=== PATIENT | female | born 1965 | race Caucasian/White ===

== ENCOUNTER 2019-08-04 14:04 | Outpatient (CLI) | payer SELFPAY ==
--- NOTE | 2019-08-04 14:20 | CT_ITS ---
WS: [id number] CT CHEST TECHNIQUE: Noncontrast CT of the chest with coronal and sagittal reformatted images. CLINICAL INFORMATION: RLL PERIHILAR LUNG LESION, ? IRENE LESION COMPARISON: None. DLP: 1087.[address] scans at [facility] use at least one of these dose optimization techniques: automat ed exposure control; mA and/or kV adjustment per patient size (includes targeted exams where dose is matched to clinical indication); or iterative reconstruction. FINDINGS: Mild chronic emphysematous changes. No acute pulmonary infiltrates. Subsegmental atelectasis right lo wer lobe and left lower lobe. No acute-appearing pulmonary infiltrates. No consolidation or pleural f luid. Small groundglass nodule right lower lobe measuring 4 mm. Additional tiny adjacent satellite no dule. Recommend 6 month follow-up. No other suspicious pulmonary parenchymal abnormalities. Thoracic curve convex right. Mild thoracic kyphosis. Degenerative arthritis midthoracic spin No mediastinal or hilar lymphadenopathy. Normal endobronchial tree. Cholecystectomy clips. Cirrhotic configuration to the liver. Recommend correlation with liver functio n tests. Partially visualized enlarged lymph nodes in the upper abdomen. CT/CT chest wo con [id number] IMPRESSION: 1. No acute pulmonary infiltrates. No focal pneumonia. 2. 4 mm groundglass nodule right lower lobe with tiny satellite nodule. Recomm end 6 month follow-up. 3. Mild chronic emphysematous changes. 4. No mediastinal or hilar lymphadenopathy. 5. Nodular contour to the hepatic capsule suspicious for cirrhosis. Recommend correlation with liver function tests 6. Enlarged lymph nodes in the upper abdomen. This can be followed up with CT abdomen pelvis.
== END 2019-08-04 14:05 | disposition home or self-care (01) ==
LOC: RADWPI 14:10
PROVIDERS: Family Provider Nurse Practitioner; PCP General Practice; Visit Provider General Practice
DX: J43.9 Emphysema, unspecified (principal); R91.1 Solitary pulmonary nodule
CPT/HCPCS: 71250

== ENCOUNTER 2019-10-05 20:12 | Inpatient (IN) | payer SELFPAY ==
[2019-10-05] VITALS (9 sets, daily range): BP systolic 78–113; BP diastolic 54–67; PULSE 95–150; RESP 14–24; TEMP 38.2; O2SAT 94–100; BMI 33.7
--- NOTE | 2019-10-05 20:18 | XR_ITS ---
WS: [id number] Portable AP supine chest, 10/05/2019 Clinical Data: cough Comparison: PA and lateral chest, 03/13/2019. Findings: No nodules, masses or effusions are seen. The heart is normal. The pulmonary vascularity is not increased. No pneumonia or pneumothorax is seen. There is a dextroscoliosis. Monitor leads are o n the chest wall. XR/XR chest 1V portable [id number] Impression: Negative chest.
--- NOTE | 2019-10-05 20:18 | XR_ITS ---
WS: [id number] Right foot, 3 views, 10/05/2019 Clinical Data: Dog bite/infection Comparison: Right foot, 01/16/2013. Findings: No fractures or dislocations are seen. No bone destruction or erosion is noted. The joint spaces and soft tissues are normal. There is a small cyst at the base of the right fifth metatarsal. There is a small Achilles spur. No r adiopaque foreign bodies are noted. XR/XR foot RT min 3V* [id number] Impression: Negative right foot.
--- NOTE | 2019-10-05 20:20 | ECG_ITS ---
Measurements Intervals [place] Rate: 111 P: 68 [place]: 165 QRS: 69 QRSD: 100 T: 66 QT: 327 QTc: 444 SINUS TACHYCARDIA No previous ECG available for comparison Electronically Signed On 10-06-2019 19:51:42 CDT by Calista Moreno M.D. [email or web address]
--- NOTE | 2019-10-05 20:29 | W.ED.EXTPRO ---
HPI - Extremity Problem General: Chief complaint: Extremity Problem,Nontraumatic Stated complaint: sepsis possible Time Seen by Provider: 10/05/19 20:18 History of Present Illness: HPI Narrative: Jennifer is a 53-year-old female who comes in with report of fever and right foot pain. She was bitten by a puppy 8 days ago and since that time her foot is gotten progressively more painful, red and is showing signs of infection. Apparently she had a large fluid-filled blister that popped at home which drained a large amount of blood and purulent material. The patient has had a fever as high as 103.1 and is complaining of severe right foot pain. Previously she had not had much pain secondary to neuropathy. The animal can be observed and is believed to have had its shots. Associated symptoms: Reports fever(s); Deny chest pain or rash Review of Systems Const: Reports: fever(s) and chills; Denies: body aches, fatigue, malaise, night sweats or diaphoresis Eyes: Denies: change in vision, blurry vision or blind spots ENMT: Denies: throat pain, odynophagia, hoarseness, ear or mastoid pain, ear discharge, change in hearing or nasal discharge Card: Denies: chest pain, palpitations, irregular heart rhythm, lightheadedness, syncope, pre-syncope, dyspnea on exertion or orthopnea Resp: Denies: dyspnea, productive cough, non-productive cough, wheezing, hemoptysis or chest congestion GI: Denies: abdominal pain, nausea, vomiting, hematemesis, coffee ground emesis, heartburn, diarrhea, constipation, GI cramping, hematochezia or melena : Denies: flank pain, dysuria, urinary frequency, urinary urgency, oliguria, urinary incontinence or hematuria Musc: Reports: extremity pain and joint pain; Denies: neck pain, back pain, extremity swelling, joint swelling, joint redness, joint warmth or joint stiffness Skin/Breast: Reports: erythema; Denies: rash, pruritus, skin tenderness or jaundice Neuro: Denies: headache(s), numbness in extremities, weakness in extremities, sensory changes, lack of coordination, difficulty walking, dizziness, vertigo, confusion or Slurred speech present Endo: Denies: polyuria, polydipsia, tired all the time, cold intolerance, excessive sweating, flushing, hot flashes or heat intolerance Daniel/Lymph: Denies: easy bruising, easy bleeding, petechiae, purpura or enlarged lymph nodes All/Imm: Denies: urticaria, throat swelling, tongue swelling, facial swelling or acute wheezing PFSH ED PFSH: Medical History COPD (chronic obstructive pulmonary disease) Depression Diabetes mellitus Hyperlipidemia Hypertension Surgical History Previous section S/P cholecystectomy Social History Smoking and tobacco status: current every day smoker Physical Exam Const: COMMON NORMALS: no acute distress, patient oriented x3, no limitations, healthy appearing and well nourished EXAM LIMITATIONS: no altered mental status GENERAL APPEARANCE: cooperative, well kempt and well developed HENMT: COMMON NORMALS: normocephalic, atraumatic, hearing grossly normal bilaterally, external ears normal, EAC's normal, Normal external nose present and moist oral mucous membranes HEAD & SCALP: normal to inspection, normocephalic and atraumatic FACE & SINUS: normal facial exam and face symmetric NOSE: Normal external nose present and Normal nares present EXTERNAL EAR: Yes external ears normal EXTERNAL AUDITORY CANAL: EAC's normal MOUTH: Normal oral and palatal mucosa present, lip normal and tongue normal Eye: COMMON NORMALS: Equal, round and reactive pupils present, EOMs intact bilaterally, conjunctivae normal and no scleral icterus GENERAL EYE: appearance normal, both eyes and all related structures ALIGNMENT: Yes alignment normal PERIORBITAL: periorbital findings normal EYELID: eyelids normal CONJUNCTIVA: Yes conjunctivae normal SCLERA: sclerae normal PUPIL: Yes Equal, round and reactive pupils present Neck/C-Spine: COMMON NORMALS: full ROM, no lymphadenopathy, supple, no meningeal signs and no JVD GENERAL: Yes normal visual inspection and Yes trachea midline CERVICAL SPINE: Yes cervical ROM normal Chest: COMMONS NORMALS: normal inspection of the chest and normal palpation of entire chest wall Resp: COMMON NORMALS: normal respiratory effort, No retractions, No use of accessory muscles and clear to auscultation bilaterally EFFORT & INSPECTION: Yes able to speak in complete sentences AUSCULTATION: clear to auscultation bilaterally, no crackles, no rales, no rhonchi and no wheezes Cardio: COMMON NORMALS: no JVD, regular rate, regular rhythm, S1 normal heart sound present, S2 normal heart sound present, No gallops present (Cardio), No clicks present (Cardio), No murmurs present (Cardio) and No rub (Cardio) RATE: regular rate RHYTHM: regular rhythm HEART SOUNDS: S1 normal heart sound present, S2 normal heart sound present, no click, no gallops, no murmurs and no rubs GI: COMMON NORMALS: Soft to palpation, non-tender, No hepatosplenomegaly present and no masses PALPATION: Yes Soft to palpation, No Tenderness to palpation present (GI), No Guarding due to palpation present (GI), No Rigid due to palpation, Yes No hepatosplenomegaly present, No Hernia present, No Palpable mass present and No Pulsatile mass present : COMMON NORMALS: Yes no CVA tenderness BLADDER/KIDNEY EXAM: Yes no CVA tenderness EXTERNAL FEMALE EXAM: No Hernia present Back/Pelvis: COMMON NORMALS: no CVA tenderness, thoracic and lumbar spine normal to inspection, no thoracic nor lumbar tenderness and thoraco-lumbar ROM normal Extremity: NARRATIVE EXTREMITY EXAM: Right foot with obvious severe cellulitis with skin sloughing. No crepitance. Neuro: COMMON NORMALS: patient oriented x3, CN's II-XII intact bilaterally, moves all extremities, no focal motor deficits and no sensory deficits noted MENINGEAL SIGNS: Yes no meningeal signs SPEECH: speech normal Psych: APPEARANCE: Yes well kempt Skin: COMMON NORMALS: no rashes or lesions noted, turgor normal, no jaundice, no petechiae and no mottling GENERAL SKIN EXAM: no rashes or lesions noted and turgor normal Course Vital Signs: Vital signs: Vital Signs Temperature 98.4 F 10/06/19 00:00 Pulse Rate 111 H 10/06/19 02:00 Respiratory Rate 19 H 10/06/19 02:00 Blood Pressure 107/72 10/06/19 02:00 Pulse Oximetry 95 10/06/19 01:00 MDM - Extremity (Nontraumatic) MDM Narrative: Medical decision making narrative: Ms. Whitman is a nice 53-year-old female who comes in with sepsis from a dog bite to her foot. According to her the animal has had it shots and can be quarantined if necessary. The patient has an obvious infection that apparently had a bullae or pus pocket that spontaneously drained at home. The patient has been hypotensive here. She will be going to the ICU with Levophed running and a podiatry consult in the morning. Lab Data: Attestation: I reviewed the patient's lab results. Labs: Lab Results 10/05/19 10/05/19 10/05/19 Range/Units 20:35 20:35 20:35 WBC 6.7 (4.0-10.0) 10^3/ uL RBC 3.50 L (4.1-5.3) 10^6/u L Hgb 10.5 L (11.5-15.3) g/dL Hct 32.2 L (37.0-47.0) % MCV 92.0 (81-99) fL MCH 30.0 (28.0-34.0) pg MCHC 32.6 (30.0-36.0) g/dL RDW 13.8 (12.1-15.1) % Plt Count 167 (130-400) 10^3/c mm MPV 10.3 (7.4-10.4) fL Neut % (Auto) 78.7 % Lymph % (Auto) 9.1 % Winn % (Auto) 10.8 % Eos % (Auto) 0.3 % Baso % (Auto) 0.1 % Neut # (Auto) 5.3 (1.8-7.7) 10^3/u L Lymph # (Auto) 0.6 L (0.8-4.8) 10^3/u L Winn # (Auto) 0.7 (0.2-0.9) 10^3/u L Eos # (Auto) 0.0 (0.0-0.8) 10^3/u L Baso # (Auto) 0.0 (0.0-0.1) 10^3/u L Nucleated RBC % (a uto) 0 % Nucleated RBCs # 0.0 /100WBC PT 15.60 H (10.5-13.3) SECO NDS INR 1.20 (0.8-1.2) Specimen Type Sample Site ABG pH (7.35-7.45) ABG pCO2 (35-45) mmHg ABG pO2 (80.0-100.0) mmH g ABG HCO3 (22-26) mmol/L ABG O2 Saturation ABG Base Excess (-2.0-2.0) mmol/ L Kurt Test A-a O2 Gradient (5-10) mmHg Hematocrit (37-47) % Hgb O2 Saturation (95-100) % Carboxyhemoglobin (0.4-20.1) %THgb Methemoglobin (0.4-1.5) % Total Hemoglobin (12-16) g/dL Ionized Calcium (1.1-1.4) mmol/L O2 Delivery Device O2 Liters/Min % [facility] [employer] ID Sodium 128 L (136-145) mmol/L Potassium 4.4 (3.5-5.1) mmol/L Chloride 92 L (98-107) mmol/L Carbon Dioxide 25 (22-29) mmol/L Anion Gap 15.4 (5-19) BUN 24 H (6-20) mg/dL Creatinine 1.2 H (0.5-0.9) mg/dL GFR Calculation 47.2 L (90-130) mL/min Glucose 433 H (65-115) mg/dL Calculated Osmolal ity 281 L (285-295) mOsm/k g Lactic Acid (0.5-2.2) mmol/L Calcium 9.6 (8.5-10.5) mg/dL Magnesium 1.7 (1.7-2.3) mg/dL Total Bilirubin 0.5 (0.15-1.2) mg/dL AST 27 (0-32) U/L ALT 23 (0-33) U/L Alkaline Phosphata se 142 H (35-105) IU/L Troponin T Baselin e (0-10) ng/mL Total Protein 7.2 (6.6-8.7) g/dL Albumin 2.6 L (3.5-5.2) g/dL Globulin 4.6 (1.3-4.6) g/dL Serum Ketones (Negative) 10/05/19 10/05/19 10/05/19 Range/Units 20:35 20:35 20:35 WBC (4.0-10.0) 10^3/ uL RBC (4.1-5.3) 10^6/u L Hgb (11.5-15.3) g/dL Hct (37.0-47.0) % MCV (81-99) fL MCH (28.0-34.0) pg MCHC (30.0-36.0) g/dL RDW (12.1-15.1) % Plt Count (130-400) 10^3/c mm MPV (7.4-10.4) fL Neut % (Auto) % Lymph % (Auto) % Winn % (Auto) % Eos % (Auto) % Baso % (Auto) % Neut # (Auto) (1.8-7.7) 10^3/u L Lymph # (Auto) (0.8-4.8) 10^3/u L Winn # (Auto) (0.2-0.9) 10^3/u L Eos # (Auto) (0.0-0.8) 10^3/u L Baso # (Auto) (0.0-0.1) 10^3/u L Nucleated RBC % (a uto) % Nucleated RBCs # /100WBC PT (10.5-13.3) SECO NDS INR (0.8-1.2) Specimen Type Sample Site ABG pH (7.35-7.45) ABG pCO2 (35-45) mmHg ABG pO2 (80.0-100.0) mmH g ABG HCO3 (22-26) mmol/L ABG O2 Saturation ABG Base Excess (-2.0-2.0) mmol/ L Kurt Test A-a O2 Gradient (5-10) mmHg Hematocrit (37-47) % Hgb O2 Saturation (95-100) % Carboxyhemoglobin (0.4-20.1) %THgb Methemoglobin (0.4-1.5) % Total Hemoglobin (12-16) g/dL Ionized Calcium (1.1-1.4) mmol/L O2 Delivery Device O2 Liters/Min % [facility] ID Sodium (136-145) mmol/L Potassium (3.5-5.1) mmol/L Chloride (98-107) mmol/L Carbon Dioxide (22-29) mmol/L Anion Gap (5-19) BUN (6-20) mg/dL Creatinine (0.5-0.9) mg/dL GFR Calculation (90-130) mL/min Glucose (65-115) mg/dL Calculated Osmolal ity (285-295) mOsm/k g Lactic Acid 2.1 (0.5-2.2) mmol/L Calcium (8.5-10.5) mg/dL Magnesium (1.7-2.3) mg/dL Total Bilirubin (0.15-1.2) mg/dL AST (0-32) U/L ALT (0-33) U/L Alkaline Phosphata se (35-105) IU/L Troponin T Baselin e 10 (0-10) ng/mL Total Protein (6.6-8.7) g/dL Albumin (3.5-5.2) g/dL Globulin (1.3-4.6) g/dL Serum Ketones Negative (Negative) 10/05/19 Range/Units 20:56 WBC (4.0-10.0) 10^3/ uL RBC (4.1-5.3) 10^6/u L Hgb (11.5-15.3) g/dL Hct (37.0-47.0) % MCV (81-99) fL MCH (28.0-34.0) pg MCHC (30.0-36.0) g/dL RDW (12.1-15.1) % Plt Count (130-400) 10^3/c mm MPV (7.4-10.4) fL Neut % (Auto) % Lymph % (Auto) % Winn % (Auto) % Eos % (Auto) % Baso % (Auto) % Neut # (Auto) (1.8-7.7) 10^3/u L Lymph # (Auto) (0.8-4.8) 10^3/u L Winn # (Auto) (0.2-0.9) 10^3/u L Eos # (Auto) (0.0-0.8) 10^3/u L Baso # (Auto) (0.0-0.1) 10^3/u L Nucleated RBC % (a uto) % Nucleated RBCs # /100WBC PT (10.5-13.3) SECO NDS INR (0.8-1.2) Specimen Type Arterial Sample Site Radial, right ABG pH 7.43 (7.35-7.45) ABG pCO2 38.5 (35-45) mmHg ABG pO2 89.8 (80.0-100.0) mmH g ABG HCO3 25.4 (22-26) mmol/L ABG O2 Saturation 97.7 ABG Base Excess 1.0 (-2.0-2.0) mmol/ L Kurt Test Pos A-a O2 Gradient 10.3 H (5-10) mmHg Hematocrit 29.8 L (37-47) % Hgb O2 Saturation 96.0 (95-100) % Carboxyhemoglobin 1.5 (0.4-20.1) %THgb Methemoglobin 0.3 L (0.4-1.5) % Total Hemoglobin 9.7 L (12-16) g/dL Ionized Calcium 1.2 (1.1-1.4) mmol/L O2 Delivery Device Nc O2 Liters/Min 2.0 % [facility] ID vossa Sodium 128.0 L (136-145) mmol/L Potassium 4.3 (3.5-5.1) mmol/L Chloride (98-107) mmol/L Carbon Dioxide (22-29) mmol/L Anion Gap (5-19) BUN (6-20) mg/dL Creatinine (0.5-0.9) mg/dL GFR Calculation (90-130) mL/min Glucose 447.0 H (65-115) mg/dL Calculated Osmolal ity (285-295) mOsm/k g Lactic Acid (0.5-2.2) mmol/L Calcium (8.5-10.5) mg/dL Magnesium (1.7-2.3) mg/dL Total Bilirubin (0.15-1.2) mg/dL AST (0-32) U/L ALT (0-33) U/L Alkaline Phosphata se (35-105) IU/L Troponin T Baselin e (0-10) ng/mL Total Protein (6.6-8.7) g/dL Albumin (3.5-5.2) g/dL Globulin (1.3-4.6) g/dL Serum Ketones (Negative) Imaging Data^: CXR: My impression: No acute cardiopulmonary findings. Right Foot: My impression: No evidence of osteomyelitis. EKG Data^: EKG 1: Attestation: I personally reviewed and interpreted this EKG as follows: EKG interpretation date: 10/05/19 EKG interpretation time: 21:02 Interpretation: Normal sinus rhythm at 123 beats a minute, nonspecific ST-T wave changes. EKG 2: Attestation: I personally reviewed and interpreted this EKG as follows: EKG interpretation date: 10/05/19 EKG interpretation time: 22:21 Interpretation: Normal sinus rhythm at 111 beats a minute, no acute ST or T wave changes. Discharge Plan Discharge Patient Disposition: Admitted As Inpatient Admit Provider: Richar Henning Clinical Impression: Cellulitis and abscess of right leg Sepsis Qualifiers: Sepsis type: sepsis due to unspecified organism Sepsis acute organ dysfunction status: without acute organ dysfunction Qualified Code(s): A41.9 - Sepsis, unspecified organism Condition: Stable Referrals: Erick Gill, [employer]CHNICIAN-C [Family Provider] - Huang Fitzgerald MD [Primary Care Provider] - Discharge Date/Time: 10/06/19 00:01 Coding Level of Care Code ED Assessment Rn for Chg Fwd Exam Comprehensive
[2019-10-05] MEDS: ondansetron 2 mg/ML SDV 2 mL 4 MG IVP (20:38)
[2019-10-05 20:44] LABS: Basophils % 0.1 %; Eosinophils % 0.3 %; Hematocrit 32.2 % (37.0-47.0); Hemoglobin 10.5 g/dL (11.5-15.3); Lymphocytes # 0.6 10^3/uL (0.8-4.8); Lymphocytes % 9.1 %; Mean Corpuscular HGB Conc 32.6 g/dL (30.0-36.0); Mean Platelet Volume 10.3 fL (7.4-10.4); Monocytes # 0.7 10^3/uL (0.2-0.9); Monocytes % 10.8 %; Neutrophils # 5.3 10^3/uL (1.8-7.7); Neutrophils % 78.7 %; Nucleated Red Blood Cells % 0 %; Platelet Count 167 10^3/cmm (130-400); Red Cell Distribution Width 13.8 % (12.1-15.1); White Blood Count 6.7 10^3/uL (4.0-10.0)
[2019-10-05 20:53] LABS: Ketone (Acetest) Serum Negative (Negative)
[2019-10-05 20:59] LABS: Alanine Aminotransferase 23 U/L (0-33); Albumin Level 2.6 g/dL (3.5-5.2); Alkaline Phosphatase 142 IU/L (35-105); Anion Gap 15.4 (5-19); Aspartate Amino Transferase 27 U/L (0-32); Blood Urea Nitrogen 24 mg/dL (6-20); Calcium 9.6 mg/dL (8.5-10.5); Carbon Dioxide 25 mmol/L (22-29); Chloride 92 mmol/L (98-107); Globulin 4.6 g/dL (1.3-4.6); Glomerular Filtration Rate 47.2 mL/min (90-130); Glucose 433 mg/dL (65-115); Magnesium 1.7 mg/dL (1.7-2.3); Osmolality Calculated 281 mOsm/kg (285-295); Potassium 4.4 mmol/L (3.5-5.1); Sodium 128 mmol/L (136-145); Total Bilirubin 0.5 mg/dL (0.15-1.2); Total Protein 7.2 g/dL (6.6-8.7)
[2019-10-05 21:00] LABS: Lactic Sepsis W/Reflex 2.1 mmol/L (0.5-2.2); Troponin(5th) Baseline 10 ng/mL (0-10)
[2019-10-05 21:08] LABS: ABG PCO2 38.5 mmHg (35-45); ABG PH Result 7.43 (7.35-7.45); Alveolar-Arterial Oxygen Gradi 10.3 mmHg (5-10); Arterial Blood Gas Hematocrit 29.8 % (37-47); Blood Gas Allen Test Pos; Blood Gas Sample Site Radial, right; Blood Gas Sample Type Arterial; Carboxyhemoglobin 1.5 %THgb (0.4-20.1); HCO3 ABG 25.4 mmol/L (22-26); Ionized Calcium Level - ABG 1.2 mmol/L (1.1-1.4); Methemoglobin 0.3 % (0.4-1.5); Oxygen Device NC; Oxygen Saturation ABG 97.7; PO2 ABG 89.8 mmHg (80.0-100.0); Potassium Level - ABG 4.3 mmol/L (3.5-5.0); Total Hemoglobin 9.7 g/dL (12-16)
[2019-10-05] MEDS: clindamycin 900 MG/50 ML PREMIX 100 MG IV (21:14)
[2019-10-05] MEDS: ciprofloxacin 400 MG/200 ML PREMIX 200 MG IV (21:49)
--- NOTE | 2019-10-05 22:20 | ECG_ITS ---
Measurements Intervals [place] Rate: 123 P: 67 [place]: 154 QRS: 70 QRSD: 94 T: 60 QT: 291 QTc: 418 SINUS TACHYCARDIA No previous ECG available for comparison Electronically Signed On 10-06-2019 20:22:14 CDT by Calista Moreno M.D. [id number]
[2019-10-05 22:26] LABS: Reflex Lactate Order REFLEX LACTIC ORDERD
[2019-10-05 23:18] LABS: Troponin 5 2HR 10.31 ng/mL (0-10); Troponin 5 2HR Delta 0.31 ABS# (0-10)
[2019-10-05] MEDS: sodium chloride 0.9% 1,000 ML 150 ML IV (23:20)
--- NOTE | 2019-10-05 23:59 | P.HP_ITS ---
Providers/Chief Complaint Admitting Physician: Richar Henning Primary Care Provider: Huang Fitzgerald MD Chief Complaint: SEPSIS History of Present Illness Jennifer Whitman is a 53 year old female with past medical history of diabetes, peripheral neuropathy and COPD who presents to emergency room with complaints of right foot swelling and redness. There is associated moderate intensity sharp pain. The patient was beaten by her own puppy about 8 days ago. She quickly developed redness in the right foot which gradually increased in the size involving almost entire foot. Today large fluid-filled blister popped at home and drained a large amount of purulent and bloody material. The patient reports temperature reaching 103.1 associated with chills. She denies any nausea or vomiting. Reports feeling thirsty. Denies diarrhea. No chest pain, shortness of breath, cough, palpitations. As mentioned above this bite was by her on dog which according to the patient re ceived all necessary vaccinations. They will continue monitoring behavior of the dog. Review of Systems General: Reports: 10 or more systems reviewed and unremarkable except in HPI and below Medications/Allergies Home Medications Medication Instructions Recorded Confirmed Last Taken Type Unable to Assess 10/05/19 10/05/19 Unknown History Allergies Allergy/AdvReac Type Severity Reaction Status Date / Time morphine Allergy ALGY-Anaphy Verified 10/06/19 00:14 laxis Penicillins Allergy ADR-Vomitin Verified 10/05/19 20:16 g PFSH Acute PFSH: Medical History COPD (chronic obstructive pulmonary disease) Depression Diabetes mellitus Hyperlipidemia Hypertension Surgical History Previous section S/P cholecystectomy Social History Smoking and tobacco status: current every day smoker Vitals/I&O/Wt Last Vital Signs Temp 100.8 F H 10/05/19 20:16 Pulse 95 10/05/19 23:32 Resp 16 10/05/19 23:32 BP 78/54 10/05/19 23:32 Pulse Ox 96 10/05/19 23:32 10/05/19 10/05/19 10/06/19 14:59 22:59 06:59 Intake Total 200 / 200 3120.710 / 3320.710 Balance 200 / 200 3120.710 / 3320.710 Weight last 48 hrs Weight 100.698 kg Physical Exam Narrative: EXAM NARRATIVE: The patient is awake alert and oriented. No apparent distress. Mood and affect are appropriate. Responses are adequate. Skin is warm and dry. Dry mucous membranes Eyes PERRLA, extraocular muscles intact. Normal speech. No facial asymmetry Neck is supple. No JVD Lungs clear bilaterally. No wheezes or crackles Heart S1, S2, regular tachycardia Abdomen is obese, soft, nontender, bowel sounds are present Extremities. Right foot hyperemic. There is a large skin defect with small amount of mucopurulent discharge. No bleeding. Left lower extremity without evidence of infection. Trace edema, no cyanosis no calf tenderness bilaterally. No focal muscle weakness. Data : 10/05/19 20:35 10/05/19 20:35 Other Labs: Laboratory Results WBC 6.7 10^3/uL (4.0-10.0) 10/05/19 20:35 RBC 3.50 10^6/uL (4.1-5.3) L 10/05/19 20:35 Hgb 10.5 g/dL (11.5-15.3) L 10/05/19 20:35 Hct 32.2 % (37.0-47.0) L 10/05/19 20:35 MCV 92.0 fL (81-99) 10/05/19 20:35 MCH 30.0 pg (28.0-34.0) 10/05/19 20:35 MCHC 32.6 g/dL (30.0-36.0) 10/05/19 20:35 RDW 13.8 % (12.1-15.1) 10/05/19 20:35 Plt Count 167 10^3/cmm (130-400) 10/05/19 20:35 MPV 10.3 fL (7.4-10.4) 10/05/19 20:35 Neut % (Auto) 78.7 % 10/05/19 20:35 Lymph % (Auto) 9.1 % 10/05/19 20:35 Brown % (Auto) 10.8 % 10/05/19 20:35 Eos % (Auto) 0.3 % 10/05/19 20:35 Baso % (Auto) 0.1 % 10/05/19 20:35 Neut # (Auto) 5.3 10^3/uL (1.8-7.7) 10/05/19 20:35 Lymph # (Auto) 0.6 10^3/uL (0.8-4.8) L 10/05/19 20:35 Brown # (Auto) 0.7 10^3/uL (0.2-0.9) 10/05/19 20:35 Eos # (Auto) 0.0 10^3/uL (0.0-0.8) 10/05/19 20:35 Baso # (Auto) 0.0 10^3/uL (0.0-0.1) 10/05/19 20:35 Nucleated RBC % (auto) 0 % 10/05/19 20:35 Nucleated RBCs # 0.0 /100WBC 10/05/19 20:35 PT 15.60 SECONDS (10.5-13.3) H 10/05/19 20:35 INR 1.20 (0.8-1.2) 10/05/19 20:35 Specimen Type Arterial 10/05/19 20:56 Sample Site Radial, right 10/05/19 20:56 ABG pH 7.43 (7.35-7.45) 10/05/19 20:56 ABG pCO2 38.5 mmHg (35-45) 10/05/19 20:56 ABG pO2 89.8 mmHg (80.0-100.0) 10/05/19 20:56 ABG HCO3 25.4 mmol/L (22-26) 10/05/19 20:56 ABG O2 Saturation 97.7 10/05/19 20:56 ABG Base Excess 1.0 mmol/L (-2.0-2.0) 10/05/19 20:56 Kurt Test Pos 10/05/19 20:56 A-a O2 Gradient 10.3 mmHg (5-10) H 10/05/19 20:56 Hematocrit 29.8 % (37-47) L 10/05/19 20:56 Hgb O2 Saturation 96.0 % (95-100) 10/05/19 20:56 Carboxyhemoglobin 1.5 %THgb (0.4-20.1) 10/05/19 20:56 Methemoglobin 0.3 % (0.4-1.5) L 10/05/19 20:56 Total Hemoglobin 9.7 g/dL (12-16) L 10/05/19 20:56 Sodium 128.0 mmol/L (131-143) L 10/05/19 20:56 Potassium 4.3 mmol/L (3.5-5.0) 10/05/19 20:56 Glucose 447.0 mg/dL (70-115) H 10/05/19 20:56 Ionized Calcium 1.2 mmol/L (1.1-1.4) 10/05/19 20:56 O2 Delivery Device Nc 10/05/19 20:56 O2 Liters/Min 2.0 % 10/05/19 20:56 Ophthalmic Surgical Assistant ID vossa 10/05/19 20:56 Sodium 128 mmol/L (136-145) L 10/05/19 20:35 Potassium 4.4 mmol/L (3.5-5.1) 10/05/19 20:35 Chloride 92 mmol/L (98-107) L 10/05/19 20:35 Carbon Dioxide 25 mmol/L (22-29) 10/05/19 20:35 Anion Gap 15.4 (5-19) 10/05/19 20:35 BUN 24 mg/dL (6-20) H 10/05/19 20:35 Creatinine 1.2 mg/dL (0.5-0.9) H 10/05/19 20:35 GFR Calculation 47.2 mL/min (90-130) L 10/05/19 20:35 Glucose 433 mg/dL (65-115) H 10/05/19 20:35 Calculated Osmolality 281 mOsm/kg (285-295) L 10/05/19 20:35 Lactic Acid 2.1 mmol/L (0.5-2.2) 10/05/19 20:35 Lactic Acid (Sepsis) 1.1 mmol/L (0.5-2.2) 10/05/19 23:34 Calcium 9.6 mg/dL (8.5-10.5) 10/05/19 20:35 Magnesium 1.7 mg/dL (1.7-2.3) 10/05/19 20:35 Total Bilirubin 0.5 mg/dL (0.15-1.2) 10/05/19 20:35 AST 27 U/L (0-32) 10/05/19 20:35 ALT 23 U/L (0-33) 10/05/19 20:35 Alkaline Phosphatase 142 IU/L (35-105) H 10/05/19 20:35 Troponin T Baseline 10 ng/mL (0-10) 10/05/19 20:35 Troponin T 120 Minute 10.31 ng/mL (0-10) H 10/05/19 23:00 Delta Troponin T 0.31 ABS# (0-10) 10/05/19 23:00 Total Protein 7.2 g/dL (6.6-8.7) 10/05/19 20:35 Albumin 2.6 g/dL (3.5-5.2) L 10/05/19 20:35 Globulin 4.6 g/dL (1.3-4.6) 10/05/19 20:35 Serum Ketones Negative (Negative) 10/05/19 20:35 Micro: Microbiology 10/05/19 20:36 Blood Culture - Preliminary Blood SPECIMEN COLLECTED 10/05/19 20:35 Blood Culture - Preliminary Blood SPECIMEN COLLECTED A&P Additional A&P Information 53-year-old female with past medical history of diabetes, COPD, peripheral ne uropathy who was beaten by her own dog and developed right foot cellulitis and abscess. The abscess opened by itself today at home with drainage of large amount of hemorrhagic/purulent fluid. The patient has severe sepsis with septic shock. Hypotensive even after initial bolus of IV fluids in ER. Severe sepsis and septic shock secondary to right foot cellulitis/abscess/dog bite. Will go to ICU. We will give her another bolus of IV fluids and continue maintenance fluids at 150 cc/h. Will order Levophed as needed to maintain blood pressure. Will consider additional boluses. The patient is allergic to penicillin. We will start her on metronidazole, Levaquin and vancomycin IV. Her dog will need to remain under constant observation by family member. Please discuss this with the patient again tomorrow. The patient will receive pain medications as needed. Dr. Luz, podiatry was called by ER and will see the patient in the morning. Severe hyperglycemia secondary to the sepsis. I will check her A1c level. We will cover her with insulin sliding scale. Will consider maintenance insulin tomorrow if blood sugar level remains elevated. COPD. Currently stable without evidence of exacerbation. Will order as needed DuoNeb treatments. Hyponatremia partly due to dehydration and partly due to hyperglycemia. Will monitor. Will manage it with normal saline. Possible mild acute kidney injury secondary to sepsis. Hydrate and continue monitoring. Anemia. Probably chronic. We will continue monitoring. GI prophylaxis. Famotidine. DVT prophylaxis. Will order heparin to be started tomorrow morning if it is okay from surgical standpoint. The patient was to be full code. The plan of care was discussed with the patient. She verbalized understanding and agreement. Attestations Medical Necessity Statement*: Critical care time spent on this encounter is 55 minutes. The patient was seen and evaluated on October 05, 2019 at 2345 Based on my assessment of patient's condition and diagnosis I expect that the patient will spend more than 2 midnights in the hospital. Coding Level of Care Code Acute Key Account Coordinator for M[facility]
[2019-10-06] VITALS (40 sets, daily range): BP systolic 74–133; BP diastolic 45–90; PULSE 90–135; RESP 15–28; TEMP 36.5–37.3; O2SAT 91–99; BMI 32.5
[2019-10-06] LABS: Lactic Acid level (Lactate) 1.1 mmol/L (0.5-2.2)
[2019-10-06] MEDS: famotidine 20 mg/2 mL INJ IVP ×2 (00:31→10:52)
[2019-10-06] MEDS: fentaNYL 50 mcg/mL INJ 2mL 25 MCG IVP ×4 (00:33→05:48)
[2019-10-06] MEDS: ondansetron 2 mg/ML SDV 2 mL 4 MG IVP (00:33)
[2019-10-06] MEDS: levofloxacin-dextrose 5 % 750 MG/150 ML PREMIX 100 MG IV ×2 (00:37→23:52)
[2019-10-06] MEDS: sodium chloride 0.9% 1,000 ML 999 ML IV (00:41)
--- NOTE | 2019-10-06 00:50 | PC.PHAR ---
Vancomycin is dosed at 100mg IVPB every 12 hours to produce a predicted trough level of 17.65 (population based pharmacokinetic analysis). A trough level has been ordered from the lab to be obtained before the fourth dose to confirm and adjust if needed.
[2019-10-06] MEDS: metroNIDAZOLE IV 500 MG/100 ML PREMIX 100 MG IV ×5 (02:12→22:56)
--- NOTE | 2019-10-06 02:20 | ECG_ITS ---
Measurements Intervals [place] Rate: 94 P: 61 ME: 164 QRS: 66 QRSD: 98 T: 65 QT: 368 QTc: 461 SINUS RHYTHM No previous ECG available for comparison Electronically Signed On 10-06-2019 20:20:42 CDT by Calista Moreno M.D. [email or web address]
[2019-10-06 02:49] LABS: Basophils % 0.2 %; Eosinophils % 0.2 %; Hematocrit 32.7 % (37.0-47.0); Hemoglobin 10.4 g/dL (11.5-15.3); Lymphocytes # 1.2 10^3/uL (0.8-4.8); Lymphocytes % 10.7 %; Mean Corpuscular HGB Conc 31.8 g/dL (30.0-36.0); Mean Corpuscular Hemoglobin 29.3 pg (28.0-34.0); Mean Corpuscular Volume 92.1 fL (81-99); Mean Platelet Volume 11.7 fL (7.4-10.4); Monocytes # 1.5 10^3/uL (0.2-0.9); Monocytes % 13.2 %; Neutrophils # 8.4 10^3/uL (1.8-7.7); Neutrophils % 74.9 %; Nucleated Red Blood Cells % 0 %; Platelet Count 174 10^3/cmm (130-400); Red Blood Count 3.55 10^6/uL (4.1-5.3); Red Cell Distribution Width 13.7 % (12.1-15.1); White Blood Count 11.2 10^3/uL (4.0-10.0)
[2019-10-06] MEDS: vancomycin 1,000 MG in sodium chloride 0.9% 250 ML 250 MG IV ×2 (02:54→14:39)
[2019-10-06 03:05] LABS: Anion Gap 19.8 (5-19); Blood Urea Nitrogen 21 mg/dL (6-20); Calcium 8.1 mg/dL (8.5-10.5); Carbon Dioxide 20 mmol/L (22-29); Chloride 96 mmol/L (98-107); Glomerular Filtration Rate 58.2 mL/min (90-130); Glucose 478 mg/dL (65-115); Magnesium 1.8 mg/dL (1.7-2.3); Osmolality Calculated 290 mOsm/kg (285-295); Potassium 4.8 mmol/L (3.5-5.1); Sodium 131 mmol/L (136-145)
[2019-10-06 03:06] LABS: Troponin 5 6HR 8.16 ng/mL (0-10)
[2019-10-06 03:07] LABS: Troponin 5 6HR Delta -1.84 ng/L (0-12)
[2019-10-06 03:31] LABS: Estmated Average Glucose 430; Hemoglobin A1C 16.6 % (4.0-6.0)
[2019-10-06 05:27] LABS: Glucose Point of Care 376 mg/dL (70-110)
--- NOTE | 2019-10-06 05:33 | PM.CONSULT ---
Providers/Reason For Consult Consulting Physican/Specialty*: Lonny Luz D.P.M. Reason for Consult*: Right foot wound with cellulitis Attending Physician: Richar Henning Primary Care Provider: Huang Fitzgerald MD History of Present Illness History of Present Illness Jennifer Whitman is a 53 year old female admitted to the ICU for sepsis secondary to right foot infection. She states that she was scratched by her dog 9 days ago, has had increased redness and pain, her helped her inez a large blister that drained pus. She reported to the emergency department last night and was subsequently admitted, she reports temperature at home reaching 103.1 with subjective chills. Patient states that her puppy is up-to-date on vaccinations. Review of Systems General: Reports: 10 or more systems reviewed and unremarkable except in HPI and below Const: Denies: fever(s) or chills Card: Denies: chest pain or palpitations Resp: Denies: productive cough GI: Denies: abdominal pain, nausea or vomiting : Denies: flank pain Musc: Reports: extremity pain, extremity swelling, joint pain, joint stiffness, limited range of motion and deformity Skin/Breast: Reports: skin tenderness, sores, nail changes and change in hair; Denies: rash Neuro: Reports: numbness in extremities, sensory changes and difficulty walking Psych: Denies: suicidal ideation Daniel/Lymph: Denies: easy bruising Meds/Allergies Home Medications and Allergies Home Medications Medication Instructions Recorded Confirmed Last Taken Type Unable to Assess 10/05/19 10/05/19 Unknown History Allergies Allergy/AdvReac Type Severity Reaction Status Date / Time morphine Allergy ALGY-Anaphy Verified 10/06/19 00:14 laxis Penicillins Allergy ADR-Vomitin Verified 10/05/19 20:16 g Current Medications Current Medications Generic Name Dose Route Start Last Admin Trade Name Freq PRN Reason Stop Dose Admin Famotidine 20 mg 10/05/19 23:45 10/06/19 00:31 Pepcid Inj IVP 20 mg Q12H [facility] Administration Fentanyl 25 mcg 10/06/19 00:03 10/06/19 03:54 Sublimaze IVP 25 mcg Q2H PRN Administration SEVERE PAIN Sodium Chloride 1,000 mls @ 150 mls/hr 10/05/19 21:45 10/06/19 02:55 Sodium Chloride 0.9% IV Infused .Q6H40M [facility] Infusion Norepinephrine Bitartrate 4 mg 254 mls @ 0 mls/hr 10/05/19 22:15 10/06/19 02:57 / Dextrose IV 2 mcg/min .Q0M ADAMS 7.6 mls/hr Titration Protocol Per Protocol Metronidazole 500 mg in 100 mls @ 100 mls/hr 10/05/19 23:45 10/06/19 05:18 Flagyl Iv IV 100 mls/hr Q6H [facility] Administration Protocol Levofloxacin/Dextrose 750 mg in 150 mls @ 100 mls/hr 10/05/19 23:45 10/06/19 02:57 Levaquin-D5w IV Infused Q24H [facility] Infusion Protocol Vancomycin HCl 1,000 mg/ 250 mls @ 250 mls/hr 10/06/19 01:00 10/06/19 03:45 Sodium Chloride IV Infused Q12H [facility] Infusion Protocol As Directed Sodium Chloride 1,000 mls @ 100 mls/hr 10/06/19 00:02 10/06/19 02:54 Sodium Chloride 0.9% IV Not Given .Q10H [facility] Insulin Aspart 0 unit 10/05/19 23:45 10/06/19 05:18 Novolog SUBCUT 14 unit Q6H [facility] Administration Protocol Ondansetron HCl 4 mg 10/06/19 00:02 10/06/19 00:33 Zofran IVP 4 mg Q6H PRN Administration NAUSEA AND VOMITING PFSH Acute PFSH: Medical History COPD (chronic obstructive pulmonary disease) Depression Diabetes mellitus Hyperlipidemia Hypertension Surgical History Previous section S/P cholecystectomy Social History Smoking and tobacco status: current every day smoker Vitals/I&O/Wt Last Vital Signs Temp 98.4 F 10/06/19 00:00 Pulse 100 10/06/19 04:00 Resp 16 10/06/19 04:00 BP 99/49 10/06/19 04:00 Pulse Ox 96 10/06/19 04:00 10/05/19 10/05/19 10/06/19 14:59 22:59 06:59 Intake Total 200 / 200 5784.133 / 5984.133 Balance 200 / 200 5784.133 / 5984.133 Weight last 48 hrs Weight 222 lb Physical Exam Narrative: EXAM NARRATIVE: GENERAL: Patient is alert and oriented ?3 and in no acute distress. The following is a focused bilateral lower extremity exam. VASCULAR: Dorsalis pedis and posterior tibial arteries are palpable +1 right foot this could be secondary to edema. Dorsalis pedis is palpable +2 left foot, posterior tibial artery palpable +1 left foot. Popliteal arteries palpable +2 bilaterally. Capillary refill time less than 3 seconds to the distal hallux bilaterally. Calf is supple and nontender proximally and distally. Decreased pedal hair growth bilaterally. Edema to the right foot and ankle this is nonpitting. NEUROLOGICAL: Protective sensation intact 3/10 sites, tested with [place] Bk monofilament to bilateral feet. DERMATOLOGICAL: Full-thickness wound exposed to extensor tendon at the dorsum of the right foot with surrounding erythema, proximal streaking to the ankle noted. Bedside debridement was performed extensor tendons were visualized with purulence. Lower extremity integument is thin and atrophic has shiny appearance. There are superficial excoriations at the anterior legs bilaterally these are stable without erythema warmth or drainage. Dystrophic toenails 1 through 5 bilaterally. Webspaces 1 through 4 are clean, dry and intact. MUSCULOSKELETAL: Pain to palpation at the right foot and ankle. No obvious crepitus, no strong malodor. Reducible hammertoe deformities on toes 2 through 5 bilaterally. Patient able to wiggle toes on command on the right foot. No pain with right posterior calf squeeze. No warmth at the right calf. Data Micro: Micro: Microbiology 10/05/19 20:36 Blood Culture - Pr eliminary Blood SPECIMEN [facility] 10/05/19 20:35 Blood Culture - Pr eliminary Blood SPECIMEN [facility] A&P Assessment and plan (1) Sepsis: Status: Acute Qualifiers: Sepsis acute organ dysfunction status: without acute organ dysfunction Sepsis type: sepsis due to unspecified organism Qualified Code(s): A41.9 - Sepsis, unspecified organism (2) Non-pressure chronic ulcer of other part of right foot with necrosis of muscle: Status: Acute (3) Cellulitis of right lower limb: Status: Acute (4) Diabetes mellitus: Status: Acute Patient has a wound exposed to tendon with cellulitis of the right lower extremity. On x-ray per my soft tissue emphysema present. No acute fracture or dislocation, no osseous erosions indicative of osteomyelitis. Bedside debridement performed down to extensor tendons at the right dorsal forefoot. Wound was flushed and swab cultures taken, sent to microbiology for culture and sensitivity. Patient will require surgical incision and debridement today, operating room does not have any availability this morning, will add on case at next available time slot looks like it will likely be around 2:00 this afternoon patient to be n.p.o. until surgery. Planning on continuation of empiric IV antibiotics, will take deep tissue cultures intraoperatively today. Planning on twice daily dressing changes Dakin's wet-to-dry. Coding Level of Care Code Acute Facility Maintenance Supervisor for [facility] Praveen Diagnoses Sepsis A41.9 Sepsis acute organ dysfunction status: without acute organ dysfunction Sepsis type: sepsis due to unspecified organism Non-pressure chronic ulcer of other part of right foot with necrosis of muscle L97.513 Cellulitis of right lower limb L03.115 Diabetes mellitus E11.9
[2019-10-06] MEDS: HYDROcodone-acetaminophen 5-325 mg Tablet 1 TAB PO ×4 (06:42→22:32)
[2019-10-06] MEDS: acetaminophen 325 mg Tablet 650 MG PO (06:42)
--- NOTE | 2019-10-06 06:45 | USCV_ITS ---
Jennifer Whitman Age: 53 Gender: F : 1965 Exam Date: 10/06/2019 07:13 Ordering Phys: Lonny Luz DPM Technologist: Exam [place] [facility] [place] Indication: RT FOOT ULCER RIGHT LEFT Brachial 114.00 mmHg Brachial 114.00 mmHg Pressure (mmHg) Waveform Pressure (mmHg) Waveform 131 High Thigh 133.00 131 Above Knee 122.00 130 Below Knee 122.00 118 LETTERPRESS SETTER 116.00 108 DPA 108.00 1.00 Ankle/Brachial Index 1.00 58.00 Pre-Exercise Toe Pressure 60.00 Pre-Exercise Toe/Brachial Index 0.52 0.51 FINDINGS Normal resting ABIs bilaterally Abnormal resting TBI bilaterally PVR waveforms showing loss of dicrotic notch bilaterally CONCLUSIONS Normal resting TBI and PVR waveforms within normal resting ABIs, suggestive of mild peripheral arterial disease bilaterally. No similar previous studies available for comparison Dr Marguerite Gotti MD [facility] (Electronically Signed) Final Date: 06 Oct 2019 19:36 S
[2019-10-06 07:51] LABS: Glucose Point of Care 386 mg/dL (70-110)
[2019-10-06] MEDS: heparin 5,000 unit/mL INJ 1 mL 5000 UNIT SUBCUT ×2 (10:53→22:55)
[2019-10-06] MEDS: sodium chloride 0.9% 1,000 ML 100 ML IV ×2 (10:55→16:42)
--- NOTE | 2019-10-06 11:42 | P.PN_ITS ---
Subjective Subjective: Interval history: Overall states she is doing all right. Her wound started 3 weeks ago after a scratch by her dog. Discussed w her regarding poorly controlled DM. She states she checks sugars at home twice daily. Says she takes insulin, but does not remember the dose. St ates she takes Humalog and remembers probably Lantus. Vitals/I&O/Wt Last Vital Signs Temp 98.4 F 10/06/19 10:00 Pulse 104 H 10/06/19 10:00 Resp 23 H 10/06/19 10:00 BP 100/68 10/06/19 10:00 Pulse Ox 95 10/06/19 10:00 10/05/19 10/06/19 10/06/19 22:59 06:59 14:59 Intake Total 200 / 200 5884.133 / 6084.133 Balance 200 / 200 5884.133 / 6084.133 Weight last 48 hrs Weight 97.069 kg Weight 100.698 kg Physical Exam Const: COMMON NORMALS: no acute distress and patient oriented x3 HENMT: COMMON NORMALS: oropharynx normal Neck/C-Spine: COMMON NORMALS: no JVD Resp: COMMON NORMALS: normal respiratory effort and clear to auscultation bilaterally AUSCULTATION: clear to auscultation bilaterally Cardio: COMMON NORMALS: no JVD, regular rhythm, S1 normal heart sound present, S2 normal heart sound present and No murmurs present (Cardio) RHYTHM: regular rhythm HEART SOUNDS: S1 normal heart sound present and S2 normal heart sound present GI: COMMON NORMALS: Normal to inspection, nondistended, normoactive bowel sounds present, Soft to palpation and non-tender PALPATION: Yes Soft to palpation Extremity: COMMON NORMALS: no joint enlargement and no pedal edema Neuro: COMMON NORMALS: patient oriented x3 and moves all extremities Skin: WOUNDS: Yes wounds noted (Dorsal right foot wound) Data : 10/06/19 02:31 10/06/19 02:31 Micro: Microbiology 10/05/19 20:36 Blood Culture - Preliminary Blood SPECIMEN COLLECTED 10/05/19 20:35 Blood Culture - Preliminary Blood SPECIMEN COLLECTED A&P Assessment and plan (1) Sepsis: Septic shock reported on presentation. This is been improving. She is now weaned down off of pressor. Secondary to right lower extremity wound infection, cellulitis. Continue vancomycin, Levaquin. Status: Acute Qualifiers: Sepsis acute organ dysfunction status: without acute organ dysfunction Sepsis type: sepsis due to unspecified organism Qualified Code(s): A41.9 - Sepsis, unspecified organism (2) Cellulitis and abscess of right leg: Requiring debridement. Is being scheduled likely for little bit later this afternoon. Maintain n.p.o. Continue antibiotics at this time. Appreciate podiatry recommendations. Wound has been present for about 3 weeks now, in the setting of poorly controlled diabetes, discussed with her we may need to consider additional follow-up with MRI to exclude osteomyelitis, possibly after discharge. Status: Acute (3) Diabetes mellitus: Hyperglycemia, with poorly controlled diabetes, A1c 16.6. She does not remember the doses of insulin, but remembers taking Humalog, glargine at home. Requested for medications to be reconciled. Will reorder. Discussed with her she needs stricter control of diabetes. Will need to monitor more often, currently does it twice a day. Will need intensification of insulin regimen. Follow-up with PCP. Status: Acute (4) COPD (chronic obstructive pulmonary disease): Not in exacerbation. Status: Acute Additional A&P Information Anemia: Monitor level for now. Acute kidney injury: Improving Hyponatremia: Consider pseudohyponatremia secondary to severe hyperglycemia. Improving. Attestations Medical Necessity Statement*: Continue admission for assessment of management of sepsis, right lower extremity wound in setting of poorly controlled diabetes. Coding Level of Care Code Acute Transplant Immunologist for [facility] Praveen Diagnoses Sepsis A41.9 Sepsis acute organ dysfunction status: without acute organ dysfunction Sepsis type: sepsis due to unspecified organism Cellulitis and abscess of right leg L03.115; L02.415 Diabetes mellitus E11.9 COPD (chronic obstructive pulmonary disease) J44.9
[2019-10-06 12:47] LABS: Glucose Point of Care 332 mg/dL (70-110)
--- NOTE | 2019-10-06 14:52 | ANES.PREANE2 ---
Pre-Anesthetic Assessment Pre-Anesthetic Assessment: Height/Weight: Height 1.73 m Weight 97.069 kg Temp Pulse Resp BP Pulse Ox 98.4 F 104 H 23 H 100/68 95 10/06/19 10:00 10/06/19 10:00 10/06/19 10:00 10/06/19 10:00 10/06/19 10:00 Proposed Procedure: Operation Date: 10/06/19 14:00 Proposed Procedures p Debridement right foot(Right) - Lonny Luz, DPM Was Beta Dave taken within 24 hours: N/A Last intake: Intake Last Liquid Date 10/05/19 Last Liquid Time 00:00 Last Solid Date 10/05/19 Last Solid Time 18:00 Social: Social History: Tobacco and No alcohol Exam: Pre-Anes Outpt Exam: alert, oriented x 3, clear to auscultation bilaterally and regular rate & rhythm Airway: Submandibular: WNL Cervical ROM: WNL MP: 2 Dentition: False and Full History/ROS: No significant history except as noted and No significant complaints Pulmonary: Pulmonary: COPD, Cough, RATLIFF and SOB CV/HEM: CV/HEM: None reported : : None reported Hepatic: Hepatic: None reported GI: GI: None reported Metabolic: Metabolic: DM and Morbid obesity Musc/skel: Musc/skel: None reported Neuropsych: Neuropsych: Anxiety Anesthetic Plan: ASA status: 3 Anesthesia: Anesthesia Evaluation and MAC Risk of > 500 ml blood loss (7ml/kg in children): No Meds/Allergies Current Medications: Current Medications Generic Name Dose Route Start Last Admin Trade Name Freq PRN Reason Stop Dose Admin Acetaminophen 650 mg 10/05/19 23:47 10/06/19 06:42 Tylenol PO 650 mg Q6H PRN Administration MILD PAIN Hydrocodone Bitart /Acetaminophen 1 tab 10/05/19 23:47 10/06/19 10:52 [place] 5-325 Mg PO 1 tab Q4H PRN Administration MODERATE PAIN Famotidine 20 mg 10/05/19 23:45 10/06/19 10:52 Pepcid Inj IVP 20 mg Q12H ADAMS Administration Fentanyl 25 mcg 10/06/19 00:03 10/06/19 05:48 Sublimaze IVP 25 mcg Q2H PRN Administration SEVERE PAIN Heparin Sodium (Be ef Lung) 5,000 unit 10/06/19 10:00 10/06/19 10:53 Heparin SUBCUT 5,000 unit Q12H ADAMS Administration Sodium Chloride 1,000 mls @ 150 m ls/hr 10/05/19 21:45 10/06/19 14:49 Sodium Chloride 0.9% IV Not Given .Q6H40M ADAMS Norepinephrine Bit artrate 4 mg 254 mls @ 0 mls/h r 10/05/19 22:15 10/06/19 02:57 / Dextrose IV 2 mcg/min .Q0M ADAMS 7.6 mls/hr Titration Protocol Per Protocol Metronidazole 500 mg in 100 mls @ 100 mls/hr 10/05/19 23:45 10/06/19 10:53 Flagyl Iv IV 100 mls/hr Q6H ADAMS Administration Protocol Levofloxacin/Dextr ose 750 mg in 150 mls @ 100 mls/hr 10/05/19 23:45 10/06/19 02:57 Levaquin-D5w IV Infused Q24H ADAMS Infusion Protocol Vancomycin HCl 1,0 00 mg/ 250 mls @ 250 mls /hr 10/06/19 01:00 10/06/19 14:39 Sodium Chloride IV 250 mls/hr Q12H ADAMS Administration Protocol As Directed Sodium Chloride 1,000 mls @ 100 m ls/hr 10/06/19 00:02 10/06/19 10:55 Sodium Chloride 0.9% IV 100 mls/hr .Q10H ADAMS Administration Insulin Aspart 0 unit 10/05/19 23:45 10/06/19 14:39 Novolog SUBCUT 10 unit Q6H ADAMS Administration Protocol Ondansetron HCl 4 mg 10/06/19 00:02 10/06/19 00:33 Zofran IVP 4 mg Q6H PRN Administration NAUSEA AND VOMITI NG PFSH Anesthesia PFSH: Medical History COPD (chronic obstructive pulmonary disease) Depression Diabetes mellitus Hyperlipidemia Hypertension Surgical History Previous section S/P cholecystectomy Social History Smoking and tobacco status: current every day smoker Data Anesthesia CBC & Chem 7: 10/06/19 02:31 10/06/19 02:31 Other Labs: Laboratory Results - last 48 hr 10/05/19 10/05/19 10/05/19 20:35 20:35 20:35 WBC 6.7 RBC 3.50 L Hgb 10.5 L Hct 32.2 L MCV 92.0 MCH 30.0 MCHC 32.6 RDW 13.8 Plt Count 167 MPV 10.3 Neut % (Auto) 78.7 Lymph % (Auto) 9.1 [place] % (Auto) 10.8 Eos % (Auto) 0.3 Baso % (Auto) 0.1 Neut # (Auto) 5.3 Lymph # (Auto) 0.6 L [place] # (Auto) 0.7 Eos # (Auto) 0.0 Baso # (Auto) 0.0 Nucleated RBC % (auto) 0 Nucleated RBCs # 0.0 PT 15.60 H INR 1.20 Specimen Type Sample Site ABG pH ABG pCO2 ABG pO2 ABG HCO3 ABG O2 Saturation ABG Base Excess Kurt Test A-a O2 Gradient Hematocrit Hgb O2 Saturation Carboxyhemoglobin Methemoglobin Total Hemoglobin Ionized Calcium O2 Delivery Device O2 Liters/Min Hadoop Infrastructure Architect ID Sodium 128 L Potassium 4.4 Chloride 92 L Carbon Dioxide 25 Anion Gap 15.4 BUN 24 H Creatinine 1.2 H GFR Calculation 47.2 L Glucose 433 H POC Glucose Estimat Average Glucose Hemoglobin A1c Calculated Osmolality 281 L Lactic Acid Lactic Acid (Sepsis) Calcium 9.6 Magnesium 1.7 Total Bilirubin 0.5 AST 27 ALT 23 Alkaline Phosphatase 142 H Troponin I 6 Hour Troponin I Hi Sens Del Troponin T Baseline Troponin T 120 Minute Delta Troponin T Total Protein 7.2 Albumin 2.6 L Globulin 4.6 Serum Ketones 10/05/19 10/05/19 10/05/19 20:35 20:35 20:35 WBC RBC Hgb Hct MCV MCH MCHC RDW Plt Count MPV Neut % (Auto) Lymph % (Auto) [place] % (Auto) Eos % (Auto) Baso % (Auto) Neut # (Auto) Lymph # (Auto) [place] # (Auto) Eos # (Auto) Baso # (Auto) Nucleated RBC % (auto) Nucleated RBCs # PT INR Specimen Type Sample Site ABG pH ABG pCO2 ABG pO2 ABG HCO3 ABG O2 Saturation ABG Base Excess Kurt Test A-a O2 Gradient Hematocrit Hgb O2 Saturation Carboxyhemoglobin Methemoglobin Total Hemoglobin Ionized Calcium O2 Delivery Device O2 Liters/Min [employer] Infrastructure Architect ID Sodium Potassium Chloride Carbon Dioxide Anion Gap BUN Creatinine GFR Calculation Glucose POC Glucose Estimat Average Glucose Hemoglobin A1c Calculated Osmolality Lactic Acid 2.1 Lactic Acid (Sepsis) Calcium Magnesium Total Bilirubin AST ALT Alkaline Phosphatase Troponin I 6 Hour Troponin I Hi Sens Del Troponin T Baseline 10 Troponin T 120 Minute Delta Troponin T Total Protein Albumin Globulin Serum Ketones Negative 10/05/19 10/05/19 10/05/19 20:56 23:00 23:34 WBC RBC Hgb Hct MCV MCH MCHC RDW Plt Count MPV Neut % (Auto) Lymph % (Auto) [place] % (Auto) Eos % (Auto) Baso % (Auto) Neut # (Auto) Lymph # (Auto) [place] # (Auto) Eos # (Auto) Baso # (Auto) Nucleated RBC % (auto) Nucleated RBCs # PT INR Specimen Type Arterial Sample Site Radial, right ABG pH 7.43 ABG pCO2 38.5 ABG pO2 89.8 ABG HCO3 25.4 ABG O2 Saturation 97.7 ABG Base Excess 1.0 Kurt Test Pos A-a O2 Gradient 10.3 H Hematocrit 29.8 L Hgb O2 Saturation 96.0 Carboxyhemoglobin 1.5 Methemoglobin 0.3 L Total Hemoglobin 9.7 L Ionized Calcium 1.2 O2 Delivery Device Nc O2 Liters/Min 2.0 Hadoop Infrastructure Architect ID vossa Sodium 128.0 L Potassium 4.3 Chloride Carbon Dioxide Anion Gap BUN Creatinine GFR Calculation Glucose 447.0 H POC Glucose Estimat Average Glucose Hemoglobin A1c Calculated Osmolality Lactic Acid Lactic Acid (Sepsis) 1.1 Calcium Magnesium Total Bilirubin AST ALT Alkaline Phosphatase Troponin I 6 Hour Troponin I Hi Sens Del Troponin T Baseline Troponin T 120 Minute 10.31 H Delta Troponin T 0.31 Total Protein Albumin Globulin Serum Ketones 10/06/19 10/06/19 10/06/19 02:31 02:31 02:31 WBC 11.2 H RBC 3.55 L Hgb 10.4 L Hct 32.7 L MCV 92.1 MCH 29.3 MCHC 31.8 RDW 13.7 Plt Count 174 MPV 11.7 H Neut % (Auto) 74.9 Lymph % (Auto) 10.7 [place] % (Auto) 13.2 Eos % (Auto) 0.2 Baso % (Auto) 0.2 Neut # (Auto) 8.4 H Lymph # (Auto) 1.2 [place] # (Auto) 1.5 H Eos # (Auto) 0.0 Baso # (Auto) 0.0 Nucleated RBC % (auto) 0 Nucleated RBCs # 0.0 PT INR Specimen Type Sample Site ABG pH ABG pCO2 ABG pO2 ABG HCO3 ABG O2 Saturation ABG Base Excess Kurt Test A-a O2 Gradient Hematocrit Hgb O2 Saturation Carboxyhemoglobin Methemoglobin Total Hemoglobin Ionized Calcium O2 Delivery Device O2 Liters/Min Hadoop Infrastructure Architect ID Sodium 131 L Potassium 4.8 Chloride 96 L Carbon Dioxide 20 L Anion Gap 19.8 H BUN 21 H Creatinine 1.0 H GFR Calculation 58.2 L Glucose 478 H POC Glucose Estimat Average Glucose Hemoglobin A1c Calculated Osmolality 290 Lactic Acid Lactic Acid (Sepsis) Calcium 8.1 L Magnesium 1.8 Total Bilirubin AST ALT Alkaline Phosphatase Troponin I 6 Hour 8.16 Troponin I Hi Sens Del -1.84 L Troponin T Baseline Troponin T 120 Minute Delta Troponin T Total Protein Albumin Globulin Serum Ketones 10/06/19 10/06/19 10/06/19 02:31 05:13 07:48 WBC RBC Hgb Hct MCV MCH MCHC RDW Plt Count MPV Neut % (Auto) Lymph % (Auto) [place] % (Auto) Eos % (Auto) Baso % (Auto) Neut # (Auto) Lymph # (Auto) [place] # (Auto) Eos # (Auto) Baso # (Auto) Nucleated RBC % (auto) Nucleated RBCs # PT INR Specimen Type Sample Site ABG pH ABG pCO2 ABG pO2 ABG HCO3 ABG O2 Saturation ABG Base Excess Kurt Test A-a O2 Gradient Hematocrit Hgb O2 Saturation Carboxyhemoglobin Methemoglobin Total Hemoglobin Ionized Calcium O2 Delivery Device O2 Liters/Min Hadoop Infrastructure Architect ID Sodium Potassium Chloride Carbon Dioxide Anion Gap BUN Creatinine GFR Calculation Glucose POC Glucose 376 386 Estimat Average Glucose 430 Hemoglobin A1c 16.6 H Calculated Osmolality Lactic Acid Lactic Acid (Sepsis) Calcium Magnesium Total Bilirubin AST ALT Alkaline Phosphatase Troponin I 6 Hour Troponin I Hi Sens Del Troponin T Baseline Troponin T 120 Minute Delta Troponin T Total Protein Albumin Globulin Serum Ketones 10/06/19 12:41 WBC RBC Hgb Hct MCV MCH MCHC RDW Plt Count MPV Neut % (Auto) Lymph % (Auto) [place] % (Auto) Eos % (Auto) Baso % (Auto) Neut # (Auto) Lymph # (Auto) [place] # (Auto) Eos # (Auto) Baso # (Auto) Nucleated RBC % (auto) Nucleated RBCs # PT INR Specimen Type Sample Site ABG pH ABG pCO2 ABG pO2 ABG HCO3 ABG O2 Saturation ABG Base Excess Kurt Test A-a O2 Gradient Hematocrit Hgb O2 Saturation Carboxyhemoglobin Methemoglobin Total Hemoglobin Ionized Calcium O2 Delivery Device O2 Liters/Min H[employer] Infrastructure Architect ID Sodium Potassium Chloride Carbon Dioxide Anion Gap BUN Creatinine GFR Calculation Glucose POC Glucose 332 Estimat Average Glucose Hemoglobin A1c Calculated Osmolality Lactic Acid Lactic Acid (Sepsis) Calcium Magnesium Total Bilirubin AST ALT Alkaline Phosphatase Troponin I 6 Hour Troponin I Hi Sens Del Troponin T Baseline Troponin T 120 Minute Delta Troponin T Total Protein Albumin Globulin Serum Ketones Micro: Microbiology 10/05/19 20:36 Blood Culture - Preliminary Blood SPECIMEN COLLECTED 10/05/19 20:35 Blood Culture - Preliminary Blood SPECIMEN COLLECTED Cardiac Studies: No Data to Display
--- NOTE | 2019-10-06 15:08 | PC.NURSE ---
To OR via bed.
[2019-10-06] MEDS: lidocaine 1% INJ 50 mL INJECTION (15:26)
[2019-10-06] MEDS: vancomycin 1,000 MG SDV 1000 MG XX (15:56)
[2019-10-06] MEDS: sodium hypochlorite 0.25% Btl 473 mL 1 APPLIC TOPICAL ×2 (16:00→16:05)
--- NOTE | 2019-10-06 16:24 | P.OP_ITS ---
Operative Report Date of procedure: October 06, 2019 Pre-op Diagnosis: Diabetic foot infection with cellulitis right lower extremity Post-op diagnosis: same Procedure Done: Incision and debridement of all nonviable epidermis, dermis, subcutaneous tissue, tendon, deep fascia and muscle. Implants: None Specimens removed/disposition: Soft tissue right foot sent to microbiology for culture and sensitivity. Pathology: none sent Surgeon: Lonny Luz D.P.M. Hand Button Splitter: Judy Anesthesia: MAC Estimated blood loss: 50 mL Tourniquet time: 13 minutes IV fluids: None Urine output: None Complications: None Findings: Devitalized epidermis, dermis, subcutaneous tissue, extensor tendons, tendon sheath, deep fascia and muscle. Tracking 15 cm Condition: stable Disposition: ICU Brief History: Diabetic foot infection exposed to extensor tendon met sepsis criteria on admission began approximately 9 days ago from a pet scratching her. Procedure: Under mild sedation the patient was brought to the operating room and placed, operating table in supine position. A timeout was performed. Anesthesia was administered by the anesthesia service. Local anesthesia was injected by myself 34 cc of 1% lidocaine plain and a right ankle block and proximal anterior leg block fashion. Well-padded pneumatic tourniquet was applied to the right high calf. Right lower extremity was scrubbed, prepped and draped utilizing normal aseptic technique. Right foot was elevated and the tourniquet was inflated to 250 mmHg. Attention was directed to a full-thickness wound exposed extensor tendons at the dorsum of the right foot measures 3 cm x 3 cm with devitalized margin surrounding erythema and proximal lymphangitic streaking to the anterior ankle. Sharp debridement was performed of epidermis, dermis, subcutaneous tissue, extensor tendon, deep fascia and intrinsic musculature at the dorsum of the foot of all devitalized tissue utilizing rondure, pickups and 15 blade. Wound margin was excised widely to fresh bleeding tissue. Wound probed and tracked distally and anteriorly 15 cm a linear incision was made to expose this fascial layer with further purulence the main tracking was tibialis anterior tendon and extensor hallucis longus tendon as well as at the midfoot the extensor digitorum longus. Incision site was flushed with copious months sterile saline solution followed by 2 L of pulse lavage. No further devitalized tissue appreciated. Incision site was dressed with vancomycin powder, Dakin's soaked 4 x 4's, dry sterile 4 x 4's, ABD pad, Kerlix and Sebastian wrap. Tourniquet was deflated and a prompt hyperemic response was noted to the distal digits of the right foot. Tourniquet time 13 minutes. Patient tolerated the procedure well. I was called back to the operating room due to bleeding through the dressing there was pulsatile bleeding at the dorsum of the right forefoot. The right foot was draped with sterile towels. Hemostats utilized to clamp the bleeders over total of 3 these were tied off with 3-0 Vicryl. Hemostasis adequately achieved and new dry sterile dressings applied wet-to-dry Dakin solution this was quarter percent Dakin's, sterile 4 x 4's, ABD pad, Kerlix and Sebastian wraps. No strikethrough bleeding appreciated on the second dressing. Patient will return to the ICU to continue empiric IV antibiotics planning on at least primary delayed closure if not an additional debridement pending her response to treatment thus far.
[2019-10-06 17:17] LABS: Glucose Point of Care 299 mg/dL (70-110)
[2019-10-06 17:17] LABS: Glucose Point of Care 247 mg/dL (70-110)
[2019-10-06 20:28] LABS: Glucose Point of Care 286 mg/dL (70-110)
--- NOTE | 2019-10-06 22:46 | PC.NURSE ---
Patient having intermittent runs of SVT with HR in 180s, lasting approx 5-10 seconds. Patient is asymptomatic, SBP 130s. Dr Bowers updated, orders received for 12-lead EKG and continue to monitor.
--- NOTE | 2019-10-06 22:54 | ECG_ITS ---
Measurements Intervals [place] Rate: 116 P: 56 [place]: 148 QRS: 56 QRSD: 92 T: 45 QT: 318 QTc: 442 SINUS TACHYCARDIA ABNORMAL RHYTHM ECG INTERPRETATION BASED ON A DEFAULT AGE OF 40 YEARS Compared to ECG 10/06/2019 02:42:01 Sinus rhythm no longer present Electronically Signed On 10-07-2019 20:48:26 CDT by Marguerite Gotti M.D. [email or web address]
[2019-10-07] VITALS (23 sets, daily range): BP systolic 92–139; BP diastolic 53–94; PULSE 93–136; RESP 13–23; TEMP 36.4–38.4; O2SAT 88–99
--- NOTE | 2019-10-07 00:18 | PC.NURSE ---
Dr Fonseca at bedside, updated on increased HR. Orders received for 5 mg IV metoprolol once
[2019-10-07] MEDS: metoprolol tartrate 1 mg/1 mL SDV 5 mL 5 MG IV (00:21)
[2019-10-07] MEDS: famotidine 20 mg/2 mL INJ IVP ×3 (00:27→22:55)
[2019-10-07 00:33] LABS: Glucose Point of Care 278 mg/dL (70-110)
[2019-10-07] MEDS: vancomycin 1,000 MG in sodium chloride 0.9% 250 ML 250 MG IV (01:12)
[2019-10-07] MEDS: acetaminophen 325 mg Tablet 650 MG PO (01:54)
[2019-10-07] MEDS: sodium chloride 0.9% 1,000 ML 100 ML IV ×2 (02:45→17:13)
[2019-10-07] MEDS: metroNIDAZOLE IV 500 MG/100 ML PREMIX 100 MG IV ×3 (05:05→17:12)
[2019-10-07 05:17] LABS: Glucose Point of Care 281 mg/dL (70-110)
[2019-10-07 05:40] LABS: Basophils % 0.1 %; Eosinophils % 0.3 %; Hematocrit 27.1 % (37.0-47.0); Hemoglobin 8.5 g/dL (11.5-15.3); Lymphocytes % 12.9 %; Mean Corpuscular HGB Conc 31.4 g/dL (30.0-36.0); Mean Corpuscular Hemoglobin 29.7 pg (28.0-34.0); Mean Corpuscular Volume 94.8 fL (81-99); Mean Platelet Volume 10.8 fL (7.4-10.4); Monocytes % 12.1 %; Neutrophils # 5.9 10^3/uL (1.8-7.7); Neutrophils % 74.1 %; Nucleated Red Blood Cells % 0 %; Platelet Count 177 10^3/cmm (130-400); Red Blood Count 2.86 10^6/uL (4.1-5.3); Red Cell Distribution Width 14.4 % (12.1-15.1)
[2019-10-07 06:03] LABS: Alanine Aminotransferase 25 U/L (0-33); Albumin Level 2.1 g/dL (3.5-5.2); Alkaline Phosphatase 156 IU/L (35-105); Anion Gap 15.2 (5-19); Aspartate Amino Transferase 33 U/L (0-32); Blood Urea Nitrogen 19 mg/dL (6-20); Calcium 9.4 mg/dL (8.5-10.5); Carbon Dioxide 20 mmol/L (22-29); Chloride 105 mmol/L (98-107); Globulin 4.5 g/dL (1.3-4.6); Glomerular Filtration Rate 87.9 mL/min (90-130); Glucose 273 mg/dL (65-115); Osmolality Calculated 288 mOsm/kg (285-295); Potassium 4.2 mmol/L (3.5-5.1); Sodium 136 mmol/L (136-145); Total Bilirubin 0.4 mg/dL (0.15-1.2); Total Protein 6.6 g/dL (6.6-8.7)
--- NOTE | 2019-10-07 06:08 | PM.PN ---
Subjective Subjective: Interval history: Ms. Whitman is 1 day status post I&D right foot. She denies any acute events overnight. Denies any right foot pain at this time. No strikethrough bleeding on the dressings. T-max overnight 101.2. Patient denies any subjective nausea, vomiting, fever, chills, shortness of breath or chest pain. Vitals/I&O/Wt Last Vital Signs Temp 97.6 F 10/07/19 04:00 Pulse 93 10/07/19 06:00 Resp 16 10/07/19 06:00 BP 92/67 10/07/19 06:00 Pulse Ox 92 10/07/19 06:00 10/06/19 10/06/19 10/07/19 14:59 22:59 06:59 Intake Total 100 / 100 1682.913 / 7132.818 5777.4 / 3014.313 Output Total 1200 / 1200 550 / 1750 500 / 2250 Balance -1100 / -1100 1132.913 / 32.913 731.4 / 764.313 Weight last 48 hrs Weight 214 lb 14.4 oz Weight 214 lb Weight 222 lb Physical Exam Narrative: EXAM NARRATIVE: Patient is alert and oriented ?3 and in no acute distress. The following is a focused bilateral lower extremity exam. VASCULAR: Dorsalis pedis and posterior tibial arteries are palpable +1 right foot this could be secondary to edema. Dorsalis pedis is palpable +2 left foot, posterior tibial artery palpable +1 left foot. Popliteal arteries palpable +2 bilaterally. Capillary refill time less than 3 seconds to the distal hallux bilaterally. Calf is supple and nontender proximally and distally. Decreased pedal hair growth bilaterally. Edema to the right foot and ankle this is nonpitting. NEUROLOGICAL: Protective sensation intact 3/10 sites, tested with Post Bk monofilament to bilateral feet. DERMATOLOGICAL: Full-thickness wound including surgical incision at the dorsum of the right foot and anterior leg measures 15 cm x 3 cm 5.5 cm, no purulent drainage, improved periwound erythema. No pulsatile bleeders. Wound is exposed to deep fascia, muscle and tendon. MUSCULOSKELETAL: Pain to palpation at the right foot and ankle. No crepitus. Reducible hammertoe deformities on toes 2 through 5 bilaterally. Patient able to wiggle toes on command on the right foot. No pain with right posterior calf squeeze. No warmth at the right calf. Data : 10/07/19 04:20 10/07/19 04:20 Micro: Microbiology 10/05/19 20:36 Blood Culture - Preliminary Blood NEGATIVE TO DATE 10/05/19 20:35 Blood Culture - Preliminary Blood NEGATIVE TO DATE A&P Assessment and plan (1) Sepsis: Status: Acute Qualifiers: Sepsis acute organ dysfunction status: without acute organ dysfunction Sepsis type: sepsis due to unspecified organism Qualified Code(s): A41.9 - Sepsis, unspecified organism (2) Non-pressure chronic ulcer of other part of right foot with necrosis of muscle: Status: Acute (3) Cellulitis of right lower limb: Status: Acute (4) Diabetes mellitus: Status: Acute -1 day status post incision and debridement right foot. Stable appearance at today's dressing change. Will continue Dakin's wet-to-dry daily. Recommend continuing empiric antibiotics, tissue cultures pending. -Planning on further debridement and delayed closure with wound VAC application on or Sunday this week. -Will need a wound VAC and wound care follow-up on discharge. Attestations Medical Necessity Statement*: Diabetic foot infection with cellulitis right lower extremity Coding Level of Care Code Acute Investment Underwriter for [facility] Diagnoses Sepsis A41.9 Sepsis acute organ dysfunction status: without acute organ dysfunction Sepsis type: sepsis due to unspecified organism Non-pressure chronic ulcer of other part of right foot with necrosis of muscle L97.513 Cellulitis of right lower limb L03.115 Diabetes mellitus E11.9
--- NOTE | 2019-10-07 06:56 | PC.NURSE ---
Dr Luz at bedside, updated on condition. Right foot dressing changed by physician.
[2019-10-07 07:46] LABS: Glucose Point of Care 246 mg/dL (70-110)
[2019-10-07] MEDS: sodium chloride 0.9% 1,000 ML 150 ML IV (08:28)
[2019-10-07] MEDS: metoclopramide 5 mg/mL SDV 2 mL 10 MG IVP (08:31)
[2019-10-07] MEDS: fentaNYL 50 mcg/mL INJ 2mL 25 MCG IVP (08:32)
[2019-10-07] MEDS: heparin 5,000 unit/mL INJ 1 mL 5000 UNIT SUBCUT ×2 (08:35→22:55)
[2019-10-07 09:48] LABS: Magnesium 1.6 mg/dL (1.7-2.3)
[2019-10-07 11:12] LABS: Glucose Point of Care 225 mg/dL (70-110)
[2019-10-07] MEDS: HYDROcodone-acetaminophen 5-325 mg Tablet 1 TAB PO ×3 (11:34→17:11)
[2019-10-07] MEDS: magnesium sulfate premix 2 GM/50 ML PIGGYBACK IV (11:46)
[2019-10-07 12:32] LABS: Vancomycin Trough 12.1 ug/mL (10-15)
[2019-10-07 16:53] LABS: Glucose Point of Care 233 mg/dL (70-110)
--- NOTE | 2019-10-07 17:27 | PC.NURSE ---
patient has difficulty finding words and answering questions even one as direct as her birthdate. she moves all extremities but is pained by any pressure around her foot and yells out with insulin shots. her was updated x2 today and she recieved shabazz. pain meds given when patient chilling and then she was able to consentrate enough to see the food tray on her desk but would forget to eat. blood sugars remain high and have required 8 units each time even when she did not eat. once she yelled out she could not take it anymore and was crying when asked why she was upset it was because she wanted a cup of cold tea. tea was given and she rested well until the chills came 2 hrs later. patient up to chair since 1400. she was obcessed with a letter written to her but did not appear to understand it.
--- NOTE | 2019-10-07 18:47 | PC.NURSE ---
patient chills, warmblanket and pain med with tylenol given and then she cries that she is hot and throws off covers and weeps.
--- NOTE | 2019-10-07 18:52 | P.PN_ITS ---
Subjective Subjective: Interval history: She is doing all right this morning. Denies any significant pain. Vitals/I&O/Wt Last Vital Signs Temp 98.5 F 10/07/19 12:00 Pulse 108 H 10/07/19 18:00 Resp 17 10/07/19 18:00 BP 118/65 10/07/19 18:00 Pulse Ox 97 10/07/19 18:00 10/07/19 10/07/19 10/07/19 06:59 14:59 22:59 Intake Total 1231.4 / 3014.313 2885 / 2885 650 / 3535 Output Total 500 / 2250 700 / 700 0 / 700 Balance 731.4 / 576.762 6980 / 2185 650 / 2835 Weight last 48 hrs Weight 97.477 kg Weight 97.069 kg Weight 100.698 kg Physical Exam Const: COMMON NORMALS: no acute distress and patient oriented x3 HENMT: COMMON NORMALS: oropharynx normal Neck/C-Spine: COMMON NORMALS: no JVD Resp: COMMON NORMALS: normal respiratory effort and clear to auscultation danyelle aterally AUSCULTATION: clear to auscultation bilaterally Cardio: COMMON NORMALS: no JVD, regular rhythm, S1 normal heart sound present, S2 normal heart sound present and No murmurs present (Cardio) RHYTHM: regular rhythm HEART SOUNDS: S1 normal heart sound present and S2 normal heart sound present GI: COMMON NORMALS: Normal to inspection, nondistended, normoactive bowel sounds present, Soft to palpation and non-tender PALPATION: Yes Soft to palpation Extremity: COMMON NORMALS: no joint enlargement and no pedal edema Neuro: COMMON NORMALS: patient oriented x3 and moves all extremities Skin: WOUNDS: Yes wounds noted (Dorsal right foot wound) Data : 10/07/19 04:20 10/07/19 04:20 Micro: Microbiology 10/06/19 06:08 Wound Culture - Preliminary Leg - Right Staphylococcus species 10/05/19 20:36 Blood Culture - Preliminary Blood NEGATIVE TO DATE 10/05/19 20:35 Blood Culture - Preliminary Blood NEGATIVE TO DATE A&P Assessment and plan (1) Sepsis: Improving. Leukocytosis resolved. Overall due to extensive purulent involvement, with tracking along tendons, extent of debridement, wound left open by podiatry. Needs continued hospitalization, IV antibiotics, reassessment for possible repeat debridement versus delayed primary closure. Reassessment for wound VAC application. Continue podiatry follow-up appreciated. Septic shock resolved. Secondary to right lower extremity wound infection, cellulitis. Staph aureus species growing in culture. Continue vancomycin, Levaquin. Poorly controlled diabetes. Discussed with her extensively regarding need for better control, risk of nonhealing wounds, worsening of condition, loss of limb or even life. She verbalized understanding. Status: Acute Qualifiers: Sepsis acute organ dysfunction status: without acute organ dysfunction Sepsis type: sepsis due to unspecified organism Qualified Code(s): A41.9 - Sepsis, unspecified organism (2) Cellulitis and abscess of right leg: As above. Wound has been present for about 3 weeks now, in the setting of poorly controlled diabetes, discussed with her we may need to consider additional follow-up with MRI to exclude osteomyelitis, possibly after discharge. Status: Acute (3) Diabetes mellitus: Hyperglycemia, with poorly controlled diabetes, A1c 16.6. Glucose so far better in the hospital. Discussed with her extensively needs better control at home. Needs to monitor more closely at least 4 times a day. Needs reevaluation and progressive intensification of insulin therapy, close follow-up with primary care provider. She verbalized understanding and agreement. Status: Acute (4) COPD (chronic obstructive pulmonary disease): Not in exacerbation. Status: Acute Additional A&P Information Anemia: Monitor level for now. Acute kidney injury: Improving Hyponatremia: Consider pseudohyponatremia secondary to severe hyperglycemia. Improving. Attestations Medical Necessity Statement*: Continue admission for assessment management of sepsis, extensive purulent cellulitis of right lower extremity in the setting of poorly controlled diabetes. Coding Level of Care Code Acute Public Employment Mediator for [facility] Diagnoses Sepsis A41.9 Sepsis acute organ dysfunction status: without acute organ dysfunction Sepsis type: sepsis due to unspecified organism Cellulitis and abscess of right leg L03.115; L02.415 Diabetes mellitus E11.9 COPD (chronic obstructive pulmonary disease) J44.9
[2019-10-07] MEDS: levofloxacin-dextrose 5 % 750 MG/150 ML PREMIX 100 MG IV (22:55)
[2019-10-07 22:57] LABS: Glucose Point of Care 210 mg/dL (70-110)
[2019-10-08] VITALS (14 sets, daily range): BP systolic 95–131; BP diastolic 53–81; PULSE 92–115; RESP 16–23; TEMP 36.5–37.4; O2SAT 92–99
[2019-10-08] MEDS: ondansetron 2 mg/ML SDV 2 mL 4 MG IVP (01:21)
[2019-10-08] MEDS: metroNIDAZOLE IV 500 MG/100 ML PREMIX 100 MG IV ×5 (01:25→23:42)
[2019-10-08] MEDS: sodium chloride 0.9% 1,000 ML 100 ML IV (05:26)
[2019-10-08 05:34] LABS: Basophils % 0.3 %; Eosinophils % 0.5 %; Hematocrit 25.1 % (37.0-47.0); Lymphocytes # 1.2 10^3/uL (0.8-4.8); Mean Corpuscular HGB Conc 31.9 g/dL (30.0-36.0); Mean Corpuscular Hemoglobin 29.6 pg (28.0-34.0); Mean Platelet Volume 10.4 fL (7.4-10.4); Monocytes # 0.9 10^3/uL (0.2-0.9); Monocytes % 11.7 %; Neutrophils # 5.4 10^3/uL (1.8-7.7); Neutrophils % 70.5 %; Nucleated Red Blood Cells % 0 %; Platelet Count 187 10^3/cmm (130-400); Red Cell Distribution Width 14.6 % (12.1-15.1); White Blood Count 7.7 10^3/uL (4.0-10.0)
[2019-10-08 05:55] LABS: Magnesium 1.5 mg/dL (1.7-2.3)
[2019-10-08 05:56] LABS: Alanine Aminotransferase 26 U/L (0-33); Alkaline Phosphatase 185 IU/L (35-105); Anion Gap 15.7 (5-19); Aspartate Amino Transferase 31 U/L (0-32); Blood Urea Nitrogen 13 mg/dL (6-20); Calcium 9.2 mg/dL (8.5-10.5); Carbon Dioxide 20 mmol/L (22-29); Chloride 104 mmol/L (98-107); Globulin 4.2 g/dL (1.3-4.6); Glucose 232 mg/dL (65-115); Osmolality Calculated 286 mOsm/kg (285-295); Potassium 3.7 mmol/L (3.5-5.1); Sodium 136 mmol/L (136-145); Total Bilirubin 0.4 mg/dL (0.15-1.2); Total Protein 6.2 g/dL (6.6-8.7)
--- NOTE | 2019-10-08 06:57 | PM.PN ---
Subjective Subjective: Interval history: Patient seen bedside this morning. She has 2 days status post incision and debridement right lower extremity secondary to infected wound with cellulitis. Had difficult time discussing patient's care with her this morning she was crying appears to be stressed out. She would not disclose her reason for being emotional or being stressed. Vitals/I&O/Wt Last Vital Signs Temp 98.4 F 10/08/19 04:00 Pulse 101 H 10/08/19 06:00 Resp 17 10/08/19 06:00 BP 131/81 10/08/19 06:00 Pulse Ox 94 10/08/19 06:00 10/07/19 10/07/19 10/08/19 14:59 22:59 06:59 Intake Total 2885 / 2885 1030 / 3915 1350 / 5265 Output Total 700 / 700 0 / 700 850 / 1550 Balance 2185 / 2185 1030 / 3215 500 / 3715 Weight last 48 hrs Weight 223 lb Weight 214 lb 14.4 oz Physical Exam Narrative: EXAM NARRATIVE: Patient is alert and oriented ?3 and in no acute distress. The following is a focused bilateral lower extremity exam. VASCULAR: Dorsalis pedis and posterior tibial arteries are palpable +1 right foot this could be secondary to edema. Dorsalis pedis is palpable +2 left foot, posterior tibial artery palpable +1 left foot. Popliteal arteries palpable +2 bilaterally. Capillary refill time less than 3 seconds to the distal hallux bilaterally. Calf is supple and nontender proximally and distally. Decreased pedal hair growth bilaterally. Edema to the right foot and ankle this is nonpitting. NEUROLOGICAL: Protective sensation intact 3/10 sites, tested with [place] Bk monofilament to bilateral feet. DERMATOLOGICAL: Full-thickness wound including surgical incision at the dorsum of the right foot and anterior leg measures 15 cm x 3 cm 5.5 cm, no purulent drainage, improved periwound erythema. No pulsatile bleeders. Wound is exposed to deep fascia, muscle and tendon. Central medial aspect of incision has skin necrosis has dusky moore appearance approximately 6 cm in length at the margin of the incision. MUSCULOSKELETAL: Pain to palpation at the right foot and ankle. No crepitus. Reducible hammertoe deformities on toes 2 through 5 bilaterally. Patient able to wiggle toes on command on the right foot. No pain with right posterior calf squeeze. No warmth at the right calf. Data : 10/08/19 05:05 10/08/19 05:05 Micro: Microbiology 10/06/19 06:08 Wound Culture - Preliminary Leg - Right Staphylococcus species A&P Assessment and plan (1) Sepsis: Status: Acute Qualifiers: Sepsis acute organ dysfunction status: without acute organ dysfunction Sepsis type: sepsis due to unspecified organism Qualified Code(s): A41.9 - Sepsis, unspecified organism (2) Non-pressure chronic ulcer of other part of right foot with necrosis of muscle: Status: Acute (3) Cellulitis of right lower limb: Status: Acute (4) Diabetes mellitus: Status: Acute -2 days status post incision and debridement right foot. Some skin necrosis at the incision margin. Will continue Dakin's wet-to-dry daily. Recommend continuing empiric antibiotics, tissue cultures pending. -Patient will need further debridement would like to do this tomorrow, patient not willing to discuss treatment plans as she is emotional this morning I will return this evening to further discuss plans for surgical debridement. -Planning on wound VAC at some point during this admission and on discharge. Attestations Medical Necessity Statement*: Diabetic foot infection with cellulitis Coding Level of Care Code Acute Radiologic Electronic Specialist for [facility] Fwd Diagnoses Sepsis A41.9 Sepsis acute organ dysfunction status: without acute organ dysfunction Sepsis type: sepsis due to unspecified organism Non-pressure chronic ulcer of other part of right foot with necrosis of muscle L97.513 Cellulitis of right lower limb L03.115 Diabetes mellitus E11.9
[2019-10-08 07:28] LABS: Glucose Point of Care 233 mg/dL (70-110)
--- NOTE | 2019-10-08 08:54 | P.PN_ITS ---
Subjective Subjective: Interval history: She was sad and emotional this morning reportedly when visited by podiatry. Crying. On my visit reports is feeling a little bit better, although does not discuss what has been bothering her. Does admit it is a family situation. Several handwritten letters on her table. Reports a history of depression. Denies thoughts of self-harm. Is agreeable to speak w psychiatry while here. Vitals/I&O/Wt Last Vital Signs Temp 98.4 F 10/08/19 04:00 Pulse 101 H 10/08/19 06:00 Resp 17 10/08/19 06:00 BP 131/81 10/08/19 06:00 Pulse Ox 94 10/08/19 06:00 10/07/19 10/08/19 10/08/19 22:59 06:59 14:59 Intake Total 1030 / 3915 1350 / 5265 250 / 250 Output Total 0 / 700 850 / 1550 Balance 1030 / 3215 500 / 3715 250 / 250 Weight last 48 hrs Weight 101.151 kg Weight 97.477 kg Physical Exam Const: COMMON NORMALS: patient oriented x3 OTHER: Tearful. HENMT: COMMON NORMALS: oropharynx normal Neck/C-Spine: COMMON NORMALS: no JVD Resp: COMMON NORMALS: normal respiratory effort and clear to auscultation bilaterally AUSCULTATION: clear to auscultation bilaterally Cardio: COMMON NORMALS: no JVD, regular rhythm, S1 normal heart sound present, S2 normal heart sound present and No murmurs present (Cardio) RHYTHM: regular rhythm HEART SOUNDS: S1 normal heart sound present and S2 normal heart sound present GI: COMMON NORMALS: Normal to inspection, nondistended, normoactive bowel sounds present, Soft to palpation and non-tender PALPATION: Yes Soft to palpation Extremity: COMMON NORMALS: no joint enlargement and no pedal edema Neuro: COMMON NORMALS: patient oriented x3 and moves all extremities Skin: WOUNDS: Yes wounds noted (Dorsal right foot wound covered by fresh dressing. No bleeding or strikethr) Data : 10/08/19 05:05 10/08/19 05:05 Micro: Microbiology 10/06/19 06:08 Wound Culture - Preliminary Leg - Right Staphylococcus species A&P Assessment and plan (1) Sepsis: Improving. Leukocytosis resolved, but still some persistent sinus tachycardia. Afebrile. Prescription with podiatry at this time not yet safe to reclose the wound. Likely she may need some additional debridement. Continue IV antibiotics at this time. Continue reassessment. She has been off pressors. We will move her out of ICU. Reassessment for wound VAC application. Staph aureus species growing in culture. Continue vancomycin, Levaquin. Needs better control of diabetes. Status: Acute Qualifiers: Sepsis acute organ dysfunction status: without acute organ dysfunction Sepsis type: sepsis due to unspecified organism Qualified Code(s): A41.9 - Sepsis, unspecified organism (2) Cellulitis and abscess of right leg: As above. Wound has been present for about 3 weeks now, in the setting of poorly controlled diabetes, discussed with her we may need to consider additional follow-up with MRI to exclude osteomyelitis, possibly after discharge. Status: Acute (3) Depression: Tearful this morning. She does not discuss what has caused her mood change, however, does say it is due to a family situation. Describes a history of depression in the past. Denies thoughts of self-harm. Agreeable to speak with psychiatry in the hospital. Appreciate consultation. Blood pressures have been better and we have gotten a home medication list, so we will restart several of her home medications including duloxetine, cyclobenzaprine, gabapentin at slightly lower dose. Monitor blood pressure. Transfer out of ICU to medical floor. Status: Acute (4) Diabetes mellitus: Hyperglycemia, with poorly controlled diabetes, A1c 16.6. Appears at home she takes 35 units of Lantus twice a day. Here sugars are no longer extremely high with her sliding scale insulin, and perhaps her diet is little bit better. For now we will start at 15 units twice a day. Change diet to consistent carbohydrate. Glucose so far better in the hospital. Discussed with her extensively needs better control at home. Needs to monitor more closely at least 4 times a day. Needs reevaluation and progressive intensification of insulin therapy, close follow-up with primary care provider. She verbalized understanding and agreement. Status: Acute (5) COPD (chronic obstructive pulmonary disease): Not in exacerbation. Status: Acute Additional A&P Information Anemia: Hb declining, down to 8. No outward bleeding. 50 mL EBL during foot I&D. Due to low blood pressure she has been receiving IV fluids. For now we will discontinue as blood pressures are better. Delusional component is likely, with chronic anemia. Will assess iron studies. MCV is normal. Check Hemocc ult. Acute kidney injury: Improving Hyponatremia: Consider pseudohyponatremia secondary to severe hyperglycemia. Improving. Attestations Medical Necessity Statement*: Continue assessment and management of resolving sepsis, purulent cellulitis, lower extremity wound in the setting of poorly controlled diabetes. Coding Level of Care Code Acute Assistant Community Manager for [facility] Fwd Diagnoses Sepsis A41.9 Sepsis acute organ dysfunction status: without acute organ dysfunction Sepsis type: sepsis due to unspecified organism Cellulitis and abscess of right leg L03.115; L02.415 Depression F32.9 Diabetes mellitus E11.9 COPD (chronic obstructive pulmonary disease) J44.9
[2019-10-08] MEDS: gabapentin 300 mg Capsule PO ×2 (08:57→18:40)
[2019-10-08] MEDS: magnesium sulfate premix 2 GM/50 ML PIGGYBACK IV (08:57)
[2019-10-08] MEDS: duloxetine 30 mg Capsule PO (08:57)
[2019-10-08] MEDS: pantoprazole DR 40 mg Tablet PO (08:57)
[2019-10-08] MEDS: heparin 5,000 unit/mL INJ 1 mL 5000 UNIT SUBCUT ×2 (09:01→21:10)
[2019-10-08 11:31] LABS: Ferritin 389 ng/mL (15-150); Iron 17 ug/dL (37-145); Percent Saturation 21.5 % (20-50); Total Iron Binding Capacity 79 mcg/dl; Unsaturated Iron Binding 62 ug/dL (112-347)
[2019-10-08] MEDS: insulin glargine 100 units/1 mL 15 UNIT SUBCUT ×2 (14:09→21:10)
[2019-10-08 14:49] LABS: Vancomycin Trough 15.6 ug/mL (10-15)
--- NOTE | 2019-10-08 17:44 | PC.NURSE ---
Dr Babin asked that we try to facetime patient's . Hope brought up IPad and tried to facetime patient's . Patient's doesn't have I Phone and is unable to facetime. Notified Dr Jack that we are not able to facetime patient's .
--- NOTE | 2019-10-08 20:00 | P.CONIM_ITS ---
Providers/Reason for Consult Consulting Physican/Specialty*: Olaf Babin M.D./Psychiatry Reason for Consult*: Possible depressive episode. Attending Physician: Tom Jack Primary Care Provider: Huang Fitzgerald MD Psych Consult HPI History of Present Illness Jennifer Whitman is a 53 year old female who was admitted for sepsis secondary to right foot infection. She states her dog scratched her 9 days ago, followed by increased redness and pain. Her helped her inez a large blister that drained pus. She reported to the emergency department the night of admission reporting a temperature at home reaching 103.1 with subjective chills. A complicating element is the patient's dysphoria and frequent tearfulness. She was thought to be possibly significantly depressed and so I was appropriately asked to consult. Review of Systems Narrative: Const: Denies: fever(s) or chills Card: Denies: chest pain or palpitations Resp: Denies: productive cough GI: Denies: abdominal pain, nausea or vomiting : Denies: flank pain Musc: Reports: extremity pain, extremity swelling, joint pain, joint stiffness, limited range of motion and deformity Skin/Breast: Reports: skin tenderness, sores, nail changes and change in hair; Denies: rash Neuro: Reports: numbness in extremities, sensory changes and difficulty walking Psych: Denies: suicidal ideation Daniel/Lymph: Denies: easy bruising Meds Current Medications: Current Medications Generic Name Dose Route Start Last Admin Trade Name Freq PRN Reason Stop Dose Admin Acetaminophen 650 mg 10/05/19 23:47 10/07/19 01:54 Tylenol PO 650 mg Q6H PRN Administration MILD PAIN Hydrocodone Bitart /Acetaminophen 1 tab 10/05/19 23:47 10/07/19 17:11 [place] 5-325 Mg PO 1 tab Q4H PRN Administration MODERATE PAIN Duloxetine HCl 30 mg 10/08/19 09:00 10/08/19 08:57 Cymbalta PO 30 mg DAILY ADAMS Administration Fentanyl 25 mcg 10/06/19 00:03 10/07/19 08:32 Sublimaze IVP 25 mcg Q2H PRN Administration SEVERE PAIN Gabapentin 300 mg 10/08/19 09:00 10/08/19 18:40 Neurontin PO 300 mg BID ADAMS Administration Heparin Sodium (Be ef Lung) 5,000 unit 10/06/19 10:00 10/08/19 09:01 Heparin SUBCUT 5,000 unit Q12H ADAMS Administration Norepinephrine Bit artrate 4 mg 254 mls @ 0 mls/h r 10/05/19 22:15 10/06/19 23:00 / Dextrose IV 0 mcg/min .Q0M ADAMS 0 mls/hr Titration Protocol Per Protocol Metronidazole 500 mg in 100 mls @ 100 mls/hr 10/05/19 23:45 10/08/19 18:33 Flagyl Iv IV 100 mls/hr Q6H ADAMS Administration Protocol Levofloxacin/Dextr ose 750 mg in 150 mls @ 100 mls/hr 10/05/19 23:45 10/08/19 07:03 Levaquin-D5w IV Infused Q24H ADAMS Infusion Protocol Vancomycin HCl 1,2 50 mg/ 250 mls @ 200 mls /hr 10/07/19 14:00 10/08/19 14:52 Sodium Chloride IV 200 mls/hr Q12H ADAMS Administration Protocol Insulin Aspart 0 unit 10/07/19 23:00 10/08/19 18:32 Novolog SUBCUT 14 unit WM&BEDTIME ADAMS Administration Protocol Insulin Glargine 15 unit 10/08/19 09:30 10/08/19 14:09 Lantus SUBCUT 15 unit Q12H ADAMS Administration Ondansetron HCl 4 mg 10/06/19 00:02 10/08/19 01:21 Zofran IVP 4 mg Q6H PRN Administration NAUSEA AND VOMITI NG Pantoprazole Sodiu m 40 mg 10/08/19 09:00 10/08/19 08:57 Protonix PO 40 mg DAILY ADAMS Administration PFSH NPU PFSH: Medical History COPD (chronic obstructive pulmonary disease) Depression Diabetes mellitus Hyperlipidemia Hypertension Surgical History Previous section S/P cholecystectomy Social History Smoking and tobacco status: current every day smoker Other Psychiatric History: Other Psychiatric History: Patient says she never had a period of depression like this, although there is depression mentioned above. Could not of been that severe in that she is never attempted suicide or harbored suicidal feelings. Mental Status Exam MSE Comments: The patient is alert and oriented to person, place, time, and situation. Hygiene is disheveled. Sensorium is sharp and she understands what we discuss and what's going on around her. The patient maintains appropriate eye contact, is cooperative and relates well to me. Behavior shows no psychomotor agitation. Mood is sad and dysphoric. Affect is appropriate to her mood, often tearful. She says she misses her . Because of COVID, he cannot come to see her. Thought processes are linear and goal-directed. They are free of racing, blocking or looseness of association. Speech is of normal rate and volume, without dysarthria, aprosody or pressure. There is no inordinate latency of response. The patient denies auditory or visual hallucinations or delusions. The patient denies suicidal or homicidal ideation, plan or intent. She exhibits no assaultive behavior. Memory is intact for recent and remote events. Fund of knowledge is adequate given vocabulary. Insight and judgment were deemed to be good given the recognition of problems and desire for treatment. Vitals/I&O/Wt Last Vital Signs Temp 99.4 F 10/08/19 16:00 Pulse 110 H 10/08/19 16:00 Resp 18 10/08/19 16:00 BP 118/57 10/08/19 16:00 Pulse Ox 96 10/08/19 16:00 10/08/19 10/08/19 10/08/19 07:59 15:59 23:59 Intake Total 1600 640 Output Total 850 750 Balance 750 -110 Weight last 48 hrs Weight 223 lb Weight 214 lb 14.4 oz Data NPU Micro: Micro: Microbiology 10/06/19 06:08 Wound Culture - Pr eliminary Leg - Right Staphylococcus species Strep agalactia e - (group b) Microbiology 10/06/19 06:08 Leg - Right Wound Culture - Preliminary Staphylococcus species Strep agalactiae - (group b) A&P Assessment and plan (1) Depression: I do not believe this depression is a true depressive episode arising from a long-standing major mood disorder. In a way, this woman is grieving over her isolation from those she loves. One of the things that support this conclusion is that truly depressed major depressive disorder patients have little or no ability to experience pleasure. When I formulated a solution to her isolation using digital video technology, she brightened up immediately and thereafter spoke with happiness about her daughter who will soon give her a grandchild. Indeed I believe such technology would be very useful in this unusual case. Perhaps [employer] or IT could develop this. Lastly, I do not think pharmacotherapy is necessary just yet. Status: Acute Involuntary Hold Information 96 Hour Hold: 96 Hour Involuntary Admission: No Attestations NPU Medical Necessity Statement*: I defer to other clinicians in determining medical necessity. Time Spent in Patient Care: Greater than 35 minutes (>than 50% of time spent in counselling and/or direct pt care on unit) . 90 minutes Coding Level of Care Code Acute Operating Room Scheduler for [facility] Diagnoses Depression F32.9
[2019-10-08 21:07] LABS: Glucose Point of Care 229 mg/dL (70-110)
[2019-10-08 21:08] LABS: Glucose Point of Care 364 mg/dL (70-110)
[2019-10-08 21:08] LABS: Glucose Point of Care 399 mg/dL (70-110)
[2019-10-08 21:08] LABS: Glucose Point of Care 253 mg/dL (70-110)
[2019-10-09] VITALS (7 sets, daily range): BP systolic 100–122; BP diastolic 61–70; PULSE 84–101; RESP 18–22; TEMP 36.3–37.1; O2SAT 90–97
[2019-10-09] MEDS: levofloxacin-dextrose 5 % 750 MG/150 ML PREMIX 100 MG IV (01:12)
[2019-10-09] MEDS: metroNIDAZOLE IV 500 MG/100 ML PREMIX 100 MG IV ×4 (05:24→23:40)
[2019-10-09 05:34] LABS: Basophils % 0.3 %; Eosinophils # 0.1 10^3/uL (0.0-0.8); Eosinophils % 0.8 %; Hematocrit 24.1 % (37.0-47.0); Hemoglobin 7.7 g/dL (11.5-15.3); Lymphocytes # 1.6 10^3/uL (0.8-4.8); Lymphocytes % 18.6 %; Mean Corpuscular Hemoglobin 28.9 pg (28.0-34.0); Mean Corpuscular Volume 90.6 fL (81-99); Mean Platelet Volume 10.4 fL (7.4-10.4); Monocytes % 11.3 %; Neutrophils # 5.7 10^3/uL (1.8-7.7); Neutrophils % 66.9 %; Nucleated Red Blood Cells % 0 %; Platelet Count 218 10^3/cmm (130-400); Red Blood Count 2.66 10^6/uL (4.1-5.3); Red Cell Distribution Width 14.6 % (12.1-15.1); White Blood Count 8.6 10^3/uL (4.0-10.0)
[2019-10-09 05:48] LABS: Alanine Aminotransferase 27 U/L (0-33); Albumin Level 1.9 g/dL (3.5-5.2); Alkaline Phosphatase 257 IU/L (35-105); Anion Gap 12.6 (5-19); Aspartate Amino Transferase 33 U/L (0-32); Blood Urea Nitrogen 9 mg/dL (6-20); Calcium 9.2 mg/dL (8.5-10.5); Carbon Dioxide 23 mmol/L (22-29); Chloride 101 mmol/L (98-107); Globulin 4.4 g/dL (1.3-4.6); Glucose 310 mg/dL (65-115); Osmolality Calculated 284 mOsm/kg (285-295); Potassium 3.6 mmol/L (3.5-5.1); Sodium 133 mmol/L (136-145); Total Bilirubin 0.4 mg/dL (0.15-1.2); Total Protein 6.3 g/dL (6.6-8.7)
[2019-10-09 06:10] LABS: 25 Hydroxy Vitamin D 24 ng/mL (30-100)
[2019-10-09 06:14] LABS: Magnesium 1.5 mg/dL (1.7-2.3)
--- NOTE | 2019-10-09 06:18 | PM.PN ---
Subjective Subjective: Interval history: Ms. Whitman is 3 days status post incision and debridement right lower extremity. She is in better spirits, [facility] been able to talk to her on the phone. Denies any specific complaints at this time. I was able to speak with her Davis, I was able to reach him on cell phone number [phone] and was able to speak with him outside of the hospital in person. He reports that his is depressed because she is unable to see him she also has stressors with her children she has 4 biological children, she had a son who years ago and has 2 daughters and 1 son living with her in [place]. Vitals/I&O/Wt Last Vital Signs Temp 98.8 F 10/09/19 04:00 Pulse 94 10/09/19 04:00 Resp 19 H 10/09/19 04:00 BP 117/69 10/09/19 04:00 Pulse Ox 91 10/09/19 04:00 10/08/19 10/08/19 10/09/19 14:59 22:59 06:59 Intake Total 890 / 890 350 / 1240 220 / 1460 Output Total 750 / 750 1200 / 1950 Balance 140 / 140 -850 / -710 220 / -490 Weight last 48 hrs Weight 225 lb 8 oz Weight 223 lb Physical Exam Narrative: EXAM NARRATIVE: Patient is alert and oriented ?3 and in no acute distress. The following is a focused bilateral lower extremity exam. VASCULAR: Dorsalis pedis and posterior tibial arteries are palpable +1 right foot this could be secondary to edema. Dorsalis pedis is palpable +2 left foot, posterior tibial artery palpable +1 left foot. Popliteal arteries palpable +2 bilaterally. Capillary refill time less than 3 seconds to the distal hallux bilaterally. Calf is supple and nontender proximally and distally. Decreased pedal hair growth bilaterally. Edema to the right foot and ankle this is nonpitting. NEUROLOGICAL: Protective sensation intact 3/10 sites, tested with [place] Bk monofilament to bilateral feet. DERMATOLOGICAL: Full-thickness wound including surgical incision at the dorsum of the right foot and anterior leg measures 15 cm x 3 cm 5.5 cm, no purulent drainage, periwound erythema present. No pulsatile bleeders. Wound is exposed to deep fascia, muscle and tendon. Central medial aspect of incision has skin necrosis has dusky moore appearance approximately 6 cm in length at the margin of the incision. There is further necrosis at the medial instep right foot has dusky moore appearance. MUSCULOSKELETAL: Pain to palpation at the right foot and ankle. No crepitus. Reducible hammertoe deformities on toes 2 through 5 bilaterally. Patient able to wiggle toes on command on the right foot. No pain with right posterior calf squeeze. No warmth at the right calf. Data : 10/09/19 05:05 10/09/19 05:05 Micro: Microbiology 10/06/19 06:08 Wound Culture - Preliminary Leg - Right Staphylococcus species Strep agalactiae - (group b) Other Imaging: Radiologist's impression: On x-ray per my soft tissue emphysema present at the level of the right midfoot dorsally tracking anterior to the ankle joint and distal tibia. No acute fracture or dislocation, no osseous erosions indicative of osteomyelitis. [place] 1.0 bilaterally. TBI right 0.51 left 0.52 A&P Assessment and plan (1) Sepsis: Status: Acute Qualifiers: Sepsis acute organ dysfunction status: without acute organ dysfunction Sepsis type: sepsis due to unspecified organism Qualified Code(s): A41.9 - Sepsis, unspecified organism (2) Non-pressure chronic ulcer of other part of right foot with necrosis of muscle: Status: Acute (3) Cellulitis of right lower limb: Status: Acute (4) Diabetes mellitus: Status: Acute -3 days status post incision and debridement right foot. Some skin necrosis at the incision margin. Will continue Dakin's wet-to-dry daily. Recommend continuing empiric antibiotics, tissue cultures pending. -Was able to discuss further treatment with the patient today she was in better spirits and agreeable. Will schedule for surgical debridement tomorrow Sunday the , patient to be n.p.o. after midnight would also like to hold heparin. This will still be a staged procedure tomorrow's debridement will likely be followed by primary delayed closure should soft tissue show improvement during this hospitalization this will likely take several more days. -Planning on wound VAC at some point during this admission and on discharge. Attestations Medical Necessity Statement*: Diabetic foot infection with cellulitis right lower extremity Coding Level of Care Code Acute Regulation Supervisor for [facility] Fw Diagnoses Sepsis A41.9 Sepsis acute organ dysfunction status: without acute organ dysfunction Sepsis type: sepsis due to unspecified organism Non-pressure chronic ulcer of other part of right foot with necrosis of muscle L97.513 Cellulitis of right lower limb L03.115 Diabetes mellitus E11.9
[2019-10-09 06:39] LABS: Glucose Point of Care 311 mg/dL (70-110)
[2019-10-09 09:01] LABS: Ferritin 312 ng/mL (15-150); Iron 21 ug/dL (37-145); Percent Saturation 27.2 % (20-50); Total Iron Binding Capacity 77 mcg/dl; Unsaturated Iron Binding 56 ug/dL (112-347)
[2019-10-09] MEDS: insulin glargine 100 units/1 mL 20 UNIT SUBCUT ×2 (09:31→21:00)
[2019-10-09] MEDS: cholecalciferol (vitamin D3) 1,000 unit Tablet 1000 UNIT PO (09:31)
[2019-10-09] MEDS: duloxetine 30 mg Capsule PO (09:31)
[2019-10-09] MEDS: pantoprazole DR 40 mg Tablet PO (09:31)
[2019-10-09] MEDS: gabapentin 300 mg Capsule PO ×2 (09:31→17:45)
[2019-10-09] MEDS: magnesium sulfate premix 4 GM/100 ML PREMIX IV (09:32)
[2019-10-09] MEDS: acetaminophen 325 mg Tablet 650 MG PO ×2 (10:23→23:46)
[2019-10-09 10:58] LABS: Glucose Point of Care 415 mg/dL (70-110)
--- NOTE | 2019-10-09 11:41 | PC.NURSE ---
physician notified due to blood sugar being 415, he verbally ordered 18 units of insulin to be given before lunch.
--- NOTE | 2019-10-09 11:48 | PC.CHAP ---
Pastoral Care Encounter/Spiritual Assessment Type of Contact [] Declined blindstitch lining feller visit [] Patient/Family/Request visit [] Outpatient visit [] Follow-up visit [] Physician referral [] Code/Alert [x] Routine visit [] Staff referral [] Actively dying [] Patient sleeping [] Family support [] [] Out of room [] Palliative care [] [] Receiving care in room [] Pre-surgical visit [] Trauma [] Long length of stay [] ICU visit [] Other: Relational/Emotional Strength [x] Patient feels connected with others/family/visitors/staff [] Distress [] Loneliness/isolation [] Abandonment Spirituality of Patient [x] Person of Sumi [] Attends Judaism of their Sumi [] Believes in Prayer [] Reads Bible or Christian materials [x] There are Spiritual issues to be addressed Stone Crusher Operator Interventions [x] Prayer [x] Active listening [x] Non-anxious presence [x] Spiritual/emotional support [] Crisis/trauma care [] Spiritual counseling [] Bereavement support [] Provided bereavement packet [] Provided Bible/devotional materials [] Provided toy/stuffed animal, coloring book to patient or family member [] Provided Communion [] Anointing/[place] [] Salvation [x] Completed spiritual assessment [] Other: Impact on Illness or Injury [] Angry [] Fearful [] Anxious [] Often cries [] Exhaustion [] Unable to work [] Unable to attend nondenominational [] Unable to walk/stand [] Unable to read [] Unable to drive [] Unable to eat/drink [] Unable to sleep [] Unable to be with family [] Patient intubated [x] Other: n/a Summary Time spent with patient 5 minutes
[2019-10-09 15:28] LABS: Glucose Point of Care 327 mg/dL (70-110)
--- NOTE | 2019-10-09 16:03 | P.PN_ITS ---
Subjective NPU Subjective: Interval history: Jennifer presents today reporting that she did talk about medication management with Dr. Babin. She reports that there have been some top times recently but that she knows that she can get through it. She reports she has some supports outside of the hospital and she will remain on them if she needs to but she denies any active lethality and reports that overall things are okay. She has had a moment of depression that she expressed to the hospital staff and she appreciates their concern but that she is going to be okay. We discussed the risks benefits and alternatives of considering medications she understood the desires to avoid medication trials at this time. Mental Status Exam MSE Comments: This is an obese white female with adequate progress, grooming and eye contact. No abnormal movements except for mild psychomotor retardation. Cooperative with exam in no acute distress. Speech was normal rate and volume mood described as pretty good affect congruent. Thought processes organized. Thought content: Patient denied any suicidal or homicidal ideation, there were no delusions reported noted, she denied any auditory or visual hallucinations. Attention concentration and memory appear intact but was not formally tested. She is alert and oriented ?3. Insight and judgment appear fair to good. Vitals/I&O/Wt Last Vital Signs Temp 98.8 F 10/09/19 04:00 Pulse 94 10/09/19 04:00 Resp 19 H 10/09/19 04:00 BP 117/69 10/09/19 04:00 Pulse Ox 91 10/09/19 04:00 10/09/19 10/09/19 10/10/19 14:59 22:59 06:59 Intake Total 100 / 100 340 / 440 Balance 100 / 100 340 / 440 Weight last 48 hrs Weight 103.192 kg Weight 102.285 kg Data NPU : 10/10/19 04:35 10/10/19 04:35 Micro: Microbiology 10/06/19 06:08 Wound Culture - Final Leg - Right Staphylococcus aureus Strep agalactiae - (group b) Microbiology 10/06/19 06:08 Leg - Right Wound Culture - Final Staphylococcus aureus Strep agalactiae - (group b) A&P Assessment and plan (1) Depression: Status: Acute (2) Adjustment disorder: Status: Acute Additional A&P Information There is a 53-year-old white female who presented to the hospital for treatment of her medical conditions who was having some low mood which prompted a psychiatric consult but she continues to present denying any interest in ongoing additional psychiatric interventions. 1. Continue current medication. 2. Advised patient to follow-up with the HC, where she has been in the past, if she were to find a worsening of symptoms. 3. Agree the patient's desire to manage this without medication is reasonable given the circumstances. 4. Psychiatry will sign off given her lack of interest in additional psychiatric care and lack of need for any forced interventions. Involuntary Hold Information 96 Hour Hold: 96 Hour Involuntary Admission: No Attestations NPU Medical Necessity Statement*: N/a. Please see primary care team for any questions about medical necessity for this hospitalization. No need for ongoing psychiatric care as an inpatient. 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
--- NOTE | 2019-10-09 19:27 | PM.PN ---
Subjective Subjective: Interval history: Today she is doing better, more conversant, more energetic, with social smile. She denies any significant pain. Vitals/I&O/Wt Last Vital Signs Temp 97.9 F 10/09/19 15:33 Pulse 91 10/09/19 15:33 Resp 18 10/09/19 15:33 BP 100/64 10/09/19 15:33 Pulse Ox 94 10/09/19 15:33 10/09/19 10/09/19 10/09/19 06:59 14:59 22:59 Intake Total 570 / 1810 100 / 100 240 / 340 Balance 570 / -140 100 / 100 240 / 340 Weight last 48 hrs Weight 102.285 kg Weight 101.151 kg Physical Exam Const: COMMON NORMALS: patient oriented x3 OTHER: Comfortable. HENMT: COMMON NORMALS: oropharynx normal Neck/C-Spine: COMMON NORMALS: no JVD Resp: COMMON NORMALS: normal respiratory effort and clear to auscultation bilaterally AUSCULTATION: clear to auscultation bilaterally Cardio: COMMON NORMALS: no JVD, regular rhythm, S1 normal heart sound present, S2 normal heart sound present and No murmurs present (Cardio) RHYTHM: regular rhythm HEART SOUNDS: S1 normal heart sound present and S2 normal heart sound present GI: COMMON NORMALS: Normal to inspection, nondistended, normoactive bowel sounds present, Soft to palpation and non-tender PALPATION: Yes Soft to palpation Extremity: COMMON NORMALS: no joint enlargement NARRATIVE EXTREMITY EXAM: Multiple old healed scars on bilateral lower extremities. RIGHT LOWER EXTREMITY: Yes foot & digits (Dressing over the right foot. No strikethrough. Podiatry pictures appreciated with regards to wounds.) Neuro: COMMON NORMALS: patient oriented x3 and moves all extremities Skin: WOUNDS: Yes wounds noted (Dorsal right foot wound covered by fresh dressing. No bleeding or strikethr) Data : 10/09/19 05:05 10/09/19 05:05 Micro: Microbiology 10/06/19 06:08 Wound Culture - Final Leg - Right Staphylococcus aureus Strep agalactiae - (group b) A&P Assessment and plan (1) Cellulitis and abscess of right leg: With poor wound healing. Not deemed safe for closure at this time. Requiring additional debridement at this time tentatively scheduled for tomorrow. Staph aureus, strep agalactiae growing from wound. Prescription with podiatry [place] is normal. Significantly diminished TBI with microvascular disease from poorly controlled diabetes. Unfortunately at risk of poor wound healing. At this time continue vancomycin and Levaquin. Continue debridement and reassessment as per podiatry. Intensify insulin regimen. Wound has been present for about 3 weeks now, in the setting of poorly controlled diabetes, discussed with her we may need to consider additional follow-up with MRI to exclude osteomyelitis, possibly after discharge. Status: Acute (2) Sepsis: Resolved. Ongoing wound infection as above. Continue IV antibiotics at this time. Additional debridement as per podiatry. Continue reassessment. Reassessment for wound VAC application. Staph aureus species growing in culture. Continue vancomycin, Levaquin. Needs better control of diabetes. Status: Acute Qualifiers: Sepsis acute organ dysfunction status: without acute organ dysfunction Sepsis type: sepsis due to unspecified organism Qualified Code(s): A41.9 - Sepsis, unspecified organism (3) Depression: This is somewhat better today after discussion with psychiatry. Video conference is with her was attempted, however, he does not have a device which would allow for this. Again replaced hypomagnesemia which is somewhat persistent, indicating lately longstanding deficit. Checked vitamin D, and also appears deficient. Will start replacement. Was transferred out of ICU. Symptoms are better today. Psychiatric evaluation appreciated. Status: Acute (4) Diabetes mellitus: Hyperglycemia, with poorly controlled diabetes, A1c 16.6. Increase Lantus dose to 20 units twice a day. Increase rapid acting dose to aggressive sliding scale. Needs reevaluation and progressive intensification of insulin therapy, close follow-up with primary care provider. She verbalized understanding and agreement. Status: Acute (5) COPD (chronic obstructive pulmonary disease): Not in exacerbation. Status: Acute Additional A&P Information Anemia: Hb declining, down to 8. No outward bleeding. Per discussion with podiatry with some blood loss during the procedure/I&D. Due to low blood pressure she has been receiving IV fluids. Iron studies appears without iron deficiency. With elevated ferritin, there is likelihood of anemia chronic disease, with superimposed acute anemia from blood loss. MCV is normal. Check Hemoccult. Monitor hemoglobin. Acute kidney injury: Improving Hyponatremia: Consider pseudohyponatremia secondary to severe hyperglycemia. Improving. Attestations Medical Necessity Statement*: Continue admission for assessment and management of infected wound, with purulent cellulitis, poor wound healing, in the setting of poorly controlled diabetes. 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
[2019-10-09 20:35] LABS: Glucose Point of Care 374 mg/dL (70-110)
[2019-10-09 20:35] LABS: Glucose Point of Care 408 mg/dL (70-110)
[2019-10-09] MEDS: heparin 5,000 unit/mL INJ 1 mL 5000 UNIT SUBCUT (21:00)
[2019-10-10] VITALS (10 sets, daily range): BP systolic 90–120; BP diastolic 56–75; PULSE 79–104; RESP 16–20; TEMP 36.1–36.9; O2SAT 92–98
[2019-10-10] MEDS: levofloxacin-dextrose 5 % 750 MG/150 ML PREMIX 100 MG IV (00:48)
[2019-10-10] MEDS: ibuprofen 600 mg Tablet PO (05:06)
[2019-10-10 05:54] LABS: Basophils % 0.4 %; Eosinophils # 0.1 10^3/uL (0.0-0.8); Eosinophils % 1.2 %; Hematocrit 24.9 % (37.0-47.0); Hemoglobin 7.9 g/dL (11.5-15.3); Lymphocytes # 1.6 10^3/uL (0.8-4.8); Lymphocytes % 18.4 %; Mean Corpuscular HGB Conc 31.7 g/dL (30.0-36.0); Mean Corpuscular Volume 91.5 fL (81-99); Mean Platelet Volume 10.5 fL (7.4-10.4); Monocytes % 11.4 %; Neutrophils # 5.5 10^3/uL (1.8-7.7); Nucleated Red Blood Cells % 0.2 %; Platelet Count 229 10^3/cmm (130-400); Red Blood Count 2.72 10^6/uL (4.1-5.3); Red Cell Distribution Width 15.1 % (12.1-15.1); White Blood Count 8.5 10^3/uL (4.0-10.0)
--- NOTE | 2019-10-10 06:02 | P.PN_ITS ---
Subjective Subjective: Interval history: Ms. Whitman is 4 days status post incision and debridement right lower extremity. Patient is in good spirits this morning is conversive, states that she wants to build to go home soon as possible. I reinforced the importance of her continuing her medical care and that she will likely be here through next week. Vitals/I&O/Wt Last Vital Signs Temp 97.7 F 10/10/19 04:00 Pulse 85 10/10/19 04:00 Resp 19 H 10/10/19 04:00 BP 120/70 10/10/19 04:00 Pulse Ox 94 10/10/19 04:00 10/09/19 10/09/19 10/10/19 14:59 22:59 06:59 Intake Total 100 / 100 340 / 440 Balance 100 / 100 340 / 440 Weight last 48 hrs Weight 227 lb 8 oz Weight 225 lb 8 oz Physical Exam Narrative: EXAM NARRATIVE: Patient is alert and oriented ?3 and in no acute distress. The following is a focused bilateral lower extremity exam. VASCULAR: Dorsalis pedis and posterior tibial arteries are palpable +1 right foot this could be secondary to edema. Dorsalis pedis is palpable +2 left foot, posterior tibial artery palpable +1 left foot. Popliteal arteries palpable +2 bilaterally. Capillary refill time less than 3 seconds to the distal hallux bilaterally. Calf is supple and nontender proximally and distally. Decreased pedal hair growth bilaterally. Edema to the right foot and ankle this is nonpitting. NEUROLOGICAL: Protective sensation intact 3/10 sites, tested with [place] B[place] monofilament to bilateral feet. DERMATOLOGICAL: Full-thickness wound including surgical incision at the dorsum of the right foot and anterior leg measures 15 cm x 3 cm 5.5 cm, no purulent drainage, periwound erythema present. No pulsatile bleeders. Wound is exposed to deep fascia, muscle and tendon. Central medial aspect of incision has skin necrosis has dusky moore appearance approximately 6 cm in length at the margin of the incision. There is further necrosis at the medial instep right foot has dusky moore appearance. MUSCULOSKELETAL: Pain to palpation at the right foot and ankle. No crepitus. Reducible hammertoe deformities on toes 2 through 5 bilaterally. Patient able to wiggle toes on command on the right foot. No pain with right posterior calf squeeze. No warmth at the right calf. 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 Some skin necrosis at the incision margin. Will continue Dakin's wet-to-dry daily. Recommend continuing empiric antibiotics, tissue cultures pending. -Scheduled for surgical debridement this afternoon. Patient is n.p.o., heparin held. May resume diet after surgery. She will need to elevate her right foot postoperatively for hemostasis. -Planning on wound VAC at some point during this admission and on discharge. 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
[2019-10-10 06:22] LABS: Alanine Aminotransferase 23 U/L (0-33); Albumin Level 1.8 g/dL (3.5-5.2); Alkaline Phosphatase 271 IU/L (35-105); Anion Gap 12.3 (5-19); Aspartate Amino Transferase 22 U/L (0-32); Blood Urea Nitrogen 8 mg/dL (6-20); Carbon Dioxide 26 mmol/L (22-29); Chloride 100 mmol/L (98-107); Globulin 4.9 g/dL (1.3-4.6); Glucose 287 mg/dL (65-115); Osmolality Calculated 286 mOsm/kg (285-295); Potassium 3.3 mmol/L (3.5-5.1); Sodium 135 mmol/L (136-145); Total Bilirubin 0.4 mg/dL (0.15-1.2); Total Protein 6.7 g/dL (6.6-8.7)
[2019-10-10] MEDS: metroNIDAZOLE IV 500 MG/100 ML PREMIX 100 MG IV ×3 (06:22→17:44)
[2019-10-10 06:29] LABS: Glucose Point of Care 308 mg/dL (70-110)
[2019-10-10 06:55] LABS: Urine Color Yellow (Yellow)
[2019-10-10 06:56] LABS: Add Urine Culture? No; Bacteria Urine TRACE; Bilirubin Urine Neg (NEGATIVE); Blood Urine Neg (Negative); Glucose Urine UA 4+ (Normal); Ketones Urine Negative (Negative); Leukocyte Esterase Urine Negative (Negative); Nitrate Urine Negative (Negative); Protein Urine Neg (Negative); Specific Gravity, Urine 1.015 (1.005-1.030); Urine Appearance Hazy (CLEAR); Urobilinogen Urine Norm (Negative); pH Urine 5 (5-7)
[2019-10-10] MEDS: duloxetine 30 mg Capsule PO (08:16)
[2019-10-10] MEDS: insulin glargine 100 units/1 mL 20 UNIT SUBCUT (08:16)
[2019-10-10] MEDS: pantoprazole DR 40 mg Tablet PO (08:16)
[2019-10-10] MEDS: gabapentin 300 mg Capsule PO ×2 (08:16→17:47)
[2019-10-10] MEDS: cholecalciferol (vitamin D3) 1,000 unit Tablet 1000 UNIT PO (08:16)
[2019-10-10 08:29] LABS: Magnesium 1.7 mg/dL (1.7-2.3)
[2019-10-10 10:52] LABS: Glucose Point of Care 267 mg/dL (70-110)
--- NOTE | 2019-10-10 14:20 | ANES.PREANE2 ---
Pre-Anesthetic Assessment Pre-Anesthetic Assessment: Height/Weight: Height 1.73 m Weight 103.192 kg Temp Pulse Resp BP Pulse Ox 97.8 F 82 19 H 106/63 95 10/10/19 11:13 10/10/19 11:13 10/10/19 11:13 10/10/19 11:13 10/10/19 11:13 Preop Diagnosis: Diabetic foot infection with cellulitis right lower extremity Proposed Procedure: Operation Date: 10/06/19 14:00 Proposed Procedures p Debridement right foot(Right) - Lonny Luz DPM Operation Date: 10/10/19 13:05 Proposed Procedures p Debridement(Right) - Lonny Luz DPM Familial anesthetic complications: none Last intake: Intake Last Liquid Date 10/05/19 Last Liquid Time 00:00 Last Solid Date 10/05/19 Last Solid Time 18:00 Social: Social History: Tobacco Exam: Pre-Anes Outpt Exam: alert, oriented x 3, clear to auscultation bilaterally and regular rate & rhythm Airway: MP: 3 Additional comments: edentulous Pulmonary: Pulmonary: COPD Metabolic: Metabolic: DM Anesthetic Plan: ASA status: 3 Anesthesia: MAC Risk of > 500 ml blood loss (7ml/kg in children): No Meds/Allergies Current Medications: Current Medications Generic Name Dose Route Start Last Admin Trade Name Freq PRN Reason Stop Dose Admin Acetaminophen 650 mg 10/05/19 23:47 10/09/19 23:46 Tylenol PO 650 mg Q6H PRN Administration MILD PAIN Duloxetine HCl 30 mg 10/08/19 09:00 10/10/19 08:16 Cymbalta PO 30 mg DAILY ADAMS Administration Gabapentin 300 mg 10/08/19 09:00 10/10/19 08:16 Neurontin PO 300 mg BID ADAMS Administration Heparin Sodium (Be ef Lung) 5,000 unit 10/06/19 10:00 10/10/19 10:52 Heparin SUBCUT Not Given Q12H ADAMS Metronidazole 500 mg in 100 mls @ 100 mls/hr 10/05/19 23:45 10/10/19 12:36 Flagyl Iv IV 100 mls/hr Q6H ADAMS Administration Protocol Levofloxacin/Dextr ose 750 mg in 150 mls @ 100 mls/hr 10/05/19 23:45 10/10/19 00:48 Levaquin-D5w IV 100 mls/hr Q24H ADAMS Administration Protocol Vancomycin HCl 1,2 50 mg/ 250 mls @ 200 mls /hr 10/10/19 02:00 10/10/19 14:01 Sodium Chloride IV 200 mls/hr Q12H ADAMS Administration Protocol Ibuprofen 600 mg 10/10/19 04:11 10/10/19 05:06 Motrin PO 600 mg Q8H PRN Administration MODERATE PAIN Insulin Aspart 0 unit 10/09/19 21:00 10/10/19 12:36 Novolog SUBCUT 12 unit WM&BEDTIME ADAMS Administration Protocol Insulin Glargine 20 unit 10/09/19 09:00 10/10/19 08:16 Lantus SUBCUT 20 unit Q12H ADAMS Administration Ondansetron HCl 4 mg 10/06/19 00:02 10/08/19 01:21 Zofran IVP 4 mg Q6H PRN Administration NAUSEA AND VOMITI NG Pantoprazole [place]od[place] m 40 mg 10/08/19 09:00 10/10/19 08:16 Protonix PO 40 mg DAILY ADAMS Administration Vitamin D 1,000 unit 10/09/19 09:00 10/10/19 08:16 Vitamin D3 PO 1,000 unit DAILY ADAMS Administration PFSH Anesthesia PFSH: Medical History COPD (chronic obstructive pulmonary disease) Depression Diabetes mellitus Hyperlipidemia Hypertension Surgical History Previous section S/P cholecystectomy Social History Smoking and tobacco status: current every day smoker Data Anesthesia CBC & Chem 7: 10/10/19 04:35 10/10/19 04:35 Other Labs: Laboratory Results - last 48 hr 10/08/19 10/08/19 10/08/19 10:39 12:56 13:17 WBC RBC Hgb Hct MCV MCH MCHC RDW Plt Count MPV Neut % (Auto) Lymph % (Auto) [place] % (Auto) Eos % (Auto) Baso % (Auto) Neut # (Auto) Lymph # (Auto) [place] # (Auto) Eos # (Auto) Baso # (Auto) Nucleated RBC % (auto) Nucleated RBCs # Sodium Potassium Chloride Carbon Dioxide Anion Gap BUN Creatinine GFR Calculation Glucose POC Glucose 229 253 Calculated Osmolality Calcium Magnesium Iron TIBC % Saturation Unsat Iron Binding Ferritin Total Bilirubin AST ALT Alkaline Phosphatase Total Protein Albumin Globulin 25-OH Vitamin D Total Urine Color Urine Appearance Urine pH Ur Specific [place] Urine Protein Urine Glucose (UA) Urine Ketones Urine Blood Urine Nitrate Urine Bilirubin Urine Urobilinogen Ur Leukocyte Esterase Urine RBC Urine WBC Ur Squamous Epith Cells Urine Bacteria Urine Yeast Vancomycin Trough 15.6 H 10/08/19 10/08/19 10/09/19 17:00 20:32 05:05 WBC 8.6 RBC 2.66 L Hgb 7.7 L Hct 24.1 L MCV 90.6 MCH 28.9 MCHC 32.0 RDW 14.6 Plt Count 218 MPV 10.4 Neut % (Auto) 66.9 Lymph % (Auto) 18.6 [place] % (Auto) 11.3 Eos % (Auto) 0.8 Baso % (Auto) 0.3 Neut # (Auto) 5.7 Lymph # (Auto) 1.6 [place] # (Auto) 1.0 H Eos # (Auto) 0.1 Baso # (Auto) 0.0 Nucleated RBC % (auto) 0 Nucleated RBCs # 0.0 Sodium Potassium Chloride Carbon Dioxide Anion Gap BUN Creatinine GFR Calculation Glucose POC Glucose 364 399 Calculated Osmolality Calcium Magnesium Iron TIBC % Saturation Unsat Iron Binding Ferritin Total Bilirubin AST ALT Alkaline Phosphatase Total Protein Albumin Globulin 25-OH Vitamin D Total Urine Color Urine Appearance Urine pH Ur Specific [place] Urine Protein Urine Glucose (UA) Urine Ketones Urine Blood Urine Nitrate Urine Bilirubin Urine Urobilinogen Ur Leukocyte Esterase Urine RBC Urine WBC Ur Squamous Epith Cells Urine Bacteria Urine Yeast Vancomycin Trough 10/09/19 10/09/19 10/09/19 05:05 05:05 05:05 WBC RBC Hgb Hct MCV MCH MCHC RDW Plt Count MPV Neut % (Auto) Lymph % (Auto) [place] % (Auto) Eos % (Auto) Baso % (Auto) Neut # (Auto) Lymph # (Auto) [place] # (Auto) Eos # (Auto) Baso # (Auto) Nucleated RBC % (auto) Nucleated RBCs # Sodium 133 L Potassium 3.6 Chloride 101 Carbon Dioxide 23 Anion Gap 12.6 BUN 9 Creatinine 0.6 GFR Calculation 105.0 Glucose 310 H POC Glucose Calculated Osmolality 284 L Calcium 9.2 Magnesium 1.5 L Iron TIBC % Saturation Unsat Iron Binding Ferritin Total Bilirubin 0.4 AST 33 H ALT 27 Alkaline Phosphatase 257 H Total Protein 6.3 L Albumin 1.9 L Globulin 4.4 25-OH Vitamin D Total 24 L Urine Color Urine Appearance Urine pH Ur Specific [place] Urine Protein Urine Glucose (UA) Urine Ketones Urine Blood Urine Nitrate Urine Bilirubin Urine Urobilinogen Ur Leukocyte Esterase Urine RBC Urine WBC Ur Squamous Epith Cells Urine Bacteria Urine Yeast Vancomycin Trough 10/09/19 10/09/19 10/09/19 05:05 06:35 10:55 WBC RBC Hgb Hct MCV MCH MCHC RDW Plt Count MPV Neut % (Auto) Lymph % (Auto) [place] % (Auto) Eos % (Auto) Baso % (Auto) Neut # (Auto) Lymph # (Auto) [place] # (Auto) Eos # (Auto) Baso # (Auto) Nucleated RBC % (auto) Nucleated RBCs # Sodium Potassium Chloride Carbon Dioxide Anion Gap BUN Creatinine GFR Calculation Glucose POC Glucose 311 415 Calculated Osmolality Calcium Magnesium Iron 21 L TIBC 77 % Saturation 27.2 Unsat Iron Binding 56 L Ferritin 312 H Total Bilirubin AST ALT Alkaline Phosphatase Total Protein Albumin Globulin 25-OH Vitamin D Total Urine Color Urine Appearance Urine pH Ur Specific [place] Urine Protein Urine Glucose (UA) Urine Ketones Urine Blood Urine Nitrate Urine Bilirubin Urine Urobilinogen Ur Leukocyte Esterase Urine RBC Urine WBC Ur Squamous Epith Cells Urine Bacteria Urine Yeast Vancomycin Trough 10/09/19 10/09/19 10/09/19 15:20 20:24 20:25 WBC RBC Hgb Hct MCV MCH MCHC RDW Plt Count MPV Neut % (Auto) Lymph % (Auto) [place] % (Auto) Eos % (Auto) Baso % (Auto) Neut # (Auto) Lymph # (Auto) [place] # (Auto) Eos # (Auto) Baso # (Auto) Nucleated RBC % (auto) Nucleated RBCs # Sodium Potassium Chloride Carbon Dioxide Anion Gap BUN Creatinine GFR Calculation Glucose POC Glucose 327 408 374 Calculated Osmolality Calcium Magnesium Iron TIBC % Saturation Unsat Iron Binding Ferritin Total Bilirubin AST ALT Alkaline Phosphatase Total Protein Albumin Globulin 25-OH Vitamin D Total Urine Color Urine Appearance Urine pH Ur Specific [place] Urine Protein Urine Glucose (UA) Urine Ketones Urine Blood Urine Nitrate Urine Bilirubin Urine Urobilinogen Ur Leukocyte Esterase Urine RBC Urine WBC Ur Squamous Epith Cells Urine Bacteria Urine Yeast Vancomycin Trough 10/10/19 10/10/19 10/10/19 04:35 04:35 04:35 WBC 8.5 RBC 2.72 L Hgb 7.9 L Hct 24.9 L MCV 91.5 MCH 29.0 MCHC 31.7 RDW 15.1 Plt Count 229 MPV 10.5 H Neut % (Auto) 65.0 Lymph % (Auto) 18.4 [place] % (Auto) 11.4 Eos % (Auto) 1.2 Baso % (Auto) 0.4 Neut # (Auto) 5.5 Lymph # (Auto) 1.6 [place] # (Auto) 1.0 H Eos # (Auto) 0.1 Baso # (Auto) 0.0 Nucleated RBC % (auto) 0.2 Nucleated RBCs # 0.0 Sodium 135 L Potassium 3.3 L Chloride 100 Carbon Dioxide 26 Anion Gap 12.3 BUN 8 Creatinine 0.6 GFR Calculation 105.0 Glucose 287 H POC Glucose Calculated Osmolality 286 Calcium 9.0 Magnesium 1.7 Iron TIBC % Saturation Unsat Iron Binding Ferritin Total Bilirubin 0.4 AST 22 ALT 23 Alkaline Phosphatase 271 H Total Protein 6.7 Albumin 1.8 L Globulin 4.9 H 25-OH Vitamin D Total Urine Color Urine Appearance Urine pH Ur Specific [place] Urine Protein Urine Glucose (UA) Urine Ketones Urine Blood Urine Nitrate Urine Bilirubin Urine Urobilinogen Ur Leukocyte Esterase Urine RBC Urine WBC Ur Squamous Epith Cells Urine Bacteria Urine Yeast Vancomycin Trough 10/10/19 10/10/19 10/10/19 06:21 06:22 10:41 WBC RBC Hgb Hct MCV MCH MCHC RDW Plt Count MPV Neut % (Auto) Lymph % (Auto) [place] % (Auto) Eos % (Auto) Baso % (Auto) Neut # (Auto) Lymph # (Auto) [place] # (Auto) Eos # (Auto) Baso # (Auto) Nucleated RBC % (auto) Nucleated RBCs # Sodium Potassium Chloride Carbon Dioxide Anion Gap BUN Creatinine GFR Calculation Glucose POC Glucose 308 267 Calculated Osmolality Calcium Magnesium Iron TIBC % Saturation Unsat Iron Binding Ferritin Total Bilirubin AST ALT Alkaline Phosphatase Total Protein Albumin Globulin 25-OH Vitamin D Total Urine Color Yellow Urine Appearance Hazy A Urine pH 5 Ur Specific [place] 1.015 Urine Protein Neg Urine Glucose (UA) 4+ H Urine Ketones Negative Urine Blood Neg Urine Nitrate Negative Urine Bilirubin Neg Urine Urobilinogen Norm Ur Leukocyte Esterase Negative Urine RBC None Urine WBC None Ur Squamous Epith Cells None Urine Bacteria Trace Urine Yeast 4+ H Vancomycin Trough Micro: Microbiology 10/06/19 06:08 Wound Culture - Final Leg - Right Staphylococcus aureus Strep agalactiae - (group b) Cardiac Studies: No Data to Display
[2019-10-10] MEDS: sodium chloride 0.9% 1,000 ML 30 ML IV (15:44)
[2019-10-10] MEDS: lidocaine 1% INJ 50 mL 20 ML INJECTION (16:32)
[2019-10-10] MEDS: vancomycin 1,000 MG SDV 1000 MG XX (16:35)
[2019-10-10 17:09] LABS: Glucose Point of Care 185 mg/dL (70-110)
--- NOTE | 2019-10-10 17:20 | PM.OP ---
Operative Report Date of procedure: October 10, 2019 Pre-op Diagnosis: Diabetic foot infection with cellulitis right lower extremity Post-op diagnosis: same Procedure Done: Incision and debridement of nonviable epidermis, dermis, subcutaneous tissue, muscle tendon and deep fascia. Implants: Half-inch [place] drain, 0.5 g of vancomycin powder Specimens removed/disposition: None Pathology: none sent Surgeon: Lonny Luz D.P.M. Casino Gaming Inspector: Rosemary Anesthesia: MAC Estimated blood loss: 10 cc IV fluids: None Urine output: None Complications: None Condition: stable Disposition: floor Brief History: Patient has diabetic foot infection with cellulitis, status post I&D. Requiring further surgical debridement due to skin margin necrosis, persistent cellulitis, exposed tendon and wound medially. Risks include pain, bleeding, numbness, infection, need for further surgical intervention. Procedure: Under mild sedation the patient was brought to the operating room and placed on the operating table in supine position. Timeout was performed. Anesthesia was administered by anesthesia service. Right ankle block performed by myself consisting of 20 cc of 1% lidocaine plain. Well-padded pneumatic tourniquet applied to the right calf. Right lower extremity was scrubbed, prepped and draped utilizing normal aseptic technique. Attention was directed to the dorsum of the right foot where sharp debridement was performed of nonviable epidermis, dermis, subcutaneous tissue and tendon, extensor digitorum longus, tibialis anterior and extensor digitorum brevis tendons were exposed. Extensor digitorum longus tendon was debrided of nonviable tissue. Mid incision medial margin had a area of dusky devitalized tissue this was excised sharply to bleeding skin margin. All nonviable past from the operative field. Attention was then directed to the medial foot where there is area of devitalized tissue this was sharply excised full-thickness utilizing 15 blade and pickup with further debridement performed with rongeur. Incision sites were irrigated with 3 L of saline solution. Half inch Emma drain was then inserted with the medial incision which communicated to the anterior incision. Anterior leg and dorsal foot incision post debridement measures 13 cm x 5 cm x 0.5 cm with improved base post debridement. Tourniquet was inflated to allow for hemostasis prior to dressings, no pulsatile bleeders appreciated. Medial wound measures 2.5 cm x 2.5 cm x 1.5 cm area of tracking/tunneling approximately 4.5 cm. Emma drain was applied in this tunnel. 0.5 g of vancomycin powder was introduced to the wound. Saline wet-to-dry dressing consisting of sterile 4 x 4's with saline followed by dry sterile 4 x 4's, Kerlix, ABD pad and 4 inch Sebastian. Tourniquet was deflated and a prompt hyperemic response was noted to the distal digits of the left foot. Patient tolerated the procedure and anesthesia well and was transferred to the PACU with vital signs stable and vascular status intact. Following a period of postoperative monitoring she will be transferred back to the floor to continue empiric IV antibiotics, wound cultures pending. Plans for at least 1 return debridement and primary delayed closure and wound VAC application.
[2019-10-10 20:48] LABS: Glucose Point of Care 246 mg/dL (70-110)
[2019-10-10] MEDS: insulin glargine 100 units/1 mL 22 UNIT SUBCUT (21:31)
[2019-10-10] MEDS: heparin 5,000 unit/mL INJ 1 mL 5000 UNIT SUBCUT (21:32)
--- NOTE | 2019-10-10 21:41 | P.PN_ITS ---
Subjective Subjective: Interval history: Status post additional debridement, she is doing well postoperatively. She is awake and alert, denies any discomfort. Agreeable to continue therapy. Vitals/I&O/Wt Last Vital Signs Temp 98.1 F 10/10/19 20:00 Pulse 96 10/10/19 20:23 Resp 19 H 10/10/19 20:23 BP 104/62 10/10/19 20:00 Pulse Ox 97 10/10/19 20:23 10/10/19 10/10/19 10/10/19 06:59 14:59 22:59 Intake Total 350 / 790 200 / 200 370 / 570 Output Total 550 / 550 10 / 10 Balance -200 / 240 200 / 200 360 / 560 Weight last 48 hrs Weight 103.192 kg Weight 102.285 kg Physical Exam Const: COMMON NORMALS: patient oriented x3 OTHER: Comfortable arriving from PACU. HENMT: COMMON NORMALS: oropharynx normal Neck/C-Spine: COMMON NORMALS: no JVD Resp: COMMON NORMALS: normal respiratory effort and clear to auscultation bilaterally AUSCULTATION: clear to auscultation bilaterally Cardio: COMMON NORMALS: no JVD, regular rhythm, S1 normal heart sound present, S2 normal heart sound present and No murmurs present (Cardio) RHYTHM: regular rhythm HEART SOUNDS: S1 normal heart sound present and S2 normal heart sound present GI: COMMON NORMALS: Normal to inspection, nondistended, normoactive bowel sounds present, Soft to palpation and non-tender PALPATION: Yes Soft to palp ation Extremity: COMMON NORMALS: no joint enlargement NARRATIVE EXTREMITY EXAM: Multiple old healed scars on bilateral lower extremities. Right foot wrapped in dressing postoperatively. Neuro: COMMON NORMALS: patient oriented x3 and moves all extremities Skin: WOUNDS: Yes wounds noted (Dorsal right foot wound covered by dressing. ) Data : 10/10/19 04:35 10/10/19 04:35 Micro: Microbiology 10/05/19 20:35 Blood Culture - Final Blood NO GROWTH AFTER 5 DAYS 10/05/19 20:36 Blood Culture - Final Blood NO GROWTH AFTER 5 DAYS 10/10/19 13:35 C.difficile Toxin B Gene (PCR) - Final Stool 10/10/19 13:35 Occult Blood (FIT) - Final Stool - Stool Aspirate A&P Assessment and plan (1) Cellulitis and abscess of right leg: With poor wound healing. Status post second round of debridement 10/09. Drain placement. Continue reassessment, IV antibiotics. Staph aureus, strep agalactiae growing from wound. Prescription with [place]iatry [place] is normal. Significantly diminished TBI with microvascular disease from poorly controlled diabetes. Unfortunately at risk of poor wound healing. At this time continue vancomycin and empirically Levaquin for now given poorly controlled diabetes and poor wound healing. Continue debridement and reassessment as per podiatry. Intensify insulin regimen. Wound has been present for about 3 weeks now, in the setting of poorly controlled diabetes, discussed with her we may need to consider additional follow-up with MRI to exclude osteomyelitis, possibly after discharge. Status: Acute (2) Sepsis: Resolved. Ongoing wound infection as above. Status: Acute Qualifiers: Sepsis acute organ dysfunction status: without acute organ dysfunction Sepsis type: sepsis due to unspecified organism Qualified Code(s): A41.9 - Sepsis, unspecified organism (3) Depression: This is doing somewhat better. Appears perhaps sort of adjustment disorder due to acute illness, hospitalization and inability to converse with , as well as recent family situation. Replace hypomagnesemia. Checked vitamin D, and also appears deficient. Will start replacement. Psychiatric evaluation appreciated. Status: Acute (4) Diabetes mellitus: Hyperglycemia, with poorly controlled diabetes, A1c 16.6. Increase Lantus dose to 22 units twice a day. Increase rapid acting dose to aggressive sliding scale. Change to to consistent carbohydrate. Needs reevaluation and progressive intensification of insulin therapy, close follow-up with primary care provider. She verbalized understanding and agreement. Status: Acute (5) COPD (chronic obstructive pulmonary disease): Not in exacerbation. Status: Acute Additional A&P Information Anemia: Hb declining but currently stabilized around 8. No outward bleeding. Per discussion with podiatry with some blood loss during the procedure/I&D. Due to low blood pressure she has been receiving IV fluids. Iron studies appears without iron deficiency. With elevated ferritin, there is likelihood of anemia chronic disease, with superimposed acute anemia from blood loss. MCV is normal. Check Hemoccult. Monitor hemoglobin. With additional debridement may need transfusion tomorrow. Acute kidney injury: Improving Hyponatremia: Consider pseudohyponatremia secondary to severe hyperglycemia. Improving. Attestations Medical Necessity Statement*: Continue admission for assessment management of infected wound of right lower extremity, purulent cellulitis, poor wound healing in the setting of poorly controlled diabetes. Coding Level of Care Code Acute Cotton Jammer for [facility] Diagnoses Cellulitis and abscess of right leg L03.115; L02.415 Sepsis A41.9 Sepsis acute organ dysfunction status: without acute organ dysfunction Sepsis type: sepsis due to unspecified organism Depression F32.9 Diabetes mellitus E11.9 COPD (chronic obstructive pulmonary disease) J44.9
[2019-10-11] VITALS (7 sets, daily range): BP systolic 104–111; BP diastolic 63–71; PULSE 90–113; RESP 16–19; TEMP 36.7–37.1; O2SAT 93–98
[2019-10-11] MEDS: magnesium sulfate premix 2 GM/50 ML PIGGYBACK IV (00:25)
[2019-10-11 00:31] LABS: Glucose Point of Care 287 mg/dL (70-110)
[2019-10-11] MEDS: acetaminophen 325 mg Tablet 650 MG PO ×2 (00:44→16:26)
[2019-10-11] MEDS: metroNIDAZOLE IV 500 MG/100 ML PREMIX 100 MG IV ×4 (01:28→19:50)
[2019-10-11] MEDS: levofloxacin-dextrose 5 % 750 MG/150 ML PREMIX 100 MG IV (02:57)
[2019-10-11 05:54] LABS: Basophils % 0.4 %; Eosinophils # 0.1 10^3/uL (0.0-0.8); Eosinophils % 0.9 %; Hematocrit 27.1 % (37.0-47.0); Hemoglobin 8.4 g/dL (11.5-15.3); Lymphocytes # 1.9 10^3/uL (0.8-4.8); Mean Corpuscular Hemoglobin 29.1 pg (28.0-34.0); Mean Corpuscular Volume 93.8 fL (81-99); Mean Platelet Volume 10.2 fL (7.4-10.4); Monocytes % 9.8 %; Neutrophils # 6.7 10^3/uL (1.8-7.7); Neutrophils % 66.2 %; Nucleated Red Blood Cells % 0 %; Platelet Count 282 10^3/cmm (130-400); Red Blood Count 2.89 10^6/uL (4.1-5.3); Red Cell Distribution Width 15.4 % (12.1-15.1); White Blood Count 10.1 10^3/uL (4.0-10.0)
[2019-10-11 06:18] LABS: Glucose Point of Care 291 mg/dL (70-110)
[2019-10-11 06:23] LABS: Alanine Aminotransferase 21 U/L (0-33); Albumin Level 1.8 g/dL (3.5-5.2); Alkaline Phosphatase 316 IU/L (35-105); Anion Gap 12.5 (5-19); Aspartate Amino Transferase 27 U/L (0-32); Blood Urea Nitrogen 6 mg/dL (6-20); Calcium 9.1 mg/dL (8.5-10.5); Carbon Dioxide 26 mmol/L (22-29); Chloride 101 mmol/L (98-107); Globulin 5.6 g/dL (1.3-4.6); Glomerular Filtration Rate 75.3 mL/min (90-130); Glucose 277 mg/dL (65-115); Osmolality Calculated 288 mOsm/kg (285-295); Potassium 3.5 mmol/L (3.5-5.1); Sodium 136 mmol/L (136-145); Total Bilirubin 0.4 mg/dL (0.15-1.2); Total Protein 7.4 g/dL (6.6-8.7)
--- NOTE | 2019-10-11 06:58 | PC.NURSE ---
shift summary Pt slept all night, PT had adequate urine output, got up to bathroom without difficulty and had adequate output, PT complained of pain one time and was treated with tylenol.
[2019-10-11] MEDS: duloxetine 30 mg Capsule PO (08:10)
[2019-10-11] MEDS: gabapentin 300 mg Capsule PO ×2 (08:10→18:26)
[2019-10-11] MEDS: cholecalciferol (vitamin D3) 1,000 unit Tablet 1000 UNIT PO (08:10)
[2019-10-11] MEDS: pantoprazole DR 40 mg Tablet PO (08:10)
[2019-10-11] MEDS: insulin glargine 100 units/1 mL 22 UNIT SUBCUT (08:10)
--- NOTE | 2019-10-11 08:50 | PC.NURSE ---
Dr. Luz in pt room changed kisha.
[2019-10-11] MEDS: heparin 5,000 unit/mL INJ 1 mL 5000 UNIT SUBCUT ×2 (10:41→21:59)
[2019-10-11 10:49] LABS: Glucose Point of Care 250 mg/dL (70-110)
--- NOTE | 2019-10-11 10:50 | P.PN_ITS ---
Subjective Subjective: Interval history: Patient is status post right foot debridement x2. Underwent surgical debridement yesterday, no strikethrough bleeding and dressings. Patient states pain is well controlled. She is visibly upset this morning states that she wants to go home. She states that she would like to be able to smoke a cigarette. She is shut down and quit answering questions and became tearful stating that she really wanted to go home right now. I explained to her the importance of continuing medical care and that she will continue to require IV antibiotics and further wound care, she states that she may walk out of the hospital. She states that she would be open to a fci but does not have insurance. Vitals/I&O/Wt Last Vital Signs Temp 98.6 F 10/11/19 07:14 Pulse 93 10/11/19 07:14 Resp 18 10/11/19 07:14 BP 111/63 10/11/19 07:14 Pulse Ox 94 10/11/19 07:14 10/10/19 10/11/19 10/11/19 22:59 06:59 14:59 Intake Total 470 / 670 1140 / 1810 Output Total 900 / 910 Balance 460 / 660 240 / 900 Weight last 48 hrs Weight 229 lb 6 oz Weight 227 lb 8 oz Physical Exam Narrative: EXAM NARRATIVE: Patient is alert and oriented ?3 and in no acute distress. The following is a focused bilateral lower extremity exam. VASCULAR: Dorsalis pedis and posterior tibial arteries are palpable +1 right foot this could be secondary to edema. Dorsalis pedis is palpable +2 left foot, posterior tibial artery palpable +1 left foot. Popliteal arteries palpable +2 bilaterally. Capillary refill time less than 3 seconds to the distal hallux bilaterally. Calf is supple and nontender proximally and distally. Decreased pedal hair growth bilaterally. Edema to the right foot and ankle this is nonpitting. NEUROLOGICAL: Protective sensation intact 3/10 sites, tested with [place] Bk monofilament to bilateral feet. DERMATOLOGICAL: Full-thickness wound including surgical incision at the dorsum of the right foot and anterior leg measures 15 cm x 5 cm 0.5 cm, no purulent drainage, periwound erythema present. No pulsatile bleeders. Wound is exposed to deep fascia, muscle and tendon. Central medial aspect of incision has skin necrosis has dusky moore appearance approximately 6 cm in length at the margin of the incision. There is further necrosis at the medial instep right foot has dusky moore appearance. Additional wound at the medial midfoot measures 2.5 cm x 2.5 cm x 0.5 cm and tracks/tunnels and communicates to the dorsal foot wound this is approximately 4.5 cm, [place] drain is intact. MUSCULOSKELETAL: Pain to palpation at the right foot and ankle. No crepitus. Reducible hammertoe deformities on toes 2 through 5 bilaterally. Patient able to wiggle toes on command on the right foot. No pain with right posterior calf squeeze. No warmth at the right calf. Data : 10/11/19 05:25 10/11/19 05:25 Micro: Microbiology 10/05/19 20:35 Blood Culture - Final Blood NO GROWTH AFTER 5 DAYS 10/05/19 20:36 Blood Culture - Final Blood NO GROWTH AFTER 5 DAYS 10/10/19 13:35 C.difficile Toxin B Gene (PCR) - Final Stool 10/10/19 13:35 Occult Blood (FIT) - Final Stool - Stool Aspirate A&P Assessment and plan (1) Sepsis: Status: Acute Qualifiers: Sepsis acute organ dysfunction status: without acute organ dysfunction Sepsis type: sepsis due to unspecified organism Qualified Code(s): A41.9 - Sepsis, unspecified organism (2) Non-pressure chronic ulcer of other part of right foot with necrosis of muscle: Status: Acute (3) Cellulitis of right lower limb: Status: Acute (4) Diabetes mellitus: Status: Acute -Status post incision and debridement right foot x2. -Patient will require further hospitalization and continuation of IV antibiotics, will need further surgical intervention including primary delayed closure and wound VAC application versus further debridement pending her clinical response to IV antibiotics. -Perform dressing change saline wet-to-dry. Will place nursing order to continue saline wet-to-dry dressing changes twice daily or every shift change. -Podiatry will continue to follow. Attestations Medical Necessity Statement*: Diabetic foot infection with cellulitis right lower extremity Coding Level of Care Code Acute It Data Architect for [facility] Diagnoses Sepsis A41.9 Sepsis acute organ dysfunction status: without acute organ dysfunction Sepsis type: sepsis due to unspecified organism Non-pressure chronic ulcer of other part of right foot with necrosis of muscle L97.513 Cellulitis of right lower limb L03.115 Diabetes mellitus E11.9
[2019-10-11 16:57] LABS: Glucose Point of Care 344 mg/dL (70-110)
--- NOTE | 2019-10-11 19:52 | P.PN_ITS ---
Subjective Subjective: Interval history: She states she is again feeling cooped up here. Asking if she could continue care at home, although states she understands that she is at this time requiring frequent wound reassessments, may need additional debridement, as well as requiring IV antibiotics several times a day. In addition to monitoring glucose, insulin adjustment, and other care. She states she could not go to [facility] as she would not be able to afford this. She does have a daughter who may be able to help her with some of the care, however, not to the level that is required at this time. She again is agreeable to stay to continue treatment. Vitals/I&O/Wt Last Vital Signs Temp 98.7 F 10/11/19 15:57 Pulse 90 10/11/19 19:42 Resp 18 10/11/19 19:42 BP 110/63 10/11/19 15:57 Pulse Ox 98 10/11/19 19:42 10/11/19 10/11/19 10/11/19 06:59 14:59 22:59 Intake Total 1390 / 2060 340 / 340 340 / 680 Output Total 900 / 910 600 / 600 Balance 490 / 1150 -260 / -260 340 / 80 Weight last 48 hrs Weight 104.043 kg Weight 103.192 kg Physical Exam Const: COMMON NORMALS: no acute distress and patient oriented x3 OTHER: Comfortable arriving from PACU. HENMT: COMMON NORMALS: oropharynx normal Neck/C-Spine: COMMON NORMALS: no JVD Resp: COMMON NORMALS: normal respiratory effort and clear to auscultation bilaterally AUSCULTATION: clear to auscultation bilaterally Cardio: COMMON NORMALS: no JVD, regular rhythm, S1 normal heart sound present, S2 normal heart sound present and No murmurs present (Cardio) RHYTHM: regular rhythm HEART SOUNDS: S1 normal heart sound present and S2 normal heart sound present GI: COMMON NORMALS: Normal to inspection, nondistended, normoactive bowel sounds present, Soft to palpation and non-tender PALPATION: Yes Soft to pal pation Extremity: COMMON NORMALS: no joint enlargement and no pedal edema NARRATIVE EXTREMITY EXAM: Multiple old healed scars on bilateral lower extremities. Right foot wrapped in dressing. No bleeding or strikethrough. Neuro: COMMON NORMALS: patient oriented x3 and moves all extremities Skin: COMMON NORMALS: no rashes or lesions noted GENERAL SKIN EXAM: no rashes or lesions noted WOUNDS: Yes wounds noted (Dorsal right foot wound covered by dressing. ) Data : 10/11/19 05:25 10/11/19 05:25 Micro: Microbiology 10/05/19 20:35 Blood Culture - Final Blood NO GROWTH AFTER 5 DAYS 10/05/19 20:36 Blood Culture - Final Blood NO GROWTH AFTER 5 DAYS 10/10/19 13:35 C.difficile Toxin B Gene (PCR) - Final Stool 10/10/19 13:35 Occult Blood (FIT) - Final Stool - Stool Aspirate A&P Assessment and plan (1) Cellulitis and abscess of right leg: Continue IV antibiotics at this time. Previously with dusky wound margins, purulence tracking along tendons, concern is very high for nonhealing. Wet-to-dry dressings. Continued podiatry follow-up. Increase glargine dose. Staph aureus, strep agalactiae growing from wound. Prescription with podiatry [place] is normal. Significantly diminished TBI with microvascular disease from poorly controlled diabetes. Unfortunately at risk of poor wound healing. At this time continue vancomycin and empirically Levaquin for now given poorly controlled diabetes and poor wound healing. Continue debridement and reassessment as per podiatry. Wound has been present for about 3 weeks now, in the setting of poorly controlled diabetes, discussed with her we may need to consider additional follow-up with MRI to exclude osteomyelitis, possibly after discharge. Status: Acute (2) Sepsis: Resolved. Ongoing wound infection as above. Status: Acute Qualifiers: Sepsis acute organ dysfunction status: without acute organ dysfunction Sepsis type: sepsis due to unspecified organism Qualified Code(s): A41.9 - Sepsis, unspecified organism (3) Depression: This is doing somewhat better. Appears perhaps sort of adjustment disorder due to acute illness, hospitalization and inability to converse with , as well as recent family situation. Replace hypomagnesemia. Checked vitamin D, and also appears deficient. Will start replacement. Psychiatric evaluation appreciated. Status: Acute (4) Diabetes mellitus: Hyperglycemia, with poorly controlled diabetes, A1c 16.6. Increase Lantus dose to 30 units twice a day. Aggressive sliding scale. Consistent carbohydrate. Needs reevaluation and progressive intensification of insulin therapy, close follow-up with primary care provider. She verbalized understanding and agreement. Status: Acute (5) COPD (chronic obstructive pulmonary disease): Not in exacerbation. Status: Acute Additional A&P Information Anemia: Hb declining but currently stabilized around 8. No outward bleeding. Pe r discussion with podiatry with some blood loss during the procedure/I&D. Due to low blood pressure she has been receiving IV fluids. Iron studies appears without iron deficiency. With elevated ferritin, there is likelihood of anemia chronic disease, with superimposed acute anemia from blood loss. MCV is normal. Hemoccult was negative. Monitor hemoglobin. Acute kidney injury: Resolved. Hyponatremia: Consider pseudohyponatremia secondary to severe hyperglycemia. Improving. Attestations Medical Necessity Statement*: Continue admission for cyst management of complicated right lower extremity wound with poor healing, purulent cellulitis, and the setting of poorly controlled diabetes. 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
[2019-10-11 21:05] LABS: Glucose Point of Care 312 mg/dL (70-110)
[2019-10-11] MEDS: insulin glargine 100 units/1 mL 30 UNIT SUBCUT (21:59)
[2019-10-12] VITALS (10 sets, daily range): BP systolic 91–125; BP diastolic 50–71; PULSE 87–100; RESP 17–20; TEMP 36.6–37.2; O2SAT 90–98
[2019-10-12] MEDS: metroNIDAZOLE IV 500 MG/100 ML PREMIX 100 MG IV ×4 (02:07→20:57)
[2019-10-12] MEDS: acetaminophen 325 mg Tablet 650 MG PO ×2 (03:25→16:44)
[2019-10-12] MEDS: levofloxacin-dextrose 5 % 750 MG/150 ML PREMIX 100 MG IV (03:28)
[2019-10-12 06:01] LABS: Basophils % 0.2 %; Eosinophils # 0.1 10^3/uL (0.0-0.8); Eosinophils % 0.9 %; Hematocrit 23.3 % (37.0-47.0); Hemoglobin 7.6 g/dL (11.5-15.3); Lymphocytes # 1.7 10^3/uL (0.8-4.8); Lymphocytes % 19.5 %; Mean Corpuscular HGB Conc 32.6 g/dL (30.0-36.0); Mean Corpuscular Hemoglobin 30.2 pg (28.0-34.0); Mean Corpuscular Volume 92.5 fL (81-99); Mean Platelet Volume 9.9 fL (7.4-10.4); Monocytes # 0.8 10^3/uL (0.2-0.9); Monocytes % 8.7 %; Neutrophils # 5.8 10^3/uL (1.8-7.7); Neutrophils % 66.5 %; Nucleated Red Blood Cells % 0 %; Platelet Count 229 10^3/cmm (130-400); Red Blood Count 2.52 10^6/uL (4.1-5.3); Red Cell Distribution Width 15.3 % (12.1-15.1); White Blood Count 8.8 10^3/uL (4.0-10.0)
[2019-10-12 06:16] LABS: Gamma Glutamyl Transferase 174 U/L (5-36); Magnesium 1.5 mg/dL (1.7-2.3)
[2019-10-12 06:17] LABS: Alanine Aminotransferase 17 U/L (0-33); Albumin Level 1.8 g/dL (3.5-5.2); Alkaline Phosphatase 259 IU/L (35-105); Anion Gap 10.2 (5-19); Aspartate Amino Transferase 17 U/L (0-32); Blood Urea Nitrogen 6 mg/dL (6-20); Calcium 8.7 mg/dL (8.5-10.5); Carbon Dioxide 28 mmol/L (22-29); Chloride 101 mmol/L (98-107); Globulin 4.3 g/dL (1.3-4.6); Glomerular Filtration Rate 65.8 mL/min (90-130); Glucose 275 mg/dL (65-115); Osmolality Calculated 288 mOsm/kg (285-295); Potassium 3.2 mmol/L (3.5-5.1); Sodium 136 mmol/L (136-145); Total Bilirubin 0.3 mg/dL (0.15-1.2); Total Protein 6.1 g/dL (6.6-8.7)
[2019-10-12 06:58] LABS: Glucose Point of Care 286 mg/dL (70-110)
--- NOTE | 2019-10-12 08:05 | USR_ITS ---
PROCEDURE INFORMATION: Exam: US Abdomen Limited, Right Upper Quadrant Exam date and time: 10/12/2019 9:11 AM Age: 53 years old Clinical indication: Abnormal findings; Abnormal lab test; Elevated liver enzymes; Prior surgery; Surgery date: 6+ months; Surgery type: Cholecystectomy; Additional info: Hepatobiliary TECHNIQUE: Imaging protocol: Real-time ultrasound of the abdomen with image documentation. Examination was focused on the right upper quadrant. COMPARISON: ES surgery / GI images 10/10/2019 4:18 PM FINDINGS: Liver: The liver measures over 15 cm in the sagittal plane. The liver has a undulating contour suggesting cirrhosis. The liver parenchyma is diffusely heterogeneous, but no focal liver mass or intrahepatic biliary ductal dilatation visualized. Gallbladder: Prior cholecystectomy. Common bile duct: The common bile duct measures 8 mm in diameter. Pancreas: The pancreas was obscured by intestinal gas. Right kidney: The right kidney measures 11.2 cm in length. Normal parenchymal echogenicity. Mild right hydronephrosis. Aorta: The visualized portion of the abdominal aorta is within normal limits. Portal venous: There is hepatopetal flow in the main portal vein on Doppler evaluation. Inferior vena cava: The visualized portion of the inferior vena cava is within normal limits. US/US abdomen limited [id number] IMPRESSION: 1. Cirrhosis/hepatocellular disease. 2. No intrahepatic biliary ductal dilatation. 3. Right hydronephrosis.
[2019-10-12] MEDS: duloxetine 30 mg Capsule PO (08:06)
[2019-10-12] MEDS: gabapentin 300 mg Capsule PO ×2 (08:06→17:48)
[2019-10-12] MEDS: pantoprazole DR 40 mg Tablet PO (08:06)
[2019-10-12] MEDS: cholecalciferol (vitamin D3) 1,000 unit Tablet 1000 UNIT PO (08:06)
[2019-10-12] MEDS: insulin glargine 100 units/1 mL 30 UNIT SUBCUT (08:07)
[2019-10-12] MEDS: magnesium sulfate premix 4 GM/100 ML PREMIX IV (09:14)
[2019-10-12] MEDS: heparin 5,000 unit/mL INJ 1 mL 5000 UNIT SUBCUT ×2 (09:18→20:59)
[2019-10-12 11:00] LABS: Glucose Point of Care 276 mg/dL (70-110)
[2019-10-12 15:31] LABS: Vancomycin Trough 20.2 ug/mL (10-15)
--- NOTE | 2019-10-12 16:07 | P.PN_ITS ---
Subjective Subjective: Interval history: Patient seen bedside this morning. Denies any acute events overnight. Tolerating regular diet. Foot pain is well controlled. Patient denies any subjective nausea, vomiting, fever, chills, shortness of breath or chest pain. She is in better spirits today more conversive. Vitals/I&O/Wt Last Vital Signs Temp 98.7 F 10/12/19 15:57 Pulse 95 10/12/19 15:57 Resp 18 10/12/19 15:57 BP 103/65 10/12/19 15:57 Pulse Ox 95 10/12/19 15:57 10/12/19 10/12/19 10/12/19 06:59 14:59 22:59 Intake Total 100 / 1250 700 / 700 Output Total 200 / 1100 Balance -100 / 150 700 / 700 Weight last 48 hrs Weight 225 lb 6 oz Weight 229 lb 6 oz Physical Exam Narrative: EXAM NARRATIVE: Patient is alert and oriented ?3 and in no acute distress. The following is a focused bilateral lower extremity exam. VASCULAR: Dorsalis pedis and posterior tibial arteries are palpable +1 right foot this could be secondary to edema. Dorsalis pedis is palpable +2 left foot, posterior tibial artery palpable +1 left foot. Popliteal arteries palpable +2 bilaterally. Capillary refill time less than 3 seconds to the distal hallux bilaterally. Calf is supple and nontender proximally and distally. Decreased pedal hair growth bilaterally. Edema to the right foot and ankle this is nonpitting. NEUROLOGICAL: Protective sensation intact 3/10 sites, tested with [place] Bk monofilament to bilateral feet. DERMATOLOGICAL: Full-thickness wound including surgical incision at the dorsum of the right foot and anterior leg measures 15 cm x 5 cm 0.5 cm, no purulent drainage, periwound erythema present. No pulsatile bleeders. Wound is exposed to deep fascia, muscle and tendon. Central medial aspect of incision has skin necrosis has dusky moore appearance approximately 6 cm in length at the margin of the incision. There is further necrosis at the medial instep right foot has dusky moore appearance. Additional wound at the medial midfoot measures 2.5 cm x 2.5 cm x 0.5 cm and tracks/tunnels and communicates to the dorsal foot wound this is approximately 4.5 cm, [place] drain is intact. MUSCULOSKELETAL: Pain to palpation at the right foot and ankle. No crepitus. Reducible hammertoe deformities on toes 2 through 5 bilaterally. Patient able to wiggle toes on command on the right foot. No pain with right posterior calf squeeze. No warmth at the right calf. Data : 10/12/19 05:35 10/12/19 05:35 Micro: Microbiology 10/05/19 20:35 Blood Culture - Final Blood NO GROWTH AFTER 5 DAYS 10/05/19 20:36 Blood Culture - Final Blood NO GROWTH AFTER 5 DAYS 10/10/19 13:35 C.difficile Toxin B Gene (PCR) - Final Stool 10/10/19 13:35 Occult Blood (FIT) - Final Stool - Stool Aspirate A&P Assessment and plan (1) Sepsis: Status: Acute Qualifiers: Sepsis acute organ dysfunction status: without acute organ dysfunction Sepsis type: sepsis due to unspecified organism Qualified Code(s): A41.9 - Sepsis, unspecified organism (2) Non-pressure chronic ulcer of other part of right foot with necrosis of muscle: Status: Acute (3) Cellulitis of right lower limb: Status: Acute (4) Diabetes mellitus: Status: Acute -Status post incision and debridement right foot x2. -Patient has been medically stabilized and sepsis resolved, anterior leg and dorsal foot wound is improving with granulation tissue present however she has had persistent cellulitis at her medial and lateral right foot. -At this point I would like to order a MRI with contrast due to persistent cellulitis at the medial lateral right foot to rule out abscess and early osteomyelitis. -Surgical wound culture finalized significant for staph aureus and group B strep -Will continue with twice daily saline wet-to-dry dressing changes Attestations Medical Necessity Statement*: Diabetic foot infection with cellulitis Coding Level of Care Code Acute Heat Treat Inspector for [facility] Fwd Diagnoses Sepsis A41.9 Sepsis acute organ dysfunction status: without acute organ dysfunction Sepsis type: sepsis due to unspecified organism Non-pressure chronic ulcer of other part of right foot with necrosis of muscle L97.513 Cellulitis of right lower limb L03.115 Diabetes mellitus E11.9
--- NOTE | 2019-10-12 16:08 | XR_ITS ---
WS: [id number] RIGHT FOOT: 3 VIEW(S) TECHNIQUE: AP, oblique and lateral. HISTORY: f/u exam RIGHT foot wound COMPARISON: 10/05/2019 Curvilinear foreign body around the midfoot from bandage material. No fracture is identified or bone destruction. Normal tarsal/metatarsal alignment. Large amount of soft tissue injury along the medial dorsal surface of the foot. Most significant inju ry at the level of the tarsometatarsal articulation. Extent of the soft tissue edema has progressed. XR/XR foot RT min 3V* [id number] IMPRESSION: Progression of soft tissue edema around the midfoot since 10/05/2019. Correlate for possible increasing infection.
[2019-10-12 16:50] LABS: Glucose Point of Care 341 mg/dL (70-110)
--- NOTE | 2019-10-12 20:14 | PM.PN ---
Subjective Subjective: Interval history: She is feeling somewhat cold, otherwise denies anything new. Later today reports to the nurse that she is still feeling depressed. Vitals/I&O/Wt Last Vital Signs Temp 98.5 F 10/12/19 19:58 Pulse 96 10/12/19 19:58 Resp 18 10/12/19 19:58 BP 91/50 10/12/19 19:58 Pulse Ox 98 10/12/19 19:58 10/12/19 10/12/19 10/12/19 06:59 14:59 22:59 Intake Total 350 / 1500 700 / 700 500 / 1200 Output Total 200 / 1100 2700 / 2700 Balance 150 / 400 700 / 700 -2200 / -1500 Weight last 48 hrs Weight 102.228 kg Weight 104.043 kg Physical Exam Const: COMMON NORMALS: no acute distress and patient oriented x3 OTHER: Sleeping, wakes up easily. Covered by several blankets. HENMT: COMMON NORMALS: oropharynx normal Neck/C-Spine: COMMON NORMALS: no JVD Resp: COMMON NORMALS: normal respiratory effort and clear to auscultation bilaterally AUSCULTATION: clear to auscultation bilaterally Cardio: COMMON NORMALS: no JVD, regular rhythm, S1 normal heart sound present, S2 normal heart sound present and No murmurs present (Cardio) RHYTHM: regular rhythm HEART SOUNDS: S1 normal heart sound present and S2 normal heart sound present GI: COMMON NORMALS: Normal to inspection, nondistended, normoactive bowel sounds present, Soft to palpation and non-tender PALPATION: Yes Soft to palpation Extremity: COMMON NORMALS: no joint enlargement and no pedal edema NARRATIVE EXTREMITY EXAM: Right foot wrapped in dressing. No bleeding or strikethrough. Neuro: COMMON NORMALS: patient oriented x3 and moves all extremities Skin: LESIONS: lesion noted (Multiple old healed scars on bilateral lower extremities.) WOUNDS: Yes wounds noted (Dorsal right foot wound covered by dressing. ) Data : 10/12/19 05:35 10/12/19 05:35 A&P Assessment and plan (1) Cellulitis and abscess of right leg: Appers to be showing improvement with granulation tissue per podiatry but persistent cellulitis. Continue IV antibiotics at this time. Agree with MRI to exclude abscess and OM. Previously with dusky wound margins, purulence tracking along tendons, concern is very high for nonhealing. Wet-to-dry dressings. Continued podiatry follow-up. Increase Lantus to 35 units BID. Staph aureus, strep agalactiae growing from wound. Wound has been present for about 3 weeks now, in the setting of poorly controlled diabetes. Status: Acute (2) Depression: Had improved initially. Currently did not complain during my visit, but indicated to RN that depression appears is still present/worsening. Consider getting additional psychiatry assessment given this is likely to be a prolonged illness for her. Replace hypomagnesemia. Checked vitamin D, and also appears deficient. Started on replacement. Psychiatric evaluation appreciated. Status: Acute (3) Diabetes mellitus: Hyperglycemia, with poorly controlled diabetes, A1c 16.6. Increase Lantus dose to 35 units twice a day. Aggressive sliding scale. Consistent carbohydrate. Needs reevaluation and progressive intensification of insulin therapy, close follow-up with primary care provider. She verbalized understanding and agreement. Status: Acute (4) COPD (chronic obstructive pulmonary disease): Not in exacerbation. Status: Acute (5) Sepsis: Resolved. Ongoing wound infection as above. Status: Acute Qualifiers: Sepsis acute organ dysfunction status: without acute organ dysfunction Sepsis type: sepsis due to unspecified organism Qualified Code(s): A41.9 - Sepsis, unspecified organism Additional A&P Information Anemia: Hb declining but currently stabilized around 8. No outward bleeding. Per discussion with podiatry with some blood loss during the procedure/I&D. Due to low blood pressure she has been receiving IV fluids. Iron studies appears without iron deficiency. With elevated ferritin, there is likelihood of anemia chronic disease, with superimposed acute anemia from blood loss. MCV is normal. Hemoccult was negative. Monitor hemoglobin. Acute kidney injury: Resolved. Hyponatremia: Consider pseudohyponatremia secondary to severe hyperglycemia. Improving. Attestations Medical Necessity Statement*: Continue admission for assessment of management of complicated wound of the right foot with purulent cellulitis, in the setting of poorly controlled diabetes mellitus. Coding Level of Care Code Acute Clinical Laboratory Manager for [facility] Diagnoses Cellulitis and abscess of right leg L03.115; L02.415 Depression F32.9 Diabetes mellitus E11.9 COPD (chronic obstructive pulmonary disease) J44.9 Sepsis A41.9 Sepsis acute organ dysfunction status: without acute organ dysfunction Sepsis type: sepsis due to unspecified organism
--- NOTE | 2019-10-12 20:36 | CTR_ITS ---
PROCEDURE INFORMATION: Exam: CT Abdomen And Pelvis Without Contrast Exam date and time: 10/12/2019 9:30 PM Age: 53 years old Clinical indication: Abnormal findings; Abnormal radiologic finding of the abdomen; Radiologic exam and body structure: Ultrasound; Prior surgery; Surgery date: 6+ months; Surgery type: Gb; Patient HX: R hydronephrosis on US TECHNIQUE: Imaging protocol: Computed tomography of the abdomen and pelvis without contrast. Radiation optimization: All CT scans at this facility use at least one of these dose optimization techniques: automated exposure control; mA and/or kV adjustment per patient size (includes targeted exams where dose is matched to clinical indication); or iterative reconstruction. COMPARISON: US pelvic with transvaginal 07/02/2015 12:36 PM RADIATION DOSE METRICS: Total DLP: 1808.89 mGy-cm FINDINGS: Lungs: Lung bases are clear. Liver: The liver is mildly enlarged. There is relative hypertrophy of the left lobe. The liver has a nodular surface, suggesting cirrhosis. There is no focal liver abnormality. Gallbladder and bile ducts: The gallbladder is absent. There is ectasia of the common bile duct and central intrahepatic ducts. Pancreas: There is mild atrophy of the pancreas. Spleen: The spleen is moderately enlarged. Adrenals: The adrenal glands are unremarkable. Kidneys and ureters: The right kidney is unremarkable. There is no significant hydronephrosis or ureteral dilation. No stones. There is mild atrophy of the left kidney. The left renal pelvis is dilated but there is no significant calyceal dilation. The left ureter is nondilated. There is a nonobstructive stone in the left kidney. Stomach and bowel: The stomach is is distended with ingested material. The wall is mildly diffusely thickened. The small bowel is nondilated. There is no sign of inflammation. The colon is unremarkable. Appendix: Not visible Intraperitoneal space: There is mild diffuse mesenteric edema. There is no intraperitoneal free air. Mild perihepatic and pelvic ascites. Vasculature: There is mild aortic atherosclerotic disease. Lymph nodes: Numerous small retroperitoneal, pelvic and mesenteric lymph nodes are visible. None are pathologically enlarged. Bladder: Trace gas in the urinary bladder. Reproductive: The uterus is unremarkable. There is no adnexal mass or large cyst. Bones/joints: There is mild degenerative disease in the lumbar spine. The pelvis and hips are unremarkable. Soft tissues: There is mild diffuse subcutaneous edema of the abdominal wall, greatest in the dependent regions. CT/CT kidney stone [id number] IMPRESSION: 1. No significant hydronephrosis or ureteral dilation. Prominent extrarenal pelvis and nonobstructive stone noted on the left. 2. Trace gas in the urinary bladder could be due to catheterization or cystitis. 3. Mild diffuse nonspecific gastric wall thickening in the setting of gastric distention. This may be a nonpathologic finding, or could represent gastritis. 4. Cirrhosis and splenomegaly with small volume ascites. Radiation Dose CTDIVOL = (mGy): DLP = 1808.89 (mGy-cm)
[2019-10-12 20:51] LABS: Glucose Point of Care 412 mg/dL (70-110)
[2019-10-12 20:58] LABS: C Reactive Protein 108.5 mg/L (0.0-4.9)
[2019-10-12] MEDS: insulin glargine 100 units/1 mL 35 UNIT SUBCUT (20:58)
[2019-10-12] MEDS: ibuprofen 600 mg Tablet PO (20:59)
[2019-10-12 21:28] LABS: Erythrocyte Sedimentation Rate > 120 mm/hr (0-15)
[2019-10-12] MEDS: cyclobenzaprine 10 mg Tablet PO (21:57)
[2019-10-13] MEDS: levofloxacin-dextrose 5 % 750 MG/150 ML PREMIX 100 MG IV (01:47)
[2019-10-13] MEDS: metroNIDAZOLE IV 500 MG/100 ML PREMIX 100 MG IV ×4 (03:25→21:29)
[2019-10-13 04:00] VITALS: BP 106/69; PULSE 76; RESP 18; TEMP 36.7; O2SAT 94
[2019-10-13 05:27] LABS: Basophils % 0.2 %; Eosinophils # 0.1 10^3/uL (0.0-0.8); Eosinophils % 1.6 %; Hematocrit 23.1 % (37.0-47.0); Hemoglobin 7.3 g/dL (11.5-15.3); Lymphocytes # 1.8 10^3/uL (0.8-4.8); Lymphocytes % 19.9 %; Mean Corpuscular HGB Conc 31.6 g/dL (30.0-36.0); Mean Corpuscular Hemoglobin 29.2 pg (28.0-34.0); Mean Corpuscular Volume 92.4 fL (81-99); Mean Platelet Volume 9.4 fL (7.4-10.4); Monocytes # 0.7 10^3/uL (0.2-0.9); Monocytes % 7.6 %; Neutrophils # 5.8 10^3/uL (1.8-7.7); Neutrophils % 65.8 %; Nucleated Red Blood Cells % 0 %; Platelet Count 238 10^3/cmm (130-400); Red Cell Distribution Width 15.9 % (12.1-15.1); White Blood Count 8.8 10^3/uL (4.0-10.0)
[2019-10-13 05:46] LABS: Ammonia 33 umol/L (11-51)
[2019-10-13 05:49] LABS: Alanine Aminotransferase 15 U/L (0-33); Albumin Level 1.6 g/dL (3.5-5.2); Alkaline Phosphatase 271 IU/L (35-105); Anion Gap 9.4 (5-19); Aspartate Amino Transferase 20 U/L (0-32); Blood Urea Nitrogen 6 mg/dL (6-20); Calcium 8.9 mg/dL (8.5-10.5); Carbon Dioxide 29 mmol/L (22-29); Chloride 102 mmol/L (98-107); Glomerular Filtration Rate 65.8 mL/min (90-130); Glucose 284 mg/dL (65-115); Osmolality Calculated 290 mOsm/kg (285-295); Potassium 3.4 mmol/L (3.5-5.1); Sodium 137 mmol/L (136-145); Total Bilirubin 0.3 mg/dL (0.15-1.2); Total Protein 6.6 g/dL (6.6-8.7)
[2019-10-13 06:05] LABS: Magnesium 1.9 mg/dL (1.7-2.3)
[2019-10-13 06:32] LABS: Glucose Point of Care 279 mg/dL (70-110)
[2019-10-13 07:46] VITALS: BP 106/65; PULSE 84; RESP 18; TEMP 36.6; O2SAT 95
[2019-10-13] MEDS: cholecalciferol (vitamin D3) 1,000 unit Tablet 1000 UNIT PO (09:26)
[2019-10-13] MEDS: duloxetine 30 mg Capsule PO (09:26)
[2019-10-13] MEDS: gabapentin 300 mg Capsule PO ×2 (09:26→17:36)
[2019-10-13] MEDS: pantoprazole DR 40 mg Tablet PO (09:27)
[2019-10-13] MEDS: heparin 5,000 unit/mL INJ 1 mL 5000 UNIT SUBCUT ×2 (09:28→21:30)
--- NOTE | 2019-10-13 10:43 | PC.NURSE ---
Called MRI to have MRI of foot done today. MRI said they only do emergent situations on the holidays and if we need MRI done today a nurse and doctor need to come with patient. She also said MRI order needs to say with and without contrast. Notified Dr Sims, He said to contact Dr Luz. Poured Concrete Wall Technician called Dr Luz, he said the MRI can be done tomorrow and he does want with and without contrast.
[2019-10-13 10:59] LABS: Glucose Point of Care 250 mg/dL (70-110)
[2019-10-13 11:20] VITALS: BP 105/67; PULSE 87; RESP 18; TEMP 36.8; O2SAT 94
[2019-10-13] MEDS: insulin glargine 100 units/1 mL 35 UNIT SUBCUT ×2 (12:03→21:29)
--- NOTE | 2019-10-13 13:18 | P.PN_ITS ---
Subjective Subjective: Interval history: History and physical reviewed. Jennifer reports her foot feels better. She denies any significant pain currently. However, she also reports sensation is affected greatly by her diabetes. Medications: Reviewed: Yes Vitals/I&O/Wt Last Vital Signs Temp 98.2 F 10/13/19 11:20 Pulse 87 10/13/19 11:20 Resp 18 10/13/19 11:20 BP 105/67 10/13/19 11:20 Pulse Ox 94 10/13/19 11:20 10/12/19 10/13/19 10/13/19 22:59 06:59 14:59 Intake Total 1080 / 1780 500 / 2280 120 / 120 Output Total 2700 / 2700 900 / 3600 Balance -1620 / -920 -400 / -1320 120 / 120 Weight last 48 hrs Weight 100.698 kg Weight 102.228 kg Physical Exam Narrative: EXAM NARRATIVE: General exam no apparent distress Cardiovascular regular rate and rhythm without murmur Lungs clear Abdomen is soft, positive bowel sounds Extremities no cyanosis clubbing or edema. Dressing on right lower extremity Data : 10/13/19 05:14 10/13/19 05:14 A&P Assessment and plan (1) Cellulitis and abscess of right leg: Appers to be showing improvement with granulation tissue per podiatry but persistent cellulitis. Continue Levaquin, Flagyl, vancomycin Await MRI to check for recurrent abscess Appreciate podiatry consultation Continue current dressings Staph aureus and strep agalactiae growing out of the wound Status: Acute (2) Depression: Psychiatric evaluation appreciated. Continue Cymbalta Consider outpatient follow-up Status: Acute (3) Diabetes mellitus: Fair control in the hospital with Lantus, aggressive sliding scale Has very poor control as outpatient according to hemoglobin A1c Will need further adjustment of insulin doses as an outpatient per her primary care provider Status: Acute (4) COPD (chronic obstructive pulmonary disease): No evidence of exacerbation Status: Acute (5) Sepsis: Resolved Status: Acute Qualifiers: Sepsis acute organ dysfunction status: without acute organ dysfunction Sepsis type: sepsis due to unspecified organism Qualified Code(s): A41.9 - Sepsis, unspecified organism Additional A&P Information Anemia, consistent with chronic disease. Hemoccult negative. No evidence of iron deficiency. Continue to monitor. Discussed if she becomes symptomatic may need transfusion. Acute kidney injury, resolved Mild hypokalemia, supplement Hyponatremia, resolved. In large part secondary to elevated glucose Heparin for DVT prophylaxis Attestations Medical Necessity Statement*: Needs continued hospitalization for IV antibiotics secondary to cellulitis right lower extremity Coding Level of Care Code Acute Manager Of Purchasing for [facility] Fwd Diagnoses Cellulitis and abscess of right leg L03.115; L02.415 Depression F32.9 Diabetes mellitus E11.9 COPD (chronic obstructive pulmonary disease) J44.9 Sepsis A41.9 Sepsis acute organ dysfunction status: without acute organ dysfunction Sepsis type: sepsis due to unspecified organism
[2019-10-13 15:40] VITALS: BP 118/67; PULSE 69; RESP 18; TEMP 36.4; O2SAT 96
[2019-10-13 17:15] LABS: Glucose Point of Care 299 mg/dL (70-110)
[2019-10-13] MEDS: cyclobenzaprine 10 mg Tablet PO (17:53)
[2019-10-13] MEDS: acetaminophen 325 mg Tablet 650 MG PO ×2 (17:53→23:31)
[2019-10-13 19:52] VITALS: BP 118/75; PULSE 98; RESP 19; TEMP 36.6; O2SAT 97
[2019-10-13 20:31] LABS: Glucose Point of Care 379 mg/dL (70-110)
[2019-10-14] VITALS: BP 128/67; PULSE 91; RESP 18; TEMP 36.6; O2SAT 95
--- NOTE | 2019-10-14 00:37 | PC.NURSE ---
DRESSING WAS CHANGED AT 2300 10/13/19. OLD DRESSING WAS REMOVED AND NURSE APPLIED TWO 4X4's soaked in sterile saline, then applied two dry sterile 4x4's, kerlix, and wrapped in maurizio wrap.
[2019-10-14] MEDS: levofloxacin-dextrose 5 % 750 MG/150 ML PREMIX 100 MG IV (02:25)
[2019-10-14] MEDS: metroNIDAZOLE IV 500 MG/100 ML PREMIX 100 MG IV ×2 (03:48→09:09)
[2019-10-14 04:00] VITALS: BP 108/66; PULSE 90; RESP 19; TEMP 36.6; O2SAT 96
[2019-10-14 05:29] LABS: Basophils % 0.3 %; Eosinophils # 0.1 10^3/uL (0.0-0.8); Eosinophils % 1.3 %; Hematocrit 23.4 % (37.0-47.0); Hemoglobin 7.3 g/dL (11.5-15.3); Lymphocytes % 20.5 %; Mean Corpuscular HGB Conc 31.2 g/dL (30.0-36.0); Mean Corpuscular Volume 92.9 fL (81-99); Mean Platelet Volume 10.2 fL (7.4-10.4); Monocytes # 0.7 10^3/uL (0.2-0.9); Monocytes % 7.5 %; Neutrophils # 6.7 10^3/uL (1.8-7.7); Nucleated Red Blood Cells % 0 %; Platelet Count 261 10^3/cmm (130-400); Red Blood Count 2.52 10^6/uL (4.1-5.3); Red Cell Distribution Width 16.5 % (12.1-15.1); White Blood Count 9.8 10^3/uL (4.0-10.0)
[2019-10-14 05:56] LABS: Alanine Aminotransferase 15 U/L (0-33); Albumin Level 1.9 g/dL (3.5-5.2); Alkaline Phosphatase 281 IU/L (35-105); Anion Gap 10.8 (5-19); Aspartate Amino Transferase 23 U/L (0-32); Blood Urea Nitrogen 6 mg/dL (6-20); Calcium 8.3 mg/dL (8.5-10.5); Carbon Dioxide 28 mmol/L (22-29); Chloride 100 mmol/L (98-107); Glomerular Filtration Rate 75.3 mL/min (90-130); Glucose 261 mg/dL (65-115); Osmolality Calculated 285 mOsm/kg (285-295); Potassium 3.8 mmol/L (3.5-5.1); Sodium 135 mmol/L (136-145); Total Bilirubin 0.3 mg/dL (0.15-1.2); Total Protein 6.9 g/dL (6.6-8.7)
[2019-10-14 06:27] LABS: Glucose Point of Care 249 mg/dL (70-110)
[2019-10-14 07:24] VITALS: BP 130/82; PULSE 89; RESP 18; TEMP 37.1; O2SAT 97
--- NOTE | 2019-10-14 07:38 | P.PN_ITS ---
Subjective Subjective: Interval history: Patient seen bedside this morning, she is status post surgical debridement x2, denies any acute events overnight. Tolerating regular diet. States that she is tired of laying in bed wants to go home. She is scheduled for MRI this morning to rule out early osteomyelitis, rule out abscess. She has had slow improvement to IV antibiotics and debridement. Vitals/I&O/Wt Last Vital Signs Temp 98.8 F 10/14/19 07:24 Pulse 89 10/14/19 07:24 Resp 18 10/14/19 07:24 BP 130/82 10/14/19 07:24 Pulse Ox 97 10/14/19 07:24 10/13/19 10/14/19 10/14/19 22:59 06:59 14:59 Intake Total 590 / 1150 500 / 1650 Output Total 1250 / 1250 Balance 590 / 1150 -750 / 400 Weight last 48 hrs Weight 222 lb 6 oz Weight 222 lb Physical Exam Narrative: EXAM NARRATIVE: Patient is alert and oriented ?3 and in no acute distress. The following is a focused bilateral lower extremity exam. VASCULAR: Dorsalis pedis and posterior tibial arteries are palpable +1 right foot this could be secondary to edema. Dorsalis pedis is palpable +2 left foot, posterior tibial artery palpable +1 left foot. Popliteal arteries palpable +2 bilaterally. Capillary refill time less than 3 seconds to the distal hallux bilaterally. Calf is supple and nontender proximally and distally. Decreased pedal hair growth bilaterally. Edema to the right foot and ankle this is nonpitting. NEUROLOGICAL: Protective sensation intact 3/10 sites, tested with [place] Bk monofilament to bilateral feet. DERMATOLOGICAL: Full-thickness wound including surgical incision at the dorsum of the right foot and anterior leg measures 15 cm x 5 cm 0.5 cm, no purulent drainage, periwound erythema present. No pulsatile bleeders. Wound is exposed to deep fascia, muscle and tendon. Central medial aspect of incision has skin necrosis has dusky moore appearance approximately 6 cm in length at the margin of the incision. There is further necrosis at the medial instep right foot has dusky moore appearance. Additional wound at the medial midfoot measures 2.5 cm x 2.5 cm x 0.5 cm and tracks/tunnels and communicates to the dorsal foot wound this is approximately 4.5 cm, [place] drain is intact. MUSCULOSKELETAL: Pain to palpation at the right foot and ankle. No crepitus. Reducible hammertoe deformities on toes 2 through 5 bilaterally. Patient able to wiggle toes on command on the right foot. No pain with right posterior calf squeeze. No warmth at the right calf. Data : 10/14/19 04:34 10/14/19 04:34 A&P Assessment and plan (1) Sepsis: Status: Acute Qualifiers: Sepsis acute organ dysfunction status: without acute organ dysfunction Sepsis type: sepsis due to unspecified organism Qualified Code(s): A41.9 - Sepsis, unspecified organism (2) Non-pressure chronic ulcer of other part of right foot with necrosis of muscle: Status: Acute (3) Cellulitis of right lower limb: Status: Acute (4) Diabetes mellitus: Status: Acute -Status post incision and debridement right foot x2. Slow improvement wi th IV antibiotics and debridement. -Patient has been medically stabilized and sepsis resolved, anterior leg and dorsal foot wound is improving with granulation tissue present however she has had persistent cellulitis at her medial and lateral right foot. She is scheduled for MRI this morning with and without contrast to rule out early osteomyelitis, rule abscess. -Surgical wound culture finalized significant for staph aureus and group B strep -Repeat x-ray negative for any obvious signs of osteomyelitis, no soft tissue emphysema appreciated. -[place] 1.0 bilaterally, TBI 0.51 right, 0.52 left. -Will continue with twice daily saline wet-to-dry dressing changes Attestations Medical Necessity Statement*: Diabetic foot infection with cellulitis right lower extremity Coding Level of Care Code Acute Engineering And Operations Director for [facility] Diagnoses Sepsis A41.9 Sepsis acute organ dysfunction status: without acute organ dysfunction Sepsis type: sepsis due to unspecified organism Non-pressure chronic ulcer of other part of right foot with necrosis of muscle L97.513 Cellulitis of right lower limb L03.115 Diabetes mellitus E11.9
[2019-10-14] MEDS: cholecalciferol (vitamin D3) 1,000 unit Tablet 1000 UNIT PO (07:59)
[2019-10-14] MEDS: pantoprazole DR 40 mg Tablet PO (07:59)
[2019-10-14] MEDS: cyclobenzaprine 10 mg Tablet PO (07:59)
[2019-10-14] MEDS: gabapentin 300 mg Capsule PO (08:00)
[2019-10-14] MEDS: duloxetine 30 mg Capsule PO (08:00)
[2019-10-14] MEDS: acetaminophen 325 mg Tablet 650 MG PO (08:39)
[2019-10-14] MEDS: insulin glargine 100 units/1 mL 35 UNIT SUBCUT (08:40)
--- NOTE | 2019-10-14 11:11 | PM.PN ---
Subjective Subjective: Interval history: Jennifer reports she is doing okay. She would like to go home soon. We are awaiting her MRI. Medications: Reviewed: Yes Vitals/I&O/Wt Last Vital Signs Temp 98.8 F 10/14/19 07:24 Pulse 89 10/14/19 07:24 Resp 18 10/14/19 07:24 BP 130/82 10/14/19 07:24 Pulse Ox 97 10/14/19 07:24 10/13/19 10/14/19 10/14/19 22:59 06:59 14:59 Intake Total 590 / 1150 600 / 1750 120 / 120 Output Total 1250 / 1250 Balance 590 / 1150 -650 / 500 120 / 120 Weight last 48 hrs Weight 100.868 kg Weight 100.698 kg Physical Exam Narrative: EXAM NARRATIVE: General exam no apparent distress Cardiovascular regular rate and rhythm without murmur Lungs clear Abdomen is soft, positive bowel sounds Extremities no cyanosis clubbing or edema. Dressing on right lower extremity. Pictures taken from today were reviewed. Data : 10/14/19 04:34 10/14/19 04:34 A&P Assessment and plan (1) Cellulitis and abscess of right leg: Appers to be showing improvement with granulation tissue per podiatry but persistent cellulitis. Continue Levaquin, Flagyl, vancomycin MRI today to check for recurrent abscess, osteomyelitis Appreciate podiatry consultation Continue current dressings Staph aureus and strep agalactiae growing out of the wound Status: Acute (2) Depression: Psychiatric evaluation appreciated. Continue Cymbalta Consider outpatient follow-up Status: Acute (3) Diabetes mellitus: Fair control in the hospital with Lantus, aggressive sliding scale Has very poor control as outpatient according to hemoglobin A1c Increase Lantus to 40 units twice daily based on blood sugars Will need further adjustment of insulin doses as an outpatient per her primary care provider Status: Acute (4) COPD (chronic obstructive pulmonary disease): No evidence of exacerbation Status: Acute (5) Sepsis: Resolved Status: Acute Qualifiers: Sepsis acute organ dysfunction status: without acute organ dysfunction Sepsis type: sepsis due to unspecified organism Qualified Code(s): A41.9 - Sepsis, unspecified organism Additional A&P Information Anemia, consistent with chronic disease. Hemoccult negative. No evidence of iron deficiency. Continue to monitor. Discussed if she becomes symptomatic may need transfusion. No need for laboratory tomorrow Acute kidney injury, resolved Mild hypokalemia, normal today on recheck Hyponatremia, resolved. In large part secondary to elevated glucose Heparin for DVT prophylaxis Attestations Medical Necessity Statement*: Needs continued hospitalization for IV antibiotics for cellulitis pending further evaluation by MRI for definitive plan on home discharge Coding Level of Care Code Acute X Ray Equipment Tester for [facility] Diagnoses Cellulitis and abscess of right leg L03.115; L02.415 Depression F32.9 Diabetes mellitus E11.9 COPD (chronic obstructive pulmonary disease) J44.9 Sepsis A41.9 Sepsis acute organ dysfunction status: without acute organ dysfunction Sepsis type: sepsis due to unspecified organism
[2019-10-14 12:00] VITALS: BP 138/74; PULSE 68; RESP 20; TEMP 36.8; O2SAT 96
--- NOTE | 2019-10-14 12:00 | MR_ITS ---
WS: [id number] MRI RIGHT FOOT with and without CONTRAST. COMPARISON: Radiograph 10/12/2019 Multiplanar, multisequence imaging is performed with and without contrast. There is a large amount of inflammation involving the midfoot at the level proximal first, second and third metacarpals. Most significant area of inflammation with soft tissue edema and abnormal enhance ment surrounds the proximal first metatarsal. There is involvement of both the dorsal and plantar cris face of the foot with extension to encase the proximal second and to lesser extent the third metatars al. Is a soft tissue wound gapping by 1.6 cm between the first and second mid to distal metatarsals. Soft tissue tissue tract extends for several centimeters between the first and second metatarsals. Th e enhancement is more diffuse consistent with phlegmonous with surrounding edema involving the extens or tendons and flexor tendons. There is very mild hyperemia and increased T2 signal and very subtle d ecreased signal in the 3 cuneiforms with a mild mottled appearance of the trabecular pattern. There i s very mild enhancement in the cuneiforms. No focal well formed osteomyelitis or abscess. There is enhancing fluid along the flexor digitorum longus tendon sheath. MR/MR foot RT wo/w con [id number] IMPRESSION: 1. A large amount of cellulitis with enhancement involving the plantar and sapna jose surfaces of the soft tissues greatest around the first and second proximal metatarsals. Phlegmonous changes without a discrete abscess. 2. Mild enhancement diffusely throughout the cuneiforms. Suspicious for very e alejandro changes of osteomyelitis or may be hyperemic due to the diffuse infectious process. 3. Small fluid collection measuring 12 mm along the plantar surface of the glynn t surrounding the flexor digitorum longus tendon sheath. Tenosynovitis versus a bscess.
[2019-10-14 12:13] LABS: Glucose Point of Care 307 mg/dL (70-110)
[2019-10-14] MEDS: heparin 5,000 unit/mL INJ 1 mL 5000 UNIT SUBCUT (12:20)
--- NOTE | 2019-10-14 13:37 | P.DS_ITS ---
Discharge Providers Date of Admission: 10/05/19 22:11 Date of Discharge: October 14, 2019 Attending Provider at Admission: Richar Henning Attending Provider at Discharge: Omero Sims MD Primary Care Provider: Huang Fitzgerald MD Diagnoses at Discharge Discharge Diagnosis (1) Cellulitis and abscess of right leg: Status: Acute Problem details: Improving. (2) Depression: Status: Acute Problem details: Arrange for outpatient psychiatric follow-up (3) Diabetes mellitus: Status: Acute Problem details: Lantus increased on discharge (4) COPD (chronic obstructive pulmonary disease): Status: Acute (5) Sepsis: Status: Acute Problem details: Resolved Qualifiers: Sepsis acute organ dysfunction status: without acute organ dysfunction Sepsis type: sepsis due to unspecified organism Qualified Code(s): A41.9 - Sepsis, unspecified organism Reason for Visit Reason for Visit: Reason For Visit: SEPSIS Hospital Course Hospital Course: Jennifer is a 53-year-old white female who presented to the hospital with diabetic foot ulcer/abscess on the left side. She qualified for sepsis. Blood sugar was markedly elevated. She was admitted to the ICU and broad-spectrum antibiotics were initiated. Podiatry was consulted, and she underwent incision and debridement on October 05. During her hospital stay she had very slow improvement. She had some depression and visited with psychiatry regarding this. Outpatient psychiatric follow-up was arranged as well. On October 09, incision and debridement of nonviable tissue occurred for follow-up operation. She tolerated this well and thereafter had continued slow improvement until time of discharge on October 13. At that point left foot was looking better. Granulation tissue was noted in her wound. An MRI was performed secondary to some persistent erythema and this demonstrated enhancement, consistent with inflammation, impossible to rule out osteomyelitis or hyperemia, and a very small fluid collection. I visited with podiatry regarding this and they believed in conjunction with their exam that at this time there is no definitive diagnosis of osteomyelitis. The patient will be discharged home on Bactrim for a minimum of 14 days, have wound clinic and podiatry clinic follow-up to determine if further improvement occurs, or additional changes to her antibiotic regimen will be needed. She will do wet-to-dry dressings. Home health will be arranged if possible. Patient is agreeable to plan and reports understanding of the testing done during her hospital stay, current plan, and potential need to return if any worsening. We also discussed her overall poor control of diabetes prior to coming in and she is going to be managing her diet more strictly, being compliant with insulin, and following up with her primary care provider. She was also instructed to stop smoking. Physical Exam Narrative: EXAM NARRATIVE: General exam is no apparent distress Cardiovascular regular rate and rhythm without murmur Lungs clear Abdomen is soft positive bowel sounds Extremities no cyanosis clubbing. See exam from today. Discharge Data Data Completed and Pending: Completed Studies During Hospitalization Category Date Time Status CT kidney stone 7 4176 Routine Cat Scan 10/12/19 20:36 Completed XR chest 1V orlin ble [id number] Stat Exams 10/05/19 20:18 Completed XR foot RT min 3V * [id number] Routine Exams 10/12/19 16:08 Completed XR foot RT min 3V * [id number] Stat Exams 10/05/19 20:18 Completed MR foot RT wo/[place] [id number] Routine MRI 10/14/19 12:00 Completed Pathology: Surgic al [PTH] Routine Pth 10/06/19 15:39 [place] [id number] Rout ine Ultrasound 10/06/19 06:45 [place] d [id number] Routine Ultrasound 10/12/19 08:05 Completed Pending at discharge Category Date Time Status ES surgery / GI i mages Routine Exams 10/10/19 15:21 Taken ES surgery / GI i mages Routine Exams 10/10/19 16:17 Taken Vancomycin Trough Timed Lab 10/14/19 15:00 Ordered Labs from last 24 hours 10/14/19 10/14/19 10/14/19 12:11 06:22 04:34 WBC RBC Hgb Hct MCV MCH MCHC RDW Plt Count MPV Neut % (Auto) Lymph % (Auto) [place] % (Auto) Eos % (Auto) Baso % (Auto) Neut # (Auto) Lymph # (Auto) [place] # (Auto) Eos # (Auto) Baso # (Auto) Nucleated RBC % (a uto) Nucleated RBCs # Sodium 135 L Potassium 3.8 Chloride 100 Carbon Dioxide 28 Anion Gap 10.8 BUN 6 Creatinine 0.8 GFR Calculation 75.3 L Glucose 261 H POC Glucose 307 249 Calculated Osmolal ity 285 Calcium 8.3 L Total Bilirubin 0.3 AST 23 ALT 15 Alkaline Phosphata se 281 H Total Protein 6.9 Albumin 1.9 L Globulin 5.0 H 10/14/19 10/13/19 10/13/19 04:34 20:13 17:06 WBC 9.8 RBC 2.52 L Hgb 7.3 L Hct 23.4 L MCV 92.9 MCH 29.0 MCHC 31.2 RDW 16.5 H Plt Count 261 MPV 10.2 Neut % (Auto) 68.0 Lymph % (Auto) 20.5 [place] % (Auto) 7.5 Eos % (Auto) 1.3 Baso % (Auto) 0.3 Neut # (Auto) 6.7 Lymph # (Auto) 2.0 [place] # (Auto) 0.7 Eos # (Auto) 0.1 Baso # (Auto) 0.0 Nucleated RBC % (a uto) 0 Nucleated RBCs # 0.0 Sodium Potassium Chloride Carbon Dioxide Anion Gap BUN Creatinine GFR Calculation Glucose POC Glucose 379 299 Calculated Osmolal ity Calcium Total Bilirubin AST ALT Alkaline Phosphata se Total Protein Albumin Globulin Vitals: Last Vital Signs Temp 98.3 F 10/14/19 12:00 Pulse 68 10/14/19 12:00 Resp 20 H 10/14/19 12:00 BP 138/74 10/14/19 12:00 Pulse Ox 96 10/14/19 12:00 Discharge Plan Discharge Patient Disposition: Home Health Service Condition: Stable Prescriptions: New sulfamethoxazole-trimethoprim [Bactrim DS] 800-160 mg tablet 1 tab PO BID Qty: 28 RF: 0 Continued cyclobenzaprine 10 mg Tablet 10 mg PO TID PRN (Reason: Allergic Symptoms) RF: 0 gabapentin 600 mg Tablet 600 mg PO BID RF: 0 cetirizine 10 mg Tablet 10 mg PO DAILY PRN (Reason: allergies) RF: 0 Aspirin Low Dose 81 mg Tablet,Delayed Release (Dr/Ec) 81 mg PO DAILY RF: 0 pantoprazole 40 mg Tablet,Delayed Release (Dr/Ec) 40 mg PO DAILY RF: 0 metformin 1,000 mg Tablet 1,000 mg PO BID RF: 0 Cymbalta 30 mg Capsule,Delayed Release(Dr/Ec) 30 mg PO DAILY RF: 0 Centrum Silver Women 8 mg iron-400 mcg-300 mcg Tablet 1 tab PO DAILY RF: 0 Changed Lantus U-100 Insulin 100 unit/mL Solution 40 unit SUBCUT BID Qty: 0 RF: 0 Discontinued lisinopril 5 mg Tablet 5 mg PO DAILY RF: 0 Discharge Orders: Discharge Order (Routine); Ordered 10/14/19 Ordered By: Omero Sims Referrals: Lonny Luz DPM [Physician] - 4-7 days Erick Gill FNP-C [Family Provider] - 4-7 days (BMP on follow-up) Huang Fitzgerald MD [Primary Care Provider] - Discharge Diet: Diabetic Discharge Activity: Increase activity as tolerated and Use walker/crutches as instructed Activity Restrictions/Additional Instructions: Wound care instructions, wet-to-dry dressings twice daily per podiatry. Activity restrictions per podiatry. Please additionally arrange follow-up with wound care in 1 week. This is in addition to podiatry follow-up. Arrange home health if possible after patient initiates paperwork for katelyn care. Take all medicine as prescribed. Consideration of restarting lisinopril after follow-up with primary care provider and recheck of renal function. Arrange follow-up with psychiatry in regards to depression. Discharge Attestations Time Spent in Discharge Care*: greater than 30 min Quality Metrics Clinical Quality Measures During this hospital stay, did patient experience: None Coding Level of Care Code Acute Staff Scientist for [facility] Fwd Diagnoses Cellulitis and abscess of right leg L03.115; L02.415 Depression F32.9 Diabetes mellitus E11.9 COPD (chronic obstructive pulmonary disease) J44.9 Sepsis A41.9 Sepsis acute organ dysfunction status: without acute organ dysfunction Sepsis type: sepsis due to unspecified organism
[2019-10-14 14:07] VITALS: BP 138/74; PULSE 68; RESP 20; TEMP 36.8; O2SAT 96
--- NOTE | 2019-10-14 14:27 | PC.NURSE ---
DRESSING EDUCATION DONE WITH PATIENT. PATIENT VERBALIZED UNDERSTANDING OF INSTRUCTIONS.
[2019-10-14 14:47] VITALS: BP 138/74; PULSE 68; RESP 20; TEMP 36.8; O2SAT 96
== END 2019-10-14 14:45 | disposition home health service (06) | DRG 853 ==
LOC: ER 22:33 → ICU 22:33 → MEDSURG 10-08 10:31
PROVIDERS: Emergency Medicine; Internal Medicine; Podiatrist Foot & Ankle Surgery; Admitting Provider Internal Medicine; Family Provider Nurse Practitioner; PCP General Practice; Visit Provider Internal Medicine
PROC: 0KBV0ZZ Excision of Right Foot Muscle, Open Approach (ICD-10-PCS; principal; 2019-10-06 14:00)
PROC: 0LBV0ZZ Excision of Right Foot Tendon, Open Approach (ICD-10-PCS; principal; 2019-10-10 12:35)
DX: A41.9 Sepsis, unspecified organism (principal); R65.21 Severe sepsis with septic shock; L03.115 Cellulitis of right lower limb; L02.611 Cutaneous abscess of right foot; E87.1 Hypo-osmolality and hyponatremia; N17.9 Acute kidney failure, unspecified; L97.418 Non-pressure chronic ulcer of right heel and midfoot with other specified severity; E11.65 Type 2 diabetes mellitus with hyperglycemia; E11.42 Type 2 diabetes mellitus with diabetic polyneuropathy; J44.9 Chronic obstructive pulmonary disease, unspecified; F32.9 Major depressive disorder, single episode, unspecified; E78.5 Hyperlipidemia, unspecified; I10 Essential (primary) hypertension; F17.210 Nicotine dependence, cigarettes, uncomplicated; I95.9 Hypotension, unspecified; E86.0 Dehydration; D64.9 Anemia, unspecified; E11.621 Type 2 diabetes mellitus with foot ulcer; Z79.82 Long term (current) use of aspirin; E83.42 Hypomagnesemia; A49.01 Methicillin susceptible Staphylococcus aureus infection, unspecified site; B95.4 Other streptococcus as the cause of diseases classified elsewhere
CPT/HCPCS: 12345; 36415; 36416; 36600; 71045; 73630; 73720; 74176; 76705; 80048; 80051; 80053; 80202; 81001; 82009; 82140; 82274; 82306; 82728; 82810; 82962; 82977; 83036; 83540; 83550; 83605; 83735; 83986; 84484; 85025; 85610; 85651; 86140; 87040; 87070; 87077; 87186; 87493; 88305; 93005; 93923; 96372; 96375; 99284; A9579; J0131; J0744; J1644; J1815; J1956; J2001; J2405; J2704; J2765; J3010; J3370; J3475; J3490; J7030; J7050; S0030

== ENCOUNTER 2019-10-21 16:41 | Observation (INO) | payer SELFPAY ==
[2019-10-21 16:51] VITALS: BP 108/70; PULSE 115; RESP 14; TEMP 36.7; O2SAT 98; BMI 33.4
[2019-10-21 17:51] LABS: Basophils # 0.1 10^3/uL (0.0-0.1); Basophils % 0.7 %; Eosinophils # 0.1 10^3/uL (0.0-0.8); Eosinophils % 0.9 %; Hematocrit 25.2 % (37.0-47.0); Hemoglobin 7.4 g/dL (11.5-15.3); Lymphocytes # 1.1 10^3/uL (0.8-4.8); Lymphocytes % 14.9 %; Mean Corpuscular HGB Conc 29.4 g/dL (30.0-36.0); Mean Corpuscular Hemoglobin 29.5 pg (28.0-34.0); Mean Corpuscular Volume 100.4 fL (81-99); Mean Platelet Volume 10.3 fL (7.4-10.4); Monocytes # 0.5 10^3/uL (0.2-0.9); Monocytes % 6.6 %; Neutrophils # 5.7 10^3/uL (1.8-7.7); Neutrophils % 76.5 %; Nucleated Red Blood Cells % 0 %; Platelet Count 313 10^3/cmm (130-400); Red Blood Count 2.51 10^6/uL (4.1-5.3); Red Cell Distribution Width 16.9 % (12.1-15.1); White Blood Count 7.4 10^3/uL (4.0-10.0)
[2019-10-21 17:59] LABS: INR 1.12 (0.8-1.2)
[2019-10-21 18:09] LABS: Alanine Aminotransferase 18 U/L (0-33); Albumin Level 2.4 g/dL (3.5-5.2); Alkaline Phosphatase 339 IU/L (35-105); Anion Gap 15.7 (5-19); Aspartate Amino Transferase 22 U/L (0-32); Blood Urea Nitrogen 10 mg/dL (6-20); Calcium 9.7 mg/dL (8.5-10.5); Carbon Dioxide 28 mmol/L (22-29); Chloride 83 mmol/L (98-107); Globulin 5.9 g/dL (1.3-4.6); Glomerular Filtration Rate 39.5 mL/min (90-130); Potassium 4.7 mmol/L (3.5-5.1); Sodium 122 mmol/L (136-145); Total Bilirubin 0.4 mg/dL (0.15-1.2); Total Protein 8.3 g/dL (6.6-8.7)
[2019-10-21 18:22] LABS: Osmolality Calculated 291 mOsm/kg (285-295)
[2019-10-21 18:34] LABS: Glucose 841 mg/dL (65-115)
[2019-10-21 18:38] LABS: Lactate (Lactic Acid level) 3.5 mmol/L (0.5-2.2)
--- NOTE | 2019-10-21 20:06 | PM.HP ---
Providers/Chief Complaint Primary Care Provider: Erick Gill, [employer] Chief Complaint: low bp, states low on blood History of Present Illness Jennifer Whitman is a 53 year old female with history of COPD, poorly controlled diabetes, peripheral neuropathy, currently following up with Dr. Luz for diabetic foot ulcers/abscess, was sent in from podiatry clinic because of hypotension. Of note, on her previous admission she was treated with broad-spectrum antibiotics for foot abscess, she had incision and drainage in the OR, MRI was nonnconclusive regarding osteomyelitis, she was discharged home on Bactrim with close follow-up with podiatry who did not think she had osteomyelitis at that point. Today she went to her podiatry appointment where she was diagnosed with hypotension and anemia (hemoglobin 7.1 )hence was recommended to come to the ER for further evaluation. Patient herself is not endorsing any symptoms, she was not feeling any lethargy, fatigue, presyncopal at home. At baseline she is sedentary, she smokes cigarettes about 1.5 packs a day, takes Lantus 40 units twice a day, she has been taking Bactrim, she did not notice any fever, chills, nausea, vomiting, chest pain, shortness of breath. Endorsing right lower leg swelling which is new. She is denying any hematemesis, hematuria, dark stools, peptic ulcer disease, history of hepatitis. Diagnostics in the ER revealed systolic blood pressure range 100-1 20mmhg, patient is asymptomatic, hemoglobin 7.4, poorly controlled type II diabetic with hyperglycemia and hyponatremia, high lactic acid 3.5, she was given 1 dose of vancomycin in the ER along 1 L normal saline, she has been afebrile, no leukocytosis I have done rectal exam which was negative for occult blood, patient denies any EGD or colonoscopy in the past Review of Systems Const: Reports: body aches and fatigue; Denies: fever(s) or chills Eyes: Denies: change in vision ENMT: Denies: throat pain Card: Denies: chest pain Resp: Denies: dyspnea GI: Reports: bloating; Denies: abdominal pain or nausea : Denies: flank pain or difficulty voiding Musc: Denies: neck pain Skin/Breast: Reports: rash, erythema and skin pain Neuro: Denies: headache(s) Psych: Denies: anxiety Endo: Reports: polyuria Daniel/Lymph: Denies: easy bruising All/Imm: Denies: urticaria Medications/Allergies Home Medications Medication Instructions Recorded Confirmed Last Taken Type Centrum Silver Women 1 tab PO DAILY 10/06/19 10/21/19 10/21/19 History aspirin [Aspirin Low Dose] 81 mg PO DAILY 10/06/19 10/21/19 10/21/19 History cetirizine 10 mg PO DAILY PRN 10/06/19 10/21/19 10/21/19 History gabapentin 600 mg PO BID 10/06/19 10/21/19 10/21/19 History metformin 1,000 mg PO BID 10/06/19 10/21/19 10/21/19 History pantoprazole 40 mg PO DAILY 10/06/19 10/21/19 10/21/19 History Lantus U-100 Insulin 40 unit SUBCUT BID #0 ml 10/14/19 10/21/19 10/21/19 Rx sulfamethoxazole-trimethoprim 1 tab PO BID #28 tab 10/14/19 10/21/19 10/21/19 Rx [Bactrim DS] duloxetine 30 mg capsule,delayed 30 mg PO BID #60 cap 10/21/19 10/21/19 10/21/19 Rx release hydroxyzine pamoate 50 mg capsule 50 mg PO BID #60 cap 10/21/19 10/21/19 10/21/19 Rx Allergies Allergy/AdvReac Type Severity Reaction Status Date / Time morphine Allergy ALGY-Anaphy Verified 10/21/19 15:45 laxis Penicillins Allergy ADR-Vomitin Verified 10/21/19 15:45 g PFSH Acute PFSH: Medical History (Updated 10/21/19 @ 22:26 by Cheri Gusman MD) COPD (chronic obstructive pulmonary disease) Depression Diabetes mellitus DM neuropathy with neurologic complication Hyperlipidemia Hypertension Surgical History Previous section S/P cholecystectomy Family History Other Cancer Diabetes Hypertension Social History (Updated 10/21/19 @ 22:24 by Cheri Gusman MD) Smoking and tobacco status: heavy tobacco smoker cigarettes [ Other cigarette details: 1.5 pack/day ] Second hand smoke exposure: Yes Smoking risk assessment/counseling performed?: Yes Alcohol intake: never Desire information about alcohol rehabilitation?: No Counseling given: No Desire information about substance/drug rehabilitation?: No Counseling given: No Adopted: No Caregiver/support person: No Lives independently: Yes Household members: spouse Housing: Other Details: Skip shaw Marital status: Number of children: 4 service: No Current occupational status: unemployed Pets and animals: Yes Pets & animals: dog(s) History of recent travel: No Current gender identity: Female Vitals/I&O/Wt Last Vital Signs Temp 98.1 F 10/21/19 16:51 Pulse 115 H 10/21/19 16:51 Resp 14 10/21/19 16:51 BP 108/70 10/21/19 16:51 Pulse Ox 98 10/21/19 16:51 Weight last 48 hrs Weight 99.79 kg Physical Exam Narrative: EXAM NARRATIVE: Head to toe examination Patient laying comfortably in her bed without any active discomfort S1, S2, sinus tachycardia heart rate persistently above 120 No clinical signs of heart failure, Right lower extremity edema 2+, right calf muscle seems swollen as compared to the left leg She has seen podiatry today I have not opened her dressing in the ER Abdomen soft, distended, visceral obesity, bloated, bowels are present, I did not appreciate hepatosplenomegaly Lungs are clear to auscultation Awake alert oriented x3 Appropriate mood and affect Skin shows hyperemia, edema of right lower extremity EOMI, PERRLA Neurologically no focal deficit Data : 10/21/19 17:37 10/21/19 17:37 Micro: Microbiology 10/21/19 17:59 Blood Culture - Preliminary Blood SPECIMEN COLLECTED 10/21/19 17:58 Blood Culture - Preliminary Blood SPECIMEN COLLECTED A&P Assessment and plan (1) Hypotension: Status: Acute Qualifiers: Hypotension type: unspecified hypotension type Qualified Code(s): I95.9 - Hypotension, unspecified (2) Acidosis, lactic: Status: Acute (3) DM neuropathy with neurologic complication: Status: Acute (4) Diabetic foot ulcer: Status: Acute Qualifiers: Diabetes mellitus type: type 2 Diabetic foot ulcer location: unspecified part of foot Laterality: left Non-pressure ulcer stage: unspecified non-pressure ulcer stage Qualified Code(s): E11.621 - Type 2 diabetes mellitus with foot ulcer; L97.529 - Non-pressure chronic ulcer of other part of left foot with unspecified severity (5) Diabetes mellitus: Status: Acute (6) Chronic anemia: Status: Acute (7) Macrocytic anemia: Status: Acute (8) JUAN (acute kidney injury): Status: Acute (9) Dehydration: Status: Acute Additional A&P Information Hypotension secondary to hyperglycemia induced polyuria, underlying anemia Lactic acid 3.5 which I believe is due to hypotension No active signs of sepsis, she is afebrile, no leukocytosis, previous MRI was non-conclusive about osteomyelitis, She is responding well to fluids, she has not been hypotensive in the ER Rectal exam negative for occult blood, She will need EGD and colonoscopy down the road, no acute indication Would avoid transfusing her at this point as hemoglobin seems to be hanging around between 7.4-7.6 We will check B12 and folic acid level Hyperglycemia without acidosis Poorly controlled type 2 diabetes, last A1c was around 16, She seems to have poor insight to her diabetes We will keep her on consistent carbohydrate with moderate sliding scale along her Lantus 40 units twice a day Currently responding well to fluids No need of insulin drip, bicarb 28, anion gap is normal Pseudohyponatremia due to hyperglycemia Anticipating improvement with correction of hyperglycemia Macrocytic anemia: No active GI bleed, will check B12 folate level Lactic acidosis due to hypotension We will follow the lactic acid, most likely due to hypotension, blood pressure normal No signs of sepsis Acute kidney injury due to dehydration secondary to uncontrolled diabetes and Bactrim use Hold Bactrim, anticipating provement with fluid cessation No signs of UTI Diabetic foot ulcer currently following up with Dr. 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
[2019-10-21] MEDS: sodium chloride 0.9% 1,000 ML 999 ML IV (20:47)
--- NOTE | 2019-10-21 20:47 | W.ED.GENADLT ---
HPI - General Adult General: Chief complaint: General Medical Stated complaint: low bp, states low on blood Time Seen by Provider: 10/21/19 17:48 Source: patient Mode of arrival: ambulatory History of Present Illness: HPI narrative: The patient is a 54-year-old lady who is a poorly controlled diabetic, hemoglobin A1c is 16 who was noted to be hypotensive in the billing machine operator office. She has a diabetic foot ulcer that the billing machine operator has been taking care of. She was recently admitted to the hospital for the foot ulcer. She denies a fever, was dizzy at home and in the office but states she feels fine when she is lying down now. MD complaint: Hypotension Associated symptoms: Deny dyspnea, headache(s), nausea, rash, palpitations or vomiting Review of Systems General: Reports: 10 or more systems reviewed and unremarkable except in HPI and below Const: Denies: fever(s), chills or body aches Eyes: Denies: change in vision or blurry vision ENMT: Denies: throat pain, enlarged tonsils, odynophagia, hoarseness, mouth pain or swelling of lips/tongue Card: Denies: palpitations, irregular heart rhythm, edema or swelling of feet/ankles Resp: Denies: dyspnea, productive cough or non-productive cough GI: Denies: abdominal pain, nausea or vomiting : Denies: flank pain, difficulty voiding, dysuria, urinary frequency, urinary urgency or urinary hesitancy Musc: Denies: neck pain, back pain or extremity swelling Skin/Breast: Reports: non-healing lesions; Denies: rash, pruritus or erythema Neuro: Reports: dizziness; Denies: headache(s), numbness in extremities or weakness in extremities Endo: Reports: polyuria; Denies: polydipsia or tired all the time PFS ED PFSH: Medical History (Updated 10/21/19 @ 22:08 by Luis Loco MD, [facility] [place] COPD (chronic obstructive pulmonary disease) Depression Arrange for outpatient psychiatric follow-up Diabetes mellitus Lantus increased on discharge DM neuropathy with neurologic complication Hyperlipidemia Hypertension Surgical History Previous section S/P cholecystectomy Family History Other Cancer Diabetes Hypertension Social History Smoking and tobacco status: current every day smoker Second hand smoke exposure: Yes Smoking risk assessment/counseling performed?: Yes Alcohol intake: never Desire information about alcohol rehabilitation?: No Counseling given: No Desire information about substance/drug rehabilitation?: No Counseling given: No Adopted: No Caregiver/support person: No Lives independently: Yes Household members: spouse Housing: Other Details: Skip shaw Marital status: Number of children: 4 service: No Current occupational status: unemployed Pets and animals: Yes Pets & animals: dog(s) History of recent travel: No Current gender identity: Female Physical Exam Const: COMMON NORMALS: no acute distress, average body habitus, patient oriented x3, no limitations, healthy appearing, alert and well nourished HENMT: COMMON NORMALS: normocephalic, atraumatic and moist oral mucous membranes HEAD & SCALP: normocephalic and atraumatic Neck/C-Spine: COMMON NORMALS: no meningeal signs and no JVD Resp: COMMON NORMALS: normal respiratory effort, No retractions, No use of accessory muscles, clear to auscultation bilaterally and percussion normal AUSCULTATION: clear to auscultation bilaterally PERCUSSION: percussion normal Cardio: COMMON NORMALS: no JVD, regular rhythm, S1 normal heart sound present, S2 normal heart sound present, No gallops present (Cardio), No clicks present (Cardio), No murmurs present (Cardio), No rub (Cardio) and Peripheral pulses 2+ throughout RATE: tachycardic RHYTHM: regular rhythm HEART SOUNDS: S1 normal heart sound present and S2 normal heart sound present PERIPHERAL PULSES: Peripheral pulses 2+ throughout GI: COMMON NORMALS: Normal to inspection, nondistended, normoactive bowel sounds present, Soft to palpation, non-tender, No hepatosplenomegaly present, no masses and no bruits PALPATION: Yes Soft to palpation and Yes No hepatosplenomegaly present : COMMON NORMALS: Yes no CVA tenderness BLADDER/KIDNEY EXAM: Yes no CVA tenderness Back/Pelvis: COMMON NORMALS: no CVA tenderness Extremity: COMMON NORMALS: normal to inspection, full ROM, capillary refill normal, no calf tenderness and no pedal edema NARRATIVE EXTREMITY EXAM: Left leg in a wound dressing that was changed today by the podiatry Neuro: COMMON NORMALS: patient oriented x3 SENSORIUM/ORIENTATION: Yes alert MENINGEAL SIGNS: Yes no meningeal signs Skin: COMMON NORMALS: no rashes or lesions noted, no wounds, turgor normal, no jaundice, no petechiae and no mottling GENERAL SKIN EXAM: no rashes or lesions noted and turgor normal Course Consultations: Consultation #1: Dr. Gusman, hospitalist. He kindly accepted the patient to his service Vital Signs: Vital signs: Vital Signs Temperature 98.1 F 10/21/19 16:51 Pulse Rate 114 H 10/21/19 21:49 Respiratory Rate 18 10/21/19 21:49 Blood Pressure 122/66 10/21/19 21:49 Pulse Oximetry 98 10/21/19 21:49 MDM - General Adult MDM Narrative: Medical decision making narrative: 53-year-old female patient with poorly controlled diabetes and a diabetic foot ulcer. She was hypotensive in the billing machine operator's office and so she was sent here for evaluation. In the emergency department she was tachycardic, blood pressure had improved, but she had elevated lactic acid and a normal white cell count. Since she has a source of infection and is tachycardic and hypotensive I believe she is septic and will admit her for IV antibiotics. Medical Records: Attestation: I reviewed the patient's medical records. Lab Data: Attestation: I reviewed the patient's lab results. Labs: Lab Results 10/21/19 10/21/19 10/21/19 Range/Units 17:37 17:37 17:37 WBC 7.4 (4.0-10.0) 10^3/ uL RBC 2.51 L (4.1-5.3) 10^6/u L Hgb 7.4 L (11.5-15.3) g/dL Hct 25.2 L (37.0-47.0) % MCV 100.4 H D (81-99) fL MCH 29.5 (28.0-34.0) pg MCHC 29.4 L D (30.0-36.0) g/dL RDW 16.9 H (12.1-15.1) % Plt Count 313 (130-400) 10^3/c mm MPV 10.3 (7.4-10.4) fL Neut % (Auto) 76.5 % Lymph % (Auto) 14.9 % [place] % (Auto) 6.6 % Eos % (Auto) 0.9 % Baso % (Auto) 0.7 % Neut # (Auto) 5.7 (1.8-7.7) 10^3/u L Lymph # (Auto) 1.1 (0.8-4.8) 10^3/u L [place] # (Auto) 0.5 (0.2-0.9) 10^3/u L Eos # (Auto) 0.1 (0.0-0.8) 10^3/u L Baso # (Auto) 0.1 (0.0-0.1) 10^3/u L Nucleated RBC % (a uto) 0 % Nucleated RBCs # 0.0 /100WBC PT 14.70 H (10.5-13.3) SECO NDS INR 1.12 (0.8-1.2) Sodium 122 L (136-145) mmol/L Potassium 4.7 (3.5-5.1) mmol/L Chloride 83 L (98-107) mmol/L Carbon Dioxide 28 (22-29) mmol/L Anion Gap 15.7 (5-19) BUN 10 (6-20) mg/dL Creatinine 1.4 H (0.5-0.9) mg/dL GFR Calculation 39.5 L (90-130) mL/min Glucose 841 H* (65-115) mg/dL Calculated Osmolal ity 291 (285-295) mOsm/k g Lactate (0.5-2.2) mmol/L Calcium 9.7 (8.5-10.5) mg/dL Total Bilirubin 0.4 (0.15-1.2) mg/dL AST 22 (0-32) U/L ALT 18 (0-33) U/L Alkaline Phosphata se 339 H (35-105) IU/L Total Protein 8.3 (6.6-8.7) g/dL Albumin 2.4 L (3.5-5.2) g/dL Globulin 5.9 H (1.3-4.6) g/dL Blood Type Rho(D) Type Antibody Screen 10/21/19 10/21/19 Range/Units 17:37 17:58 WBC (4.0-10.0) 10^3/ uL RBC (4.1-5.3) 10^6/u L Hgb (11.5-15.3) g/dL Hct (37.0-47.0) % MCV (81-99) fL MCH (28.0-34.0) pg MCHC (30.0-36.0) g/dL RDW (12.1-15.1) % Plt Count (130-400) 10^3/c mm MPV (7.4-10.4) fL Neut % (Auto) % Lymph % (Auto) % [place] % (Auto) % Eos % (Auto) % Baso % (Auto) % Neut # (Auto) (1.8-7.7) 10^3/u L Lymph # (Auto) (0.8-4.8) 10^3/u L [place] # (Auto) (0.2-0.9) 10^3/u L Eos # (Auto) (0.0-0.8) 10^3/u L Baso # (Auto) (0.0-0.1) 10^3/u L Nucleated RBC % (a uto) % Nucleated RBCs # /100WBC PT (10.5-13.3) SECO NDS INR (0.8-1.2) Sodium (136-145) mmol/L Potassium (3.5-5.1) mmol/L Chloride (98-107) mmol/L Carbon Dioxide (22-29) mmol/L Anion Gap (5-19) BUN (6-20) mg/dL Creatinine (0.5-0.9) mg/dL GFR Calculation (90-130) mL/min Glucose (65-115) mg/dL Calculated Osmolal ity (285-295) mOsm/k g Lactate 3.5 H (0.5-2.2) mmol/L Calcium (8.5-10.5) mg/dL Total Bilirubin (0.15-1.2) mg/dL AST (0-32) U/L ALT (0-33) U/L Alkaline Phosphata se (35-105) IU/L Total Protein (6.6-8.7) g/dL Albumin (3.5-5.2) g/dL Globulin (1.3-4.6) g/dL Blood Type O Positive Rho(D) Type Positive Antibody Screen Negative Discharge Plan Discharge Patient Disposition: Placed in Observation Admit Provider: Cheri Gusman Clinical Impression: Acidosis, lactic Sepsis Qualifiers: Sepsis type: sepsis due to unspecified organism Sepsis acute organ dysfunction status: with acute organ dysfunction Severe sepsis acute organ dysfunction type: acute renal failure Acute renal failure type: unspecified Severe sepsis shock status: without septic shock Qualified Code(s): A41.9 - Sepsis, unspecified organism Diabetic foot ulcer Qualifiers: Diabetic foot ulcer location: unspecified part of foot Diabetes mellitus type: type 2 Laterality: left Non-pressure ulcer stage: unspecified non-pressure ulcer stage Qualified Code(s): E11.621 - Type 2 diabetes mellitus with foot ulcer Condition: Stable Referrals: Erick Gill [id number] [Primary Care Provider] - Discharge Date/Time: 10/21/19 21:53 Coding Level of Care Code ED Data Processing Specialist for Chg Fwd Exam Comprehensive
[2019-10-21 21:39] VITALS: RESP 18; O2SAT 96
[2019-10-21] MEDS: fentaNYL 50 mcg/mL INJ 2mL IVP (21:39)
[2019-10-21 21:49] VITALS: BP 122/66; PULSE 114; RESP 18; O2SAT 98
[2019-10-21 22:12] VITALS: BP 122/70; PULSE 123; TEMP 37.1; O2SAT 91
[2019-10-21 22:57] LABS: Glucose Point of Care > 600 mg/dL (70-110)
[2019-10-21] MEDS: insulin glargine 100 units/1 mL 40 UNIT SUBCUT (23:17)
[2019-10-21] MEDS: sodium chloride 0.9% 1,000 ML 75 ML IV (23:18)
--- NOTE | 2019-10-21 23:25 | PC.PHAR ---
Pharmacokinetic dosing service Date: 10/21/19 Time: 2299 Objective: Patient: Jennifer Crawley Floor: 258-2 Age: 53 yo Serum creatinine: 1.4 mg/dL Height: 68.0 Inches Weight (kg): 99.79 Diagnosis: Relevant medical/social history: Cultures and sensitivities: Other labs: Assessment: IBW (kg): 63.90 Dosing wt(kg): 99.79 Estimated Creatinine clearance (ml/min): 47.4 CRCL method: Cockcroft and Gault using ibw(default). Drug selected: Vancomycin Loading dose (mg): 0 Vd (liters): 89.8 (factor used: 0.9 L/kg) Fidel (hr-1): 0.044 Half life (hrs): 15.75 Recommended dose: 1500 mg Interval: 18 hrs Infusion time (hrs): 1.5 Predicted peak (mcg/mL): 29.5 Predicted trough (mcg/mL): 14.27 Total body weight is being used for vancomycin dosing. Renal function is stable [ ] /unstable [ ] Recommendations: Give Vancomycin 1500 mg q 18 hrs with an expected Cpeak of 29.5 mcg/ml and an expected Ctrough of 14.27 mcg/ml Renal dosing of other antibiotics (review renal dosing of other medications and list guidelines here): Thank you for the consult, will continue to follow. Signature: Caroline Jhaveri [facility]
--- NOTE | 2019-10-21 23:53 | PC.NURSE ---
Arrival Note: Pt arrived to the floor and admission assessment done at 22:30. Pt was drowsy and somewhat oriented as she was inconsistent in the information she provided. BP stable, tachycardic and afebrile. Per ER nurse, dressing to the right foot was assessed by Dr. Luz this afternoon and gave orders not to remove it. Edema noted to the toes with delayed cap refill and some redness above the maurizio wrap which was warm to the touch. BS read high and lab glucose noted to be 841 with 17:[address] Gusman notified and orders received. Will continue to monitor.
[2019-10-22] VITALS (7 sets, daily range): BP systolic 93–118; BP diastolic 54–74; PULSE 106–115; RESP 18–22; TEMP 36.6–37.3; O2SAT 90–97
[2019-10-22 00:16] LABS: Glucose Point of Care > 600 mg/dL (70-110)
[2019-10-22 00:51] LABS: Glucose 597 mg/dL (65-115)
[2019-10-22 01:36] LABS: Vitamin B12 529 pg/mL (232-1245)
[2019-10-22 04:28] LABS: Basophils % 0.7 %; Eosinophils # 0.1 10^3/uL (0.0-0.8); Eosinophils % 1.3 %; Hematocrit 22.8 % (37.0-47.0); Lymphocytes # 1.2 10^3/uL (0.8-4.8); Lymphocytes % 19.9 %; Mean Corpuscular HGB Conc 30.7 g/dL (30.0-36.0); Mean Corpuscular Hemoglobin 29.4 pg (28.0-34.0); Mean Corpuscular Volume 95.8 fL (81-99); Monocytes # 0.4 10^3/uL (0.2-0.9); Neutrophils # 4.4 10^3/uL (1.8-7.7); Neutrophils % 70.8 %; Nucleated Red Blood Cells % 0 %; Platelet Count 259 10^3/cmm (130-400); Red Blood Count 2.38 10^6/uL (4.1-5.3); Red Cell Distribution Width 16.5 % (12.1-15.1); White Blood Count 6.1 10^3/uL (4.0-10.0)
[2019-10-22 04:39] LABS: Lactic Acid level (Lactate) 1.9 mmol/L (0.5-2.2)
[2019-10-22 04:40] LABS: Anion Gap 12.5 (5-19); Blood Urea Nitrogen 9 mg/dL (6-20); Calcium 9.7 mg/dL (8.5-10.5); Carbon Dioxide 30 mmol/L (22-29); Chloride 91 mmol/L (98-107); Glomerular Filtration Rate 58.2 mL/min (90-130); Glucose 457 mg/dL (65-115); Osmolality Calculated 284 mOsm/kg (285-295); Potassium 4.5 mmol/L (3.5-5.1); Sodium 129 mmol/L (136-145)
--- NOTE | 2019-10-22 06:11 | PC.NURSE ---
Shift summary Patient came to the floor with blood sugar of 841. Doctor was notified with order to give 20 novolog now and 40 lantus now. Blood sugar was rechecked one hour later with results of 597. This morning labs show results of 457. Patient hgb was 7.4 upon admission and resulted with a drop to 7 with am labs. Patient has been resting well with no complaint of pain. Patient was able to pivot on her right foot to bed side comode. Patient does state that she does not intend on staying another night and would like to be discharged this morning.
[2019-10-22 07:10] LABS: Glucose Point of Care 451 mg/dL (70-110)
--- NOTE | 2019-10-22 07:54 | P.CONIM_ITS ---
Providers/Reason For Consult Consulting Physican/Specialty*: Reason for Consult*: Right foot wound Attending Physician: Armaan Cruz MD Primary Care Provider: MIKE Mckeon History of Present Illness History of Present Illness Patient seen bedside this morning for dressing change. Patient has been unreliable with her medications, very poorly controlled diabetes. She denies any right foot pain at this time. Denies any acute events overnight Review of Systems General: Reports: 10 or more systems reviewed and unremarkable except in HPI and below Const: Denies: fever(s) or chills Card: Denies: chest pain or palpitations Resp: Denies: productive cough GI: Denies: abdominal pain, nausea or vomiting : Denies: flank pain Musc: Reports: extremity swelling, joint pain, joint stiffness, limited range of motion and deformity Skin/Breast: Reports: sores, surgical incision, nail changes and change in hair; Denies: rash Neuro: Reports: numbness in extremities, sensory changes and difficulty walking Psych: Denies: suicidal ideation Daniel/Lymph: Denies: easy bruising Meds/Allergies Home Medications and Allergies Home Medications Medication Instructions Recorded Confirmed Last Taken Type Centrum Silver Women 1 tab PO DAILY 10/06/19 10/21/19 10/21/19 History aspirin [Aspirin Low Dose] 81 mg PO DAILY 10/06/19 10/21/19 10/21/19 History cetirizine 10 mg PO DAILY PRN 10/06/19 10/21/19 10/21/19 History gabapentin 600 mg PO BID 10/06/19 10/21/19 10/21/19 History metformin 1,000 mg PO BID 10/06/19 10/21/19 10/21/19 History pantoprazole 40 mg PO DAILY 10/06/19 10/21/19 10/21/19 History Lantus U-100 Insulin 40 unit SUBCUT BID #0 ml 10/14/19 10/21/19 10/21/19 Rx sulfamethoxazole-trimethoprim 1 tab PO BID #28 tab 10/14/19 10/21/19 10/21/19 Rx [Bactrim DS] duloxetine 30 mg capsule,delayed 30 mg PO BID #60 cap 10/21/19 10/21/19 10/21/19 Rx release hydroxyzine pamoate 50 mg capsule 50 mg PO BID #60 cap 10/21/19 10/21/19 10/21/19 Rx Allergies Allergy/AdvReac Type Severity Reaction Status Date / Time morphine Allergy ALGY-Anaphy Verified 10/21/19 15:45 laxis Penicillins Allergy ADR-Vomitin Verified 10/21/19 15:45 g Current Medications Current Medications Generic Name Dose Route Start Last Admin Trade Name Freq PRN Reason Stop Dose Admin Sodium Chloride 1,000 mls @ 75 mls/hr 10/21/19 22:06 10/21/19 23:18 Sodium Chloride 0.9% IV 75 mls/hr .[id number] [facility] Administration Insulin Aspart 0 unit 10/21/19 22:06 10/21/19 22:36 Novolog SUBCUT Not Given WM&BEDTIME [facility] Protocol Insulin Glargine 40 unit 10/21/19 22:45 10/21/19 23:17 Lantus SUBCUT 40 unit BID ADAMS Administration PFSH Acute PFSH: Medical History (Updated 10/22/19 @ 12:36 by Lonny Luz DPM) COPD (chronic obstructive pulmonary disease) Depression Diabetes mellitus DM neuropathy with neurologic complication Hyperlipidemia Hypertension Surgical History Previous section S/P cholecystectomy Family History Other Cancer Diabetes Hypertension Social History (Updated 10/21/19 @ 22:24 by Cheri Gusman MD) Smoking and tobacco status: heavy tobacco smoker cigarettes [ Other cigarette details: 1.5 pack/day ] Second hand smoke exposure: Yes Smoking risk assessment/counseling performed?: Yes Alcohol intake: never Desire information about alcohol rehabilitation?: No Counseling given: No Desire information about substance/drug rehabilitation?: No Counseling given: No Adopted: No Caregiver/support person: No Lives independently: Yes Household members: spouse Housing: Other Details: Skip shaw Marital status: Number of children: 4 service: No Current occupational status: unemployed Pets and animals: Yes Pets & animals: dog(s) History of recent travel: No Current gender identity: Female Vitals/I&O/Wt Last Vital Signs Temp 97.8 F 10/22/19 07:44 Pulse 110 H 06/03/20 07:44 Resp 18 10/22/19 07:44 BP 115/71 10/22/19 07:44 Pulse Ox 91 10/22/19 07:44 10/21/19 10/22/19 10/22/19 22:59 06:59 14:59 Intake Total 360 / 360 Output Total 900 / 900 Balance -900 / -900 360 / -540 Weight last 48 hrs Weight 220 lb Physical Exam Narrative: EXAM NARRATIVE: Patient is alert and oriented ?3, feels weak. The following is a focused bilateral lower extremity exam. VASCULAR: Dorsalis pedis and posterior tibial arteries are palpable +1 right foot this could be secondary to edema. Dorsalis pedis is palpable +2 left foot, posterior tibial artery palpable +1 left foot. Popliteal arteries palpable +2 bilaterally. Capillary refill time less than 3 seconds to the distal hallux bilaterally. Calf is supple and nontender proximally and distally. Decreased pedal hair growth bilaterally. Edema to the right foot and ankle this is nonpitting. NEUROLOGICAL: Protective sensation intact 3/10 sites, tested with [place] Bk monofilament to bilateral feet. DERMATOLOGICAL: Full-thickness wound including surgical incision at the dorsum of the right foot and anterior leg measures 15 cm x 5 cm 0.5 cm, no purulent drainage, periwound erythema present. No pulsatile bleeders. Wound is exposed to deep fascia, muscle and tendon. Central medial aspect of incision has skin necrosis has dusky moore appearance approximately 6 cm in length at the margin of the incision. There is further necrosis at the medial instep right foot has dusky moore appearance. Additional wound at the medial midfoot measures 2.5 cm x 2.5 cm x 0.5 cm and tracks/tunnels and communicates to the dorsal foot wound this is approximately 4.5 cm, [place] drain is intact. MUSCULOSKELETAL: Pain to palpation at the right foot and ankle. No crepitus. Reducible hammertoe deformities on toes 2 through 5 bilaterally. Patient able to wiggle toes on command on the right foot. No pain with right posterior calf squeeze. No warmth at the right calf. Data Micro: Micro: Microbiology 10/21/19 17:59 Blood Culture - Pr eliminary Blood [facility] 10/21/19 17:58 Blood Culture - Pr eliminary Blood [facility] A&P Assessment and plan (1) DM neuropathy with neurologic complication: Status: Acute (2) Non-pressure chronic ulcer of other part of right foot with necrosis of muscle: Status: Acute (3) Noncompliance: Status: Acute Right foot wound exposed to tendon, deep fascia and muscle overall appears improved overnight due to decreased edema. No periwound erythema, no proximal lymphangitic streaking, no german purulence. Will continue with twice daily saline wet-to-dry and packing. Patient to elevate her foot while in bed above her hip. Limited weightbearing for transfers only. Will repeat right foot x- ray. Appreciate medical management while inpatient. Wound will continue to be managed outpatient on discharge at wound care, she was scheduled for her wound care appointment tomorrow morning at 9 AM 10/23/2019 I contacted wound care to inform them that she will likely be inpatient will reschedule her follow-up on discharge. Will collaborate with hospitalist on antibiotic options on discharge, will need to consider renal dosing. Coding Level of Care Code Acute Garment Tag Stringer for Mandy Morton Diagnoses DM neuropathy with neurologic complication E11.40 Non-pressure chronic ulcer of other part of right foot with necrosis of muscle L97.513 Noncompliance Z91.19
[2019-10-22] MEDS: duloxetine 30 mg Capsule PO ×2 (08:22→17:57)
[2019-10-22] MEDS: pantoprazole DR 40 mg Tablet PO (08:23)
[2019-10-22] MEDS: gabapentin 300 mg Capsule PO ×2 (08:23→17:57)
[2019-10-22] MEDS: insulin glargine 100 units/1 mL 40 UNIT SUBCUT ×2 (08:23→17:57)
--- NOTE | 2019-10-22 08:49 | PC.CHAP ---
Pastoral Care Encounter/Spiritual Assessment Type of Contact [] Declined bakeshop cleaner visit [] Patient/Family/Request visit [] Outpatient visit [] Follow-up visit [] Physician referral [] Code/Alert [x] Routine visit [] Staff referral [] Actively dying [] Patient sleeping [] Family support [] [] Out of room [] Palliative care [] [] Receiving care in room [] Pre-surgical visit [] Trauma [] Long length of stay [] ICU visit [x] Other: Nurse advised bakeshop cleaner that patient had infection... Relational/Emotional Strength [] Patient feels connected with others/family/visitors/staff [] Distress [] Loneliness/isolation [] Abandonment Spirituality of Patient [] Person of Sumi [] Attends Jainism of their Sumi [] Believes in Prayer [] Reads Bible or Jehovah'S Witness materials [] There are Spiritual issues to be addressed Didactic Instructor Interventions [x] Prayer [] Active listening [] Non-anxious presence [] Spiritual/emotional support [] Crisis/trauma care [] Spiritual counseling [] Bereavement support [] Provided bereavement packet [] Provided Bible/devotional materials [] Provided toy/stuffed animal, coloring book to patient or family member [] Provided Communion [] Anointing/[place] [] Salvation [x] Completed spiritual assessment [] Other: Impact on Illness or Injury [] Angry [] Fearful [] Anxious [] Often cries [] Exhaustion [] Unable to work [] Unable to attend pentecostal [] Unable to walk/stand [] Unable to read [] Unable to drive [] Unable to eat/drink [] Unable to sleep [] Unable to be with family [] Patient intubated [] Other: Summary prayer was given from door Time spent with patient
--- NOTE | 2019-10-22 11:02 | PC.RESP ---
SMOKING CESSATION AND PULMONARY REHAB INFORMATION SENT TO PATIENT.
[2019-10-22] MEDS: sodium chloride 0.9% 1,000 ML 75 ML IV (11:14)
[2019-10-22 12:02] LABS: Glucose Point of Care 316 mg/dL (70-110)
--- NOTE | 2019-10-22 12:36 | XR_ITS ---
WS: [id number] XR foot RT min 3V* 04228 REASON FOR EXAM: right foot ulcer FINDINGS: Destructive changes with soft tissue air is seen overriding the medial aspects of the foot in the areas of the cuneiforms first second third suggesting either diabetic ulcer are osteomyelitis. The remaining phalanges metatarsals were normal. Previous exam of this area a drain was noted in this area on 10/12/2019. The calcaneus was intact. XR/XR foot RT min 3V* 04202 IMPRESSION: Soft tissue air and swelling with destructive changes involving the cuneiforms most likely from osteomyelitis although diabetes could produce similar findings .
[2019-10-22 15:30] LABS: Alanine Aminotransferase 14 U/L (0-33); Albumin Level 1.9 g/dL (3.5-5.2); Alkaline Phosphatase 204 IU/L (35-105); Anion Gap 11.5 (5-19); Aspartate Amino Transferase 22 U/L (0-32); Blood Urea Nitrogen 8 mg/dL (6-20); Carbon Dioxide 29 mmol/L (22-29); Chloride 92 mmol/L (98-107); Glomerular Filtration Rate 47.2 mL/min (90-130); Glucose 301 mg/dL (65-115); Osmolality Calculated 273 mOsm/kg (285-295); Potassium 4.5 mmol/L (3.5-5.1); Sodium 128 mmol/L (136-145); Total Bilirubin 0.3 mg/dL (0.15-1.2); Total Protein 6.9 g/dL (6.6-8.7)
[2019-10-22 17:02] LABS: Glucose Point of Care 304 mg/dL (70-110)
--- NOTE | 2019-10-22 18:37 | PC.NURSE ---
Dr. Luz wants to be called when patient's spouse- Davis Whitman gets here. Spouse has permission from Dr. Luz and Dr. Fonseca to come to the hospital. Dr. Brar wants to be called when he arrives and he will come in a speak to the patient and spouse. Dr. Luz's cell phone number is [phone]. Patient is aware that Dr. Luz is talking about a BKA.
[2019-10-22 19:55] LABS: Glucose Point of Care 363 mg/dL (70-110)
--- NOTE | 2019-10-22 19:58 | PM.PN ---
Subjective Subjective: Interval history: Overnight labs and H&P reveiwed. Patients X rays show significant worsening of ostemyelitis and increased bony destruction- discussed with Dr. Luz- recommended next step is BKA. Patient waiting to discuss with her . Blood sugar ranging >400, per patient her usual range [facility] is between 300-400s. Medications: Reviewed: Yes Vitals/I&O/Wt Last Vital Signs Temp 98.0 F 10/22/19 19:31 Pulse 114 H 10/22/19 19:31 Resp 18 10/22/19 19:31 BP 118/74 10/22/19 19:31 Pulse Ox 90 10/22/19 19:31 10/22/19 10/22/19 10/22/19 06:59 14:59 22:59 Intake Total 360 / 360 1095 / 1095 Output Total 1000 / 1000 1000 / 2000 Balance 360 / -540 95 / 95 -1000 / -905 Weight last 48 hrs Weight 99.79 kg Physical Exam Narrative: EXAM NARRATIVE: GEN: Awake, alert and oriented, no acute distress CVS: S1S2 N RS: CTA B/L Abd: Soft, nt/nd , bs+ [employer] W[employer]ER AND OILER: no focal neuro deficits Data : 10/22/19 04:13 10/22/19 15:00 Micro: Microbiology 10/21/19 17:59 Blood Culture - Preliminary Blood NEGATIVE TO DATE 10/21/19 17:58 Blood Culture - Preliminary Blood NEGATIVE TO DATE A&P Assessment and plan (1) JUAN (acute kidney injury): Status: Acute (2) Dehydration: Status: Acute (3) Chronic anemia: Status: Acute (4) Macrocytic anemia: Status: Acute (5) Hyperglycemia: Status: Acute (6) Osteomyelitis of ankle and foot: Status: Acute (7) Hypotension: Status: Acute Qualifiers: Hypotension type: unspecified hypotension type Qualified Code(s): I95.9 - Hypotension, unspecified (8) Acidosis, lactic: Status: Acute (9) DM neuropathy with neurologic complication: Status: Acute (10) Diabetic foot ulcer: Status: Acute Qualifiers: Diabetes mellitus type: type 2 Diabetic foot ulcer location: unspecified part of foot Laterality: left Non-pressure ulcer stage: unspecified non-pressure ulcer stage Qualified Code(s): E11.621 - Type 2 diabetes mellitus with foot ulcer; L97.529 - Non-pressure chronic ulcer of other part of left foot with unspecified severity (11) Diabetes mellitus: Status: Acute Additional A&P Information 1. Hyperglycemia without evidence of DKA or HHS - Currently on Lantus 40mg BID and high dose sliding scale with aspart - Blodo sugar ranging between 300-400 at this time,>800 upon admission, will monitor with strict insulin use and dietary complainace, adjust based on 24 hr insulin requirements. 2. Initially reportedly hypotensive as outpatient, improved since arrival here BP currently maintained with IVF @ 75cc/hr Patient tacahycardic since admission, unclear chronicity, check 12 lead EKG, pulse regular. if sustained, will start beta blockers May be secondary to underlying anemia Patient denies any c/o chest pain, dyspnea or palpitations Lack of leukocytosis, fever, normalization of lactate and overall non toxic appearance make sepsis less likely 3. Osteomyelitis of foot with fairly rapidly progressive destruction of cuneiform bones Was on outpatient treatment with bactrim Previous wound cultures with MSSA and Strep spp, patient does not require isolation for this. Switch antibiotic coverage to cefepime (over ceftriaxone to maintain additional pseudomonal coverage in uncontrolled DM with rapid progression) Discussed with Dr. Luz, patient likely requires BKA. Surgical consult placed with Dr. Browne. NPO p/MN in case of any procedures 4. Hypotension secondary to hyperglycemia induced polyuria, underlying anemia Lactic acid 3.5 which I believe is due to hypotension No active signs of sepsis, she is afebrile, no leukocytosis, previous MRI was non-conclusive about osteomyelitis, She is responding well to fluids, she has not been hypotensive in the ER Rectal exam negative for occult blood, She will need EGD and colonoscopy down the road, no acute indication Would avoid transfusing her at this point as hemoglobin seems to be hanging around between 7.4-7.6 We will check B12 and folic acid level 5. Hyponatremia, check TSH, Anticipating improvement with correction of dehydration 6. Macrocytic anemia: No active GI bleed, start iron/folate and b12 supplementation, check TSH 7. Lactic acidosis due to dehydration from hyperglyecmia , resolved 8. Acute kidney injury due to dehydration Full code Consistent carb diet DVT prophylaxis Heparin Attestations Medical Necessity Statement*: change to inpatient status, patient with developing bony detruction, may need surgical intervention Coding Level of Care Code Acute Commissioned Defence [employer] Officer for g Fwd Diagnoses JUAN (acute kidney injury) N17.9 Dehydration E86.0 Chronic anemia D64.9 Macrocytic anemia D53.9 Hyperglycemia R73.9 Osteomyelitis of ankle and foot M86.9 Hypotension I95.9 Hypotension type: unspecified hypotension type Acidosis, lactic E87.2 DM neuropathy with neurologic complication E11.40 Diabetic foot ulcer E11.621; L97.529 Diabetes mellitus type: type 2 Diabetic foot ulcer location: unspecified part of foot Laterality: left Non-pressure ulcer stage: unspecified non-pressure ulcer stage Diabetes mellitus E11.9
[2019-10-22] MEDS: cefepime 2,000 MG in sodium chloride 0.9% (plus) 50 ML 100 MG IV (21:25)
--- NOTE | 2019-10-22 21:54 | PC.NURSE ---
Patient spouse is on the floor, spouse was under the impression he was staying the night with patient so he can talk to Dr. Browne in the morning since Dr. Luz is no longer doing the surgery. Dr. Luz unable to give this type of permission, patient states if my does not get to stay the night with me just bring me my clothes and AMA paperwork, i think i need a second opinion anyway called Dr. Gusman who is [facility] and discussed the situation with him, DR. Gusman states she will be having a major operation, its okay to make a exception this time verbalized the okay for to stay the night until Dr. Browne comes in to talk to patient regarding Left BKA. notified greenhouse grower of family member. supervisor garment manufacturing came to floor and called Dr. Gusman to discuss patient family member staying the night, due to hospital policy in place at this time this can not be allowed, call was also placed to Admin shift production associate who also said family member can not stay the night. discussed with patient and family member the decision, patient expressed she wished to leave AMA, extensive education from myself and floor charge nurse was given to patient and regarding patient leaving AMA. wants patient to stay but states he can not make her. AMA form was signed and patient discharged with personal belongings. [employer] courtesy driver was called and patient took by wheelchair to ER entrance.
--- NOTE | 2019-10-22 22:38 | USCV_ITS ---
Jennifer Whitman Age: 53 Gender: F : 1965 Exam Date: 10/22/2019 15:12 Ordering Phys: Cheri Gusman MD Technologist: Lindsay Bahena [place] [facility] [place]ication: right leg swelling HISTORY: Right lower extremity pain. PROCEDURES: On the right side, the common femoral, superficial femoral, profunda femoral, popliteal, posterior tibial, greater saphenous veins and the peroneal trunk were identified and interrogated in the standard fashion. FINDINGS: No DVT or superficial thrombus seen in RLE. The veins were found to be easily compressible with spontaneous blood flow. Non pulsatile flow pattern. CONCLUSIONS No evidence of DVT in the above-mentioned identifiable veins. Dr Marguerite Gotti MD [facility] (Electronically Signed) Final Date: 22 October 2019 19:18 S
--- NOTE | 2019-10-22 22:59 | PC.NURSE ---
AMA; Dr. Gusman notified of pt leaving AMA.
--- NOTE | 2019-11-04 10:27 | PM.DCS ---
Discharge Providers Date of Admission: 10/21/19 20:11 Date of Discharge: October 22, 2019 Attending Provider at Admission: Cheri Gusman MD Attending Provider at Discharge: Zoey Fonseca MD Primary Care Provider: MIKE Mckeon Diagnoses at Discharge Discharge Diagnosis (1) JUAN (acute kidney injury): Status: Acute (2) Dehydration: Status: Acute (3) Chronic anemia: Status: Acute (4) Macrocytic anemia: Status: Acute (5) Hyperglycemia: Status: Acute (6) Osteomyelitis of ankle and foot: Status: Acute (7) Hypotension: Status: Acute Qualifiers: Hypotension type: unspecified hypotension type Qualified Code(s): I95.9 - Hypotension, unspecified (8) Acidosis, lactic: Status: Acute (9) DM neuropathy with neurologic complication: Status: Acute (10) Diabetic foot ulcer: Status: Acute Qualifiers: Diabetes mellitus type: type 2 Diabetic foot ulcer location: unspecified part of foot Laterality: left Non-pressure ulcer stage: unspecified non-pressure ulcer stage Qualified Code(s): E11.621 - Type 2 diabetes mellitus with foot ulcer; L97.529 - Non-pressure chronic ulcer of other part of left foot with unspecified severity (11) Diabetes mellitus: Status: Acute Reason for Visit Reason for Visit: low bp, states low on blood Hospital Course Discharge Summary: I was informed in the morning of 10/22 that patient left AMA overnight as she wanted a 2nd opinion regarding amputation and was unhappy with spouse not being able to stay with her overnight. For details regarding admission, please see my progress note from same day. Physical Exam Narrative: EXAM NARRATIVE: Not performed as I was not present at time patient left AMA Discharge Data Data Completed and Pending: Completed Studies During Hospitalization Category Date Time Status XR foot RT min 3V * [id number] Routine Exams 10/22/19 12:36 [place] [id number] Routin e Ultrasound 10/22/19 22:38 Completed Vitals: Last Vital Signs Temp 98.0 F 10/22/19 22:30 Pulse 114 H 10/22/19 22:30 Resp 18 10/22/19 22:30 BP 118/74 10/22/19 22:30 Pulse Ox 90 10/22/19 22:30 Discharge Plan Discharge Patient Disposition: Left Against Medical Advice Condition: Stable Prescriptions: No Action hydroxyzine pamoate 50 mg capsule 50 mg PO BID Qty: 60 RF: 2 Cymbalta 30 mg capsule,delayed release(DR/EC) 30 mg PO BID Qty: 60 RF: 2 gabapentin 600 mg Tablet 600 mg PO BID RF: 0 cetirizine 10 mg Tablet 10 mg PO DAILY PRN (Reason: allergies) RF: 0 aspirin [Aspirin Low Dose] 81 mg Tablet,Delayed Release (Dr/Ec) 81 mg PO DAILY RF: 0 pantoprazole 40 mg Tablet,Delayed Release (Dr/Ec) 40 mg PO DAILY RF: 0 metformin 1,000 mg Tablet 1,000 mg PO BID RF: 0 Centrum Silver Women 8 mg iron-400 mcg-300 mcg Tablet 1 tab PO DAILY RF: 0 sulfamethoxazole-trimethoprim [Bactrim DS] 800-160 mg tablet 1 tab PO BID Qty: 28 RF: 0 Lantus U-100 Insulin 100 unit/mL Solution 40 unit SUBCUT BID Qty: 0 RF: 0 Referrals: Erick Gill, [employer] DETAIL[employer] [Primary Care Provider] - Discharge Date/Time: 10/22/19 22:45 Discharge Attestations Time Spent in Discharge Care*: less than 30 min Quality Metrics Clinical Quality Measures During this hospital stay, did patient experience: None Coding Level of Care Code Acute 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
== END 2019-10-22 22:45 | disposition home or self-care (01) ==
LOC: ER 17:48 → MEDSURG 21:03
PROVIDERS: Nurse Practitioner Family; Admitting Provider Internal Medicine; Emergency Provider Family Medicine; PCP Nurse Practitioner; Visit Provider Student in an Organized Health Care Education/Training Program
DX: I95.9 Hypotension, unspecified (principal); M79.89 Other specified soft tissue disorders; E87.2 Acidosis; E11.40 Type 2 diabetes mellitus with diabetic neuropathy, unspecified; E11.621 Type 2 diabetes mellitus with foot ulcer; L97.529 Non-pressure chronic ulcer of other part of left foot with unspecified severity; D53.9 Nutritional anemia, unspecified; N17.9 Acute kidney failure, unspecified; E86.0 Dehydration; Z91.19 Patient's noncompliance with other medical treatment and regimen; M86.9 Osteomyelitis, unspecified; Z79.4 Long term (current) use of insulin; J44.9 Chronic obstructive pulmonary disease, unspecified; F32.9 Major depressive disorder, single episode, unspecified; E78.5 Hyperlipidemia, unspecified; I10 Essential (primary) hypertension; F17.210 Nicotine dependence, cigarettes, uncomplicated
CPT/HCPCS: 12345; 36415; 36416; 73630; 80048; 80053; 82607; 82746; 82947; 82962; 83605; 85025; 85610; 86850; 86900; 87040; 93971; 96365; 96372; 96375; 99282; 99285; G0378; J0692; J1815; J3010; J3370; J7030; J7050

== ENCOUNTER 2019-11-27 17:22 | Outpatient (CLI) | payer SELFPAY ==
[2019-11-27 17:50] LABS: Basophils % 0.6 %; Eosinophils # 0.2 10^3/uL (0.0-0.8); Eosinophils % 2.9 %; Hematocrit 34.9 % (37.0-47.0); Hemoglobin 10.3 g/dL (11.5-15.3); Lymphocytes % 41.2 %; Mean Corpuscular HGB Conc 29.5 g/dL (30.0-36.0); Mean Corpuscular Hemoglobin 25.9 pg (28.0-34.0); Mean Corpuscular Volume 87.7 fL (81-99); Monocytes # 0.5 10^3/uL (0.2-0.9); Monocytes % 6.9 %; Neutrophils % 48.3 %; Nucleated Red Blood Cells % 0 %; Platelet Count 245 10^3/cmm (130-400); Red Blood Count 3.98 10^6/uL (4.1-5.3); White Blood Count 7.3 10^3/uL (4.0-10.0)
[2019-11-28 00:13] LABS: Estmated Average Glucose 217; Hemoglobin A1C 9.2 % (4.0-6.0)
[2019-11-28 03:43] LABS: Alanine Aminotransferase 56 U/L (0-33); Albumin Level 3.6 g/dL (3.5-5.2); Alkaline Phosphatase 240 IU/L (35-105); Anion Gap 14.2 (5-19); Aspartate Amino Transferase 44 U/L (0-32); Blood Urea Nitrogen 12 mg/dL (6-20); Calcium 9.9 mg/dL (8.5-10.5); Carbon Dioxide 27 mmol/L (22-29); Chloride 99 mmol/L (98-107); Globulin 5.2 g/dL (1.3-4.6); Glomerular Filtration Rate 87.5 mL/min (90-130); Glucose 229 mg/dL (65-115); Osmolality Calculated 285 mOsm/kg (285-295); Potassium 4.2 mmol/L (3.5-5.1); Sodium 136 mmol/L (136-145); Total Bilirubin 0.2 mg/dL (0.15-1.2); Total Protein 8.8 g/dL (6.6-8.7)
== END 2019-11-27 17:23 | disposition home or self-care (01) ==
LOC: LAB 17:23
PROVIDERS: Visit Provider General Practice
DX: E11.9 Type 2 diabetes mellitus without complications (principal)
CPT/HCPCS: 80053; 83036; 85025

== ENCOUNTER 2019-12-02 18:55 | Emergency (ER) | payer SELFPAY ==
[2019-12-02 18:57] VITALS: BP 97/74; PULSE 118; RESP 18; TEMP 36.9; O2SAT 96; BMI 34.9
--- NOTE | 2019-12-02 19:12 | XRR_ITS ---
PROCEDURE INFORMATION: Exam: XR Left Ribs with PA Chest, 3 Views Exam date and time: 12/02/2019 7:57 PM Age: 54 years old Clinical indication: Injury or trauma; Fall; Initial encounter; Rib area, left side; Blunt trauma TECHNIQUE: Imaging protocol: XR Left ribs 3 views with PA chest. COMPARISON: CR XR chest 1V portable [id number] 10/05/2019 8:51 PM FINDINGS: Lungs: See Soft tissues finding. Pleural space: Unremarkable. No pleural effusion. No pneumothorax. Heart/Mediastinum: Unremarkable. No cardiomegaly. Bones/joints: See Soft tissues finding. Soft tissues: The submitted view of the chest is unremarkable. No acute cardiopulmonary process. The ribs are grossly normal. No acute or chronic fracture appreciated. No lytic process or expansile process. No rib notching. XR/XR ribs LT mn 3V w CXR1V [id number] IMPRESSION: Unremarkable ribs.
--- NOTE | 2019-12-02 19:13 | ED_ITS ---
HPI - Fall General: Chief Complaint: Fall Stated Complaint: FALL Time Seen by Provider: 12/02/19 19:12 Source: patient Mode of arrival: EMS Limitations: no limitations History of Present Illness: HPI Narrative: Patient is a 54-year-old female presents to ED today for evaluation following a fall. Patient states she was standing folding laundry with her wheelchair behind her when she accidentally lost her balance and fell forward. Patient tells me she has a right BKA (performed at [facility] on 10/25) so she has difficulty standing on her one left leg anyway. Patient tells me she fell forward and struck her left ribs on the side of the bed and scraped her right stump on the bed rail. No other injury sustained during the fall. Patient concerned because her stump wound has now dehisced. Patient states the rodo from the incision were removed on 11/19. I actually saw patient at the [facility] recently for wound recheck and during that visit wound looked clean with normal healing and Steri-Strips present. MD complaint: fall Onset (ago): minute(s) Fall from: standing Fall witnessed: yes, by family Place fall occurred: home Loss of consciousness: None Prolonged down time: no Symptoms prior to fall: none Context: tripped/slipped Location of injury: chest Location of injury - extremities: Right: lower leg (R BKA stump) Associated symptoms-after fall: Reports chest pain (L chest wall/rib pain); Denies abdominal pain, headache(s), lightheadedness or neck pain Review of Systems Const: Denies: fever(s) or chills Card: Reports: chest pain (L chest wall/rib pain); Denies: palpitations, irregular heart rhythm, edema, lightheadedness, syncope or pre-syncope Resp: Denies: dyspnea GI: Denies: abdominal pain Musc: Reports: other (R BKA stump wound dehiscence); Denies: neck pain or back pain Neuro: Denies: headache(s), sensory changes or dizziness PFS ED PFSH: Medical History (Updated 12/02/19 @ 20:46 by TOÑA Wilson) COPD (chronic obstructive pulmonary disease) Depression Diabetes mellitus Diabetes mellitus with hyperglycemia, with long-term current use of insulin DM neuropathy with neurologic complication Hyperlipidemia Hypertension Surgical History Previous section S/P cholecystectomy Family History Other Cancer Diabetes Hypertension Social History Smoking and tobacco status: heavy tobacco smoker cigarettes [ Other cigarette details: 1.5 pack/day ] Second hand smoke exposure: Yes Smoking risk assessment/counseling performed?: Yes Alcohol intake: never Desire information about alcohol rehabilitation?: No Counseling given: No Desire information about substance/drug rehabilitation?: No Counseling given: No Adopted: No Caregiver/support person: No Lives independently: Yes Household members: spouse Housing: Other Details: Skip shaw Marital status: Number of children: 4 service: No Current occupational status: unemployed Pets and animals: Yes Pets & animals: dog(s) History of recent travel: No Current gender identity: Female Physical Exam Const: COMMON NORMALS: no acute distress, patient oriented x3, no limitations and alert NUTRITIONAL APPEARANCE: obese Chest: COMMONS NORMALS: normal inspection of the chest OTHER: TTP L mid anterior ribs; no crepitus Resp: COMMON NORMALS: normal respiratory effort and clear to auscultation bilaterally AUSCULTATION: clear to auscultation bilaterally Cardio: COMMON NORMALS: regular rate and regular rhythm RATE: regular rate RHYTHM: regular rhythm Extremity: OTHER: pt with R BKA stump; wound is about 80% fully dehisced; bleeding controlled; no exposed bone Neuro: COMMON NORMALS: patient oriented x3 SENSORIUM/ORIENTATION: Yes alert Course Consultations: Consultation #1: Dr. Stanley (general surgery/trauma surgery) who was online activist for the trauma group that performed pts R BKA. He stated once wound has dehisced she most likely will require a wound VAC. Recommended wet-to-dry dressings and to contact their office early tomorrow morning and they will see her this week for reevaluation. Did not recommend antibiotics. Vital Signs: Vital signs: Vital Signs Temperature 98.5 F 12/02/19 18:57 Pulse Rate 121 H 12/02/19 19:14 Respiratory Rate 14 12/02/19 19:14 Blood Pressure 119/80 12/02/19 19:44 Pulse Oximetry 96 12/02/19 19:44 Discharge Plan Discharge Patient Disposition: Home, Self-Care Clinical Impression: BKA stump complication Contusion of rib on left side Qualifiers: Encounter type: initial encounter Qualified Code(s): S20.212A - Contusion of left front wall of thorax, initial encounter Surgical wound dehiscence Qualifiers: Encounter type: initial encounter Qualified Code(s): T81.31XA - Disruption of external operation (surgical) wound, not elsewhere classified, initial encounter Condition: Stable Prescriptions: No Action hydroxyzine pamoate 50 mg capsule 50 mg PO BID Qty: 60 RF: 2 Cymbalta 30 mg capsule,delayed release(DR/EC) 30 mg PO BID Qty: 60 RF: 2 gabapentin 600 mg Tablet 600 mg PO BID RF: 0 cetirizine 10 mg Tablet 10 mg PO DAILY PRN (Reason: allergies) RF: 0 aspirin [Aspirin Low Dose] 81 mg Tablet,Delayed Release (Dr/Ec) 81 mg PO DAILY RF: 0 pantoprazole 40 mg Tablet,Delayed Release (Dr/Ec) 40 mg PO DAILY RF: 0 metformin 1,000 mg Tablet 1,000 mg PO BID RF: 0 Centrum Silver Women 8 mg iron-400 mcg-300 mcg Tablet 1 tab PO DAILY RF: 0 sulfamethoxazole-trimethoprim [Bactrim DS] 800-160 mg tablet 1 tab PO BID Qty: 28 RF: 0 Lantus U-100 Insulin 100 unit/mL Solution 40 unit SUBCUT BID Qty: 0 RF: 0 Discharge Orders: Discharge Order (Routine); Ordered 12/02/19 Ordered By: Ericka Alex Activity Restrictions/Additional Instructions: As discussed you need to continue doing wet-to-dry dressings until seen by [facility] surgery group for further instructions. You will most likely require a wound VAC for healing. Please contact their office early tomorrow morning at [phone]. Address for their office is [address] [place] [address] [address], [place] [address]. Coding Level of Care Code ED External Relations Director for Mandy Morton Exam Expanded Problem Focused
[2019-12-02 19:14] VITALS: BP 103/73; PULSE 121; RESP 14; O2SAT 95
[2019-12-02 19:44] VITALS: BP 119/80; O2SAT 96
--- NOTE | 2019-12-02 20:52 | PC.NURSE ---
applied wet to dry dressing. wet 4x4, dry 4x4, wrapped with surgical dressing wrap. tapped.
== END 2019-12-02 22:51 | disposition home or self-care (01) ==
PROVIDERS: Emergency Provider Physician Assistant
DX: S20.212A Contusion of left front wall of thorax, initial encounter (principal); T87.81 Dehiscence of amputation stump; Z89.511 Acquired absence of right leg below knee; Z79.82 Long term (current) use of aspirin; Z79.4 Long term (current) use of insulin; W19.XXXA Unspecified fall, initial encounter; J44.9 Chronic obstructive pulmonary disease, unspecified; E11.9 Type 2 diabetes mellitus without complications; E78.5 Hyperlipidemia, unspecified; I10 Essential (primary) hypertension; F17.210 Nicotine dependence, cigarettes, uncomplicated
CPT/HCPCS: 12345; 71101; 99281; 99283

== ENCOUNTER 2020-12-30 18:42 | Outpatient (REF) | payer SELFPAY ==
[2020-12-30 19:57] LABS: Basophils % 0.7 %; Eosinophils # 0.1 10^3/uL (0.0-0.8); Eosinophils % 0.9 %; Hematocrit 41.8 % (37.0-47.0); Hemoglobin 12.7 g/dL (11.5-15.3); Lymphocytes # 1.7 10^3/uL (0.8-4.8); Lymphocytes % 29.3 %; Mean Corpuscular HGB Conc 30.4 g/dL (30.0-36.0); Mean Corpuscular Hemoglobin 27.9 pg (28.0-34.0); Mean Corpuscular Volume 91.7 fL (81-99); Mean Platelet Volume 12.4 fL (7.4-10.4); Monocytes # 0.4 10^3/uL (0.2-0.9); Monocytes % 7.2 %; Neutrophils # 3.62 10^3/uL (1.8-7.7); Neutrophils % 61.6 %; Nucleated Red Blood Cells % 0 %; Platelet Count 172 10^3/cmm (130-400); Red Blood Count 4.56 10^6/uL (4.1-5.3); Red Cell Distribution Width 15.8 % (12.1-15.1); White Blood Count 5.9 10^3/uL (4.0-10.0)
[2020-12-30 20:19] LABS: Alanine Aminotransferase 66 U/L (0-33); Albumin Level 3.2 g/dL (3.5-5.2); Alkaline Phosphatase 375 IU/L (35-105); Anion Gap 14.5 (5-19); Aspartate Amino Transferase 54 U/L (0-32); Blood Urea Nitrogen 9 mg/dL (6-20); Carbon Dioxide 27 mmol/L (22-29); Chloride 80 mmol/L (98-107); Globulin 4.5 g/dL (1.3-4.6); Glomerular Filtration Rate 57.8 mL/min (90-130); Potassium 4.5 mmol/L (3.5-5.1); Total Bilirubin 0.4 mg/dL (0.15-1.2); Total Protein 7.7 g/dL (6.6-8.7)
[2020-12-30 20:36] LABS: Estmated Average Glucose 369; Hemoglobin A1C 14.5 % (4.0-6.0)
[2020-12-30 20:39] LABS: Osmolality Calculated 291 mOsm/kg (285-295)
[2020-12-30 20:49] LABS: Glucose 963 mg/dL (65-115); Sodium 117 mmol/L (136-145)
== END 2020-12-30 18:43 | disposition home or self-care (01) ==
LOC: LAB 18:42
PROVIDERS: PCP General Practice; Visit Provider General Practice
DX: E11.9 Type 2 diabetes mellitus without complications (principal)
CPT/HCPCS: 80053; 83036; 85025

== ENCOUNTER 2021-05-05 17:29 | Outpatient (CLI) | payer SELFPAY ==
[2021-05-05 18:02] LABS: Anion Gap 16.7 (5-19); Blood Urea Nitrogen 16 mg/dL (6-20); Calcium 8.6 mg/dL (8.5-10.5); Carbon Dioxide 26 mmol/L (22-29); Chloride 101 mmol/L (98-107); Glomerular Filtration Rate 65.2 mL/min (90-130); Glucose 207 mg/dL (65-115); Osmolality Calculated 295 mOsm/kg (285-295); Potassium 4.7 mmol/L (3.5-5.1); Sodium 139 mmol/L (136-145)
== END 2021-05-05 17:30 | disposition home or self-care (01) ==
LOC: LAB 17:33
PROVIDERS: Visit Provider General Practice
DX: E87.1 Hypo-osmolality and hyponatremia (principal)
CPT/HCPCS: 80048

== ENCOUNTER → 2021-08-22 16:57 | Outpatient (BNVA) | payer SELFPAY | PROVIDERS: Visit Provider Family Medicine | DX: D64.9 Anemia, unspecified (principal); E11.65 Type 2 diabetes mellitus with hyperglycemia; E78.5 Hyperlipidemia, unspecified; I10 Essential (primary) hypertension; J44.9 Chronic obstructive pulmonary disease, unspecified; Z79.4 Long term (current) use of insulin; F32.9 Major depressive disorder, single episode, unspecified; E11.40 Type 2 diabetes mellitus with diabetic neuropathy, unspecified | CPT/HCPCS: 80053; 80061; 83036; 84443; 85025 ==

== ENCOUNTER → 2022-01-11 14:16 | Outpatient (BNVA) | payer SELFPAY | PROVIDERS: PCP Family Medicine; Visit Provider Family Medicine | DX: E11.65 Type 2 diabetes mellitus with hyperglycemia (principal); Z79.4 Long term (current) use of insulin; E11.40 Type 2 diabetes mellitus with diabetic neuropathy, unspecified; F17.219 Nicotine dependence, cigarettes, with unspecified nicotine-induced disorders; J44.9 Chronic obstructive pulmonary disease, unspecified | CPT/HCPCS: 80053; 81000; 82043; 83036; 83735; 85025 ==

== ENCOUNTER 2022-08-26 17:25 | Emergency (ER) | payer SELFPAY ==
[2022-08-26 17:28] VITALS: BP 119/95; PULSE 115; RESP 17; TEMP 37.1; O2SAT 93; BMI 30.4
[2022-08-26 17:40] VITALS: BP 119/95; PULSE 117; RESP 16; O2SAT 95
--- NOTE | 2022-08-26 17:51 | W.ED.SKABFB ---
HPI - Skin/Abscess/Foreign Bdy General: Chief complaint: Skin/Abscess/Foreign Body Stated complaint: knot on head w/pressure Time Seen by Provider: 08/26/22 17:31 History of Present Illness: Patient presents to the ER with complaints of knot on head. Patient states she has had a palpable knot that sometimes drains on the back of her head in the occipital region since May. Patient says wound is swollen and is very painful and gives her headaches. MD complaint: abscess/boil Onset (ago): month(s) (3 months) Tetanus up to date: unsure Location: head (Occipital region) Severity: mild Relieving factors: none Exacerbating factors: none Context: none Associated symptoms: Reports no associated symptoms; Deny chills, fever(s), nausea or vomiting Treatments prior to arrival: none Review of Systems General: Reports: 10 or more systems reviewed and unremarkable except in HPI and below Const: Denies: fever(s) or chills Eyes: Denies: change in vision or photophobia ENMT: Denies: throat pain or odynophagia Card: Denies: chest pain, palpitations or irregular heart rhythm Resp: Denies: dyspnea, productive cough or non-productive cough GI: Denies: abdominal pain, nausea or vomiting : Denies: flank pain Musc: Denies: neck pain, back pain or extremity pain Skin/Breast: Reports: other (Abscess/boil/sore to the back of her head) Psych: Denies: anxiety or depression Endo: Denies: polyuria or polydipsia Daniel/Lymph: Denies: easy bruising or easy bleeding PFSH ED PFSH: Medical History COPD (chronic obstructive pulmonary disease) Depression Diabetes mellitus Diabetes mellitus with hyperglycemia, with long-term current use of insulin DM neuropathy with neurologic complication Hyperlipidemia Hypertension Surgical History Previous section S/P cholecystectomy Family History Other Cancer Diabetes Hypertension Social History Smoking and tobacco status: current every day smoker cigarettes [ Other cigarette details: 1.5 pack/day] Second hand smoke exposure: Yes Smoking risk assessment/counseling performed?: Yes Alcohol intake: never Desire information about alcohol rehabilitation?: No Counseling given: No Desire information about substance/drug rehabilitation?: No Counseling given: No Adopted: No Caregiver/support person: No Lives independently: Yes Household members: spouse Housing: Other Details: Skip shaw Marital status: Number of children: 4 service: No Current occupational status: unemployed Pets and animals: Yes Pets & animals: dog(s) Current gender identity: Female Female Reproductive History: Spontaneous abortions: No Physical Exam Const: COMMON NORMALS: no acute distress, average body habitus, patient oriented x3, no limitations, healthy appearing and well nourished HENMT: COMMON NORMALS: hearing grossly normal bilaterally, external ears normal, Normal external nose present and moist oral mucous membranes NOSE: Normal external nose present EXTERNAL EAR: Yes external ears normal OTHER: There is a small less than 1 cm red indurated sore on the patient's posterior occipital scalp region. Minimal erythema no streaking mildly tender to palpation no fluctuance Eye: COMMON NORMALS: Equal, round and reactive pupils present, EOMs intact bilaterally, conjunctivae normal and no scleral icterus CONJUNCTIVA: Yes conjunctivae normal PUPIL: Yes Equal, round and reactive pupils present Neck/C-Spine: COMMON NORMALS: full ROM, no lymphadenopathy, supple, no meningeal signs, no JVD and Thyroid normal THYROID: Thyroid normal Lymph: LYMPHATIC: no lymphadenopathy noted Chest: COMMONS NORMALS: normal inspection of the chest and normal palpation of entire chest wall Resp: COMMON NORMALS: normal respiratory effort, No retractions, No use of accessory muscles and clear to auscultation bilaterally AUSCULTATION: clear to auscultation bilaterally Cardio: COMMON NORMALS: no JVD GI: COMMON NORMALS: Normal to inspection, nondistended, normoactive bowel sounds present, Soft to palpation, non-tender, No hepatosplenomegaly present and no masses PALPATION: Yes Soft to palpation and Yes No hepatosplenomegaly present : COMMON NORMALS: Yes no CVA tenderness BLADDER/KIDNEY EXAM: Yes no CVA tenderness Back/Pelvis: COMMON NORMALS: no CVA tenderness Neuro: COMMON NORMALS: patient oriented x3 MENINGEAL SIGNS: Yes no meningeal signs Course Vital Signs: Vital signs: Vital Signs Temperature 98.7 F 08/26/22 17:28 Pulse Rate 117 H 08/26/22 17:40 Respiratory Rate 16 08/26/22 17:40 Blood Pressure 119/95 08/26/22 17:40 Pulse Oximetry 95 08/26/22 17:40 Oxygen Delivery Me thod 08/26/22 17:40 MDM - Skin/Abscess/Foreign Bdy Medicial Decision Making Patient presents to the ER with complaints of abscess/sore in posterior scalp region for approximately 3 months. Patient says this is often tender to palpate and gives her headaches. Patient says when this is sore she does squeeze it and gets a small amount of pus out. Patient states this improves it but it never goes away. Area was examined and it does show an area consistent with minimal cellulitis/folliculitis. Patient will be placed on antibiotics and instructed to follow-up with her PCP within the next week. Differential Diagnosis Likely abscess of skin or subcutaneous tissue Medical Records I reviewed the patient's medical records. Lab Data I reviewed the patient's lab results. Discharge Plan Discharge Patient Disposition: Home Clinical Impression: Folliculitis Condition: Stable Prescriptions: New sulfamethoxazole-trimethoprim [Bactrim DS] 800-160 mg tablet 1 tab PO BID 7 Days Qty: 14 0RF No Action Lantus U-100 Insulin 100 unit/mL solution 20 unit SUBCUT BID Qty: 10 3RF Rx Instructions: 340B albuterol sulfate [ProAir HFA] 90 mcg/actuation HFA aerosol inhaler 1 inh inhalation QID PRN (Reason: shortness of breath or wheezing) Qty: 8.5 2RF duloxetine 30 mg capsule,delayed release(DR/EC) See Rx Instructions .ROUTE .COMPLEX Qty: 30 2RF Dose Instruction: TAKE ONE CAPSULE BY MOUTH DAILY Rx Instructions: TAKE ONE CAPSULE BY MOUTH DAILY metformin 1,000 mg tablet See Rx Instructions .ROUTE .COMPLEX Qty: 60 2RF Dose Instruction: TAKE ONE TABLET BY MOUTH TWICE DAILY Rx Instructions: TAKE ONE TABLET BY MOUTH TWICE DAILY gabapentin 600 mg tablet See Rx Instructions .ROUTE .COMPLEX Qty: 150 2RF Dose Instruction: TAKE TWO TABLETS BY MOUTH IN THE MORNING & TAKE THREE TABLETS AT BEDTIME Rx Instructions: TAKE TWO TABLETS BY MOUTH IN THE MORNING & TAKE THREE TABLETS AT BEDTIME cetirizine 10 mg Tablet 10 mg PO DAILY PRN (Reason: allergies) Centrum Silver Women 8 mg iron-400 mcg-300 mcg Tablet 1 tab PO DAILY Discharge Orders: Discharge ED (Routine); Ordered 08/26/22 Ordered By: Rodrick Aguayo Referrals: Pavan Avelar DO [Primary Care Provider] - 1 week Patient Instructions: Folliculitis Coding Level of Care Code ED Patient Scheduling Manager for Mandy Morton
== END 2022-08-26 18:08 | disposition home or self-care (01) ==
PROVIDERS: Emergency Provider Emergency Medicine; PCP Family Medicine
DX: L73.9 Follicular disorder, unspecified (principal); Z79.84 Long term (current) use of oral hypoglycemic drugs; Z79.4 Long term (current) use of insulin; F17.210 Nicotine dependence, cigarettes, uncomplicated; J44.9 Chronic obstructive pulmonary disease, unspecified; E11.9 Type 2 diabetes mellitus without complications; E78.5 Hyperlipidemia, unspecified; I10 Essential (primary) hypertension
CPT/HCPCS: 99283

== ENCOUNTER → 2022-09-14 16:06 | Outpatient (BNVA) | payer SELFPAY | PROVIDERS: PCP Family Medicine; Visit Provider Family Medicine | DX: E11.65 Type 2 diabetes mellitus with hyperglycemia (principal); Z79.4 Long term (current) use of insulin | CPT/HCPCS: 80053; 80061; 82043; 83036; 83735; 84439; 84443; 85025 ==

== ENCOUNTER 2022-12-11 15:34 | Emergency (ER) | payer SELFPAY ==
[2022-12-11 15:38] VITALS: BP 101/66; PULSE 111; RESP 16; TEMP 36.7; O2SAT 96; BMI 30.4
--- NOTE | 2022-12-11 17:03 | XRR_ITS ---
PROCEDURE INFORMATION: Exam: XR Right Femur Exam date and time: 12/11/2022 5:14 PM Age: 57 years old Clinical indication: Injury or trauma; Fall; Blunt trauma; Thigh or upper leg; Right; Prior surgery; Surgery date: 6+ months; Surgery type: RT bka TECHNIQUE: Imaging protocol: Radiologic exam of the right femur. Views: 2 views. COMPARISON: CR (PELVIS, ) 12/11/2022 5:12 PM FINDINGS: Bones/joints: Unremarkable. No acute fracture. Soft tissues: Unremarkable. XR/XR femur RT min 2V* [id number] IMPRESSION: No acute findings.
--- NOTE | 2022-12-11 17:03 | XRR_ITS ---
PROCEDURE INFORMATION: Exam: XR Right Hip Exam date and time: 12/11/2022 5:12 PM Age: 57 years old Clinical indication: Injury or trauma; Fall; Blunt trauma (contusions or hematomas); Right; Hip TECHNIQUE: Imaging protocol: Radiologic exam of the right hip. Views: 1 view hip with pelvis when performed. COMPARISON: CT kidney stone [id number] 10/12/2019 9:37 PM FINDINGS: Bones/joints: Unremarkable. No acute fracture. Soft tissues: Unremarkable. XR/XR hip RT 2-3V wo/w pel* [id number] IMPRESSION: No acute findings.
--- NOTE | 2022-12-11 17:03 | XRR_ITS ---
PROCEDURE INFORMATION: Exam: XR Right Knee Exam date and time: 12/11/2022 5:18 PM Age: 57 years old Clinical indication: Injury or trauma; Fall; Blunt trauma; Knee; Right; Prior surgery; Surgery date: 6+ months; Surgery type: RT bka TECHNIQUE: Imaging protocol: Radiologic exam of the right knee. Views: 3 views. COMPARISON: CR (LOW EXM, ) 12/11/2022 5:14 PM FINDINGS: Bones/joints: Below-knee amputation. Cortical buckling in the medial and lateral metaphysis of the proximal tibia. Cortical irregularity in the lateral tibial plateau is most likely degenerative. The bones otherwise appear intact. No acute fracture. Mild degenerative changes of the patella. Small knee effusion. Soft tissues: Normal. XR/XR knee RT 3V* [id number] IMPRESSION: 1. Acute appearing fracture in the proximal metaphysis of the right tibia. Extension into the lateral tibial plateau cannot be excluded. Follow-up with CT imaging is suggested. 2. Knee effusion/hemarthrosis.
[2022-12-11 17:04] VITALS: BP 119/83; PULSE 104; RESP 14; O2SAT 94
--- NOTE | 2022-12-11 17:54 | ED_ITS ---
HPI - Extremity Problem General: Chief complaint: Extremity Injury, Lower Stated complaint: Right Leg pain Time Seen by Provider: 12/11/22 16:52 Source: patient Mode of arrival: ambulatory History of Present Illness: 57-year-old female presents emergency room complaining of pain at the stump of her right below the knee amputation. Patient had this previous infection diabetic ulcer of the the right lower leg had a below the knee amputation she uses a wheelchair most of the time occasionally will use a walker her wheelchair does not fit to her bathroom door so she had begun to use her walker she stumbled and fell landed on the stump of her right leg this happened 1 week ago. She felt like her knee popped out and back in again. She is continuing to have pain and after a week sought evaluation MD Complaint: extremity pain Onset (ago): week(s) (1) Pain Consistency: constant Quality: aching Relieving factors: nothing Exacerbating factors: nothing Associated symptoms: Reports rash; Deny chest pain, fever(s), myalgias or short of breath Review of Systems Const: Denies: fever(s) Card: Denies: chest pain Skin/Breast: Reports: rash [facility] ED PFSH: Medical History COPD (chronic obstructive pulmonary disease) Depression Diabetes mellitus Diabetes mellitus with hyperglycemia, with long-term current use of insulin DM neuropathy with neurologic complication Hyperlipidemia Hypertension Surgical History Previous section S/P cholecystectomy Family History Other Cancer Diabetes Hypertension Social History Smoking and tobacco status: current every day smoker cigarettes [ Other cigarette details: 1.5 pack/day] Second hand smoke exposure: Yes Smoking risk assessment/counseling performed?: Yes Alcohol intake: never Desire information about alcohol rehabilitation?: No Counseling given: No Substance/Drug Use: never Desire information about substance/drug rehabilitation?: No Counseling given: No Adopted: No Caregiver/support person: No Lives independently: Yes Household members: spouse Housing: Other Details: Skip suriwilbert Marital status: Number of children: 4 service: No Current occupational status: unemployed Pets and animals: Yes Pets & animals: dog(s) Do you think of yourself as: Straight/Heterosexual Current gender identity: Female Female Reproductive History: Spontaneous abortions: No Course Vital Signs: Vital signs: Vital Signs Temperature 98.0 F 12/11/22 15:38 Pulse Rate 98 12/11/22 18:34 Respiratory Rate 14 12/11/22 17:04 Blood Pressure 136/81 12/11/22 18:34 Pulse Oximetry 94 12/11/22 18:34 Oxygen Delivery Me thod Room Air 12/11/22 17:04 MDM - Extremity (Nontraumatic) Medical Decision Making Patient had mild discomfort. She uses a wheelchair she does not use a prosthetic. When she is not able to use a wheelchair she uses a walker. Discharge patient home follow-up as needed Patient was discharged home and later went sign of chart radiology had read as possible fracture of the remaining stump of the tibia. We will have her follow- up with primary care or with Ortho. She is not weightbearing does not use a prosthetic so does not need to be immobilized. He may need further pain medications. Still difficult to read because of severe osteopenia on the remaining portion of tibia. Additionally the film was taken 1 week after her fall radiology is questioning a possible fracture. Would expect that osteoclastic activity would have made it more prominent by this time. As she continues to have pain she may need reimaging. Medical Records I reviewed the patient's medical records. Lab Data I reviewed the patient's lab results. Radiology Impressions Femur X-Ray 12/11/22 17:03 IMPRESSION: No acute findings. Hip/Pelvis X-Ray 12/11/22 17:03 IMPRESSION: No acute findings. Knee X-Ray 12/11/22 17:03 IMPRESSION: 1. Acute appearing fracture in the proximal metaphysis of the right tibia. Extension into the lateral tibial plateau cannot be excluded. Follow-up with CT imaging is suggested. 2. Knee effusion/hemarthrosis. Discharge Plan Discharge Patient Disposition: Home Clinical Impression: Leg pain Condition: Stable Prescriptions: New diclofenac sodium 75 mg tablet,delayed release (DR/EC) 75 mg PO Q12H PRN (Reason: pain) Qty: 20 0RF No Action Lantus U-100 Insulin 100 unit/mL solution 25 unit SUBCUT BID Qty: 10 3RF insulin aspart U-100 [Novolog FlexPen U-100 Insulin] 100 unit/mL (3 mL) insulin pen 15 unit SUBCUT TID Qty: 15 5RF albuterol sulfate [ProAir HFA] 90 mcg/actuation HFA aerosol inhaler 1 inh inhalation QID PRN (Reason: shortness of breath or wheezing) Qty: 8.5 2RF lisinopril 5 mg tablet 5 mg PO DAILY Qty: 30 5RF gabapentin 600 mg tablet See Rx Instructions .ROUTE .COMPLEX Qty: 150 2RF Dose Instruction: TAKE 2 TABLETS BY MOUTH EVERY MORNING AND THREE AT BEDTIME Rx Instructions: TAKE 2 TABLETS BY MOUTH EVERY MORNING AND THREE AT BEDTIME metformin 1,000 mg tablet See Rx Instructions .ROUTE .COMPLEX Qty: 60 2RF Dose Instruction: TAKE ONE TABLET BY MOUTH TWICE DAILY Rx Instructions: TAKE ONE TABLET BY MOUTH TWICE DAILY duloxetine 30 mg capsule,delayed release(DR/EC) See Rx Instructions .ROUTE .COMPLEX Qty: 30 2RF Dose Instruction: TAKE ONE CAPSULE BY MOUTH DAILY Rx Instructions: TAKE ONE CAPSULE BY MOUTH DAILY cetirizine 10 mg Tablet 10 mg PO DAILY PRN (Reason: allergies) Centrum Silver Women 8 mg iron-400 mcg-300 mcg Tablet 1 tab PO DAILY Discharge Orders: Discharge ED (Routine); Ordered 12/11/22 Ordered By: Thee Mao Referrals: Pavan Avelar DO [Primary Care Provider] - Discharge Diet: Usual diet Discharge Activity: Increase activity as tolerated Patient Instructions: Opioid Safety, Pain Management Activity Restrictions/Additional Instructions: You were seen today for leg pain after a fall. There are no acute fractures your pain is from soft tissue injury. Recommend you use the medications prescribed. You can apply ice as needed follow-up with your doctor if not improving. Coding Level of Care Code ED Stemhole Borer And Topper for Mandy Morton
[2022-12-11] MEDS: diclofenac 75 mg DR Tablet PO (18:32)
[2022-12-11 18:34] VITALS: BP 136/81; PULSE 98; O2SAT 94
== END 2022-12-11 18:33 | disposition home or self-care (01) ==
PROVIDERS: Emergency Provider Family Medicine; PCP Family Medicine
DX: M79.661 Pain in right lower leg (principal); E11.40 Type 2 diabetes mellitus with diabetic neuropathy, unspecified; I10 Essential (primary) hypertension; E78.5 Hyperlipidemia, unspecified; J44.9 Chronic obstructive pulmonary disease, unspecified; F17.210 Nicotine dependence, cigarettes, uncomplicated; Z79.4 Long term (current) use of insulin; Z79.84 Long term (current) use of oral hypoglycemic drugs; Z79.899 Other long term (current) drug therapy; Z89.511 Acquired absence of right leg below knee
CPT/HCPCS: 73502; 73552; 73562; 99283

== ENCOUNTER → 2022-12-21 16:00 | Outpatient (BNVA) | payer SELFPAY | PROVIDERS: PCP Family Medicine; Visit Provider Family Medicine | DX: M25.551 Pain in right hip (principal); E11.21 Type 2 diabetes mellitus with diabetic nephropathy; E11.65 Type 2 diabetes mellitus with hyperglycemia; Z79.4 Long term (current) use of insulin | CPT/HCPCS: 80048; 83036 ==

== ENCOUNTER → 2023-09-18 16:07 | Outpatient (BNVA) | payer SELFPAY | PROVIDERS: PCP Family Medicine; Visit Provider Family Medicine | DX: E11.40 Type 2 diabetes mellitus with diabetic neuropathy, unspecified (principal); E11.65 Type 2 diabetes mellitus with hyperglycemia; Z79.4 Long term (current) use of insulin; I10 Essential (primary) hypertension; E78.5 Hyperlipidemia, unspecified; E11.21 Type 2 diabetes mellitus with diabetic nephropathy; E83.42 Hypomagnesemia; R79.89 Other specified abnormal findings of blood chemistry; E55.9 Vitamin D deficiency, unspecified | CPT/HCPCS: 80053; 80061; 82043; 82306; 82607; 83036; 83735; 84443; 85025 ==

== ENCOUNTER 2023-12-04 15:20 | Outpatient (CLI) | payer SELFPAY ==
--- NOTE | 2023-12-04 15:39 | XRR_ITS ---
PROCEDURE INFORMATION: Exam: XR Cervical Spine Exam date and time: 12/04/2023 3:42 PM Age: 58 years old Clinical indication: Radicular pain (radiculopathy); Cervical region; Patient HX: Pain in right shoulder and neck trouble lifting arm, 2 weeks; Additional info: Chronic neck pain and radiculopathy TECHNIQUE: Imaging protocol: Radiologic exam of the cervical spine. Views: 2 or 3 views. COMPARISON: CT cervical spin wo con* [id number] 10/09/2018 6:00 PM FINDINGS: Bones/joints: There is multilevel degenerative disc disease along with vertebral body spurring and facet arthropathy. No fracture or subluxation. Soft tissues: Unremarkable. XR/XR cervical spine 3V* [id number] IMPRESSION: 1. No acute findings. 2. Multilevel arthritic changes noted
--- NOTE | 2023-12-04 15:39 | XRR_ITS ---
PROCEDURE INFORMATION: Exam: XR Right Shoulder Exam date and time: 12/04/2023 3:42 PM Age: 58 years old Clinical indication: Patient HX: Pain in right shoulder and neck trouble lifting arm, 2 weeks; Additional info: Right shoulder pain TECHNIQUE: Imaging protocol: Radiologic exam of the right shoulder. Views: 2 or more views. COMPARISON: CR XR cervical spine 3V* [id number] 12/04/2023 3:42 PM FINDINGS: Bones/joints: Arthritic change involves the AC joint and the glenohumeral joint. There is moderate loss of glenohumeral joint space. There is a 5 mm oval calcification lying immediately adjacent to the inferior rim of the glenoid fossa. Soft tissues: Normal. XR/XR shoulder RT min 2V* [id number] IMPRESSION: 1. Arthritic changes noted 2. Small periarticular calcification noted. Favor this to represent a bursal calcification but I cannot exclude chip fracture involving the glenoid fossa
== END 2023-12-04 15:21 | disposition home or self-care (01) ==
PROVIDERS: PCP Family Medicine; Visit Provider Family Medicine
DX: M19.011 Primary osteoarthritis, right shoulder (principal); M54.2 Cervicalgia; G44.209 Tension-type headache, unspecified, not intractable; M25.511 Pain in right shoulder
CPT/HCPCS: 72040; 73030

== ENCOUNTER → 2024-02-14 15:09 | Outpatient (BNVA) | payer SELFPAY | PROVIDERS: PCP Nurse Practitioner; Visit Provider Nurse Practitioner | DX: E11.9 Type 2 diabetes mellitus without complications (principal) | CPT/HCPCS: 80053; 80061; 83036 ==

== ENCOUNTER → 2024-05-27 16:00 | Outpatient (BNVA) | payer SELFPAY | PROVIDERS: PCP Nurse Practitioner; Visit Provider Nurse Practitioner | DX: E11.40 Type 2 diabetes mellitus with diabetic neuropathy, unspecified (principal); K21.9 Gastro-esophageal reflux disease without esophagitis; E11.65 Type 2 diabetes mellitus with hyperglycemia; I15.0 Renovascular hypertension; Z79.4 Long term (current) use of insulin | CPT/HCPCS: 80053; 83036 ==

== ENCOUNTER → 2024-08-20 13:16 | Outpatient (BNVA) | payer SELFPAY | PROVIDERS: PCP Nurse Practitioner; Visit Provider Nurse Practitioner | DX: E11.40 Type 2 diabetes mellitus with diabetic neuropathy, unspecified (principal); E11.65 Type 2 diabetes mellitus with hyperglycemia; Z79.4 Long term (current) use of insulin; E11.9 Type 2 diabetes mellitus without complications | CPT/HCPCS: 80053; 83036 ==

== ENCOUNTER → 2024-12-11 14:13 | Outpatient (BNVA) | payer SELFPAY | PROVIDERS: PCP Nurse Practitioner; Visit Provider Nurse Practitioner | DX: E11.9 Type 2 diabetes mellitus without complications (principal) | CPT/HCPCS: 80053; 80061; 81000; 83036 ==

== ENCOUNTER 2025-03-10 15:42 | Outpatient (CLI) | payer SELFPAY | END 2025-03-10 15:43 | disposition home or self-care (01) | LOC: LAB 03-14 09:07 | PROVIDERS: PCP Nurse Practitioner; Visit Provider Nurse Practitioner | DX: E11.65 Type 2 diabetes mellitus with hyperglycemia (principal); Z79.4 Long term (current) use of insulin; E78.2 Mixed hyperlipidemia | CPT/HCPCS: 80053; 80061; 82043; 82306; 83036; 84443 ==

== ENCOUNTER 2025-05-05 17:25 | Inpatient (IN) | payer SELFPAY ==
[2025-05-05] VITALS (13 sets, daily range): BP systolic 84–133; BP diastolic 51–78; PULSE 103–108; RESP 14–20; TEMP 36.6–36.7; O2SAT 91–100; BMI 30.7
--- OUTSIDE RECORDS SUMMARY | 2025-05-05 17:32 | XMS_ITS | Clinical Summary ---
Author Organization [facility] Address [address] [place] [address] Phone Care Team Providers Care Consumer Affairs Director Name Role Phone Unavailable Primary Care Provider Unavailabl e Allergies Active Allergy Reactions Criticality Noted Date Comments Lidocaine Rash Low 12/09/2019 Morphine Nausea and Vomiting Low 10/24/2019 Penicillins Nausea and Vomiting Low 10/24/2019 Medications multivitamin,tx -iron-ca-min (THERA-M) 27-0.4 mg Tablet Take 1 Tablet by mouth daily. Active aspirin (DIANA CHEWABLE) 81 mg Tablet, Chewable Take 81 mg by mouth daily. Active metFORMIN (GLUCOPHAGE) 1,000 mg tablet Take 1,000 mg by mouth 2 times daily with meals. Active gabapentin (NEURONTIN) 600 mg tablet Take 600 mg by mouth 2 times daily. Active cetirizine (ZyrTEC) 10 mg tablet Take 10 mg by mouth daily. Active cyclobenzaprine (FLEXERIL) 10 mg tablet Take 10 mg by mouth 3 times daily as needed for Spasm. Active pantoprazole (PROTONIX) 40 mg Tablet, Delayed Release (E.C.) Take 40 mg by mouth daily. Active DULoxetine (CYMBALTA) 30 mg Capsule, Delayed Release(E.C.) Take 30 mg by mouth daily. Active insulin lispro (HumaLOG) 100 unit/mL vial Inject 30 Units by subcutaneous injection 2 times daily. Active trimethoprim-horvath lfamethoxazole (BACTRIM;SEPTRA ) 40-200 mg/5 mL Suspension Take 10 mL by mouth every 12 hours. Active HYDROcodone-maurizio taminophen (NORCO) 10-325 mg TabletIndicatio ns:Osteomyeliti s of right foot, unspecified type (CMS/HCC) Take 1 Tablet by mouth every 4 hours as needed for Pain. Max Daily Amount: 6 Tablets 16 Tablet 0 Active Active Problems Problem Noted Date Diagnosed Date Sepsis 10/24/2019 Osteomyelitis of right foot 10/24/2019 Hyponatremia 10/24/2019 Anemia 10/24/2019 HTN (hypertension), benign 10/24/2019 HLD (hyperlipidemia) 10/24/2019 Smoker 10/24/2019 COPD (chronic obstructive pulmonary disease) 09/2019 DM (diabetes mellitus), type 2 10/24/2019 Social History Tobacco Use Types Packs/Day Years Used Date Smoking Tobacco: Every Day Cigarettes Tobacco Cessation:Ready to Q uit: No; Counseling Given: Yes Alcohol Use Standard Drinks/Week Comments Not Currently 0 (1 standard drink = 0.6 oz pur e alcohol) Comments No Sex and Gender Information Value Date Recorded Sex Assigned at Not on file Legal Sex Female 3:07 PM CDT Gender Identity Not on file Sexual Orientation Not on file Last Filed Vital Signs Vital Sign Reading Time Taken Comments Blood Pressure 96/60 12/09/2019 3:32 PM CDT Pulse 68 12/09/2019 3:32 PM CDT Temperature 36.9 C (98.5 F) 11/06/2019 8:25 AM CDT Respiratory Rate 18 11/06/2019 8:25 AM CDT Oxygen Saturation 92% 11/06/2019 8:25 AM CDT Inhaled Oxygen Concentration - - Weight 104.3 kg (230 lb) 12/09/2019 3:32 PM CDT Height 172.7 cm (5' 8 ) 12/09/2019 3:32 PM CDT Body Mass Index 34.97 12/09/2019 3:32 PM CDT Plan of Treatment Health Maintenance Due Date Last Done Comments DTAP/TDAP/TD VACCINES (1 - Tdap) 1985 HEPATITIS B VACCINES (1 of 3 - 19+ 3-dose series) 09/1985 HPV/Cotest (21-29) 10/24/1987 CERVICAL CANCER SCREENING 1996 HPV/Cotest (30-65) 1996 PAP SMEAR 1996 BREAST CANCER SCREENING 2006 COLORECTAL SCREENING 10/24/2011 Colorectal Cancer Screening 10/24/2011 FIT-DNA Q 3 years 10/24/2011 FIT/FOBT Q 1 year 10/24/2011 Flex Sig/CT Colonography Q 5 years 10/24/2011 ZOSTER VACCINE (1 of 2) 2016 INFLUENZA VACCINE (#1) 2024 Advance Directives For more information, please contact: [phone] * Full Code (Latest Code Status on File) Date Activated Date Inactivated Comments 10/29/2019 9:05 AM 11/06/2019 2:25 PM * Full Code Date Activated Date Inactivated Comments 10/25/2019 12:34 AM 10/29/2019 9:05 AM
--- OUTSIDE RECORDS SUMMARY | 2025-05-05 17:32 | XMS_ITS | Clinical Summary ---
Author Organization [facility] Address [address] Mohamud: Epic Prelude ADT [place] [id number] Care Team Providers [employer] Truck [employer] Name Role Phone Unavailable Primary Care Provider Unavailabl e Allergies Active Allergy Reactions Criticality Noted Date Comments Lidocaine Rash Low 12/09/2019 Morphine Nausea and Vomiting Low 10/24/2019 Penicillins Nausea and Vomiting Low 10/24/2019 Medications HYDROcodone-maurizio taminophen (NORCO) 5-325 mg tabletIndicatio ns:Compression fracture of T12 vertebra, initial encounter (CMS/FORMERLY [facility]),Nephr olithiasis Take 1 Tablet by mouth every 4 hours as needed for Pain, Moderate. Max Daily Amount: 6 Tablets 12 Tablet 2 Active aspirin (DIANA CHEWABLE) 81 mg Tablet, Chewable Take 81 mg by mouth daily. Active gabapentin (NEURONTIN) 600 mg tablet Take 600 mg by mouth 2 times daily. Active insulin lispro (HumaLOG) 100 unit/mL vial Inject 30 Units by subcutaneous injection 2 times daily. Active metFORMIN (GLUCOPHAGE) 1,000 mg tablet Take 1,000 mg by mouth 2 times daily with meals. Active multivitamin,tx -iron-ca-min (THERA-M) 27-0.4 mg Tablet Take 1 Tablet by mouth daily. Active pantoprazole (PROTONIX) 40 mg Tablet, Delayed Release (E.C.) Take 40 mg by mouth daily. Active metFORMIN (GLUCOPHAGE) 1,000 mg tablet Take 1,000 mg by mouth 2 times daily with meals. 0 Active insulin lispro (HumaLOG) 100 unit/mL vial Inject 30 Units by subcutaneous injection 2 times daily. 0 Active cyclobenzaprine (FLEXERIL) 10 mg tablet Take 10 mg by mouth 3 times daily as needed for Spasm. 0 Active cetirizine (ZyrTEC) 10 mg tablet Take 10 mg by mouth daily. 0 Active pantoprazole (PROTONIX) 40 mg Tablet, Delayed Release (E.C.) Take 40 mg by mouth daily. 0 Active DULoxetine (CYMBALTA) 30 mg Capsule, Delayed Release(E.C.) Take 30 mg by mouth daily. 0 Active aspirin (DIANA CHEWABLE) 81 mg Tablet, Chewable Take 81 mg by mouth daily. 0 Active multivitamin,tx -iron-ca-min (THERA-M) 27-0.4 mg Tablet Take 1 Tablet by mouth daily. 0 Active gabapentin (NEURONTIN) 600 mg tablet Take 600 mg by mouth 2 times daily. 0 Active trimethoprim-horvath lfamethoxazole (BACTRIM;SEPTRA ) 40-200 mg/5 mL Suspension Take 10 mL by mouth every 12 hours. 0 Active Active Problems Problem Noted Date Diagnosed Date Uropathy, obstructive 08/14/2021 Uncontrolled type 2 diabetes mellitus with hyper glycemia 08/14/2021 Anemia 10/24/2019 Osteomyelitis of right foot 10/24/2019 Hyponatremia 10/24/2019 Smoker 10/24/2019 HTN (hypertension), benign 10/24/2019 COPD (chronic obstructive pulmonary disease) 09/2019 HLD (hyperlipidemia) 10/24/2019 Resolved Problems Problem Noted Date Diagnosed Date Resolved Date Severe sepsis without septic shock 08/14/2021 08/17/2021 Hypotension 08/17/2021 Sinus tachycardia 08/17/2021 Nausea 08/17/2021 Encounters Date Type Department Care Team Description 02/12/2025 External Device Data STL ABSTRACTION Provider, Abstract from Last 3 Months Social History Tobacco Use Types Packs/Day Years Used Date Smoking Tobacco: Every Day Cigarettes Smokeless Tobacco: Never Alcohol Use Standard Drinks/Week Comments Not Currently 0 (1 standard drink = 0.6 oz pur e alcohol) Comments Unknown Sex and Gender Information Value Date Recorded Sex Assigned at Not on file Legal 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 Gender Identity Not on file Sexual Orientation Not on file Last Filed Vital Signs Vital Sign Reading Time Taken Comments Blood Pressure 112/64 08/17/2021 11:50 AM CDT Pulse 66 08/17/2021 11:50 AM CDT Temperature 36.2 C (97.1 F) 08/17/2021 11:50 AM CDT Respiratory Rate 17 08/17/2021 11:5 0 AM CDT Oxygen Saturation 96% 08/17/2021 11: 50 AM CDT Inhaled Oxygen Concentration - - Weight 92.9 kg (204 lb 14.4 oz) 08/17/2021 2:39 AM CDT Height 172.7 cm (5' 8 ) 08/14/2021 12:2 7 AM CDT Body Mass Index 31.15 08/14/2021 12:27 AM CDT Plan of Treatment Health Maintenance Due Date Last Done Comments DIABETES ANNUAL FOOT EXAM 1984 DIABETES ANNUAL RETINAL EXAM 1984 DIABETES MICROALBUMIN ANNUAL SCREEN 1984 DTAP/TDAP/TD VACCINES (1 - Tdap) 1985 HEPATITIS B VACCINES (1 of 3 - 19+ 3-dose series) 1985 HPV/Cotest (21-29) 10/24/1987 CERVICAL CANCER SCREENING 1996 HPV/Cotest (30-65) 1996 PAP SMEAR 1996 BREAST CANCER SCREENING 2006 COLORECTAL SCREENING 10/24/2011 Colorectal Cancer Screening 10/24/2011 FIT-DNA Q 3 years 10/24/2011 FIT/FOBT Q 1 year 10/24/2011 Flex Sig/CT Colonography Q 5 years 10/24/2011 ZOSTER VACCINE (1 of 2) 2016 LDL CHOLESTEROL ANNUAL 10/24/2020 10/25/2019 DIABETES HBA1C Q 6 MONTHS 02/14/20222021, 10/24/2019, 10/24/2019 INFLUENZA VACCINE (#1) 2024 Procedures Procedure Name Priority Date/Time Associated Diagnosis Comments HEMOGLOBIN A1C Routine 08/14/2021 12:56 AM CDT LIPID PANEL Routine 10/25/2019 1:45 AM CDT from Last 3 Months or Most Recently Relevant to Health Maintenance Results * (ABNORMAL) HEMOGLOBIN A1C (08/14/2021 12:56 AM CDT) HEMOGLOBIN A1C 13.7(H) <=5.6 % 08/15/2021 9:03 AM CDT [facility] EST. AVG GLUCOSE, A1C 346 mg/dL 08/15/2021 9:03 AM CDT [facility] Blood Venipuncture / Unknown 08/14/2021 12:56 AM CDT 08/14/2021 1:08 AM CDT [facility] - 08/15/2021 9:03 AM CDT HGB A1C INTERPRETATION NORMAL: <5.7% PRE-DIABETES: 5.7 - 6.4% DIABETES: 6.5% OR GREATER Aaron Stark MD CHEMISTRY ORDERABLES Final R esult [facility] CLIA # [id number] [address] [place] [id number] * (ABNORMAL) LIPID PANEL (10/25/2019 1:45 AM CDT) [facility] CHOLESTEROL 103 <200 mg/dL 10/25/2019 2:47 AM CDT [facility] TRIGLYCERIDE 121 <150 mg/dL 10/25/2019 2:47 AM CDT [facility] HDL 22(L) 40 - 59 mg/dL 10/25/2019 2:47 AM CDT [facility] LDL CALCULATED 57 <100 mg/dL 10/25/2019 2:47 AM CDT [facility] NON-HDL CHOLESTEROL 81 <130 mg/dL 10/25/2019 2:47 AM CDT [facility] Blood Venipuncture / Unknown 10/25/2019 1:45 AM CDT 10/25/2019 2:05 AM CDT [facility] - 10/25/2019 2:47 AM CDT TOTAL CHOLESTEROL mg/dL Desirable <200 Borderline high 200-239 High >=240 TRIGLYCERIDES mg/dL Normal <150 Borderline high 150-199 High 200-499 Very high >=500 HDL CHOLESTEROL mg/dL Low <40 Normal 40-59 Desirable >=60 NON HDL CHOLESTEROL mg/dL Optimal <130 Near Optimal 130-159 Borderline High 160-189 Very High >=190 CALCULATED LDL mg/dL LDL <70, OPTIMAL if have Atherosclerotic cardiovascular disease (ASCVD) or intermediate or higher (>7.5%) 10 year risk of ASCVD including most adults with diabetes. LDL <100, Optimal in adult patients with low (<7.5%) 10 year ASCVD risk LDL 100-160, Suboptimal LDL >160, High LDL >190, Very high ATPIII Guidelines Reference Ranges for Lipid Panels (NCEP/AMA) . Aaron Stark MD CHEMISTRY ORDERABLES Final R esult [facility] CLIA# [id number] [place] [address] [facility] CLIA# [id number] [address] [place] [id number] from Last 3 Months or Most Recently Relevant to Health Maintenance Advance Directives For more information, please contact: [phone] * Full Code (Latest Code Status on File) Date Activated Date Inactivated Comments 08/14/2021 12:31 AM 08/17/2021 4:46 PM
--- NOTE | 2025-05-05 17:38 | ECG_ITS ---
[facility] Test Date: 2025-05-05 Pat Name: Jennifer Whitman Department: Room: Gender: Female Supervisor Dumping: : 1965 Requested By: Lucero Hartley Order Number: [id number] Stevan MD: Marguerite Gotti M.D. Measurements Intervals [place] Rate: 105 P: 60 [place]: 175 QRS: 51 QRSD: 109 T: 56 QT: 360 QTc: 477 Interpretive Statements SINUS TACHYCARDIA ABNORMAL RHYTHM ECG Compared to ECG 10/06/2019 22:47:32 No significant changes Electronically Signed On 05-05-2025 21:21:23 [employer]ING [employer]AIL DRAFTSPERSON by Marguerite Gotti M.D. [email or web address]
--- NOTE | 2025-05-05 17:50 | ED_ITS ---
HPI - Nausea/Vomiting/Diarrhea 2 General: Chief complaint: Nausea/Vomiting/Diarrhea Stated complaint: low bs Time Seen by Provider: 05/05/25 17:27 History of Present Illness: 59-year-old female with a history of typ e 2 diabetes, hyperlipidemia, depression, COPD, anemia who presents the emergency room with nausea and vomiting. She has had some dark stools she says. She has not Anything down for couple days. Her sugars been high. Family states she has been somewhat confused. Show the last time she had a dark stool or vomited was this morning. Ambulance was called because of her confusion and that she had not kept anything down. She has not wanted to drink anything all day. No focal abdominal pain. No focal motor deficits. No chest pain. Related Data Home Medications ?Medication ?Instructions ?Recorded ?Confirmed cetirizine 10 mg tablet 10 mg PO DAILY PRN allergies 10/06/19 03/10/25 [id number] 8 mg-folic 400 1 tab PO DAILY 10/0503/10/25 mcg-K 50 mcg-lutein 300 mcg tablet (Centrum Silver Women) Previous Rx's ?Medication ?Instructions ?Recorded albuterol sulfate 90 mcg/actuation 1 inh inhalation QI D PRN shortness 09/28/21 aerosol inhaler (ProAir HFA) of breath or wheezing #8. 5 grams insulin aspart U-100 100 unit/mL 15 unit (0.15 mL) SUB CUT TID #15 mL 09/14/22 (3 mL) subcutaneous pen (Novolog FlexPen U-100 Insulin aspart) gabapentin 600 mg tablet 1,200 mg (2 x 600 mg) PO BID #120 03/10/25 tabs insulin glargine 100 unit/mL 25 unit (0.25 mL) SUBCUT BID #10 mL 03/10/25 subcutaneous solution (Lantus U-100 Insulin) lisinopril 10 mg tablet 10 mg PO DAILY #30 tabs 02/19 06/14 metformin 500 mg tablet,extended 500 mg PO BID #60 tab s 03/10/25 release 24 hr sucralfate 1 gram tablet (Carafate) 1 g PO .4 times da y #120 tabs 03/10/25 Allergies Allergy/AdvReac Type Severity Reaction Status Date / Time lidocaine Allergy Unknown Verified 03/10/25 14:35 morphine Allergy ALGY-Anaphy Verified 03/10/25 14:35 laxis Penicillins Allergy ADR-Vomitin Verified 03/10/25 14:35 g Review of Systems 2 Narrative: Constitutional symptoms: Negative except as documented in HPI. Skin symptoms: Negative except as documented in HPI. Eye symptoms: Negative except as documented in HPI. ENMT symptoms: Negative except as documented in HPI. Respiratory symptoms: Negative except as documented in HPI. Cardiovascular symptoms: Negative except as documented in HPI. Gastrointestinal symptoms: Negative except as documented in HPI. Genitourinary symptoms: Negative except as documented in HPI. Musculoskeletal symptoms: Negative except as documented in HPI. Neurologic symptoms: Negative except as documented in HPI. Psychiatric symptoms: Negative except as documented in HPI. Endocrine symptoms: Negative except as documented in HPI. PFSH ED 2 PFSH: Medical History (Updated 05/05/25 @ 19:35 by Lucero Navarro MD) Type 2 diabetes mellitus with hyperglycemia, with long-term current use of insulin DM neuropathy with neurologic complication Mixed hyperlipidemia Depression Renovascular hypertension COPD (chronic obstructive pulmonary disease) Surgical History History of below-knee amputation of right lower extremity 2020 at [facility] Previous section S/P cholecystectomy Family History Other Cancer Diabetes Hypertension Social History Smoking and tobacco/nicotine status: current every day tobacco/nicotine user cigarettes [ Other cigarette details: 1.5 pack/day] Second hand smoke exposure: Yes Alcohol intake: never Substance/Drug Use: never Adopted: No Caregiver/support person: No Lives independently: Yes Household members: spouse Housing: Other Details: Skip shaw Marital status: Number of children: 4 service: No Current occupational status: unemployed Pets and animals: Yes Pets & animals: dog(s) Do you think of yourself as: Straight/Heterosexual Current gender identity: Female Female Reproductive History: Spontaneous abortions: No Physical Exam 2 Narrative: EXAM NARRATIVE: General: Alert, no acute distress. Skin: Warm, dry. Pale Head: Normocephalic, atraumatic. Neck: Supple, trachea midline. Eye: Extraocular movements are intact. Ears, nose, mouth and throat: Tacky oral mucosa Cardiovascular: Regular, Normal peripheral perfusion. Respiratory: Lungs are clear to auscultation, respirations are non-labored, breath sounds are equal, Symmetrical chest wall expansion. Gastrointestinal: Soft, Nontender, Non distended Musculoskeletal: Normal ROM, no deformity. Neurological: Alert and oriented, No focal neurological deficit observed. Psychiatric: Cooperative, appropriate mood & affect. Course 2 Vital Signs: Vital signs: Vital Signs Temperature 97.8 F 05/05/25 17:26 Pulse Rate 107 H 05/05/25 19:15 Respiratory Rate 20 H 05/05/25 17:37 Blood Pressure 103/74 05/05/25 19:15 Pulse Oximetry 95 05/05/25 19:15 Oxygen Delivery Me thod Room Air 05/05/25 19:15 MDM - Nausea/Vomiting/Diarrhea Medical Decision Making Medical decision making Patient's reason for coming to the emergency room: Vomiting, confusion Social determinants: Patient is disabled. She says she does not have insurance and has been paying things [id number]. Has not been to see her doctor in a while. I reviewed the patient's medical record. 59-year-old female with a history of type 2 diabetes, hyperlipidemia, depression, COPD, anemia I reviewed the patient's current home meds Patient has been pain for meds [id number] she says. She takes insulin, metformin and gabapentin. Alternate historians: Daughter. Differential diagnosis for this patient with nausea and vomiting including but not limited to and based on the above HPI, review of systems and physical exam: Urinary tract infection. Appendicitis. Cholecystitis. Colitis. small bowel obstruction. Crohn's flare. pancreatitis. gastritis. peptic ulcer. cyclic vomiting. Viral illness. Influenza. COVID. And would have concern for resultant dehydration or renal failure. Orders placed to evaluate differential diagnosis based on the above differential, HPI and physical exam Lab Review: Laboratory results were reviewed and interpreted by myself the emergency room physician. Leukocytosis with white count of 14,000. Anemia with a hemoglobin 7.3. BUN and creatinine are elevated to 83 and 1.6. This looks like a combination of dehydration and likely secondary to GI bleeding. Her initial blood glucose is 565. She is not in DKA. Blood gases 7.4 . Urinalysis does show signs of infection. Assessment of risk: Level of risk: High risk patient. Hospitalization considerations: Reexamination: Patient appears much more spry and alert on repeat exam. After fluids. Daughter is here and gives quite a bit of other history. Consultation: I spoke with Dr. De La Cruz who is on-call for the hospitalist service who agrees to admission. Consultation: I spoke with Dr. Terrazas who is on-call for general surgery who will consult if the patient does need endoscopy. Assessment and plan: And upper GI bleeding Hyperglycemia Dehydration Acute renal failure ?80 mg IV Protonix for upper GI bleeding ?2 units PRBCs ordered. -2.5 L normal saline bolus. Fluid volumes based on ideal body weight. -Broad-spectrum antibiotics were administered. Cefepime. Urinary tract infection. -Sepsis quality measures. -Lactic acid with a reflex was ordered. -Blood cultures were ordered. ?I reevaluated the patient's volume status after sepsis fluids were given. -I discussed the patient with the hospitalist on-call who is admitting the patient. - Discussed findings and plan with patient. Answered any questions. - All laboratory values were reviewed and interpreted personally by myself, the ER physician - All imaging was reviewed and interpreted personally by myself, the ER physician. - Evaluation and treatment of this problem were appropriate in the emergency setting anemia Critical Care: -I spent a total of 71 minutes of critical care time managing the patient, independent of any other practitioner. -The time involved in the performance of separately reportable procedures was not counted towards critical care time. Lab Data 05/05/25 18:00 05/05/25 18:00 Laboratory Results WBC 13.98 10^3/uL (3.29-11.43) H 05/05/25 18:00 RBC 2.38 10^6/uL (3.85-5.65) L 05/05/25 18:00 Hgb 7.30 g/dL (11.27-16.99) L 05/05/25 18:00 Hct 22.1 % (36-47) L 05/05/25 18:00 MCV 92.9 fl (85-98) 05/05/25 18:00 MCH 30.7 pg (27-33) 05/05/25 18:00 MCHC 33.0 g/dL (30-55) 05/05/25 18:00 RDW 15.1 % (12.1-15.1) 05/05/25 18:00 Plt Count 225 10^3/cmm (157-399) 05/05/25 18:00 MPV 10.9 fL (7.4-10.4) H 05/05/25 18:00 Neut % (Auto) 61.1 % 05/05/25 18:00 Lymph % (Auto) 30.8 % 05/05/25 18:00 Rolette % (Auto) 6.4 % 05/05/25 18:00 Eos % (Auto) 0.6 % 05/05/25 18:00 Baso % (Auto) 0.5 % 05/05/25 18:00 Neut # (Auto) 8.55 10^3/uL (1.8-7.7) H 05/05/25 18:00 Lymph # (Auto) 4.3 10^3/uL (0.8-4.8) 05/05/25 18:00 Rolette # (Auto) 0.9 10^3/uL (0.2-0.9) 05/05/25 18:00 Eos # (Auto) 0.1 10^3/uL (0.0-0.8) 05/05/25 18:00 Baso # (Auto) 0.1 10^3/uL (0.0-0.1) 05/05/25 18:00 Nucleated RBC % (auto) 0.1 % 05/05/25 18:00 Nucleated RBCs # 0.0 /100WBC 05/05/25 18:00 Specimen Type Arterial 05/05/25 18:01 Sample Site Radial, right 05/05/25 18:01 ABG pH 7.41 (7.35-7.45) 05/05/25 18:01 ABG pCO2 38.9 mmHg (35-45) 05/05/25 18:01 ABG pO2 62.7 mmHg (80.0-100.0) L 05/05/25 18:01 ABG PO2/FiO2 Ratio 298 05/05/25 18:01 ABG HCO3 24.8 mmol/L (22-26) 05/05/25 18:01 ABG O2 Saturation 92.8 05/05/25 18:01 ABG Base Excess 0.2 mmol/L (-2.0-2.0) 05/05/25 18:01 Kurt Test Pos 05/05/25 18:01 A-a O2 Gradient 5.0 mmHg (5-10) 05/05/25 18:01 Hematocrit 21.9 % (37-47) L 05/05/25 18:01 Hgb O2 Saturation 88.8 % (95-100) L 05/05/25 18:01 Carboxyhemoglobin 3.1 %THgb (0.4-20.1) 05/05/25 18:01 Methemoglobin 1.3 % (0.4-1.5) 05/05/25 18:01 Total Hemoglobin 7.1 g/dL (12-16) L 05/05/25 18:01 Sodium 129.0 mmol/L (131-143) L 05/05/25 18:01 Potassium 4.3 mmol/L (3.5-5.0) 05/05/25 18:01 Glucose 554.0 mg/dL (70-115) H 05/05/25 18:01 Ionized Calcium 1.2 mmol/L (1.1-1.4) 05/05/25 18:01 O2 Delivery Device Room air 05/05/25 18:01 FiO2 21.0 % 05/05/25 18:01 Security Infrastructure Engineer ID [id number] 05/05/25 18:01 Sodium 126 mmol/L (136-145) L 05/05/25 18:00 Potassium 4.6 mmol/L (3.5-5.1) 05/05/25 18:00 Chloride 91 mmol/L (98-107) L 05/05/25 18:00 Carbon Dioxide 22 mmol/L (22-29) 05/05/25 18:00 Anion Gap 17.6 (5-19) 05/05/25 18:00 BUN 83 mg/dL (6-20) H* D 05/05/25 18:00 Creatinine 1.6 mg/dL (0.5-0.9) H 05/05/25 18:00 GFR Calculation 33.1 mL/min (90-130) L 05/05/25 18:00 Glucose 565 mg/dL (65-115) H* 05/05/25 18:00 POC Glucose 593 mg/dL (70-110) H* 05/05/25 17:33 Calculated Osmolality 313 mOsm/kg (285-295) H 05/05/25 18:00 Lactic Acid 3.5 mmol/L (0.5-2.2) H 05/05/25 18:00 Calcium 8.9 mg/dL (8.5-10.5) 05/05/25 18:00 Total Bilirubin 0.3 mg/dL (0.15-1.2) 05/05/25 18:00 AST 22 U/L (0-32) 05/05/25 18:00 ALT 30 U/L (0-33) 05/05/25 18:00 Alkaline Phosphatase 125 U/L (35-105) H 05/05/25 18:00 C-Reactive Protein 5.8 mg/L (0.0-4.9) H 05/05/25 18:00 Total Protein 5.7 g/dL (6.6-8.7) L 05/05/25 18:00 Albumin 2.9 g/dL (3.5-5.2) L 05/05/25 18:00 Globulin 2.8 g/dL (1.3-4.6) 05/05/25 18:00 Lipase 33 U/L (13-60) 05/05/25 18:00 Urine Color Yellow (Yellow) 05/05/25 17:50 Urine Appearance Turbid (CLEAR) A 05/05/25 17:50 Urine pH 5.5 (5-7) 05/05/25 17:50 Ur Specific [place] 1.023 (1.005-1.030) 05/05/25 17:50 Urine Protein Trace (Negative) A 05/05/25 17:50 Urine Glucose (UA) 3+ (Normal) H 05/05/25 17:50 Urine Ketones Negative (Negative) 05/05/25 17:50 Urine Blood 1+ (Negative) A 05/05/25 17:50 Urine Nitrate Negative (Negative) 05/05/25 17:50 Urine Bilirubin Negative (Negative) 05/05/25 17:50 Urine Urobilinogen 0.2 mg/dL (Negative) 05/05/25 17:50 Ur Leukocyte Esterase 2+ (Negative) A 05/05/25 17:50 Urine RBC 0-2 /hpf (0-2) 05/05/25 17:50 Urine WBC >100 /hpf (0-5) H 05/05/25 17:50 Ur Squamous Epith Cells 0-5 /hpf (0-5) 05/05/25 17:50 Amorphous Sediment Not Reportable 05/05/25 17:50 Urine Bacteria None seen /hpf (NONE) 05/05/25 17:50 Hyaline Casts 0.40 /lpf 05/05/25 17:50 Urine Yeast 2+ /hpf H 05/05/25 17:50 Serum Ketones Negative (Negative) 05/05/25 18:00 Influenza A (PCR) Negative (Negative) 05/05/25 17:50 Influenza Type B (PCR) Negative (Negative) 05/05/25 17:50 RSV (PCR) Negative (Negative) 05/05/25 17:50 SARS-CoV-2 (PCR) Negative (Negative) 05/05/25 17:50 Blood Type O Positive 05/05/25 18:54 Rho(D) Type Rh positive 05/05/25 18:54 Antibody Screen Negative 05/05/25 18:54 Crossmatch See Detail 05/05/25 18:54 No radiology studies performed this visit Discharge Plan Discharge Patient Disposition: Admitted As Inpatient Clinical Impression: Anemia, Acute upper gastrointestinal bleeding, Hyperglycemia, Dehydration, Acute renal failure Condition: Stable Coding Level of Care Code ED Digital Content Coordinator for Mandy Morton
[2025-05-05 18:11] LABS: Hematocrit 22.1 % (36-47); Hemoglobin 7.30 g/dL (11.27-16.99); Mean Corpuscular HGB Conc 33.0 g/dL (30-55); Mean Corpuscular Hemoglobin 30.7 pg (27-33); Mean Corpuscular Volume 92.9 fl (85-98); Nucleated Red Blood Cells % 0.1 %; Platelet Count 225 10^3/cmm (157-399); Red Blood Count 2.38 10^6/uL (3.85-5.65); White Blood Count 13.98 10^3/uL (3.29-11.43)
[2025-05-05 18:13] LABS: Glucose Urine UA 3+ (Normal); Nitrate Urine Negative (Negative); Specific Gravity, Urine 1.023 (1.005-1.030)
[2025-05-05 18:13] LABS: ABG PCO2 38.9 mmHg (35-45); ABG PH Result 7.41 (7.35-7.45); Alveolar-Arterial Oxygen Gradi 5.0 mmHg (5-10); Arterial Blood Gas Hematocrit 21.9 % (37-47); Blood Gas Allen Test Pos; Blood Gas Operator Identificat glc; Blood Gas Sample Site Radial, right; Blood Gas Sample Type Arterial; Carboxyhemoglobin 3.1 %THgb (0.4-20.1); Glucose Level-ABG 554.0 mg/dL (70-115); HCO3 ABG 24.8 mmol/L (22-26); Ionized Calcium Level - ABG 1.2 mmol/L (1.1-1.4); Methemoglobin 1.3 % (0.4-1.5); Oxygen Saturation ABG 92.8; PO2 ABG 62.7 mmHg (80.0-100.0); PO2 FiO2 Ratio Arterial Blood 298; Potassium Level - ABG 4.3 mmol/L (3.5-5.0); Sodium Level - ABG 129.0 mmol/L (131-143)
[2025-05-05 18:18] LABS: Universal Test for UA Present (0)
[2025-05-05 18:19] LABS: Ketone (Acetest) Serum Negative (Negative)
[2025-05-05 18:27] LABS: Alanine Aminotransferase 30 U/L (0-33); Albumin Level 2.9 g/dL (3.5-5.2); Alkaline Phosphatase 125 U/L (35-105); Anion Gap 17.6 (5-19); Aspartate Amino Transferase 22 U/L (0-32); Calcium 8.9 mg/dL (8.5-10.5); Carbon Dioxide 22 mmol/L (22-29); Chloride 91 mmol/L (98-107); Globulin 2.8 g/dL (1.3-4.6); Lipase 33 U/L (13-60); Osmolality Calculated 313 mOsm/kg (285-295); Potassium 4.6 mmol/L (3.5-5.1); Sodium 126 mmol/L (136-145); Total Protein 5.7 g/dL (6.6-8.7)
[2025-05-05 18:28] LABS: Lactic Sepsis W/Reflex 3.5 mmol/L (0.5-2.2)
[2025-05-05 18:31] LABS: UA Slide Review UA Slide Review Perf
[2025-05-05 18:38] LABS: Blood Urea Nitrogen 83 mg/dL (6-20); Glucose 565 mg/dL (65-115)
[2025-05-05 18:50] LABS: Respiratory Syncytial Virus Ce NEGATIVE (Negative); SARS-CoV-2 PCR NEGATIVE (Negative)
[2025-05-05] MEDS: cefepime 2,000 mg SDV 2000 MG IVP (18:59)
--- NOTE | 2025-05-05 19:12 | PC.NURSE ---
bedside report given to Ericka RANDOLPH
--- NOTE | 2025-05-05 19:16 | PC.NURSE ---
Assumed pt.care
[2025-05-05] MEDS: pantoprazole 40 mg SDV 80 MG IVP (19:28)
[2025-05-05] MEDS: insulin regular-human 100 units/1 mL 14 UNIT IVP (19:36)
[2025-05-05 19:53] LABS: Reflex Lactate Order REFLEX LACTIC ORDERD
--- NOTE | 2025-05-05 20:35 | PM.HP ---
Providers/Chief Complaint Admitting Physician: Dino De La Cruz MD Primary Care Provider: Erick Gill, ROD PILER-C Chief Complaint: low bs History of Present Illness Jennifer Whitman is a 59 year old female comes in with clammy sweats last night feels warm but no measured fever. She has had nausea vomiting into a trash can but did not look at her vomit. She has had habits of alternating diarrhea and constipation but recently had some black stools for the last 2 to 3 days. She states her last vomiting was day before yesterday and last BM was yesterday and was black. Patient reports history of fatty liver and was scheduled to have an MRI but insurance would not cover it. She has never been an alcoholic. Her last alcoholic beverage was 2 years ago. She has known diabetes poorly controlled with A1c of 12.3 in March 10, 2025. She had right lower extremity BKA in 2019. Patient is accompanied by her daughter Mira. Patient is a poor historian and really helps to direct her. Review of Systems Narrative: General No fevers she has had some clammy sweats and feels warm subjectively Cardiovascular no chest pain palpitations heart failure or ME. She had remote history of chest pain empirically put on baby aspirin daily by her PCP. Respiratory no shortness of breath cough wheezing GI positive or nausea vomiting did not look at the emesis she has had melena 2 to 3 days she had dysuria in February but none now urine was positive for white cells and yeast but no bacteria and she was empirically treated with cefepime by Dr. Navarro. Neuro no seizures strokes limb weakness symptoms Medications/Allergies Home Medications ?Medication ?Instructions ?Recorded ?Confirmed ?Last Taken ?Type cetirizine 10 mg tablet 10 mg PO DAILY PRN allergies 10/06/19 03/10/25 10/21/19 History mkascldt-jfzc-enrs 8 mg-folic 400 1 tab PO DAILY 10/06/19 03/10/25 10/21/19 History mcg-K 50 mcg-lutein 300 mcg tablet (Centrum Silver Women) albuterol sulfate 90 mcg/actuation 1 inh inhalation QID PRN shortness 09/28/21 03/10/25 Unknown Rx aerosol inhaler (ProAir HFA) of breath or wheezing #8.5 grams insulin aspart U-100 100 unit/mL 15 unit (0.15 mL) SUBCUT TID #15 mL 09/14/22 03/10/25 Unknown Rx (3 mL) subcutaneous pen (Novolog FlexPen U-100 Insulin aspart) gabapentin 600 mg tablet 1,200 mg (2 x 600 mg) PO BID #120 03/10/25 03/10/25 Unknown Rx tabs insulin glargine 100 unit/mL 25 unit (0.25 mL) SUBCUT BID #10 mL 03/10/25 03/10/25 Unknown Rx subcutaneous solution (Lantus U-100 Insulin) lisinopril 10 mg tablet 10 mg PO DAILY #30 tabs 03/10/25 03/10/25 Unknown Rx metformin 500 mg tablet,extended 500 mg PO BID #60 tabs 03/10/25 03/10/25 Unknown Rx release 24 hr sucralfate 1 gram tablet (Carafate) 1 g PO .4 times day #120 tabs 03/10/25 03/10/25 Unknown Rx Allergies Allergy/AdvReac Type Severity Reaction Status Date / Time lidocaine Allergy Unknown Verified 03/10/25 14:35 morphine Allergy ALGY-Anaphy Verified 03/10/25 14:35 laxis Penicillins Allergy ADR-Vomitin Verified 03/10/25 14:35 g PFSH Acute PFSH: Medical History (Updated 05/05/25 @ 20:47 by Dino De La Cruz MD) Noncompliance w/medication treatment due to intermit use of medication Type 2 diabetes mellitus with hyperglycemia, with long-term current use of insulin DM neuropathy with neurologic complication Mixed hyperlipidemia Depression Renovascular hypertension COPD (chronic obstructive pulmonary disease) Surgical History History of below-knee amputation of right lower extremity 2019 at [facility] Previous section S/P cholecystectomy Family History Other Cancer Diabetes Hypertension Social History (Updated 05/05/25 @ 20:42 by Dino De La Cruz MD) Smoking and tobacco/nicotine status: current every day tobacco/nicotine user cigarettes Packs smoked per day: 1 Years cigarettes smoked: 43 [ Other cigarette details: 1.5 pack/day] Second hand smoke exposure: Yes Alcohol intake: never Substance/Drug Use: former Date of last use: 2019 Former substance use details: Methamphetamines Additional social history: Patient wants full code but no prolong life support on ventilator as discussed with Dino De La Cruz MD on 05/05/2025 in the presence of her daughter Mira Adopted: No Caregiver/support person: No Lives independently: Yes Household members: spouse Housing: Other Details: Skip shaw Marital status: Number of children: 4 service: No Current occupational status: unemployed Pets and animals: Yes Pets & animals: dog(s) Do you think of yourself as: Straight/Heterosexual Current gender identity: Female Female Reproductive History: Spontaneous abortions: No Vitals/I&O/Wt Last Vital Signs Temp 97.8 F 05/05/25 17:26 Pulse 107 H 05/05/25 19:15 Resp 20 H 05/05/25 17:37 BP 103/74 05/05/25 19:15 Pulse Ox 95 05/05/25 19:15 O2 Del Method Room Air 05/05/25 19:15 05/05/25 05/05/25 05/05/25 06:59 14:59 22:59 Intake Total 500 / 500 Balance 500 / 500 Weight last 48 hrs Weight 91.626 kg Physical Exam Narrative: General well-developed well-nourished morbidly obese female in no acute cardio pulmonary distress but she is slow in answers and a poor historian Oropharynx Mallampati 2 no erythema or exudate she is edentulous CV regular rate and rhythm no loud murmur Lungs clear to auscultation bilaterally with poor air movement and poor effort Abdomen positive bowel tones soft nontender Extremities right BKA stump well-healed no edema or erythema left lower extremity no edema Skin warm and dry Data 05/05/25 18:00 05/05/25 18:00 Micro: Microbiology 05/05/25 18:02 Blood Culture - Preliminary Blood SPECIMEN COLLECTED 05/05/25 18:00 Blood Culture - Preliminary Blood SPECIMEN COLLECTED A&P Assessment and plan 1. Acute upper gastrointestinal bleeding: Patient with nausea vomiting which she did not look at and melena. Hematocrit has dropped significantly to 22.1 with recent acute bleeding and elevated BUN to creatinine ratio. Patient will receive 2 units packed red cells as ordered by Dr. Navarro. Additionally expect dilution as she was dehydrated and received 2.5 L of fluid. 80 mg pantoprazole given in the ER and she will be on 40 mg twice a day plus Carafate. Baby aspirin that she takes empirically for cardioprotective reasons will be held. Dr. Terrazas was consulted from the emergency department. Patient has some abdominal pain that is vague starting with blood transfusion. No other signs of transfusion reaction. Will give Benadryl and GI cocktail 2. Type 2 diabetes mellitus with hyperglycemia, with long-term current use of insulin: Start Lantus 30 units nightly first dose now 3. JUAN (acute kidney injury): Patient with dehydration and received fluid bolus recheck in the a.m. 4. Noncompliance w/medication treatment due to intermit use of medication: Patient was not using her long-acting insulin daily or twice a day she is just using her short acting insulin and her blood sugars have been running high on her glucometer. 5. History of below-knee amputation of right lower extremity: Patient states she would rather than have a left lower extremity additional amputation but she is not managing her blood sugars 6. Yeast UTI: Urine shows greater than 100 white cells but she is asymptomatic. Blood sugars [id number]-[id number] with 3+ glucose urea. Yeast is 2+. I am going to hold off on treating with a prolonged course of fluconazole as she is asymptomatic and just treat the sugars for now. Antibiotics will not further be given PDMP PDMP Reviewed: Not Reviewed Attestations Medical Necessity Statement*: Patient is admitted to hospital with acute GI bleed and will require greater than 2 midnights in hospital Coding Level of Care Code 72395 Diagnoses Acute upper gastrointestinal bleeding K92.2 Type 2 diabetes mellitus with hyperglycemia, with long-term current use of insulin E11.65; Z79.4 Diabetes mellitus type: type 2 JUAN (acute kidney injury) N17.9 Noncompliance w/medication treatment due to intermit use of medication Z91.148 History of below-knee amputation of right lower extremity Z89.511 Yeast UTI B37.49 Time Spent (min) 75
--- NOTE | 2025-05-05 20:43 | PC.NURSE ---
blood started at 2039 vital signs 106hr 97 O2 87/53 TEMP 98.0
--- NOTE | 2025-05-05 20:57 | PC.NURSE ---
Pt. started having abdominal pain per pts daughter when asking pt. pt. responds with yes and states my stomach has been hurting but this feels different. pt also was coughing ans states i have been coughing today when this RN asked pt. This RN notified charge master specialist after stopping blood immediately. This RN notified hospitalist Benja who went to bedside and had this RN start the blood again. IV Benadryl 25mg was ordered and given to pt. pt. currently has no symptoms.
[2025-05-05] MEDS: diphenhydrAMINE 50 mg/mL SDV 1mL 25 MG IVP (21:01)
--- NOTE | 2025-05-05 21:16 | PC.NURSE ---
at 2110 pt. report being itchy on arm chest leg and abdomen this RN stopped blood and contacted DR. abraham who is currently waiting how to proceed.
[2025-05-05] MEDS: alum-mag-hydroxide-sime 30 mL UDC PO (21:23)
[2025-05-05 21:25] LABS: Estmated Average Glucose 375; Hemoglobin A1C 14.7 % (4.0-6.0)
--- NOTE | 2025-05-05 21:27 | PC.NURSE ---
2125 Provider at bedside and verbalize to stop blood and orders transfusion reaction protocol.
--- NOTE | 2025-05-05 21:56 | PC.NURSE ---
report called at 1143
[2025-05-05 22:25] LABS: Lactic Acid level (Lactate) 2.4 mmol/L (0.5-2.2)
[2025-05-05] MEDS: pantoprazole 40 mg SDV IVP (23:13)
[2025-05-05] MEDS: insulin glargine 100 units/1 mL 30 UNIT SUBCUT (23:14)
[2025-05-06] VITALS (7 sets, daily range): BP systolic 82–112; BP diastolic 52–70; PULSE 82–112; RESP 15–18; TEMP 36.5–36.9; O2SAT 92–97
[2025-05-06 05:16] LABS: Hematocrit 22.0 % (36-47); Hemoglobin 7.40 g/dL (11.27-16.99); Mean Corpuscular HGB Conc 33.6 g/dL (30-55); Mean Corpuscular Hemoglobin 31.0 pg (27-33); Mean Corpuscular Volume 92.1 fl (85-98); Nucleated Red Blood Cells % 0 %; Platelet Count 132 10^3/cmm (157-399); Red Blood Count 2.39 10^6/uL (3.85-5.65); White Blood Count 8.54 10^3/uL (3.29-11.43)
[2025-05-06 05:59] LABS: Anion Gap 10.7 (5-19); Blood Urea Nitrogen 66 mg/dL (6-20); Calcium 8.2 mg/dL (8.5-10.5); Carbon Dioxide 25 mmol/L (22-29); Chloride 104 mmol/L (98-107); Glucose 278 mg/dL (65-115); Osmolality Calculated 311 mOsm/kg (285-295); Potassium 3.7 mmol/L (3.5-5.1); Sodium 136 mmol/L (136-145)
--- NOTE | 2025-05-06 07:10 | PM.CONSULT ---
Providers/Reason For Consult Consulting Physician/Specialty*: Dr. Terrazas general surgery Reason for Consult*: Melena Attending Physician: Mimi Adame MD Primary Care Provider: MIKE Mckeon History of Present Illness History of Present Illness Jennifer Whitman is a 59 year old female multiple comorbidities admitted with a UTI and surgery was consulted for melanotic stools. Patient is an active smoker, NSAID user, not on PPI. Has a history of heartburn and reflux. No prior scopes. Denies hematochezia. No changes in bowel habits. No weight loss. No family history of colon cancer. Medications/Allergies Home Medications ?Medication ?Instructions ?Recorded ?Confirmed ?Last Taken ?Type cetirizine 10 mg tablet 10 mg PO DAILY PRN allergies 10/06/19 05/06/25 10/21/19 History ipbljfff-gegg-nlqy 8 mg-folic 400 1 tab PO DAILY 10/06/19 05/06/25 05/04/25 History mcg-K 50 mcg-lutein 300 mcg tablet (Centrum Silver Women) gabapentin 600 mg tablet 1,200 mg (2 x 600 mg) PO BID #120 03/10/25 05/06/25 05/04/25 Rx tabs insulin glargine 100 unit/mL 25 unit (0.25 mL) SUBCUT BID #10 mL 03/10/25 05/06/25 05/04/25 Rx subcutaneous solution (Lantus U-100 Insulin) lisinopril 10 mg tablet 10 mg PO DAILY #30 tabs 03/10/25 05/06/25 05/04/25 Rx metformin 500 mg tablet,extended 500 mg PO BID #60 tabs 03/10/25 05/06/25 Unknown Rx release 24 hr insulin aspart U-100 100 unit/mL 15 unit SUBCUT .TID+SS 05/06/25 05/06/25 Unknown History (3 mL) subcutaneous pen (Novolog FlexPen U-100 Insulin aspart) sucralfate 1 gram tablet (Carafate) 1 g PO QID 05/06/25 05/06/25 Unknown History Allergies Allergy/AdvReac Type Severity Reaction Status Date / Time lidocaine Allergy Unknown Verified 03/10/25 14:35 morphine Allergy ALGY-Anaphy Verified 03/10/25 14:35 laxis Penicillins Allergy ADR-Vomitin Verified 03/10/25 14:35 g Current Medications Generic Name Dose Route Start Last Admin Trade Name Freq PRN Reason Stop Dose Admin Acetaminophen 650 mg 05/05/25 22:27 05/06/25 04:05 Acetaminophen 325 Mg Tablet PO 650 mg Q6H PRN Administration Mild/Mod Pain Or Temp >/= 101 Diphenhydramine HCl 25 mg 05/05/25 20:55 05/05/25 21:01 Diphenhydramine 50 Mg/Ml Sdv 1ml IVP 25 mg Q4H PRN Administration ITCHING Gabapentin 1,200 mg 05/05/25 21:00 05/06/25 04:05 Gabapentin 400 Mg Capsule PO 1,200 mg BID ADAMS Administration Sodium Chloride 1,000 mls @ 75 mls/hr 05/05/25 22:27 05/05/25 23:15 Sodium Chloride 0.9% IV 75 mls/hr .[id number] ADAMS Administration Insulin Glargine 30 unit 05/05/25 22:27 05/05/25 23:14 Insulin Glargine 100 Units/1 Ml SUBCUT 30 unit BEDTIME ADAMS Administration Insulin Human Lispro 0 unit 05/05/25 22:27 05/05/25 23:13 Insulin Lispro 100 Unit/1 Ml SUBCUT 14 unit WM&BEDTIME ADAMS Administration Protocol Pantoprazole Sodium 40 mg 05/05/25 22:27 05/05/25 23:13 Pantoprazole 40 Mg Sdv IVP 40 mg Q12H ADAMS Administration Sucralfate 1 gm 05/05/25 22:27 05/05/25 23:13 Sucralfate 1 Gm Tablet PO 1 gm AC&BEDTIME ADAMS Administration PFSH Acute PFSH: Medical History (Updated 05/05/25 @ 20:47 by Dino De La Cruz MD) Noncompliance w/medication treatment due to intermit use of medication Type 2 diabetes mellitus with hyperglycemia, with long-term current use of insulin DM neuropathy with neurologic complication Mixed hyperlipidemia Depression Renovascular hypertension COPD (chronic obstructive pulmonary disease) Surgical History History of below-knee amputation of right lower extremity [address] [facility] Previous section S/P cholecystectomy Family History Other Cancer Diabetes Hypertension Social History (Updated 05/05/25 @ 20:42 by Dino De La Cruz MD) Smoking and tobacco/nicotine status: current every day tobacco/nicotine user cigarettes Packs smoked per day: 1 Years cigarettes smoked: 43 [ Other cigarette details: 1.5 pack/day] Second hand smoke exposure: Yes Alcohol intake: never Substance/Drug Use: former Date of last use: 2019 Former substance use details: Methamphetamines Additional social history: Patient wants full code but no prolong life support on ventilator as discussed with Dino De La Cruz MD on 05/05/2025 in the presence of her daughter Mira Adopted: No Caregiver/support person: No Lives independently: Yes Household members: spouse Housing: Other Details: Skip shaw Marital status: Number of children: 4 service: No Current occupational status: unemployed Pets and animals: Yes Pets & animals: dog(s) Do you think of yourself as: Straight/Heterosexual Current gender identity: Female Female Reproductive History: Spontaneous abortions: No Vitals/I&O/Wt Last Vital Signs Temp 98 F 05/06/25 03:59 Pulse 93 05/06/25 03:59 Resp 16 05/06/25 03:59 BP 96/59 05/06/25 03:59 Pulse Ox 93 05/06/25 03:59 O2 Del Method Room Air 05/06/25 03:59 05/05/25 05/06/25 05/06/25 22:59 06:59 14:59 Intake Total 500 / 500 3050 / 3550 Output Total 600 / 600 Balance 500 / 500 2450 / 2950 Weight last 48 hrs Weight 226 lb 7 oz Weight 208 lb Weight 202 lb Physical Exam Narrative: Chest: Unlabored breathing room air. No lymphadenopathy. Heart: Regular rate and rhythm. Abdomen: Soft, nontender, nondistended. No masses or lymphadenopathy. Data 05/06/25 04:53 05/06/25 04:53 Micro: Microbiology 05/05/25 18:02 Blood Culture - Preliminary Blood SPECIMEN COLLECTED 05/05/25 18:00 Blood Culture - Preliminary Blood SPECIMEN COLLECTED A&P Assessment and plan 1. Acute upper gastrointestinal bleeding: Plan: 59-year-old female admitted with a UTI and surgery was consulted for melanotic stools. I have explained the risks and benefits of a diagnostic EGD and the patient agrees to proceed. Patient had breakfast today. Will plan for EGD on 05/07/2025. Given the absence of hematochezia there is no strong indication for colonoscopy. I did explain that colonoscopy would rule out a lower GI bleed in the setting of anemia but the patient has politely declined. I think it is reasonable to skip the colonoscopy and do it as outpatient if needed. Discussed with hospitalist and nurse. PDMP PDMP Reviewed: Not Reviewed Coding Level of Care Code 14512 Diagnoses Acute upper gastrointestinal bleeding K92.2
--- NOTE | 2025-05-06 08:33 | PC.PHAR ---
Pt states she can't afford her short acting insulin-last filled 09/14/22-verified with pharmacy.
[2025-05-06 09:24] LABS: Ferritin 54 ng/mL (15-150); Iron 41 ug/dL (37-145); Total Iron Binding Capacity 192 mcg/dl; Unsaturated Iron Binding 151 ug/dL (112-347)
[2025-05-06 09:38] LABS: Vitamin B12 511 pg/mL (232-1245)
[2025-05-06] MEDS: pantoprazole 40 mg SDV IVP ×2 (10:53→21:33)
--- NOTE | 2025-05-06 20:43 | P.PN_ITS ---
Subjective 2 Subjective: the patient was seen in the morning and doing well, she did not have any nausea or vomiting or any dante episodes surgery onboard and for tomorrow for EGD, the patient declined colonoscopy Vitals/I&O/Wt Last Vital Signs Temp 97.7 F 05/06/25 16:16 Pulse 91 05/06/25 16:16 Resp 18 05/06/25 16:16 BP 92/52 05/06/25 16:16 Pulse Ox 94 05/06/25 16:16 O2 Del Method Room Air 05/06/25 16:16 05/06/25 05/06/25 05/06/25 06:59 14:59 22:59 Intake Total 3050 / 3550 1903.75 / 1903.75 900 / 2803.75 Output Total 600 / 600 300 / 300 600 / 900 Balance 2450 / 2950 1603.75 / 1603.75 300 / 1903.75 Weight last 48 hrs Weight 102.71 kg Weight 94.347 kg Weight 91.626 kg Physical Exam 2 Narrative: General: Morbidly obese lady alert and oriented, lying comfortably without any distress HEENT: Normocephalic, atraumatic, grossly unremarkable exam Cardio: normal rate rhythm, normal S1-S2 without any murmurs, rubs, or gallops and JVD normal Respiratory: normal vascular breathing on auscultation without any wheezes, stridor, rhonchi GI: Abdomen soft, nontender, nondistended, normoactive bowel sounds present all 4 quadrants, Neuro: intact cranial nerves motor and sensory and cerebellar/coordination function without any focal neurological deficit Behavior: Appropriate and cooperative Extremities: Adequate palpable pulses, mild trace edema Skin: Pallor positive Data 05/06/25 04:53 05/06/25 04:53 Micro: Microbiology 05/05/25 18:02 Blood Culture - Preliminary Blood NEGATIVE TO DATE 05/05/25 18:00 Blood Culture - Preliminary Blood NEGATIVE TO DATE A&P Assessment and plan 1. Acute upper gastrointestinal bleeding: No further episodes of melena or nausea or vomiting. No obvious source of bleeding at the moment Patient received blood transfusion to maintain hemoglobin above 7 Continue PPI twice daily Hold any NSAIDs or blood thinners, patient on aspirin and to be held Hold any antihypertensives Maintain 2 IV bore cannula Antiemetics for nausea and vomiting Tomorrow for EGD, the patient declined colonoscopy Continue on Carafate scheduled dose Of note patient had some reaction with blood transfusion and that was helpful later on she completed the transfusion. She received Benadryl for the reaction which was mild without any anaphylaxis or hypotension. Maintain MAP Intake and output monitoring Monitor hemodynamics 2. Type 2 diabetes mellitus with hyperglycemia, with long-term current use of insulin: Continue Lantus 30 units nightly. Patient still having hyperglycemia, therefore to start on insulin sliding scale with moderate dose Monitor glucose, Maintain euglycemia and hypoglycemia protocol to be kept active 3. JUAN (acute kidney injury): Patient with dehydration likely related prerenal Monitor kidney functions currently improving Monitor and correct electrolytes Intake and output monitoring 4. Noncompliance w/medication treatment due to intermit use of medication: Patient was not using her long-acting insulin daily or twice a day she is just using her short acting insulin and her blood sugars have been running high on her glucometer. Emphasis on adequate diabetes control has been provided 5. History of below-knee amputation of right lower extremity: Secondary to uncontrolled diabetes, patient education has been provided for adequate diabetes Continue to monitor 6. Yeast UTI: Urine shows greater than 100 white cells but she is asymptomatic. Blood sugars [id number] with 3+ glucose urea. Yeast is 2+. Patient is asymptomatic and yeast in the urine can be observed, no indication to treat at the moment Monitor patient hemodynamics PDMP PDMP Reviewed: Not Reviewed Attestations 2 Medical Necessity Statement*: Patient will stay more than 2 midnights for the management of her acute blood loss anemia requiring endoscopy and blood transfusion Time Spent in Patient Care: 16 - 35 minutes (>than 50% of time sp ent in counselling and/or direct pt care on unit) . Other Attestations: Patient condition has been discussed at length with the patient/family, I have independently reviewed the chart labs imaging/diagnostics/EKG. the goals of care and code status with the patient/family/NOK/legal home furnishings sales representative, and documented accordingly. I have reconciled the medications after confirmation/comorbidities/current clinical condition. The management has been done according to the current clinical condition with respect to patient goals of care and based on recommendations/guidelines. The patient/family has been informed about the current condition and further plan of care. Agreed with the plan of care and understood without any language barrier. Every effort was made to ensure accuracy of straddle truck driver. Any obvious errors or omissions should be clarified with the author of the document. Coding Level of Care Code 11476 Diagnoses Acute upper gastrointestinal bleeding K92.2 Type 2 diabetes mellitus with hyperglycemia, with long-term current use of insulin E11.65; Z79.4 Diabetes mellitus type: type 2 JUAN (acute kidney injury) N17.9 Noncompliance w/medication treatment due to intermit use of medication Z91.148 History of below-knee amputation of right lower extremity Z89.511 Yeast UTI B37.49
[2025-05-06] MEDS: iron sucrose 200 MG in sodium chloride 0.9% (100 ml) 100 ML 220 MG IV (21:31)
[2025-05-06] MEDS: insulin glargine 100 units/1 mL 30 UNIT SUBCUT (21:32)
[2025-05-06] MEDS: blistex lip oint 7 gm Tube 1 APPLIC TOPICAL (22:31)
[2025-05-06 22:41] LABS: Anion Gap 9.9 (5-19); Blood Urea Nitrogen 44 mg/dL (6-20); Calcium 7.7 mg/dL (8.5-10.5); Carbon Dioxide 23 mmol/L (22-29); Chloride 106 mmol/L (98-107); Glucose 411 mg/dL (65-115); Osmolality Calculated 309 mOsm/kg (285-295); Potassium 3.9 mmol/L (3.5-5.1); Sodium 135 mmol/L (136-145)
[2025-05-07] VITALS (49 sets, daily range): BP systolic 83–128; BP diastolic 40–74; PULSE 66–97; RESP 3–20; TEMP 36.4–37.1; O2SAT 84–98; BMI 35.6
[2025-05-07] MEDS: alum-mag-hydroxide-sime 30 mL UDC PO ×3 (01:07→23:27)
[2025-05-07 01:40] LABS: Hematocrit 22.0 % (36-47); Hemoglobin 6.90 g/dL (11.27-16.99); Mean Corpuscular HGB Conc 31.4 g/dL (30-55); Mean Corpuscular Hemoglobin 30.1 pg (27-33); Mean Corpuscular Volume 96.1 fl (85-98); Nucleated Red Blood Cells % 0.7 %; Platelet Count 107 10^3/cmm (157-399); Red Blood Count 2.29 10^6/uL (3.85-5.65); White Blood Count 5.76 10^3/uL (3.29-11.43)
[2025-05-07 02:03] LABS: Anion Gap 12.0 (5-19); Blood Urea Nitrogen 40 mg/dL (6-20); Calcium 8.0 mg/dL (8.5-10.5); Carbon Dioxide 22 mmol/L (22-29); Chloride 107 mmol/L (98-107); Glucose 279 mg/dL (65-115); Magnesium 2.1 mg/dL (1.7-2.3); Osmolality Calculated 304 mOsm/kg (285-295); Potassium 4.0 mmol/L (3.5-5.1); Sodium 137 mmol/L (136-145)
[2025-05-07 05:29] LABS: Alanine Aminotransferase 51 U/L (0-33); Albumin Level 2.9 g/dL (3.5-5.2); Alkaline Phosphatase 142 U/L (35-105); Anion Gap 12.0 (5-19); Aspartate Amino Transferase 59 U/L (0-32); Blood Urea Nitrogen 36 mg/dL (6-20); Calcium 8.0 mg/dL (8.5-10.5); Carbon Dioxide 21 mmol/L (22-29); Chloride 109 mmol/L (98-107); Globulin 2.3 g/dL (1.3-4.6); Glucose 278 mg/dL (65-115); Osmolality Calculated 304 mOsm/kg (285-295); Potassium 4.0 mmol/L (3.5-5.1); Sodium 138 mmol/L (136-145); Total Protein 5.2 g/dL (6.6-8.7)
--- NOTE | 2025-05-07 10:49 | CTR_ITS ---
PROCEDURE INFORMATION: Exam: CTA Chest With Contrast CTA Abdomen and Pelvis With Contrast Exam date and time: 05/07/2025 12:11 PM Age: 59 years old Clinical indication: Other: rule out internal bleeding, High risk consent given by patient; Abdominal pain TECHNIQUE: Imaging protocol: Computed tomographic angiography of the chest with contrast. Exam focused on the arteries. Computed tomographic angiography of the abdomen and pelvis with contrast. Exam focused on the arteries. 3D rendering (Not supervised by radiologist): MIP and/or 3D reconstructed images were created by the technologist. Radiation optimization: All CT scans at this facility use at least one of these dose optimization techniques: automated exposure control; mA and/or kV adjustment per patient size (includes targeted exams where dose is matched to clinical indication); or iterative reconstruction. Contrast material: [id number]; Contrast volume: 100 ml; Contrast route: INTRAVENOUS (IV); COMPARISON: 1. CT kidney stone [id number] 10/12/2019 9:37 PM 2. CR XR hip RT 2-3V wo/w pel* [id number] 12/11/2022 5:12 PM RADIATION DOSE METRICS: Total DLP (mGy-cm): 988.89 FINDINGS: Limitations: There is an order for CTA chest however no chest images are received. VASCULATURE: Pulmonary arteries: No lower chest pulmonary emboli. Aorta: No aortic aneurysm. No aortic dissection. Celiac and mesenteric arteries: No occlusion or significant stenosis. Renal arteries: No occlusion or significant stenosis. Right iliac arteries: No occlusion or significant stenosis. Left iliac arteries: No occlusion or significant stenosis. CHEST: Lungs: Lung bases demonstrate interstitial septal thickening, more prominent compared with prior study. Mild dependent atelectasis. Question minimal paraseptal cystic changes. Pleural spaces: No effusion. Heart: The heart is not enlarged. ABDOMEN AND PELVIS: Liver: Small calcified granulomas are seen in the right hepatic lobe. The liver has a nodular contour and there is relative hypertrophy of the caudate lobe, consistent with cirrhosis. Gallbladder and biliary ducts: The gallbladder is surgically absent with clips in the gallbladder fossa. Significant enlargement of the common bile duct since the prior study, now measuring 20 mm in diameter compared with roughly 10 previously. Question of radiolucent gallstones in the distal common duct. Pancreas: Pancreas is unremarkable. There are no masses. No pancreatic duct dilatation. Spleen: There is moderate splenomegaly, measuring 5 x 10 x 17 cm. Adrenal glands: Unremarkable. No mass. Kidneys and ureters: Both kidneys are within normal limits in size but demonstrate moderate to severe parenchymal scarring, worse on the left side. Left side is associated with a moderate hydronephrosis possibly related to a congenital left UPJ obstruction or stenosis. There is mild enhancement of the wall of the left renal collecting system. Stomach and bowel: Generalized thickening of the gastric wall, worst in the antral region. This is suspicious for nonspecific gastritis. There is a focus of possible extravasation in the gastric fundus. There is no evidence of bowel obstruction. There is no small bowel wall thickening. There is no large bowel wall thickening. There is no gastrointestinal diverticular disease. Nonspecific focus of high density within the posterior wall of the cecum. Appendix: The appendix is not definitively visualized however no abnormal pericecal changes are present. Intraperitoneal space: Mild ascites. No free intra-abdominal air. Urinary bladder: Unremarkable. No mass. Reproductive: Uterus and right ovary appear normal. Left ovary demonstrates a 3.4 cm cystic mass with a focal dependent calcification, nonspecific. Lymph nodes: No retroperitoneal adenopathy. Bones/joints: Spinal osteopenia. Severe compression fracture at T12, new since 2019. Soft tissues: Soft tissues of the visible body wall demonstrate no masses, ectopic air or fluid collections however there is some diffuse stranding throughout the subcutaneous fat and particularly along the dependent portions of the posterior abdominal wall suggesting anasarca. CT/CT angio abdomen pelvis [id number] IMPRESSION: 1. Generalized thickening of the gastric wall, worst in the antral region. This is suspicious for nonspecific gastritis. There is a focus of likely arterial extravasation in the gastric fundus. 2. Significant enlargement of the common bile duct since the prior study, now measuring 20 mm in diameter compared with roughly 10 previously. Question of radiolucent gallstones in the distal common duct. 3. Spinal compression fracture at T12, new since 2019. 4. Hepatic cirrhosis, unchanged from prior. 5. Left ovary demonstrates a 3.4 cm cystic mass with a focal dependent calcification, nonspecific. This was not present on prior study. 6. Body wall anasarca. 7. There is an order for CTA chest however no chest images are received. Report will be amended if these are received. THIS REPORT CONTAINS FINDINGS THAT MAY BE CRITICAL TO PATIENT CARE. The findings were verbally communicated via telephone conference with DUTCH COHEN at 1:33 PM [facility] LEAD PSYCHOLOGIST on 05/07/2025. The findings were acknowledged and understood.
[2025-05-07] MEDS: pantoprazole 40 mg SDV IVP ×2 (11:49→23:27)
[2025-05-07] MEDS: methylPREDNISolone sod succ 125 mg/2 mL INJ 60 MG IVP (11:49)
[2025-05-07] MEDS: diphenhydrAMINE 50 mg/mL SDV 1mL IVP (11:50)
--- NOTE | 2025-05-07 12:11 | P.PN_ITS ---
Subjective 2 Subjective: No acute events overnight Getting transfused Denies melena or hematochezia. Vitals/I&O/Wt Last Vital Signs Temp 97.9 F 05/07/25 11:41 Pulse 76 05/07/25 11:41 Resp 16 05/07/25 11:41 BP 98/54 05/07/25 11:41 Pulse Ox 96 05/07/25 11:41 O2 Del Method Room Air 05/07/25 04:00 05/06/25 05/07/25 05/07/25 22:59 06:59 14:59 Intake Total 2260 / 4163.75 1997.5 / 6161.25 600 / 600 Output Total 600 / 900 400 / 1300 Balance 1660 / 3263.75 1597.5 / 4861.25 600 / 600 Weight last 48 hrs Weight 234 lb 11.2 oz Weight 226 lb 7 oz Weight 208 lb Weight 202 lb Physical Exam 2 Narrative: Chest: Unlabored breathing room air. No lymphadenopathy. Heart: Regular rate and rhythm. Abdomen: Soft, nontender, nondistended. No masses or lymphadenopathy. Data 05/07/25 01:10 05/07/25 04:46 Micro: Microbiology 05/05/25 17:50 Urine Culture - Preliminary Urine,Clean Catch 05/05/25 18:02 Blood Culture - Preliminary Blood NEGATIVE TO DATE 05/05/25 18:00 Blood Culture - Preliminary Blood NEGATIVE TO DATE A&P Assessment and plan 1. Anemia: Plan: 59-year-old female whom surgery was consulted for melena. I have explained the risks and benefits of a diagnostic EGD with biopsy and the patient agrees to proceed. Patient understands risk of aspiration pneumonia as well as iatrogenic perforation and worsening of GI bleed. Patient still decides to proceed. No hematochezia therefore no strong indication for colonoscopy at this time. PDMP PDMP Reviewed: Not Reviewed Attestations 2 Medical Necessity Statement*: N/A Coding Level of Care Code 20763 Diagnoses Anemia D64.9
[2025-05-07] MEDS: iohexol 350 mg/mL 500 mL Btl (per mL) IV (12:15)
[2025-05-07 13:03] LABS: Hematocrit 29.4 % (36-47); Hemoglobin 9.60 g/dL (11.27-16.99)
--- NOTE | 2025-05-07 13:18 | ANES.PREANE2 ---
Pre-Anesthetic Assessment Height/Weight: Height 1.73 m Weight 106.458 kg Temp Pulse Resp BP Pulse Ox O2 Del Method 97.9 F 76 16 98/54 96 Room Air 05/07/25 11:41 05/07/25 11:41 05/07/25 11:41 05/07/25 11:41 05/07/25 11:41 05/07/25 04:00 Preop Diagnosis: concern for GI bleed Operation Date: 05/07/25 12:00 Proposed Procedures p EGD(Not Applicable) - Brock Terrazas MD Was Beta Dave taken within 24 hours: N/A Was Clonidine taken within 24 hours: N/A Last intake: yesterday evening Social Tobacco and No alcohol Exam alert, oriented x 3, clear to auscultation bilaterally and regular rate & rhythm Airway Submandibular: within normal limits Cervical ROM: within normal limits Mallampati: Class III Pulmonary Chronic Obstructive Pulmonary Disease Pulmonary nodule, no home O2 CV/HEM Anemia JUAN GI GI bleed, has received blood transfusions Metabolic Diabetes Mellitus and Morbid Obesity [facility] [place] [facility] [place] BKA Neuropsych Anxiety, Depression, Headache and Neuropathy Anesthetic Plan ASA status: 3 Anesthesia: MAC Other: Patient has concern of GI bleed Repeat Hemaglobin 9.6 Medications/Allergies Home Medications ?Medication ?Instructions ?Recorded ?Confirmed ?Last Taken ?Type cetirizine 10 mg tablet 10 mg PO DAILY PRN allergies 10/06/19 05/06/25 10/21/19 History elhuqowq-qbex-dorp 8 mg-folic 400 1 tab PO DAILY 10/06/19 05/06/25 05/04/25 History mcg-K 50 mcg-lutein 300 mcg tablet (Centrum Silver Women) gabapentin 600 mg tablet 1,200 mg (2 x 600 mg) PO BID #120 03/10/25 05/06/25 05/04/25 Rx tabs insulin glargine 100 unit/mL 25 unit (0.25 mL) SUBCUT BID #10 mL 03/10/25 05/06/25 05/04/25 Rx subcutaneous solution (Lantus U-100 Insulin) lisinopril 10 mg tablet 10 mg PO DAILY #30 tabs 03/10/25 05/06/25 05/04/25 Rx metformin 500 mg tablet,extended 500 mg PO BID #60 tabs 03/10/25 05/06/25 Unknown Rx release 24 hr insulin aspart U-100 100 unit/mL 15 unit SUBCUT .TID+SS 05/06/25 05/06/25 Unknown History (3 mL) subcutaneous pen (Novolog FlexPen U-100 Insulin aspart) sucralfate 1 gram tablet (Carafate) 1 g PO QID 05/06/25 05/06/25 Unknown History Allergies Allergy/AdvReac Type Severity Reaction Status Date / Time lidocaine Allergy Unknown Verified 03/10/25 14:35 morphine Allergy ALGY-Anaphy Verified 03/10/25 14:35 laxis Penicillins Allergy ADR-Vomitin Verified 03/10/25 14:35 g Current Medications Generic Name Dose Route Start Last Admin Trade Name Freq PRN Reason Stop Dose Admin Acetaminophen 650 mg 05/05/25 22:27 05/07/25 05:12 Acetaminophen 325 Mg Tablet PO 650 mg Q6H PRN Administration Mild/Mod Pain Or Temp >/= 101 Al Hydrox/Mg Hydrox/Simethicone 30 ml 05/07/25 11:00 05/07/25 11:49 Vapb-Evi-Hgbixcxar-Wade 30 Ml Udc PO 30 ml Q4H ADAMS Administration Camphor/Menthol/Phenol 1 applic 05/06/25 22:13 05/06/25 22:31 Blistex Lip Oint 7 Gm Tube TOPICAL 1 applic PRN PRN Administration DRYNESS Diphenhydramine HCl 25 mg 05/05/25 20:55 05/05/25 21:01 Diphenhydramine 50 Mg/Ml Sdv 1ml IVP 25 mg Q4H PRN Administration ITCHING Gabapentin 1,200 mg 05/05/25 21:00 05/07/25 05:12 Gabapentin 400 Mg Capsule PO 1,200 mg BID ADAMS Administration Sodium Chloride 1,000 mls @ 75 mls/hr 05/05/25 22:27 05/07/25 01:08 Sodium Chloride 0.9% IV 75 mls/hr .[id number] ADAMS Administration Iron Sucrose 200 mg/ Sodium 110 mls @ 220 mls/hr 05/06/25 20:30 05/06/25 22:14 Chloride IV 05/10/25 20:59 Infused Q24H ADAMS Infusion Insulin Glargine 30 unit 05/05/25 22:27 05/06/25 21:32 Insulin Glargine 100 Units/1 Ml SUBCUT 30 unit BEDTIME ADAMS Administration Insulin Human Lispro 0 unit 05/06/25 21:00 05/07/25 11:49 Insulin Lispro 100 Unit/1 Ml SUBCUT 6 unit WM&BEDTIME ADAMS Administration Protocol Insulin Human Lispro 5 unit 05/07/25 07:00 05/07/25 11:49 Insulin Lispro 100 Unit/1 Ml SUBCUT 5 unit TIDAC ADAMS Administration Midodrine 5 mg 05/07/25 06:00 05/07/25 11:50 Midodrine 5 Mg Tablet PO 5 mg 0600,1200,1800 ADAMS Administration Nicotine 1 patch 05/06/25 18:15 05/07/25 05:13 Nicotine 21 Mg Patch TRANSDERMA 1 patch DAILY ADAMS Administration Pantoprazole Sodium 40 mg 05/05/25 22:27 05/07/25 11:49 Pantoprazole 40 Mg Sdv IVP 40 mg Q12H ADAMS Administration Sodium Chloride 50 ml 05/07/25 02:25 05/07/25 09:00 Sodium Chloride 0.9% 100 Ml Bag IV 05/08/25 02:26 50 ml PRN PRN Administration Blood transfusion prime and flush Sucralfate 1 gm 05/05/25 22:27 05/07/25 11:49 Sucralfate 1 Gm Tablet PO 1 gm AC&BEDTIME ADAMS Administration Tramadol HCl 50 mg 05/07/25 09:00 05/07/25 09:50 Tramadol 50 Mg Tablet PO 50 mg Q6H PRN Administration MODERATE PAIN PFSH Anesthesia Medical History (Updated 05/05/25 @ 20:47 by Dino De La Cruz MD) Noncompliance w/medication treatment due to intermit use of medication Type 2 diabetes mellitus with hyperglycemia, with long-term current use of insulin DM neuropathy with neurologic complication Mixed hyperlipidemia Depression Renovascular hypertension COPD (chronic obstructive pulmonary disease) Surgical History History of below-knee amputation of right lower extremity 2020 at [facility] Previous section S/P cholecystectomy Family History Other Cancer Diabetes Hypertension Social History (Updated 05/05/25 @ 20:42 by Dino De La Cruz MD) Smoking and tobacco/nicotine status: current every day tobacco/nicotine user cigarettes Packs smoked per day: 1 Years cigarettes smoked: 43 [ Other cigarette details: 1.5 pack/day] Second hand smoke exposure: Yes Alcohol intake: never Substance/Drug Use: former Date of last use: 2019 Former substance use details: Methamphetamines Additional social history: Patient wants full code but no prolong life support on ventilator as discussed with Dino De La Cruz MD on 05/05/2025 in the presence of her daughter Mira Adopted: No Caregiver/support person: No Lives independently: Yes Household members: spouse Housing: Other Details: Skip shaw Marital status: Number of children: 4 service: No Current occupational status: unemployed Pets and animals: Yes Pets & animals: dog(s) Do you think of yourself as: Straight/Heterosexual Current gender identity: Female Female Reproductive History Spontaneous abortions: No Data Anesthesia 05/08/25 04:00 05/08/25 04:00 Short CBC 05/05/25 05/06/25 05/07/25 Range/Units 18:00 04:53 01:10 WBC 13.98 H 8.54 5.76 (3.29-11.43) 10^3/uL Hgb 7.30 L 7.40 L 6.90 L (11.27-16.99) g/dL Hct 22.1 L 22.0 L 22.0 L (36-47) % MCV 92.9 92.1 96.1 (85-98) fl Plt Count 225 132 L D 107 L (157-399) 10^3/cmm Neut % (Auto) 61.1 45.7 52.5 % Neut # (Auto) 8.55 H 3.90 3.03 (1.8-7.7) 10^3/uL 05/07/25 Range/Units 12:52 WBC (3.29-11.43) 10^3/uL Hgb 9.60 L D (11.27-16.99) g/dL Hct 29.4 L D (36-47) % MCV (85-98) fl Plt Count (157-399) 10^3/cmm Neut % (Auto) % Neut # (Auto) (1.8-7.7) 10^3/uL BMP 05/05/25 05/06/25 05/06/25 18:00 04:53 22:01 Sodium 126 L 136 135 L Potassium 4.6 3.7 3.9 Chloride 91 L 104 106 Carbon Dioxide 22 25 23 BUN 83 H* D 66 H 44 H Creatinine 1.6 H 1.3 H 1.5 H Glucose 565 H* 278 H 411 H Calcium 8.9 8.2 L 7.7 L 05/07/25 05/07/25 01:10 04:46 Sodium 137 138 Potassium 4.0 4.0 Chloride 107 109 H Carbon Dioxide 22 21 L BUN 40 H 36 H Creatinine 1.5 H 1.3 H Glucose 279 H 278 H Calcium 8.0 L 8.0 L Liver Function 05/05/25 05/07/25 Range/Units 18:00 04:46 Total Bilirubin 0.3 0.4 (0.15-1.2) mg/dL AST 22 59 H (0-32) U/L ALT 30 51 H (0-33) U/L Alkaline Phosphatase 125 H 142 H (35-105) U/L Albumin 2.9 L 2.9 L (3.5-5.2) g/dL Urine 05/05/25 Range/Units 17:50 Urine Color Yellow (Yellow) Urine Appearance Turbid A (CLEAR) Urine pH 5.5 (5-7) Ur Specific [place] 1.023 (1.005-1.030) Urine Protein Trace A (Negative) Urine Glucose (UA) 3+ H (Normal) Urine Ketones Negative (Negative) Urine Nitrate Negative (Negative) Urine Bilirubin Negative (Negative) Ur Leukocyte Esterase 2+ A (Negative) Urine RBC 0-2 (0-2) /hpf Urine WBC >100 H (0-5) /hpf Blood Bank 05/05/25 05/07/25 18:54 04:07 Blood Type O Positive O Positive Rho(D) Type Rh positive Rh positive Antibody Screen Negative Negative COVID Results 05/05/25 17:50 SARS-CoV-2 (PCR) Negative Coags 05/05/25 18:00 C-Reactive Protein 5.8 H ABG 05/05/25 18:01 Specimen Type Arterial Sample Site Radial, right ABG pH 7.41 ABG pCO2 38.9 ABG pO2 62.7 L ABG PO2/FiO2 Ratio 298 ABG HCO3 24.8 ABG O2 Saturation 92.8 ABG Base Excess 0.2 A-a O2 Gradient 5.0 O2 Delivery Device Room air FiO2 21.0 Microbiology 05/05/25 17:50 Urine Culture - Preliminary Urine,Clean Catch 05/05/25 18:02 Blood Culture - Preliminary Blood NEGATIVE TO DATE 05/05/25 18:00 Blood Culture - Preliminary Blood NEGATIVE TO DATE
--- NOTE | 2025-05-07 13:29 | SUR.OPER ---
Pt transferred to GI lab via stretcher for EGD. BP stable at 112/61. Hg currently 9.6. Pt alert and oriented. Pt to go to ICU 8 following scope. Isamar Lauren, kennedi RN. Pt family escorted to waiting room.
--- NOTE | 2025-05-07 13:45 | ANE.PACU2 ---
Inpatient post-anesthesia follow up: Airway intact: Yes Vital signs: Temperature 97.7 F Pulse Rate [Orthos tatic 97 Standing] Pulse Rate [Orthos tatic 88 Sitting] Pulse Rate [Orthos tatic Lying] 90 Pulse Rate 80 Respiratory Rate 22 Blood Pressure [Or thostatic 105/63 Standing Left Arm] Blood Pressure [Or thostatic 83/49 Sitting Left Arm] Blood Pressure [Or thostatic 91/52 Lying Left Arm] Blood Pressure 124/69 Pulse Oximetry 93 Oxygen Delivery Me thod Room Air Oxygen Flow Rate Fraction of Inspir ed Oxygen Hydration adequate: Yes Nausea and vomiting: No Pain level: 2 Mental status: Baseline
--- NOTE | 2025-05-07 14:20 | PC.NURSE ---
To ICU 8 at 1350 via bed accompanied by OR staff. Patient is AAOx4 but still slightly sedated. Vitals 107/62, 14, 94% RA, 73 NSR
--- NOTE | 2025-05-07 17:21 | P.PN_ITS ---
Subjective 2 Subjective: Patient was seen in the morning was having severe GERD and retrosternal burning The patient did not report any melena or any nausea or vomiting or any obvious source of bleeding Her hemoglobin dropped below 7 and transfusion initiated Patient shifted to ICU High risk consent taken for CTA abdomen and pelvis since the patient carries high risk for acute kidney injury and failure along with possible allergic reaction to contrast, it showed extravasation at the site of antrum, the radiologist called me and said possible the antral region is having some extravasation with further questionable varices. However after discussion with the surgeon on board who performed the endoscopy the patient has only gastritis and there was no spurting vessel on endoscopy and no varices were obvious. To continue management for the gastritis and monitor hemoglobin Vitals/I&O/Wt Last Vital Signs Temp 97.5 F L 05/07/25 14:00 Pulse 68 05/07/25 16:30 Resp 10 L 05/07/25 16:30 BP 101/56 05/07/25 16:30 Pulse Ox 92 05/07/25 16:30 O2 Del Method Room Air 05/07/25 16:30 05/07/25 05/07/25 05/07/25 06:59 14:59 22:59 Intake Total 1997.5 / 6161.25 600 / 600 Output Total 400 / 1300 Balance 1597.5 / 4861.25 600 / 600 Weight last 48 hrs Weight 106.458 kg Weight 102.71 kg Weight 94.347 kg Weight 91.626 kg Physical Exam 2 Narrative: General: Morbidly obese lady alert and oriented, sitting with some discomfort due to retrosternal burning however able to complete full sentences. HEENT: Normocephalic, atraumatic, grossly unremarkable exam Cardio: normal rate rhythm, normal S1-S2 without any murmurs, rubs, or gallops and JVD normal Respiratory: normal vascular breathing on auscultation without any wheezes, stridor, rhonchi GI: Abdomen soft, mildly tender at the epigastric region,, nondistended, normoactive bowel sounds present all 4 quadrants, Neuro: intact cranial nerves motor and sensory and cerebellar/coordination function without any focal neurological deficit Behavior: Appropriate and cooperative Extremities: Adequate palpable pulses, mild trace edema Skin: Pallor positive Data 05/07/25 12:52 05/07/25 04:46 Micro: Microbiology 05/05/25 17:50 Urine Culture - Preliminary Urine,Clean Catch 05/05/25 18:02 Blood Culture - Preliminary Blood NEGATIVE TO DATE 05/05/25 18:00 Blood Culture - Preliminary Blood NEGATIVE TO DATE A&P Assessment and plan 1. Acute upper gastrointestinal bleeding: Endoscopy showed antral gastritis,. Patient to receive PRBC for hemoglobin less than 7 Shift to ICU since the patient drop her hemoglobin less than 6, CT angio of abdomen and pelvis done with high risk concerns and the patient has JUAN and can have acute kidney injury and failure to contrast allergy and further complications by the contrast explained thoroughly and patient agreed to proceed with it with a high risk consent. Premedicated with steroid and diphenhydramine to avoid any allergic reaction during the contrast study. Continue PPI twice daily Hold any NSAIDs or blood thinners, patient on aspirin and to be held as the patient endoscopy suggestive of gastritis Continue Carafate scheduled doses Maalox scheduled doses Hold any antihypertensives Maintain 2 IV bore cannula Antiemetics for nausea and vomiting. Of note patient had some reaction with blood transfusion and that was helpful later on she completed the transfusion. She received Benadryl for the reaction which was mild without any anaphylaxis or hypotension. Maintain MAP Intake and output monitoring Monitor hemodynamics 2. Type 2 diabetes mellitus with hyperglycemia, with long-term current use of insulin: Continue Lantus 30 units nightly. Continue insulin sliding scale with moderate dose Monitor glucose, Maintain euglycemia and hypoglycemia protocol to be kept active 3. JUAN (acute kidney injury): Patient with dehydration likely related prerenal Monitor kidney functions currently improving Monitor and correct electrolytes Intake and output monitoring 4. Noncompliance w/medication treatment due to intermit use of medication: Patient was not using her long-acting insulin daily or twice a day she is just using her short acting insulin and her blood sugars have been running high on her glucometer. Emphasis on adequate diabetes control has been provided 5. History of below-knee amputation of right lower extremity: Secondary to uncontrolled diabetes, patient education has been provided for adequate diabetes Continue to monitor 6. Yeast UTI: Urine shows greater than 100 white cells but she is asymptomatic. Blood sugars meu-ke-evphjte with 3+ glucose urea. Yeast is 2+. Patient is asymptomatic and yeast in the urine can be observed, no indication to treat at the moment Monitor patient hemodynamics PDMP PDMP Reviewed: Not Reviewed Attestations 2 Medical Necessity Statement*: Patient will stay more than 2 midnights for the management of her upper GI bleed from antral gastritis requiring blood transfusion and ICU management Time Spent in Patient Care: Greater than 35 minutes (>than 50% of time spent in counselling and/or direct pt care on unit) . Critical Care Time: The high probability of a clinically significant, sudden or life threatening deterioration, as referenced in this documentation, required my full and direct attention, intervention and personal management. The critical care time shown is in addition to time spent performing any reported separately billable procedures and includes the following: [x] Data and vital sign review and interpretation [x ] Patient assessment, examination and intervention [x] Medication orders and management [x] Patient/Family updates as able [x] Care Coordination and Documentation. Critical Care Time (min): 36 Other Attestations: Patient condition has been discussed at length with the patient/family, I have independently reviewed the chart labs imaging/diagnostics/EKG. the goals of care and code status with the patient/family/NOK/legal procurement representative, and documented accordingly. I have reconciled the medications after confirmation/comorbidities/current clinical condition. The management has been done according to the current clinical condition with respect to patient goals of care and based on recommendations/guidelines. The patient/family has been informed about the current condition and further plan of care. Agreed with the plan of care and understood without any language barrier. 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 Any obvious errors or omissions should be clarified with the author of the document. Coding Level of Care Code Critical Care >/= 30 minutes Diagnoses Acute upper gastrointestinal bleeding K92.2 Type 2 diabetes mellitus with hyperglycemia, with long-term current use of insulin E11.65; Z79.4 Diabetes mellitus type: type 2 JUAN (acute kidney injury) N17.9 Noncompliance w/medication treatment due to intermit use of medication Z91.148 History of below-knee amputation of right lower extremity Z89.511 Yeast UTI B37.49
[2025-05-07] MEDS: octreotide 500 MCG in sodium chloride 0.9% (100 ml) 100 ML 10.1 MCG IV (18:33)
[2025-05-07] MEDS: cefTRIAXone 1,000 mg SDV 1000 MG IVP (18:33)
[2025-05-07] MEDS: ferric gluconate 125 MG in sodium chloride 0.9% (100 ml) 100 ML 220 MG IV (20:57)
[2025-05-07] MEDS: insulin glargine 100 units/1 mL 30 UNIT SUBCUT (20:57)
[2025-05-08] VITALS (37 sets, daily range): BP systolic 92–136; BP diastolic 55–78; PULSE 68–85; RESP 0–22; TEMP 36.4–36.7; O2SAT 88–97
[2025-05-08 01:39] LABS: Hematocrit 33.9 % (36-47); Hemoglobin 10.90 g/dL (11.27-16.99); Mean Corpuscular HGB Conc 32.2 g/dL (30-55); Mean Corpuscular Hemoglobin 29.9 pg (27-33); Mean Corpuscular Volume 93.1 fl (85-98); Nucleated Red Blood Cells % 0.6 %; Platelet Count 135 10^3/cmm (157-399); Red Blood Count 3.64 10^6/uL (3.85-5.65); White Blood Count 9.04 10^3/uL (3.29-11.43)
[2025-05-08 04:18] LABS: Hematocrit 33.6 % (36-47); Hemoglobin 10.90 g/dL (11.27-16.99); Mean Corpuscular HGB Conc 32.4 g/dL (30-55); Mean Corpuscular Hemoglobin 30.4 pg (27-33); Mean Corpuscular Volume 93.9 fl (85-98); Nucleated Red Blood Cells % 0.6 %; Platelet Count 127 10^3/cmm (157-399); Red Blood Count 3.58 10^6/uL (3.85-5.65); White Blood Count 9.24 10^3/uL (3.29-11.43)
[2025-05-08 04:32] LABS: Alanine Aminotransferase 66 U/L (0-33); Albumin Level 3.0 g/dL (3.5-5.2); Alkaline Phosphatase 173 U/L (35-105); Anion Gap 12.7 (5-19); Aspartate Amino Transferase 66 U/L (0-32); Blood Urea Nitrogen 23 mg/dL (6-20); Calcium 8.4 mg/dL (8.5-10.5); Carbon Dioxide 22 mmol/L (22-29); Chloride 107 mmol/L (98-107); Globulin 2.7 g/dL (1.3-4.6); Glucose 252 mg/dL (65-115); Osmolality Calculated 296 mOsm/kg (285-295); Potassium 4.7 mmol/L (3.5-5.1); Sodium 137 mmol/L (136-145); Total Protein 5.7 g/dL (6.6-8.7)
[2025-05-08] MEDS: alum-mag-hydroxide-sime 30 mL UDC PO ×5 (04:48→18:52)
[2025-05-08] MEDS: ondansetron 2 mg/ML SDV 2 mL 4 MG IVP ×2 (04:57→14:48)
[2025-05-08] MEDS: octreotide 500 MCG in sodium chloride 0.9% (100 ml) 100 ML 10.1 MCG IV ×3 (05:01→23:20)
--- NOTE | 2025-05-08 08:42 | PC.NURSE ---
NUrse entered room for morning rounds. Attempted to introduce himself and explain plan of care, but patient got angry with staff. Telling them that she already knows what she is here for and doesn't need to hear about it again, and told nurse im going to get the hell out of here today since you guys aren't doing anything for me . Nurse again attempted to explain the treatment plan and what we have been doing for her, but she again told nurse I don't need to hear it and started talking over the nurse. Patient was mad that the nurse turned the TV down to initially explain plan of care. But when nurse turned it back on per her request, she was mad that the TV has been on for too long. Patient refuses all continuous monitoring, but allows spot checks of heart rate and SPO2. Refuses Blood pressure check. But based on other vitals, strong peripheral pulses, and general impression, nurse does not suspect she would be hypotensive. Patient has been making frequent threats to pull her IV out but has yet to act on that. WHen nurse attempts to explain purpose of IV and therapies it enables, she again tells the nurse that she doesn't need to her it and states she can do a better job of taking care of herself at home.
--- NOTE | 2025-05-08 10:01 | PC.NURSE ---
Patient gets up to a bedside commode with minimal assistance. Nurse attempted to provide commercial art instructor socks, but patient refuses them.
--- NOTE | 2025-05-08 10:21 | PC.NURSE ---
visitor agitation: While rounding with Dr smart, the patient's daughter barged into the room and started yelling at staff. upset that no one called her overnight. SHe states she has been trying to call, but this nurse is unaware of any phone call attempts. Dr smart spoke with the daughter and she had calmed down, though nurse was considering having her escorted out by security when she initially showed.
[2025-05-08] MEDS: pantoprazole 40 mg SDV IVP ×2 (10:33→22:12)
--- NOTE | 2025-05-08 13:01 | PC.NURSE ---
TRANSFERRED TO [facility]. REPORT GIVEN TO JOSE. Accompanied by daughter.
--- NOTE | 2025-05-08 13:16 | P.PN_ITS ---
Subjective 2 Subjective: No acute events overnight Vitals/I&O/Wt Last Vital Signs Temp 97.7 F 05/08/25 12:00 Pulse 80 05/08/25 12:00 Resp 22 H 05/08/25 07:30 BP 124/69 05/08/25 12:00 Pulse Ox 93 05/08/25 12:00 O2 Del Method Room Air 05/08/25 12:00 05/07/25 05/08/25 05/08/25 22:59 06:59 14:59 Intake Total 360 / 1959 571 / 2531 1306.707 / 1306.707 Output Total 400 / 400 Balance 360 / 1959 571 / 2531 906.707 / 906.707 Weight last 48 hrs Weight 227 lb 1.218 oz Weight 234 lb 11.2 oz Physical Exam 2 Narrative: Chest: Unlabored breathing room air. No lymphadenopathy. Heart: Regular rate and rhythm. Abdomen: Soft, nontender, nondistended. No masses or lymphadenopathy. Data 05/10/25 05:52 05/10/25 05:52 Micro: Microbiology 05/05/25 17:50 Urine Culture - Final Urine,Clean Catch A&P Assessment and plan 1. Anemia: Plan: 59-year-old female whom surgery was consulted for melena. Negative EGD. Recommend Protonix daily for at least 6 months. Rest of care per hospitalist. PDMP PDMP Reviewed: Not Reviewed Attestations 2 Medical Necessity Statement*: N/A Coding Level of Care Code 83255 Diagnoses Anemia D64.9
[2025-05-08] MEDS: ferric gluconate 125 MG in sodium chloride 0.9% (100 ml) 100 ML 220 MG IV (17:00)
[2025-05-08] MEDS: cefTRIAXone 1,000 mg SDV 1000 MG IVP (17:00)
--- NOTE | 2025-05-08 19:17 | P.PN_ITS ---
Subjective 2 Subjective: The patient was seen in the morning, she was upset since she was unable to sleep overnight. And she wanted to smoke very badly. She has been provided nicotine patch and lozenges but it is not working. The patient was asking to leave AMA. The patient daughter came and was upset also since nobody has called as she was awake yesterday. However after explaining all the situation to the daughter and the patient that sometimes is a busy situation and sick patients therefore apologetic really I calm her down and reassured that her current treatment is helping her and she is improving overall., I also informed her current clinical condition with all the risk and benefit and complications and current improvement, the daughter and the patient understands and agree with the plan of care without any language barrier. Patient to be transferred to [facility] as the patient felt more comfortable there and also her vitals are stable in the past 24 hours with no obvious source of bleeding. Vitals/I&O/Wt Last Vital Signs Temp 98.0 F 05/08/25 16:12 Pulse 70 05/08/25 16:12 Resp 16 05/08/25 16:12 BP 92/58 05/08/25 16:12 Pulse Ox 93 05/08/25 16:12 O2 Del Method Room Air 05/08/25 16:12 05/08/25 05/08/25 05/08/25 06:59 14:59 22:59 Intake Total 571 / 2531 1306.707 / 1306.707 Output Total 400 / 400 Balance 571 / 2531 906.707 / 906.707 Weight last 48 hrs Weight 103 kg Weight 106.458 kg Physical Exam 2 Narrative: General: Morbidly obese lady alert and oriented, sitting with some discomfort due to retrosternal burning however able to complete full sentences. HEENT: Normocephalic, atraumatic, grossly unremarkable exam Cardio: normal rate rhythm, normal S1-S2 without any murmurs, rubs, or gallops and JVD normal Respiratory: normal vascular breathing on auscultation without any wheezes, stridor, rhonchi GI: Abdomen soft, mildly tender at the epigastric region,, nondistended, normoactive bowel sounds present all 4 quadrants, Neuro: intact cranial nerves motor and sensory and cerebellar/coordination function without any focal neurological deficit Behavior: Appropriate and cooperative Extremities: Adequate palpable pulses, mild trace edema Skin: Pallor positive Data 05/08/25 04:00 05/08/25 04:00 Micro: Microbiology 05/05/25 17:50 Urine Culture - Final Urine,Clean Catch A&P Assessment and plan 1. Acute upper gastrointestinal bleeding: Endoscopy showed antral gastritis,. Patient to receive PRBC for hemoglobin less than 7 Patient currently stable to shift to [facility] out of ICU CT angio abdomen and pelvis with high risk consent was done and premedicated to avoid contrast allergy, at was called by the radiologist informing that the patient has possible extravasation at the antral region and hepatic cirrhosis and there could be a possibility of gastric varices. I discussed further with the surgeon who mentioned that there was no extravasation and there was antral gastritis that needs medical management Considering hepatic cirrhosis, to start patient prophylactically on ceftriaxone and octreotide for 72 hours. Gastroenterology referral at the time of discharge along with surgery to follow- up as well. Continue PPI twice daily Hold any NSAIDs or blood thinners, patient on aspirin and to be held as the patient endoscopy suggestive of gastritis Continue Carafate scheduled doses Maalox scheduled doses Hold any antihypertensives Maintain 2 IV bore cannula Antiemetics for nausea and vomiting. Of note patient had some reaction with blood transfusion and that was helpful later on she completed the transfusion. She received Benadryl for the reaction which was mild without any anaphylaxis or hypotension. Maintain MAP Intake and output monitoring Monitor hemodynamics 2. Type 2 diabetes mellitus with hyperglycemia, with long-term current use of insulin: Continue Lantus 30 units nightly. Continue insulin sliding scale with moderate dose Monitor glucose, Maintain euglycemia and hypoglycemia protocol to be kept active 3. JUAN (acute kidney injury): Patient with dehydration likely related prerenal Monitor kidney functions currently improving Monitor and correct electrolytes Intake and output monitoring 4. Noncompliance w/medication treatment due to intermit use of medication: Patient was not using her long-acting insulin daily or twice a day she is just using her short acting insulin and her blood sugars have been running high on her glucometer. Emphasis on adequate diabetes control has been provided 5. History of below-knee amputation of right lower extremity: Secondary to uncontrolled diabetes, patient education has been provided for adequate diabetes Continue to monitor 6. Yeast UTI: Urine shows greater than 100 white cells but she is asymptomatic. Blood sugars [id number] with 3+ glucose urea. Yeast is 2+. Patient is asymptomatic and yeast in the urine can be observed, no indication to treat at the moment Monitor patient hemodynamics 7. Nicotine addiction: Nicotine patch and lozenges Emphasis on smoking cessation has been provided PCP follow-up 8. Hepatic cirrhosis: Acute hepatitis workup follow-up Gastroenterology referral at the time of discharge PDMP PDMP Reviewed: Not Reviewed Attestations 2 Medical Necessity Statement*: Patient will stay over weekend since she had antral gastritis and possibility of varices secondary to hepatic cirrhosis which was documented on CT angio. The patient will require IV medication for 2 to 3 days and for discharge after clinical assessment and establishing stability Time Spent in Patient Care: Greater than 35 minutes (>than 50% of time spent in counselling and/or direct pt care on unit) . Critical Care Time: The high probability of a clinically significant, sudden or life threatening deterioration, as referenced in this documentation, required my full and direct attention, intervention and personal management. The critical care time shown is in addition to time spent performing any reported separately billable procedures and includes the following: [x] Data and vital sign review and interpretation [x ] Patient assessment, examination and intervention [x] Medication orders and management [x] Patient/Family updates as able [x] Care Coordination and Documentation. Critical Care Time (min): 35 Coding Level of Care Code Critical Care >/= 30 minutes Diagnoses Acute upper gastrointestinal bleeding K92.2 Type 2 diabetes mellitus with hyperglycemia, with long-term current use of insulin E11.65; Z79.4 Diabetes mellitus type: type 2 JUAN (acute kidney injury) N17.9 Noncompliance w/medication treatment due to intermit use of medication Z91.148 History of below-knee amputation of right lower extremity Z89.511 Yeast UTI B37.49 Nicotine addiction F17.200 Hepatic cirrhosis K74.60
[2025-05-08] MEDS: diphenhydrAMINE 50 mg/mL SDV 1mL 25 MG IVP (22:16)
[2025-05-08] MEDS: insulin glargine 100 units/1 mL 30 UNIT SUBCUT (22:17)
[2025-05-08] MEDS: blistex lip oint 7 gm Tube 1 APPLIC TOPICAL (22:17)
[2025-05-09] VITALS: BP 126/68; PULSE 85; RESP 18; TEMP 36.4; O2SAT 92
[2025-05-09] MEDS: alum-mag-hydroxide-sime 30 mL UDC PO ×7 (00:11→22:21)
[2025-05-09 01:56] LABS: Hepatitis A Antibody IgM Non-Reactive (Nonreactive); Hepatitis B Surface Antigen Non-Reactive (Nonreactive)
[2025-05-09 04:00] VITALS: BP 108/69; PULSE 78; RESP 18; TEMP 36.5; O2SAT 90
[2025-05-09 05:00] LABS: Hematocrit 33.6 % (36-47); Hemoglobin 10.60 g/dL (11.27-16.99); Mean Corpuscular HGB Conc 31.5 g/dL (30-55); Mean Corpuscular Hemoglobin 30.0 pg (27-33); Mean Corpuscular Volume 95.2 fl (85-98); Nucleated Red Blood Cells % 0.3 %; Platelet Count 169 10^3/cmm (157-399); Red Blood Count 3.53 10^6/uL (3.85-5.65); White Blood Count 8.68 10^3/uL (3.29-11.43)
[2025-05-09 05:28] LABS: Alanine Aminotransferase 77 U/L (0-33); Albumin Level 2.8 g/dL (3.5-5.2); Alkaline Phosphatase 164 U/L (35-105); Anion Gap 10.3 (5-19); Aspartate Amino Transferase 94 U/L (0-32); Blood Urea Nitrogen 16 mg/dL (6-20); Calcium 8.4 mg/dL (8.5-10.5); Carbon Dioxide 25 mmol/L (22-29); Chloride 110 mmol/L (98-107); Globulin 2.5 g/dL (1.3-4.6); Glucose 117 mg/dL (65-115); Osmolality Calculated 294 mOsm/kg (285-295); Potassium 4.3 mmol/L (3.5-5.1); Sodium 141 mmol/L (136-145); Total Protein 5.3 g/dL (6.6-8.7)
--- NOTE | 2025-05-09 06:51 | PC.NURSE ---
BS 120 -- given 1 c apple juice at bedside- pt wants to sleep. breakfasth will be here soon.
[2025-05-09 07:16] VITALS: BP 98/66; PULSE 78; RESP 15; TEMP 36.7; O2SAT 90
--- NOTE | 2025-05-09 09:40 | P.PN_ITS ---
Subjective 2 Subjective: No acute events overnight Vitals/I&O/Wt Last Vital Signs Temp 98.0 F 05/09/25 07:16 Pulse 78 05/09/25 07:16 Resp 15 05/09/25 07:16 BP 98/66 05/09/25 07:16 Pulse Ox 90 05/09/25 07:16 O2 Del Method Room Air 05/09/25 07:16 05/08/25 05/09/25 05/09/25 22:59 06:59 14:59 Intake Total 110 / 1416.707 86.86 / 1503.567 Balance 110 / 1016.707 86.86 / 1103.567 Weight last 48 hrs Weight 227 lb 11.8 oz Weight 227 lb 1.218 oz Physical Exam 2 Narrative: Chest: Unlabored breathing room air. No lymphadenopathy. Heart: Regular rate and rhythm. Abdomen: Soft, nontender, nondistended. No masses or lymphadenopathy. Data 05/10/25 05:52 05/10/25 05:52 Micro: Microbiology 05/05/25 17:50 Urine Culture - Final Urine,Clean Catch A&P Assessment and plan 1. Macrocytic anemia: Plan: 59-year-old female whom surgery was consulted for melena. Negative EGD. Recommend Protonix. Rest of care per hospitalist. PDMP PDMP Reviewed: Not Reviewed Attestations 2 Medical Necessity Statement*: N/A Coding Level of Care Code 82257 Diagnoses Macrocytic anemia D53.9
[2025-05-09 11:04] VITALS: BP 113/67; PULSE 83; RESP 15; TEMP 36.9; O2SAT 90
[2025-05-09] MEDS: pantoprazole 40 mg SDV IVP (11:07)
--- NOTE | 2025-05-09 12:47 | USR_ITS ---
PROCEDURE INFORMATION: Exam: US Abdomen, Limited; Right Upper Quadrant Exam date and time: 05/09/2025 1:13 PM Age: 59 years old Clinical indication: Other: Transaminitis; Prior surgery; Surgery date: 6+ months; Surgery type: Wendy TECHNIQUE: Imaging protocol: Real time ultrasound of the abdomen with image documentation. Limited exam focused on the right upper quadrant. COMPARISON: US abdomen limited [id number] 10/12/2019 8:55 AM FINDINGS: Liver: The liver measures 17.2 cm in length. There is a lobulated contour of the liver with heterogeneous echogenicity compatible with cirrhosis. No discrete liver mass. Gallbladder: There has been a cholecystectomy. The gallbladder fossa is unremarkable. Biliary ducts: Common bile duct measures 1.5 cm. Pancreas: Visualized pancreas is unremarkable. Right kidney: Right kidney measures 9.3 cm in length. There is no evidence of hydronephrosis. Portal venous: Main portal vein measures 0.9 cm. Main portal vein is patent. Other findings: No ascites. US/US liver [id number] IMPRESSION: No acute abnormality. Advanced cirrhotic liver morphology. Postoperative cholecystectomy. Bile measurement upper limits of normal for a postoperative patient.
[2025-05-09 16:19] VITALS: BP 107/53; PULSE 73; RESP 18; TEMP 36.8; O2SAT 94
--- NOTE | 2025-05-09 16:50 | P.PN_ITS ---
Subjective 2 Subjective: Patient was seen in the morning, was stable and feeling much better. Able to tolerate diet Abdominal pain improved, no further episodes of melena or bleeding Hemoglobin stable Vitals/I&O/Wt Last Vital Signs Temp 98.2 F 05/09/25 16:19 Pulse 73 05/09/25 16:19 Resp 18 05/09/25 16:19 BP 107/53 05/09/25 16:19 Pulse Ox 94 05/09/25 16:19 O2 Del Method Room Air 05/09/25 16:19 05/09/25 05/09/25 05/09/25 06:59 14:59 22:59 Intake Total 1086.86 / 2503.567 112.25 / 112.25 Balance 1086.86 / 2103.567 112.25 / 112.25 Weight last 48 hrs Weight 103.3 kg Weight 103 kg Physical Exam 2 Narrative: General: Morbidly obese lady alert and oriented, not in distress able to complete full sentences HEENT: Normocephalic, atraumatic, grossly unremarkable exam Cardio: normal rate rhythm, normal S1-S2 without any murmurs, rubs, or gallops and JVD normal Respiratory: normal vascular breathing on auscultation without any wheezes, stridor, rhonchi GI: Abdomen soft, nontender, nondistended, normoactive bowel sounds present all 4 quadrants, Neuro: intact cranial nerves motor and sensory and cerebellar/coordination function without any focal neurological deficit Behavior: Appropriate and cooperative Extremities: Adequate palpable pulses, mild trace edema Skin: Pallor positive Data 05/09/25 04:38 05/09/25 04:38 Micro: Microbiology 05/05/25 17:50 Urine Culture - Final Urine,Clean Catch A&P Assessment and plan 1. Acute upper gastrointestinal bleeding: Anemia status post blood transfusions, endoscopy showed antral gastritis PPI twice daily and Carafate Maintain 2 IV bore cannula and hold any antihypertensive medications Antiemetics for nausea and vomiting Keep active type and screen to keep the hemoglobin above 7 Hold any NSAIDs or blood thinners as of now and if hemoglobin stable tomorrow to resume patient home dose aspirin Radiology and surgery discussion: CT angio abdomen and pelvis with high risk consent was done and premedicated to avoid contrast allergy, at was called by the radiologist informing that the patient has possible extravasation at the antral region and hepatic cirrhosis and there could be a possibility of gastric varices. I discussed further with the surgeon who mentioned that there was no extravasation and there was antral gastritis that needs medical management Considering hepatic cirrhosis, started patient prophylactically on ceftriaxone and initiated on octreotide considering the patient has ongoing bleeding. There was no variceal bleeding on endoscopy therefore octreotide was stopped. Patient had mild increase in liver enzymes and switch ceftriaxone to ciprofloxacin Gastroenterology referral at the time of discharge along with surgery to follow- up as well. Of note patient had some reaction with blood transfusion and that was helpful later on she completed the transfusion. She received Benadryl for the reaction which was mild without any anaphylaxis or hypotension. Maintain MAP Intake and output monitoring Monitor hemodynamics 2. Type 2 diabetes mellitus with hyperglycemia, with long-term current use of insulin: Continue Lantus 30 units nightly. Continue insulin sliding scale with moderate dose Monitor glucose, Maintain euglycemia and hypoglycemia protocol to be kept active 3. Hepatic cirrhosis: Acute hepatitis workup was unremarkable for hepatitis B or C infection. No variceal bleeding on endoscopy. Patient having mild liver enzymes, ceftriaxone changed to ciprofloxacin Gastroenterology referral at the time of discharge 4. JUAN (acute kidney injury): Patient with dehydration likely related prerenal Monitor kidney functions currently improving and now at baseline Monitor and correct electrolytes Intake and output monitoring 5. Noncompliance w/medication treatment due to intermit use of medication: Patient was not using her long-acting insulin daily or twice a day she is just using her short acting insulin and her blood sugars have been running high on her glucometer. Emphasis on adequate diabetes control has been provided 6. History of below-knee amputation of right lower extremity: Secondary to uncontrolled diabetes, patient education has been provided for adequate diabetes Continue to monitor 7. Yeast UTI: Urine shows greater than 100 white cells but she is asymptomatic. Blood sugars [id number] with 3+ glucose urea. Yeast is 2+. Patient is asymptomatic and yeast in the urine can be observed, no indication to treat at the moment Monitor patient hemodynamics 8. Nicotine addiction: Nicotine patch and lozenges Emphasis on smoking cessation has been provided PCP follow-up PDMP PDMP Reviewed: Not Reviewed Attestations 2 Medical Necessity Statement*: Patient will stay overnight for monitoring of liver enzymes and stability and possible discharge tomorrow after clinical assessment and establishing stability Time Spent in Patient Care: 16 - 35 minutes (>than 50% of time sp ent in counselling and/or direct pt care on unit) . Other Attestations: Patient condition has been discussed at length with the patient/family, I have independently reviewed the chart labs imaging/diagnostics/EKG. the goals of care and code status with the patient/family/NOK/legal independent sales representative, and documented accordingly. I have reconciled the medications after confirmation/comorbidities/current clinical condition. The management has been done according to the current clinical condition with respect to patient goals of care and based on recommendations/guidelines. The patient/family has been informed about the current condition and further plan of care. Agreed with the plan of care and understood without any language barrier. Every effort was made to ensure accuracy of technical internship. Any obvious errors or omissions should be clarified with the author of the document. Coding Level of Care Code 73778 Diagnoses Acute upper gastrointestinal bleeding K92.2 Type 2 diabetes mellitus with hyperglycemia, with long-term current use of insulin E11.65; Z79.4 Diabetes mellitus type: type 2 Hepatic cirrhosis K74.60 JUAN (acute kidney injury) N17.9 Noncompliance w/medication treatment due to intermit use of medication Z91.148 History of below-knee amputation of right lower extremity Z89.511 Yeast UTI B37.49 Nicotine addiction F17.200
[2025-05-09 20:00] VITALS: BP 136/80; PULSE 76; RESP 18; TEMP 36.8; O2SAT 96
[2025-05-09] MEDS: insulin glargine 100 units/1 mL 30 UNIT SUBCUT (22:21)
[2025-05-10] VITALS: BP 126/76; PULSE 92; RESP 19; TEMP 36.8; O2SAT 93
[2025-05-10] MEDS: alum-mag-hydroxide-sime 30 mL UDC PO ×3 (03:33→12:12)
[2025-05-10 04:00] VITALS: BP 113/72; PULSE 86; RESP 20; TEMP 36.8; O2SAT 96
[2025-05-10 06:02] LABS: Hematocrit 33.2 % (36-47); Hemoglobin 10.70 g/dL (11.27-16.99); Mean Corpuscular HGB Conc 32.2 g/dL (30-55); Mean Corpuscular Hemoglobin 30.5 pg (27-33); Mean Corpuscular Volume 94.6 fl (85-98); Nucleated Red Blood Cells % 0 %; Platelet Count 123 10^3/cmm (157-399); Red Blood Count 3.51 10^6/uL (3.85-5.65); White Blood Count 6.44 10^3/uL (3.29-11.43)
[2025-05-10 06:24] LABS: Alanine Aminotransferase 59 U/L (0-33); Albumin Level 2.8 g/dL (3.5-5.2); Alkaline Phosphatase 165 U/L (35-105); Anion Gap 7.0 (5-19); Aspartate Amino Transferase 54 U/L (0-32); Blood Urea Nitrogen 11 mg/dL (6-20); Calcium 8.3 mg/dL (8.5-10.5); Carbon Dioxide 30 mmol/L (22-29); Chloride 106 mmol/L (98-107); Globulin 2.6 g/dL (1.3-4.6); Glucose 185 mg/dL (65-115); Osmolality Calculated 292 mOsm/kg (285-295); Potassium 4.0 mmol/L (3.5-5.1); Sodium 139 mmol/L (136-145); Total Protein 5.4 g/dL (6.6-8.7)
[2025-05-10 07:39] VITALS: BP 134/66; PULSE 89; RESP 16; TEMP 36.8; O2SAT 96
[2025-05-10 11:21] VITALS: BP 122/72; PULSE 83; RESP 17; TEMP 36.7; O2SAT 95
--- NOTE | 2025-05-10 11:22 | P.PN_ITS ---
Subjective 2 Subjective: No acute events overnight No hematochezia or melena Vitals/I&O/Wt Last Vital Signs Temp 98.1 F 05/10/25 11:21 Pulse 83 05/10/25 11:21 Resp 17 05/10/25 11:21 BP 122/72 05/10/25 11:21 Pulse Ox 95 05/10/25 11:21 O2 Del Method Room Air 05/10/25 11:21 05/09/25 05/10/25 05/10/25 22:59 06:59 14:59 Intake Total 120 / 120 Balance 120 / 120 Weight last 48 hrs Weight 225 lb 15.581 oz Weight 227 lb 11.8 oz Physical Exam 2 Narrative: Chest: Unlabored breathing room air. No lymphadenopathy. Heart: Regular rate and rhythm. Abdomen: Soft, nontender, nondistended. No masses or lymphadenopathy. Data 05/10/25 05:52 05/10/25 05:52 A&P Assessment and plan 1. Anemia: Plan: 59-year-old female whom surgery was consulted to rule out GI bleed. No evidence of GI bleed. Rest of care per hospitalist. PDMP PDMP Reviewed: Not Reviewed Attestations 2 Medical Necessity Statement*: N/A Coding Level of Care Code 09135 Diagnoses Anemia D64.9
--- NOTE | 2025-05-10 20:09 | P.DS_ITS ---
Discharge Providers Date of Admission: 05/05/25 19:32 Date of Discharge: May 10, 2025 Attending Provider at Admission: Dino De La Cruz MD Attending Provider at Discharge: Mimi Adame MD Primary Care Provider: MIKE Mckeon Diagnoses at Discharge Discharge Diagnosis 1. Macrocytic anemia: Reason for Visit Reason for Visit: low bs Brief History: As of the previous retrospective note review and the admitting note: Jennifer Whitman is a 59 year old female comes in with clammy sweats last night feels warm but no measured fever. She has had nausea vomiting into a trash can but did not look at her vomit. She has had habits of alternating diarrhea and constipation but recently had some black stools for the last 2 to 3 days. She states her last vomiting was day before yesterday and last BM was yesterday and was black. Patient reports history of fatty liver and was scheduled to have an MRI but insurance would not cover it. She has never been an alcoholic. Her last alcoholic beverage was 2 years ago. She has known diabetes poorly controlled with A1c of 12.3 in March 10, 2025. She had right lower extremity BKA in 2019. Patient is accompanied by her daughter Mira. Patient is a poor historian and really helps to direct her. Hospital Course Hospital Course Patient admitted as a case of upper GI bleed, requiring surgery on board and underwent endoscopy. The patient refused colonoscopy. During her hospital stay her CBC was monitored. And at some point the CBC showed significant drop that required another transfusion. Considering patient drop in hemoglobin CT angio was done with high risk consent since the patient also had JUAN secondary to dehydration. The patient agreed after thorough counseling of the risk and benefits of doing CT angio and to rule out any contrast extravasation for possible arterial versus other vascular bleed. Radiologist called that there is possible enteral extravasation and versus. There was also hepatic cirrhosis. Patient was status post endoscopy and discussed this radiological finding with the surgeon performing the endoscopy. He further explained that they did not find any variceal bleeding or active extravasation on endoscopy. However the patient does have antral gastritis with chronic ulcer that could be the reason. The patient did not have any overt bleeding episodes during her stay in the hospital. She was started on PPI twice daily and was given medical management with Carafate and Maalox. She also received octreotide and ceftriaxone initially considering she might have variceal bleed secondary to hepatic cirrhosis but never worked up before. She was also thoroughly counseled about her smoking cessation and was given alternatives with nicotine patches and lozenges. She was also kept during her hospital stay when she dropped her hemoglobin in ICU for monitoring. And then later on downgraded to floors. She was discharged on ciprofloxacin considering she might have variceal bleeding versus gastritis for 7 days. Initially she was kept on ceftriaxone as inpatient but when her liver enzymes increased it was held and changed to ciprofloxacin as an alternative and her liver enzymes started to improve. Acute hepatitis workup was also sent. There was also history of noncompliance to medication therefore adequate emphasis on compliance was provided. Her JUAN improved during her hospital stay. Electrolytes were monitored and corrected accordingly. She was provided gastroenterology referral at the time of discharge. Medications were reconciled after confirmation and according to patient comorbidities and appropriate follow-ups and referrals were provided at the time of discharge. Patient condition has been discussed at length with the patient/family, I have independently reviewed the chart labs imaging/diagnostics/EKG. the goals of care and code status with the patient/family/NOK/legal junior sales representative, and documented accordingly. The management has been done according to the current clinical co ndition with respect to patient goals of care and based on recommendations/guidelines. The patient/family has been informed about the current condition and further plan of care. Agreed with the plan of care and understood without any language barrier. Every effort was made to ensure accuracy of automotive window tinter. Any obvious errors or omissions should be clarified with the author of the document. Physical Exam Narrative: General: Morbidly obese lady alert and oriented, not in distress able to complete full sentences HEENT: Normocephalic, atraumatic, grossly unremarkable exam Cardio: normal rate rhythm, normal S1-S2 without any murmurs, rubs, or gallops and JVD normal Respiratory: normal vascular breathing on auscultation without any wheezes, stridor, rhonchi GI: Abdomen soft, nontender, nondistended, normoactive bowel sounds present all 4 quadrants, Neuro: intact cranial nerves motor and sensory and cerebellar/coordination function without any focal neurological deficit Behavior: Appropriate and cooperative Extremities: Adequate palpable pulses, mild trace edema Skin: Pallor positive Discharge Data Studies Completed and Pending Completed Studies During Hospitalization Category Date Time Status CTA abdomen pelvis [CT angio abdomen pelvis 28019] Stat Cat Scan 05/07/25 10:49 [place] liver [id number] Routine Ultrasound 05/09/25 12:47 Completed Radiology Impressions Abdomen/Pelvis CTA 05/07/25 10:49 IMPRESSION: 1. Generalized thickening of the gastric wall, worst in the antral region. This is suspicious for nonspecific gastritis. There is a focus of likely arterial extravasation in the gastric fundus. 2. Significant enlargement of the common bile duct since the prior study, now measuring 20 mm in diameter compared with roughly 10 previously. Question of radiolucent gallstones in the distal common duct. 3. Spinal compression fracture at T12, new since 2019. 4. Hepatic cirrhosis, unchanged from prior. 5. Left ovary demonstrates a 3.4 cm cystic mass with a focal dependent calcification, nonspecific. This was not present on prior study. 6. Body wall anasarca. 7. There is an order for CTA chest however no chest images are received. Report will be amended if these are received. THIS REPORT CONTAINS FINDINGS THAT MAY BE CRITICAL TO PATIENT CARE. The findings were verbally communicated via telephone conference with MIMI ADAME at 1:33 PM SLAG SKIMMER on 05/07/2025. The findings were acknowledged and understood. ADDENDUM: 05/07/25 1406 Note CTA of the chest was not performed and should be canceled. Note the following changes to the vascular findings: Aorta: No aortic aneurysm. No aortic dissection. Moderate infrarenal atherosclerotic calcification. Celiac and mesenteric arteries: No occlusion or significant stenosis. Renal arteries: No occlusion or significant stenosis. Right iliac arteries: Moderate atherosclerosis. Multiple areas of moderate sclerosis in the common iliac artery. Internal and external iliacs are unremarkable. No evidence of occlusion. Left iliac arteries: Moderate atherosclerosis. Internal and external iliac arteries are unremarkable. Multiple areas of moderate sclerosis in the common iliac artery. No evidence of occlusion. Liver Ultrasound 05/09/25 12:47 IMPRESSION: No acute abnormality. Advanced cirrhotic liver morphology. Postoperative cholecystectomy. Bile measurement upper limits of normal for a postoperative patient. Laboratory Results WBC 6.44 10^3/uL (3.29-11.43) 05/10/25 05:52 RBC 3.51 10^6/uL (3.85-5.65) L 05/10/25 05:52 Hgb 10.70 g/dL (11.27-16.99) L 05/10/25 05:52 Hct 33.2 % (36-47) L 05/10/25 05:52 MCV 94.6 fl (85-98) 05/10/25 05:52 MCH 30.5 pg (27-33) 05/10/25 05:52 MCHC 32.2 g/dL (30-55) 05/10/25 05:52 RDW 17.2 % (12.1-15.1) H 05/10/25 05:52 Plt Count 123 10^3/cmm (157-399) L 05/10/25 05:52 MPV 9.5 fL (7.4-10.4) 05/10/25 05:52 Neut % (Auto) 64.5 % 05/10/25 05:52 Lymph % (Auto) 24.1 % 05/10/25 05:52 [place] % (Auto) 8.5 % 05/10/25 05:52 Eos % (Auto) 2.0 % 05/10/25 05:52 Baso % (Auto) 0.3 % 05/10/25 05:52 Neut # (Auto) 4.15 10^3/uL (1.8-7.7) 05/10/25 05:52 Lymph # (Auto) 1.6 10^3/uL (0.8-4.8) 05/10/25 05:52 [place] # (Auto) 0.6 10^3/uL (0.2-0.9) 05/10/25 05:52 Eos # (Auto) 0.1 10^3/uL (0.0-0.8) 05/10/25 05:52 Baso # (Auto) 0.0 10^3/uL (0.0-0.1) 05/10/25 05:52 Nucleated RBC % (auto) 0 % 05/10/25 05:52 Nucleated RBCs # 0.0 /100WBC 05/10/25 05:52 Specimen Type Arterial 05/05/25 18:01 Sample Site Radial, right 05/05/25 18:01 ABG pH 7.41 (7.35-7.45) 05/05/25 18:01 ABG pCO2 38.9 mmHg (35-45) 05/05/25 18:01 ABG pO2 62.7 mmHg (80.0-100.0) L 05/05/25 18:01 ABG PO2/FiO2 Ratio 298 05/05/25 18:01 ABG HCO3 24.8 mmol/L (22-26) 05/05/25 18:01 ABG O2 Saturation 92.8 05/05/25 18:01 ABG Base Excess 0.2 mmol/L (-2.0-2.0) 05/05/25 18:01 Kurt Test Pos 05/05/25 18:01 A-a O2 Gradient 5.0 mmHg (5-10) 05/05/25 18:01 Hematocrit 21.9 % (37-47) L 05/05/25 18:01 Hgb O2 Saturation 88.8 % (95-100) L 05/05/25 18:01 Carboxyhemoglobin 3.1 %THgb (0.4-20.1) 05/05/25 18:01 Methemoglobin 1.3 % (0.4-1.5) 05/05/25 18:01 Total Hemoglobin 7.1 g/dL (12-16) L 05/05/25 18:01 Sodium 129.0 mmol/L (131-143) L 05/05/25 18:01 Potassium 4.3 mmol/L (3.5-5.0) 05/05/25 18:01 Glucose 554.0 mg/dL (70-115) H 05/05/25 18:01 Ionized Calcium 1.2 mmol/L (1.1-1.4) 05/05/25 18:01 O2 Delivery Device Room air 05/05/25 18:01 FiO2 21.0 % 05/05/25 18:01 Fur Finisher ID glc 05/05/25 18:01 Sodium 139 mmol/L (136-145) 05/10/25 05:52 Potassium 4.0 mmol/L (3.5-5.1) 05/10/25 05:52 Chloride 106 mmol/L (98-107) 05/10/25 05:52 Carbon Dioxide 30 mmol/L (22-29) H 05/10/25 05:52 Anion Gap 7.0 (5-19) 05/10/25 05:52 BUN 11 mg/dL (6-20) 05/10/25 05:52 Creatinine 1.0 mg/dL (0.5-0.9) H 05/10/25 05:52 GFR Calculation 56.9 mL/min (90-130) L 05/10/25 05:52 Glucose 185 mg/dL (65-115) H 05/10/25 05:52 POC Glucose 140 mg/dL (70-110) H 05/10/25 10:46 Estimat Average Glucose 375 05/05/25 18:00 Hemoglobin A1c 14.7 % (4.0-6.0) H 05/05/25 18:00 Calculated Osmolality 292 mOsm/kg (285-295) 05/10/25 05:52 Lactic Acid 3.5 mmol/L (0.5-2.2) H 05/05/25 18:00 Lactic Acid (Sepsis) 2.4 mmol/L (0.5-2.2) H 05/05/25 21:52 Calcium 8.3 mg/dL (8.5-10.5) L 05/10/25 05:52 Phosphorus 2.1 mg/dL (2.5-4.5) L 05/07/25 01:10 Magnesium 2.1 mg/dL (1.7-2.3) 05/07/25 01:10 Iron 41 ug/dL (37-145) 05/06/25 04:53 TIBC 192 mcg/dl 05/06/25 04:53 % Saturation 21.3 % (20-50) 05/06/25 04:53 Unsat Iron Binding 151 ug/dL (112-347) 05/06/25 04:53 Ferritin 54 ng/mL (15-150) 05/06/25 04:53 Total Bilirubin 0.5 mg/dL (0.15-1.2) 05/10/25 05:52 AST 54 U/L (0-32) H 05/10/25 05:52 ALT 59 U/L (0-33) H 05/10/25 05:52 Alkaline Phosphatase 165 U/L (35-105) H 05/10/25 05:52 C-Reactive Protein 5.8 mg/L (0.0-4.9) H 05/05/25 18:00 Total Protein 5.4 g/dL (6.6-8.7) L 05/10/25 05:52 Albumin 2.8 g/dL (3.5-5.2) L 05/10/25 05:52 Globulin 2.6 g/dL (1.3-4.6) 05/10/25 05:52 Lipase 33 U/L (13-60) 05/05/25 18:00 Vitamin B12 511 pg/mL (232-1245) 05/06/25 04:53 Folate > 20.0 ng/mL (4.8-37.3) 05/06/25 04:53 Urine Color Yellow (Yellow) 05/05/25 17:50 Urine Appearance Turbid (CLEAR) A 05/05/25 17:50 Urine pH 5.5 (5-7) 05/05/25 17:50 Ur Specific [place] 1.023 (1.005-1.030) 05/05/25 17:50 Urine Protein Trace (Negative) A 05/05/25 17:50 Urine Glucose (UA) 3+ (Normal) H 05/05/25 17:50 Urine Ketones Negative (Negative) 05/05/25 17:50 Urine Blood 1+ (Negative) A 05/05/25 17:50 Urine Nitrate Negative (Negative) 05/05/25 17:50 Urine Bilirubin Negative (Negative) 05/05/25 17:50 Urine Urobilinogen 0.2 mg/dL (Negative) 05/05/25 17:50 Ur Leukocyte Esterase 2+ (Negative) A 05/05/25 17:50 Urine RBC 0-2 /hpf (0-2) 05/05/25 17:50 Urine WBC >100 /hpf (0-5) H 05/05/25 17:50 Ur Squamous Epith Cells 0-5 /hpf (0-5) 05/05/25 17:50 Amorphous Sediment Not Reportable 05/05/25 17:50 Urine Bacteria None seen /hpf (NONE) 05/05/25 17:50 Hyaline Casts 0.40 /lpf 05/05/25 17:50 Urine Yeast 2+ /hpf H 05/05/25 17:50 Serum Ketones Negative (Negative) 05/05/25 18:00 Hepatitis A IgM Ab Non-reactive (Nonreactive) 05/08/25 04:00 Hep Bs Antigen Non-reactive (Nonreactive) 05/08/25 04:00 Hep B Core IgM Ab Non-reactive (Nonreactive) 05/08/25 04:00 Hepatitis C Antibody Non-reactive (Nonreactive) 05/08/25 04:00 Influenza A (PCR) Negative (Negative) 05/05/25 17:50 Influenza Type B (PCR) Negative (Negative) 05/05/25 17:50 RSV (PCR) Negative (Negative) 05/05/25 17:50 SARS-CoV-2 (PCR) Negative (Negative) 05/05/25 17:50 Blood Type O Positive 05/07/25 04:07 Rho(D) Type Rh positive 05/07/25 04:07 Antibody Screen Negative 05/07/25 04:07 Crossmatch See Detail 05/07/25 04:07 Reaction Clerical Check No discrepancy 05/05/25 21:52 Pre-Trans Blood Type Op 05/05/25 21:52 Post-Trans Blood Type O Positive 05/05/25 21:52 Post-Tx Visible Hemolys No hemolysis 05/05/25 21:52 Post-Trans CARRIE Negative 05/05/25 21:52 Vitals Last Vital Signs Temp 98.1 F 05/10/25 11:21 Pulse 83 05/10/25 11:21 Resp 17 05/10/25 11:21 BP 122/72 05/10/25 11:21 Pulse Ox 95 05/10/25 11:21 O2 Del Method Room Air 05/10/25 11:21 Discharge Plan Discharge Patient Disposition: Home Condition: Stable Prescriptions: New ciprofloxacin [Cipro] 500 mg/5 mL suspension,microcapsule recon 500 mg PO Q12H 7 Days Qty: 70 0RF nicotine 21 mg/24 hr Patch 24 Hour 1 patch transdermal DAILY 60 Days Qty: 60 0RF nicotine (polacrilex) 4 mg Lozenge 4 mg mucous membrane Q4H PRN (Reason: Nicotine Cravings) 60 Days Qty: 120 0RF pantoprazole [Protonix] 40 mg tablet,delayed release (DR/EC) 40 mg PO BID 90 Days Qty: 180 0RF Rx Instructions: Patient to continue 40 mg twice daily dose for 6 weeks and to continue later on 40 mg daily loperamide [Imodium A-D] 2 mg capsule 2 mg PO Q6H PRN (Reason: loose stool) Qty: 30 0RF Continued gabapentin 600 mg tablet 1,200 mg PO BID Qty: 120 5RF Lantus U-100 Insulin 100 unit/mL solution 25 unit SUBCUT BID Qty: 10 3RF lisinopril 10 mg tablet 10 mg PO DAILY Qty: 30 5RF metformin 500 mg tablet extended release 24 hr 500 mg PO BID Qty: 60 5RF cetirizine 10 mg Tablet 10 mg PO DAILY PRN (Reason: allergies) Centrum Silver Women 8 mg iron-400 mcg-300 mcg Tablet 1 tab PO DAILY sucralfate [Carafate] 1 gram tablet 1 g PO QID insulin aspart U-100 [Novolog FlexPen U-100 Insulin] 100 unit/mL (3 mL) insulin pen 15 unit SUBCUT .TID+SS Sled Maker OK for DC: Surgery Discharge Order = DC NOW: Discharge Order (Routine); Ordered 05/10/25 Ordered By: Mimi Adame Other Ambulatory Orders: Liver Panel (Routine) Timeframe: 1 Week Facility: [facility] - Location: Lab - Main Lab Ordered By: Mimi Adame Referrals: Erick Gill FNP-C [Primary Care Provider, [facility]] - 7-10 days Referral Note: post discharge follow up for overall health and also liver functions We have notified your physician's clinic of the need for a follow-up appointment to be scheduled. If you have not heard from them within the next 2 business days, please call them directly. Chad Mullen MD [Referring, Gastroenterology] Referral Note: Patient having hepatic cirrhosis, never established care with technical support specialist, postdischarge antral gastritis with suspected gastric varices on CT question for further management of care. Referral sent. Discharge Diet: Advance as tolerated Discharge Activity: Resume usual activity Patient Instructions: Ciprofloxacin (By mouth), Loperamide (By mouth), GI Post Discharge Instructions w/ Anesthesia, Opioid Safety, Patient Portal & Svitlana Instructions Discharge Attestations Time Spent in Discharge Care*: greater than 30 min Specific Discharge Activities: educating patient, educating and/or supporting family/caregiver, discussing with pcp/other providers, discussing with disease case manager rn/social workers/dc planners, documenting/other paperwork and evaluating patient/reviewing data Time Spent in Smoking Cessation: 3 to 10 minutes Status at Discharge: Cognitive status at discharge: cognitively intact , Behavioral status at discharge: cooperative , Functional status at discharge: other assisted ambulation , Overall status at discharge: patient is back to baseline Quality Metrics Clinical Quality Measures [ No reported AMI, CVA or VTE this stay] Coding Level of Care Code 97180 Diagnoses Macrocytic anemia D53.9
== END 2025-05-10 13:35 | disposition home or self-care (01) | DRG 378 ==
LOC: ER 20:31 → MEDSURG 20:33 → ICU 05-07 14:41 → MEDSURG 05-08 12:45
PROVIDERS: Student in an Organized Health Care Education/Training Program; Admitting Provider Internal Medicine; Emergency Provider Emergency Medicine; PCP Nurse Practitioner; Visit Provider Student in an Organized Health Care Education/Training Program
PROC: 0DJ08ZZ Inspection of Upper Intestinal Tract, Via Natural or Artificial Opening Endoscopic (ICD-10-PCS; principal; 2025-05-07 12:00)
DX: K25.4 Chronic or unspecified gastric ulcer with hemorrhage (principal); B37.49 Other urogenital candidiasis; N17.9 Acute kidney failure, unspecified; K29.71 Gastritis, unspecified, with bleeding; F32.A Depression, unspecified; J44.9 Chronic obstructive pulmonary disease, unspecified; E11.65 Type 2 diabetes mellitus with hyperglycemia; D53.9 Nutritional anemia, unspecified; F17.210 Nicotine dependence, cigarettes, uncomplicated; E11.40 Type 2 diabetes mellitus with diabetic neuropathy, unspecified; E78.2 Mixed hyperlipidemia; I15.0 Renovascular hypertension; R00.0 Tachycardia, unspecified; E86.0 Dehydration; E66.01 Morbid (severe) obesity due to excess calories; K74.60 Unspecified cirrhosis of liver; T80.89XA Other complications following infusion, transfusion and therapeutic injection, initial encounter; K21.9 Gastro-esophageal reflux disease without esophagitis; Z79.899 Other long term (current) drug therapy; Z79.4 Long term (current) use of insulin; Z79.84 Long term (current) use of oral hypoglycemic drugs; Z88.5 Allergy status to narcotic agent; Z88.0 Allergy status to penicillin; Z88.8 Allergy status to other drugs, medicaments and biological substances; Z89.511 Acquired absence of right leg below knee; Z90.49 Acquired absence of other specified parts of digestive tract; Z56.0 Unemployment, unspecified; Z91.148 Patient's other noncompliance with medication regimen for other reason; Z68.34 Body mass index [BMI] 34.0-34.9, adult; Z71.6 Tobacco abuse counseling
CPT/HCPCS: 36415; 36416; 36430; 36600; 43235; 74174; 76705; 80048; 80051; 80053; 80074; 80503; 81001; 82009; 82330; 82607; 82728; 82746; 82805; 82962; 83036; 83540; 83550; 83605; 83690; 83735; 84100; 85014; 85018; 85025; 86140; 86850; 86900; 86920; 87040; 87086; 87637; 93005; 96361; 96372; 96374; 96375; 99285; J0692; J0696; J1200; J1756; J1815; J2354; J2405; J2470; J2704; J2916; J2919; J7030; J7040; J9999; P9016; P9040